=== PATIENT | female | born 1960 | race Caucasian/White ===

== ENCOUNTER 2018-09-08 16:11 | Outpatient (REF) | payer MEDICAID, SELFPAY ==
[2018-09-08 20:31] LABS: HCT 36.2 % (36.0-46.0); HGB 12.6 g/dL (12.0-15.5)
[2018-09-08 20:55] LABS: Anion Gap 8.2 mmol/L (3-11); BUN 4 mg/dL (7-18); CO2 28.8 mmol/L (21.0-32.0); CREATININE 1.06 mg/dL (0.55-1.02); Calcium 8.9 mg/dL (8.5-10.1); Chloride 97 mmol/L (98-107); Estimated GFR 53.24 (mL/min/1.73m2); Glucose 92 mg/dL (70-100); Potassium 4.4 mmol/L (3.5-5.1); Sodium 134 mmol/L (136-145)
== END 2018-09-08 16:31 ==
LOC: NCHCN 16:11
PROVIDERS: PCP Family Medicine; Visit Provider Family Medicine
DX: N28.9 Disorder of kidney and ureter, unspecified (principal); D64.9 Anemia, unspecified; E03.9 Hypothyroidism, unspecified
CPT/HCPCS: 80048; 84443; 85014; 85018

== ENCOUNTER 2019-01-26 13:01 | Outpatient (REF) | payer MEDICAID, SELFPAY ==
[2019-01-26 22:06] LABS: ALT 23 U/L (12-78); AST 23 U/L (15-37); Albumin 3.8 g/dL (3.4-5.0); Alkaline Phosphatase 137 U/L (46-116); Anion Gap 12.3 mmol/L (3-11); BUN 19 mg/dL (7-18); Bilirubin, Total 0.3 mg/dL (0.2-1.0); CO2 22.7 mmol/L (21.0-32.0); Calcium 9.4 mg/dL (8.5-10.1); Chloride 95 mmol/L (98-107); Estimated GFR 27.15 (mL/min/1.73m2); Ferritin 836 ng/mL (8-388); GGT 190 U/L (5-55); Glucose 85 mg/dL (70-100); HCT 26.9 % (36.0-46.0); HGB 9.2 g/dL (12.0-15.5); Mean Corp. HGB Concentration 34.2 g/dL (32.0-36.0); Mean Corpuscular Hemoglobin 33.1 pg (27.0-33.0); Mean Corpuscular Volume 96.8 fL (80-95); Mean Platelet Volume 10.5 fL (8.0-11.0); Platelet Count 233 x1000/uL (130-400); Potassium 4.2 mmol/L (3.5-5.1); RBC 2.78 m/cumm (4.00-5.20); RBC Distribution Width 11.3 % (11.7-14.6); Sodium 130 mmol/L (136-145); TSH (W/Ref FT4) 1.37 uIU/mL (0.358-3.74); White Blood Cell Count 5.48 k/cumm (4.4-10.8)
[2019-01-27 10:19] LABS: C-Reactive Protein 1.56 mg/dL (0.0-0.3)
== END 2019-01-26 13:21 ==
LOC: NCHCN 13:01
PROVIDERS: PCP Family Medicine; Visit Provider Family Medicine
DX: D64.9 Anemia, unspecified (principal); M54.2 Cervicalgia; R68.89 Other general symptoms and signs; E03.9 Hypothyroidism, unspecified; I10 Essential (primary) hypertension; C06.9 Malignant neoplasm of mouth, unspecified
CPT/HCPCS: 80053; 85027; 82728; 82977; 84443; 86140

== ENCOUNTER 2019-03-01 00:25 | Outpatient (CLI) | payer MEDICAID, SELFPAY ==
--- NOTE | 2019-03-01 11:43 | DI.CT_ITS ---
SYMPTOMS/DIAGNOSIS: NECK PAIN, M54.2, LUNG CA, C34.90, RIGHT SUPRACLAVICULAR SWELLING, ? LYMPHADENOPATHY, H/O OROPHARYNGEAL AND LUNG CA, ANEMIA, RI CT SCAN OF THE NECK, CHEST AND ABDOMEN: Noncontrast examination was performed. CT SCAN OF THE ABDOMEN: The lack of IV contrast does limit evaluation of the abdominal organs. The liver is normal in size and grossly unremarkable. The gallbladder is negative. No biliary ductal dilatation is present. The unenhanced pancreas, spleen and adrenal glands are unremarkable. There is no nephrolithiasis or obstruction of the kidneys. The right renal cyst is again noted and unchanged compared to the CT scan of the abdomen and pelvis from 06/15/17. The urinary bladder is intact. Reproductive organs are unremarkable. The abdominal aorta is of normal caliber. Note is made of a circumaortic left renal vein. No significant abdominal or pelvic adenopathy, ascites or pneumoperitoneum is present. The bowel is unremarkable. There is a normal appendix present. No aggressive osseous lesions are identified. IMPRESSION: No evidence of abdominal or pelvic metastatic disease. CT SCAN OF THE CHEST: The thoracic aorta shows atherosclerosis. The heart size is within normal limits. No significant pericardial effusion is seen. Coronary artery calcifications are present. No thoracic adenopathy is seen on this noncontrast examination. There is no pleural effusion or pneumothorax. There is scarring or atelectasis seen in the right middle lobe. There are postsurgical changes seen in the left lung posteriorly. No focal consolidating infiltrates are seen. No pulmonary nodules are appreciated. The tracheobronchial tree is unremarkable. Degenerative changes are seen in the spine. An old healed sternal fracture is noted. IMPRESSION: No evidence of thoracic metastatic disease. CT SCAN OF THE NECK: Postsurgical changes are seen in the right neck. The parotid gland appears grossly unremarkable. The right submandibular gland appears surgically absent. The left submandibular gland is unremarkable. No significant cervical adenopathy is present apart from the postsurgical changes in the neck. The visualized portions of the nasopharynx, oropharynx, hypopharynx and larynx are unremarkable. Degenerative changes are seen in the cervical spine. No aggressive osseous lesions are seen to suggest osseous metastatic disease. The visualized paranasal sinuses are clear. IMPRESSION: 1. Postsurgical changes are seen in the right neck. 2. No definite evidence of recurrent or residual mass. No evidence of cervical adenopathy. If there are prior studies for comparison, they should be submitted and an Addendum will be issued upon receipt.
[2019-03-01] MEDS: Omnipaque 350 MG/ML 50 ML BTL PO (11:54)
== END 2019-03-01 00:45 ==
PROVIDERS: PCP Family Medicine; Visit Provider Family Medicine
DX: M54.2 Cervicalgia (principal); C34.90 Malignant neoplasm of unspecified part of unspecified bronchus or lung; R59.0 Localized enlarged lymph nodes; D64.9 Anemia, unspecified
CPT/HCPCS: 71250; 74150; G0297; 70490; Q9967

== ENCOUNTER 2019-03-06 12:20 | Outpatient (CLI) | payer MEDICAID, SELFPAY ==
[2019-03-06 12:58] LABS: HCT 30.8 % (36.0-46.0); Mean Corp. HGB Concentration 35.7 g/dL (32.0-36.0); Mean Corpuscular Hemoglobin 34.9 pg (27.0-33.0); Mean Corpuscular Volume 97.8 fL (80-95); Mean Platelet Volume 9.6 fL (8.0-11.0); Platelet Count 187 x1000/uL (130-400); RBC 3.15 m/cumm (4.00-5.20); RBC Distribution Width 12.3 % (11.7-14.6); White Blood Cell Count 4.18 k/cumm (4.4-10.8)
[2019-03-06 13:39] LABS: ALT 24 U/L (12-78); AST 24 U/L (15-37); Albumin 3.6 g/dL (3.4-5.0); Alkaline Phosphatase 131 U/L (46-116); Anion Gap 10.4 mmol/L (3-11); BUN 7 mg/dL (7-18); Bilirubin, Total 0.3 mg/dL (0.2-1.0); CO2 26.6 mmol/L (21.0-32.0); CREATININE 1.48 mg/dL (0.55-1.02); Calcium 9.2 mg/dL (8.5-10.1); Chloride 94 mmol/L (98-107); Cholesterol 161 mg/dL (50-200); Estimated GFR 36.22 (mL/min/1.73m2); GGT 180 U/L (5-55); Glucose 97 mg/dL (70-100); HDL Cholesterol 23 mg/dL (40-60); LDL CHOLESTEROL 59 mg/dL (<100); Potassium 4.4 mmol/L (3.5-5.1); Sodium 131 mmol/L (136-145); Total Protein 6.9 g/dL (6.4-8.2); Triglyceride 549 mg/dL (30-150)
[2019-03-09 14:30] LABS: Ferritin 437 ng/mL (8-388)
== END 2019-03-06 12:40 ==
PROVIDERS: PCP Family Medicine; Visit Provider Family Medicine
DX: N28.9 Disorder of kidney and ureter, unspecified (principal); R74.8 Abnormal levels of other serum enzymes; I10 Essential (primary) hypertension; C02.9 Malignant neoplasm of tongue, unspecified; C34.11 Malignant neoplasm of upper lobe, right bronchus or lung
CPT/HCPCS: 36415; 80053; 80061; 83721; 85027; 82728; 82977

== ENCOUNTER 2019-06-09 15:39 | Outpatient (REF) | payer MEDICAID, SELFPAY ==
[2019-06-09 19:44] LABS: Abs Immature Grans 0.02 k/cumm (0.0-0.09); Absolute Basophil Count 0.04 k/cumm (0.0-0.2); Absolute Eosinophil Count 0.14 k/cumm (0.0-0.7); Absolute Lymphocyte Count 0.85 k/cumm (1.2-3.4); Absolute Monocyte Count 0.48 k/cumm (0.11-0.7); Absolute Neutrophil Count 4.35 k/cumm (1.2-6.7); Basophils % 0.7; Eosinophils % 2.4; Immature Grans % 0.3; Lymphocytes % 14.5; Mean Corp. HGB Concentration 35.3 g/dL (32.0-36.0); Mean Corpuscular Hemoglobin 34.3 pg (27.0-33.0); Mean Corpuscular Volume 97.1 fL (80-95); Mean Platelet Volume 10.8 fL (8.0-11.0); Monocytes % 8.2; Neutrophils % 73.9; Platelet Count 196 x1000/uL (130-400); RBC Distribution Width 12.4 % (11.7-14.6); White Blood Cell Count 5.88 k/cumm (4.4-10.8)
[2019-06-09 20:49] LABS: ALT 28 U/L (12-78); AST 37 U/L (15-37); Alkaline Phosphatase 158 U/L (46-116); Anion Gap 12.9 mmol/L (3-11); BUN 9 mg/dL (7-18); Bilirubin, Total 0.3 mg/dL (0.2-1.0); CO2 24.1 mmol/L (21.0-32.0); CREATININE 1.36 mg/dL (0.55-1.02); Calcium 9.6 mg/dL (8.5-10.1); Chloride 94 mmol/L (98-107); Estimated GFR 39.94 (mL/min/1.73m2); Ferritin 530 ng/mL (8-388); Glucose 91 mg/dL (70-100); Potassium 4.5 mmol/L (3.5-5.1); Sodium 131 mmol/L (136-145); Total Protein 7.5 g/dL (6.4-8.2)
== END 2019-06-09 15:59 ==
LOC: NCHCN 15:39
PROVIDERS: PCP Family Medicine; Visit Provider Family Medicine
DX: D64.9 Anemia, unspecified (principal); R77.8 Other specified abnormalities of plasma proteins; N28.9 Disorder of kidney and ureter, unspecified; K21.9 Gastro-esophageal reflux disease without esophagitis
CPT/HCPCS: 80053; 82728; 85025

== ENCOUNTER 2019-10-24 14:51 | Outpatient (REF) | payer MEDICAID, SELFPAY ==
[2019-10-24 21:22] LABS: HCT 31.1 % (36.0-46.0); HGB 10.5 g/dL (12.0-15.5); Mean Corp. HGB Concentration 33.8 g/dL (32.0-36.0); Mean Corpuscular Hemoglobin 33.5 pg (27.0-33.0); Mean Corpuscular Volume 99.4 fL (80-95); Mean Platelet Volume 9.3 fL (8.0-11.0); Platelet Count 301 x1000/uL (130-400); RBC 3.13 m/cumm (4.00-5.20); RBC Distribution Width 12.5 % (11.7-14.6); White Blood Cell Count 4.26 k/cumm (4.4-10.8)
[2019-10-24 21:39] LABS: ALT 20 U/L (14-59); AST 28 U/L (15-37); Albumin 3.5 g/dL (3.4-5.0); Alkaline Phosphatase 131 U/L (46-116); Anion Gap 9.8 mmol/L (3-11); BUN 14 mg/dL (7-18); Bilirubin, Total 0.2 mg/dL (0.2-1.0); CO2 27.2 mmol/L (21.0-32.0); CREATININE 1.59 mg/dL (0.55-1.02); Calcium 9.4 mg/dL (8.5-10.1); Chloride 94 mmol/L (98-107); Estimated GFR 33.23 (mL/min/1.73m2); Glucose 97 mg/dL (74-106); Potassium 4.8 mmol/L (3.5-5.1); Sodium 131 mmol/L (136-145); TSH (W/Ref FT4) 6.01 uIU/mL (0.36-3.74); Total Protein 7.2 g/dL (6.4-8.2)
[2019-10-24 21:57] LABS: FREE T4 0.79 ng/dL (0.76-1.46)
== END 2019-10-24 15:11 ==
LOC: NCHCN 14:51
PROVIDERS: PCP Family Medicine; Visit Provider Family Medicine
DX: I10 Essential (primary) hypertension (principal); E03.9 Hypothyroidism, unspecified; D64.9 Anemia, unspecified; R74.8 Abnormal levels of other serum enzymes; N28.9 Disorder of kidney and ureter, unspecified
CPT/HCPCS: 80053; 85027; 84439; 84443

== ENCOUNTER 2020-01-04 02:00 | Outpatient (CLI) | payer MEDICAID, SELFPAY ==
--- NOTE | 2020-01-04 | DI.DEXA_ITS ---
EXAM: XR DEXA BONE DENSITY W/WO DAWOOD INDICATION: OSTEOPOROSIS, M81.0, PREVENTIVE HEALTH CARE, Z00.00. COMPARISON: 2013 TECHNIQUE: 2D digital imaging was performed. FINDINGS: No compression deformities are seen on the lateral view. Evaluation of the left hip shows a total T-score of -2.9 and Z-score of -2.0. This is consistent wit h osteoporosis and a high fracture risk. This compares with a total T-score of -2.9 from 2013. Evaluation of the lumbar spine shows a total T-score of -2.9 and a Z-score of -1.5. This is also con sistent with osteoporosis and a high fracture risk. This is unchanged compared to the examination fr om 2013. IMPRESSION: Osteoporosis in the left hip and lumbar spine.
--- NOTE | 2020-01-04 | DI.MAMMO_ITS ---
EXAM: MG MAMMO SCREENING CLINICAL HISTORY: SCREENING, Z00.00, [facility]. TECHNIQUE: Bilateral full field digital CC and MLO mammographic images were obtained with 3D tomosyn thesis and utilizing computer aided detection (CAD). COMPARISON: Available for comparison. FINDINGS: Masses/Architectural Distortion: None seen. Microcalcifications: No suspicious pleomorphic-type are seen. Skin Thickening/Nipple Retraction: None. IMPRESSION: 1. No significant interval change with no specific features of malignancy noted. 2. Unless there is more urgent need, screening mammography is recommended, as per [employer] guidelines. ACR BI-RAD Category- 1 Negative Breast Density - Category A - Almost entirely fatty A negative radiographic report should not delay biopsy if a dominant or clinically suspicious mass is present. Up to ten percent of cancers are not identified on mammography. A negative report may reinforce clinical impression. Adenosis and dense breasts may obscure an underlying neoplasm. False positive reports average 6 to 10%. Patient will receive a letter notifying them of these results.
[2020-01-04 13:58] LABS: HCT 37.5 % (36.0-46.0); HGB 12.6 g/dL (12.0-15.5); Mean Corp. HGB Concentration 33.6 g/dL (32.0-36.0); Mean Corpuscular Volume 98.2 fL (80-95); Mean Platelet Volume 10.3 fL (8.0-11.0); Platelet Count 191 x1000/uL (130-400); RBC 3.82 m/cumm (4.00-5.20)
[2020-01-04 14:58] LABS: BUN 15 mg/dL (7-18); CREATININE 2.17 mg/dL (0.55-1.02); Calcium 9.8 mg/dL (8.5-10.1); Chloride 98 mmol/L (98-107); Estimated GFR 23.21 (mL/min/1.73m2); Glucose 104 mg/dL (74-106); Potassium 4.1 mmol/L (3.5-5.1); Sodium 137 mmol/L (136-145); TSH 1.39 uIU/mL (0.36-3.74)
[2020-01-04 14:59] LABS: Folate > 20.0 ng/mL (8.6-20.0); Vitamin B12 > 2000 pg/mL (193-986)
[2020-01-04 15:16] LABS: FREE T4 1.19 ng/dL (0.76-1.46)
== END 2020-01-04 02:20 ==
PROVIDERS: PCP Family Medicine; Visit Provider Family Medicine
DX: Z12.31 Encounter for screening mammogram for malignant neoplasm of breast (principal); M81.0 Age-related osteoporosis without current pathological fracture; D64.9 Anemia, unspecified; N28.9 Disorder of kidney and ureter, unspecified; E03.9 Hypothyroidism, unspecified; I10 Essential (primary) hypertension; R77.8 Other specified abnormalities of plasma proteins
CPT/HCPCS: 36415; 77063; 77067; 77080; 80048; 85027; 82607; 82746; 84439; 84443

== ENCOUNTER 2020-01-09 11:54 | Outpatient (REF) | payer MEDICAID, SELFPAY ==
[2020-01-09 20:38] LABS: Anion Gap 9.7 mmol/L (3-11); BUN 21 mg/dL (7-18); CO2 27.3 mmol/L (21.0-32.0); CREATININE 2.84 mg/dL (0.55-1.02); Calcium 9.4 mg/dL (8.5-10.1); Chloride 100 mmol/L (98-107); Estimated GFR 17.02 (mL/min/1.73m2); Glucose 95 mg/dL (74-106); Potassium 4.9 mmol/L (3.5-5.1); Sodium 137 mmol/L (136-145)
== END 2020-01-09 12:14 ==
LOC: NCHCN 11:54
PROVIDERS: PCP Family Medicine; Visit Provider Family Medicine
DX: R13.10 Dysphagia, unspecified (principal); N28.9 Disorder of kidney and ureter, unspecified
CPT/HCPCS: 80048

== ENCOUNTER 2020-01-24 12:24 | Outpatient (CLI) | payer MEDICAID, SELFPAY ==
[2020-01-24 12:51] LABS: Bilirubin Negative (Negative); Blood Negative (Negative); Clarity Clear (Clear); Glucose Negative (Negative); Ketones Negative (Negative); Leukocyte Esterase Negative (Negative); Nitrite Negative (Negative); Specific Gravity >= 1.030 (1.005-1.025); Urobilinogen 0.2 EU/dL (Up TO 0.2)
[2020-01-24 13:02] LABS: Bacteria Moderate HPF (Negative); C & S Indicated? No/Sq. Contamination; Casts Negative LPF (Negative); Crystals Negative HPF (Negative); Epithelial Cells Many HPF (Negative); Mucus Negative (Negative); Other Cells Few Renal (Negative); RBC 0-2 HPF (0-2)
[2020-01-24 13:55] LABS: Anion Gap 7.3 mmol/L (3-11); BUN 35 mg/dL (7-18); CO2 28.7 mmol/L (21.0-32.0); CREATININE 3.46 mg/dL (0.55-1.02); Calcium 9.6 mg/dL (8.5-10.1); Chloride 104 mmol/L (98-107); Estimated GFR 13.55 (mL/min/1.73m2); Glucose 104 mg/dL (74-106); Magnesium 2.6 mg/dL (1.8-2.4); Potassium 4.5 mmol/L (3.5-5.1); Sodium 140 mmol/L (136-145)
[2020-01-26 16:02] LABS: C-Reactive Protein 0.32 mg/dL (0.0-0.3)
== END 2020-01-24 12:44 ==
PROVIDERS: PCP Family Medicine; Visit Provider Family Medicine
DX: N28.9 Disorder of kidney and ureter, unspecified (principal)
CPT/HCPCS: 36415; 80048; 81003; 81015; 83735; 84100; 86140

== ENCOUNTER 2020-01-26 10:40 | Outpatient (CLI) | payer MEDICAID, SELFPAY ==
--- NOTE | 2020-01-26 | DI.US_ITS ---
EXAM: US RENAL CLINICAL HISTORY: RENAL INSUFFICIENCY N28.9 TECHNIQUE: Ultrasound performed using standard protocol. COMPARISON: ABD PELVIS WITH CONTRAST from 06/15/2017 CT neck chest abd pel wo from 03/01/2019 FINDINGS: The right kidney measures 8.3 cm in length. The left kidney measures 8.8 cm in length. The renal e chogenicity appears normal. There is a 1.3 centimeters cyst in the mid right kidney. There is no ev idence of hydronephrosis. No stones are visible. There are no perinephric collections. The prevoid bladder volume measured 15 cc. There is no postvoid residual. No gross bladder abnormalities seen. The ureteral jets were not visualized. IMPRESSION: Renal ultrasound is within normal limits. No evidence of hydronephrosis. DATA REPOSITORY:
== END 2020-01-26 11:00 ==
PROVIDERS: PCP Family Medicine; Visit Provider Family Medicine
DX: N28.9 Disorder of kidney and ureter, unspecified (principal); N28.1 Cyst of kidney, acquired
CPT/HCPCS: 76770

== ENCOUNTER 2020-02-01 14:29 | Outpatient (CLI) | payer MEDICAID, SELFPAY ==
[2020-02-01 15:59] LABS: Anion Gap 8.1 mmol/L (3-11); BUN 34 mg/dL (7-18); CO2 29.9 mmol/L (21.0-32.0); CREATININE 3.49 mg/dL (0.55-1.02); Calcium 9.5 mg/dL (8.5-10.1); Chloride 102 mmol/L (98-107); Estimated GFR 13.41 (mL/min/1.73m2); Glucose 93 mg/dL (74-106); Sodium 140 mmol/L (136-145)
== END 2020-02-01 14:49 ==
PROVIDERS: PCP Family Medicine; Visit Provider Internal Medicine Nephrology
DX: N17.9 Acute kidney failure, unspecified (principal)
CPT/HCPCS: 36415; 80048

== ENCOUNTER 2020-02-16 09:43 | Outpatient (REF) | payer MEDICAID, SELFPAY ==
[2020-02-16 21:07] LABS: Anion Gap 8.7 mmol/L (3-11); BUN 38 mg/dL (7-18); CO2 30.3 mmol/L (21.0-32.0); CREATININE 3.17 mg/dL (0.55-1.02); Calcium 9.7 mg/dL (8.5-10.1); Chloride 100 mmol/L (98-107); Estimated GFR 14.99 (mL/min/1.73m2); Glucose 102 mg/dL (74-106); Magnesium 2.7 mg/dL (1.8-2.4); PHOSPHORUS 4.8 mg/dL (2.6-4.7); Potassium 4.1 mmol/L (3.5-5.1); Sodium 139 mmol/L (136-145)
[2020-02-16 21:50] LABS: HCT 37.3 % (36.0-46.0); HGB 12.6 g/dL (12.0-15.5); Mean Corp. HGB Concentration 33.8 g/dL (32.0-36.0); Mean Corpuscular Hemoglobin 33.1 pg (27.0-33.0); Mean Corpuscular Volume 97.9 fL (80-95); Mean Platelet Volume 12.6 fL (8.0-11.0); Platelet Count 169 x1000/uL (130-400); RBC 3.81 m/cumm (4.00-5.20); RBC Distribution Width 12.3 % (11.7-14.6); White Blood Cell Count 5.63 k/cumm (4.4-10.8)
== END 2020-02-16 10:03 ==
LOC: NCHCN 09:43
PROVIDERS: PCP Family Medicine; Visit Provider Family Medicine
DX: N28.9 Disorder of kidney and ureter, unspecified (principal); D64.9 Anemia, unspecified
CPT/HCPCS: 80048; 85027; 83735; 84100

== ENCOUNTER 2020-04-24 11:09 | Outpatient (REF) | payer MEDICAID, SELFPAY ==
--- NOTE | 2020-04-23 09:30 | PAPFT_PTH ---
PATIENT: Melinda Capps [facility] U#:[id number] AGE/SX: 59/F ROOM: RE04/24/[address]: Lashay Lombardo V : 1960 BED: DIS: 04/24/2020 SPEC #: [id number] RECD: 04/24/20 12:54 STATUS: RAINE RERachel #: [id number] DORIAN: 04/23/20 09:[address]: Lashay Lombardo V DEPT: [facility] Cytology RECD BY: Roxanne Fisher Tissues: 1 - CX/ENDOCX FOR PAP SMEARS Procedures: PAP THIN PREP/UVM Screening HPV DNA PROBE Comments: [id number]
== END 2020-04-24 11:29 ==
LOC: NCHCN 11:09
PROVIDERS: PCP Family Medicine; Visit Provider Family Medicine
DX: Z12.4 Encounter for screening for malignant neoplasm of cervix (principal); Z11.51 Encounter for screening for human papillomavirus (HPV); Z01.419 Encounter for gynecological examination (general) (routine) without abnormal findings
CPT/HCPCS: 88142; 87624

== ENCOUNTER 2020-05-01 09:36 | Outpatient (RCR) | payer MEDICAID, SELFPAY ==
[2020-05-01] MEDS: Normal Saline 1,000 ML 500 ML IV ×2 (11:35→13:33)
[2020-05-01] MEDS: Normal Saline Flush 10 ML SYR IVP (11:49)
== END 2020-05-21 23:59 | disposition home or self-care (01) ==
LOC: INF 09:36
PROVIDERS: PCP Family Medicine; Visit Provider Internal Medicine
DX: N28.9 Disorder of kidney and ureter, unspecified (principal); R13.10 Dysphagia, unspecified; E86.0 Dehydration
CPT/HCPCS: 96360; 96361

== ENCOUNTER 2020-05-08 12:56 | Outpatient (REF) | payer MEDICAID, SELFPAY ==
[2020-05-08 19:23] LABS: HCT 32.4 % (36.0-46.0); HGB 10.9 g/dL (12.0-15.5); Mean Corp. HGB Concentration 33.6 g/dL (32.0-36.0); Mean Corpuscular Hemoglobin 33.7 pg (27.0-33.0); Mean Corpuscular Volume 100.3 fL (80-95); Mean Platelet Volume 13.2 fL (8.0-11.0); Platelet Count 132 x1000/uL (130-400); RBC 3.23 m/cumm (4.00-5.20); RBC Distribution Width 14.1 % (11.7-14.6); White Blood Cell Count 4.34 k/cumm (4.4-10.8)
[2020-05-08 19:27] LABS: Anion Gap 11.6 mmol/L (3-11); BUN 41 mg/dL (7-18); CO2 23.4 mmol/L (21.0-32.0); CREATININE 3.35 mg/dL (0.55-1.02); Calcium 9.6 mg/dL (8.5-10.1); Chloride 104 mmol/L (98-107); Estimated GFR 14.06 (mL/min/1.73m2); Glucose 89 mg/dL (74-106); Potassium 4.2 mmol/L (3.5-5.1); Sodium 139 mmol/L (136-145)
== END 2020-05-08 13:16 ==
LOC: NCHCN 12:56
PROVIDERS: PCP Family Medicine; Visit Provider Family Medicine
DX: D64.9 Anemia, unspecified (principal); C34.11 Malignant neoplasm of upper lobe, right bronchus or lung
CPT/HCPCS: 80048; 85027

== ENCOUNTER 2020-06-18 14:18 | Outpatient (REF) | payer MEDICAID, SELFPAY ==
[2020-06-18 19:31] LABS: HCT 24.7 % (36.0-46.0); HGB 8.1 g/dL (11.2-15.7); MCH 34.3 pg (27.0-33.0); MCHC 32.8 % (32.0-36.0); MCV 104.7 fL (80-95); MPV 12.2 fL (8.0-11.0); Platelet Count 256 10^3/uL (130-400); RBC 2.36 10^6/uL (3.93-5.22); RDW 15.4 % (11.7-14.6); RDW-SD 58.1 fL; WBC 6.25 10^3/uL (4.4-10.8)
[2020-06-18 20:03] LABS: ALT 33 U/L (14-59); AST 34 U/L (15-37); Albumin 3.4 g/dL (3.4-5.0); Alkaline Phosphatase 80 U/L (46-116); Anion Gap 12.1 mmol/L (3-11); Bilirubin, Total 0.2 mg/dL (0.2-1.0); CO2 20.9 mmol/L (21.0-32.0); CREATININE 2.98 mg/dL (0.55-1.02); Chloride 102 mmol/L (98-107); Glucose 104 mg/dL (74-106); Magnesium 2.7 mg/dL (1.8-2.4); Sodium 135 mmol/L (136-145); TSH (W/Ref FT4) 0.32 uIU/mL (0.36-3.74); Total Protein 6.8 g/dL (6.4-8.2)
[2020-06-18 20:39] LABS: Potassium 6.3 mmol/L (3.5-5.1)
[2020-06-18 20:40] LABS: BUN 118 mg/dL (7-18)
[2020-06-18 21:01] LABS: FREE T4 0.86 ng/dL (0.76-1.46)
== END 2020-06-18 14:38 ==
LOC: NCHCN 14:18
PROVIDERS: PCP Family Medicine; Visit Provider Family Medicine
DX: I42.9 Cardiomyopathy, unspecified (principal); C14.0 Malignant neoplasm of pharynx, unspecified; R13.10 Dysphagia, unspecified; Z79.01 Long term (current) use of anticoagulants
CPT/HCPCS: 80053; 85027; 83735; 84439; 84443

== ENCOUNTER 2020-06-19 12:11 | Emergency (ER) | payer MEDICAID, SELFPAY ==
[2020-06-19] VITALS (28 sets, daily range): BP systolic 92–121; BP diastolic 45–70; PULSE 84–99; RESP 15–20; TEMP 36.7; O2SAT 97–100
--- NOTE | 2020-06-19 12:15 | RT.EKG_ITS ---
APPROVED REPORT Exam: Resting ECG Patient Location: E HR:91 bpm ECG Measurements Heart Rate 91 AXIS NE 163 P 80 QRSd 70 QRS 74 QT 359 T 181 QTc 443 <Conclusion> Sinus rhythm...normal P axis, V-rate 60- 99 Abnrm T, probable ischemia, anterolateral lds...T <-0.50mV, I aVL V2-V6 EKG shows sinus rhythm at 91, normal axis, anterolateral T wave inversion, QRS 70, no prior available for comparison, no STEMI
--- NOTE | 2020-06-19 12:51 | W.ED.GENAD ---
Discharge Plan Disposition Patient Disposition: HOME Condition: Stable Discharge Details Chief Complaint: GenMedical Clinical Impression: Hyperkalemia, Anemia, Creatinine elevation Primary Care Provider: Lashay Lombardo V ED Provider: Justine Jalloh Home Meds and New Rx's Prescriptions: Discontinued lisinopril 5 mg tablet 5 mg PO DAILY AM RF: 0 No Action betamethasone, augmented 50 GM cream 50 gm Topical BID Qty: 1 RF: 0 folic acid 1 MG tablet 1 tab PO DAILY RF: 0 bupropion HCl [Wellbutrin] 100 MG tablet 2 tab PO DAILY RF: 0 mirtazapine 15 MG tablet 3 tab PO HS RF: 0 gabapentin 100 mg capsule 100 mg PO TID PRNRF: 0 metoprolol succinate 25 mg tablet extended release 24 hr 25 mg PO DAILY AM RF: 0 Xarelto 15 mg tablet 15 mg PO BID RF: 0 levothyroxine 112 mcg tablet 112 mcg PO DAILY RF: 0 biotin 1,000 mcg Tablet,Chewable 1,000 mcg PO TID PRNRF: 0 Discharge Instructions Instructions: Chronic Kidney Disease (ED), Hyperkalemia (ED), Anemia (ED) Additional Instructions: Please stop taking your lisinopril and do not take it again until you have discussed this with Dr. Lombardo. Please take the second dose of Lokelma that was provided to you in the emergency department tomorrow morning as we discussed. It is extremely important that you have your labs retested tomorrow as we discussed. You have an appointment with Dr. Lombardo scheduled for 8:30 AM tomorrow. If you cannot attend this appointment, you will need to call and reschedule. It is extremely important that you are seen by Dr. Lombardo within the next 24 hours for recheck. Please return immediately to the emergency department if you develop any new or worsening symptoms, if your condition does not improve as expected, or if you become otherwise concerned. Referrals: Lashay Lombardo MD [Primary Care Provider] - Discharge Data Discharge Date/Time-TO BE ENTERED AT DEPARTURE: 06/19/20 16:02 Medical Decision Making Melinda Capps is a 59-year-old woman with a history of tongue cancer in the past, newly diagnosed second occurrence of tongue cancer presenting to emergency department for follow-up on abnormal routine outpatient labs, including creatinine, potassium, hemoglobin. Patient with no acute symptoms, feels in the state of health she has felt to be in over the past few weeks. On exam patient is very thin but acutely nontoxic appearing. Concern for possible dehydration, metabolic/electrolyte derangement, anemia secondary to chronic disease versus GI loss versus other. Exam/history at this time is not consistent with sepsis, acute emergent infectious process. Plan for EKG, screening labs, IV, IV fluid hydration. Will monitor and reassess. EKG shows QRS of 70, diffuse T wave inversions, no prior for comparison. Potassium 6, elevated BUN, TSH decreased, anemia on labs. Cr at baseline. Plan for lokelma. Pt states to me that she feels very well and refuses to be admitted under any circumstance, understands risks of not having outpt f/u within 24 hours including , permanent disability, agrees to outpt f/u within this timeframe, states she will f/u with Dr. Lombardo as outpt. No physician available for discussion at Dr. Lombardo's office, appt scheduled for tomorrow 8:30. I discussed outpt plan of one further dose lokelma, hold lisinopril until outpt discussion with PCP, repeat labs tomorrow with Dr. Villalpando, hospitialist, he agrees with plan, no further recs. I had a lengthy discussion with Pt re: importance of outpt f/u tomorrow as scheduled at 8:30 am and repeat labs tomorrow 1:10. I had a lengthy discussion with Patient regarding return to emergency department precautions, home care, and importance of outpatient follow-up. Pt verbalizes understanding of the plan and is amenable. Patient discharged to home with clear plan for outpatient follow-up. All questions were answered. Disposition decision was made weighing the risks and benefits of hospitalization versus outpatient treatment, the risk for further decompensation, and the patient's wishes. Medical Records Medical records reviewed: Yes I reviewed the patient's medical records. Lab Data Lab results reviewed: Yes I reviewed the patient's lab results. Labs: Laboratory Tests Range/Units 06/19/20 06/19/20 06/19/20 13:00 13:00 13:00 WBC (4.4-10.8) 10^3/uL 6.97 RBC (3.93-5.22) 10^6/uL 2.52 L Hgb (11.2-15.7) g/dL 8.4 L Hct (36.0-46.0) % 26.4 L MCV (80-95) fL 104.8 H MCH (27.0-33.0) pg 33.3 H MCHC (32.0-36.0) % 31.8 L RDW (11.7-14.6) % 15.4 H Plt Count (130-400) 10^3/uL 225 MPV (8.0-11.0) fL 11.1 H Immature Gran % 0.6 Neutrophils % 79.2 Lymphocytes % 7.5 Monocytes % 10.3 Eosinophils % 2.0 Basophils % 0.4 Absolute Neutrophils (1.2-6.7) 10^3/uL 5.52 Absolute Lymphocytes (1.2-3.4) 10^3/uL 0.52 L Absolute Monocytes (0.1-0.8) 10^3/uL 0.72 Absolute Eosinophils (0.0-0.7) 10^3/uL 0.14 Absolute Basophils (0.0-0.2) 10^3/uL 0.03 Sodium (136-145) mmol/L 137 Potassium (3.5-5.1) mmol/L 6.0 H* Chloride (98-107) mmol/L 104 Carbon Dioxide (21.0-32.0) mmol/L 23.1 Anion Gap (3-11) mmol/L 9.9 BUN (7-18) mg/dL 119 H* Creatinine (0.55-1.02) mg/dL 2.51 H Estimated GFR/1.73 m2 (mL/min/1.73m2) 19.62 Glucose (74-106) mg/dL 98 Calcium (8.5-10.1) mg/dL 9.3 Total Bilirubin (0.2-1.0) mg/dL 0.2 AST (15-37) U/L 30 ALT (14-59) U/L 30 Alkaline Phosphatase (46-116) U/L 81 Total Protein (6.4-8.2) g/dL 7.2 Albumin (3.4-5.0) g/dL 3.3 L TSH (0.36-3.74) uIU/mL 0.28 L ECG Data Attestation: I personally reviewed and interpreted this ECG (s) as follows: Interpretation: EKG shows sinus rhythm at 91, normal axis, anterolateral T wave inversion, QRS 70, no prior available for comparison, no STEMI HPI General Mode of arrival: ambulatory. Date/Time Provider Initiated Documentation: 06/19/20 12:13. Limitations to Documentation: no limitations. Information obtained by: patient, RN notes reviewed and old records reviewed. HPI Narrative: Melinda Capps is a 59-year-old woman with a history of tongue cancer in the past previously in remission now diagnosed with second episode tongue cancer this past month presenting to the emergency department for abnormal labs. Patient is seen by oncology at [facility] for new diagnosis of tongue cancer, found in early May when patient reported to her PCP that she was having difficulty swallowing. Patient had G tube placed approximately 3 weeks ago, and states that since G-tube placement she has had mild diarrhea. She reports that otherwise she has felt in her usual state of health. She reports pain in her tongue and denies any other pain. Denies fevers, vomiting, shortness of breath, cough, numbness, weakness, rash. Patient reports that she drinks some fluids by mouth, but takes all meals and medications through G-tube. Patient reports that she had routine labs drawn yesterday, and then was told to come to the emergency department by her PCP. Patient reportedly found to have increased creatinine from baseline along with hyperkalemia at 6.3 and hemoglobin 8.1, record review shows creatinine 2.98 which is approximately patient's baseline. Related Data Home Medications Medication Instructions Recorded Confirmed bupropion HCl [Wellbutrin] 2 tab PO DAILY 12/18/14 06/19/20 folic acid 1 tab PO DAILY 12/18/14 06/19/20 mirtazapine 3 tab PO HS 12/18/14 06/19/20 betamethasone, augmented 50 gm TOPICAL BID #1 tube 04/13/17 biotin 1,000 mcg PO TID PRN 06/19/20 06/19/20 gabapentin 100 mg PO TID PRN 06/19/20 06/19/20 levothyroxine 112 mcg PO DAILY 06/19/20 06/19/20 metoprolol succinate 25 mg PO DAILY AM 06/19/20 06/19/20 rivaroxaban [Xarelto] 15 mg PO BID 07/29/20 07/29/20 Allergies Allergy/AdvReac Type Severity Reaction Status Date / Time fluoxetine [From Prozac] AdvReac Unverified 04/13/17 10:38 General Stated Complaint: GenMedical BARBARA: 3 Review of Systems Narrative: Constitutional: denies fevers Eyes: denies eye pain ENT: denies ear pain, dental pain, sore throat Cardiovascular: denies chest pain, edema Respiratory: denies SOB, cough GI: denies abdominal pain, vomiting, diarrhea : denies flank pain MSK: denies back pain, neck pain, arthralgias, myalgias Skin: denies rash Neuro: denies headaches, numbness, weakness PFSH Medical History Cervical high risk HPV (human papillomavirus) test positive Hx of cancer of lung Hx of tongue cancer Hypothyroidism Surgical History (Updated 04/23/17 @ 15:13 by Bethanie Erickson) Colonoscopy - MAC (04/12/17) Family History Mother Diabetes Essential hypertension Father Prostate cancer Essential hypertension Social History Smoking/Tobacco Use Status: Former Tobacco Use Drug use: Never Do you feel safe at home: Yes Do you feel safe in your relationship?: Yes Exam Narrative Exam Narrative: Constitutional: well and [id number], pleasant, conversing normally HENT: head atraumatic/normocephalic/normal inspection, mucous membranes moist Eyes: conjunctiva normal, sclera normal, pupils 3mm b/l Neck: no stridor, normal ROM, trachea midline Chest: normal inspection Resp: normal work of breathing, LCTAB Cardio: normal rate, normal rhythm, no murmur appreciated GI: abdomen soft, non-tender, non-distended Back: normal inspection, no rash Skin: warm, dry, normal color, no rash Neuro: alert, not altered, grossly non-focal, normal tone Ext: no edema Psych: normal mood, normal affect, normal behavior Course Vital Signs Vital signs: Vital Signs Temperature 36.7 C 06/19/20 12:23 Pulse 99 H 06/19/20 12:23 Respiratory Rate 18 06/19/20 12:23 Blood Pressure 97/45 L 06/19/20 12:23 Pulse Oximetry 99 06/19/20 12:23 Temperature 36.7 C 06/19/20 12:23 Temperature Source Temporal Artery Scan 06/19/20 12:23 Pulse 99 H 06/19/20 12:23 Respiratory Rate 18 06/19/20 12:23 Blood Pressure 97/45 L 06/19/20 12:23 Blood Pressure Position Sitting 06/19/20 12:23 Pulse Oximetry 99 06/19/20 12:23 Oxygen Delivery Method Room Air 06/19/20 12:23 Oxygen Flow Rate 0 06/19/20 12:23 Pain Level 0 06/19/20 12:23
[2020-06-19 13:06] LABS: Abs Immature Grans 0.04 10^3/uL (0.0-0.06); Absolute Basophil Count 0.03 10^3/uL (0.0-0.2); Absolute Eosinophil Count 0.14 10^3/uL (0.0-0.7); Absolute Lymphocyte Count 0.52 10^3/uL (1.2-3.4); Absolute Monocyte Count 0.72 10^3/uL (0.1-0.8); Absolute Neutrophil Count 5.52 10^3/uL (1.2-6.7); Basophils % 0.4; HCT 26.4 % (36.0-46.0); HGB 8.4 g/dL (11.2-15.7); Immature Grans % 0.6; Lymphocytes % 7.5; MCH 33.3 pg (27.0-33.0); MCHC 31.8 % (32.0-36.0); MCV 104.8 fL (80-95); MPV 11.1 fL (8.0-11.0); Monocytes % 10.3; Neutrophils % 79.2; Platelet Count 225 10^3/uL (130-400); RBC 2.52 10^6/uL (3.93-5.22); RDW 15.4 % (11.7-14.6); RDW-SD 58.2 fL; WBC 6.97 10^3/uL (4.4-10.8)
[2020-06-19 13:40] LABS: TSH (W/Ref FT4) 0.28 uIU/mL (0.36-3.74)
[2020-06-19 13:45] LABS: ALT 30 U/L (14-59); AST 30 U/L (15-37); Albumin 3.3 g/dL (3.4-5.0); Alkaline Phosphatase 81 U/L (46-116); Anion Gap 9.9 mmol/L (3-11); Bilirubin, Total 0.2 mg/dL (0.2-1.0); CO2 23.1 mmol/L (21.0-32.0); CREATININE 2.51 mg/dL (0.55-1.02); Calcium 9.3 mg/dL (8.5-10.1); Chloride 104 mmol/L (98-107); Estimated GFR 19.62 (mL/min/1.73m2); Glucose 98 mg/dL (74-106); Sodium 137 mmol/L (136-145); Total Protein 7.2 g/dL (6.4-8.2)
[2020-06-19 13:48] LABS: BUN 119 mg/dL (7-18)
[2020-06-19] MEDS: Sodium Zirconium Cyclosilicate 10 GM PKT PO ×2 (15:32→15:41)
== END 2020-06-19 16:02 | disposition home or self-care (01) ==
PROVIDERS: Emergency Provider Student in an Organized Health Care Education/Training Program; PCP Family Medicine
DX: D64.9 Anemia, unspecified (principal); R94.4 Abnormal results of kidney function studies; C02.9 Malignant neoplasm of tongue, unspecified; Z93.1 Gastrostomy status; R19.7 Diarrhea, unspecified; Z87.891 Personal history of nicotine dependence; E87.5 Hyperkalemia
CPT/HCPCS: 36415; 80053; 93005; 99284; 84443; 85025; 93010

== ENCOUNTER 2020-06-25 01:27 | Outpatient (CLI) | payer MEDICAID, SELFPAY ==
[2020-06-25 12:20] LABS: Anion Gap 9.8 mmol/L (3-11); CO2 25.2 mmol/L (21.0-32.0); CREATININE 2.06 mg/dL (0.55-1.02); Chloride 101 mmol/L (98-107); Estimated GFR 24.65 (mL/min/1.73m2); Glucose 93 mg/dL (74-106); Sodium 136 mmol/L (136-145)
[2020-06-25 12:30] LABS: BUN 90 mg/dL (7-18)
== END 2020-06-25 01:47 ==
PROVIDERS: PCP Family Medicine; Visit Provider Student in an Organized Health Care Education/Training Program
DX: E87.5 Hyperkalemia (principal)
CPT/HCPCS: 36415; 80048

== ENCOUNTER 2020-07-01 15:30 | Outpatient (CLI) | payer MEDICAID, SELFPAY ==
[2020-07-01 16:11] LABS: Abs Immature Grans 0.05 10^3/uL (0.0-0.06); Absolute Basophil Count 0.03 10^3/uL (0.0-0.2); Absolute Eosinophil Count 0.12 10^3/uL (0.0-0.7); Absolute Lymphocyte Count 0.65 10^3/uL (1.2-3.4); Absolute Monocyte Count 0.35 10^3/uL (0.1-0.8); Absolute Neutrophil Count 6.78 10^3/uL (1.2-6.7); Basophils % 0.4; Eosinophils % 1.5; HCT 23.7 % (36.0-46.0); HGB 7.5 g/dL (11.2-15.7); Immature Grans % 0.6; Lymphocytes % 8.1; MCH 33.2 pg (27.0-33.0); MCHC 31.6 % (32.0-36.0); MCV 104.9 fL (80-95); MPV 9.8 fL (8.0-11.0); Monocytes % 4.4; Nucleated RBC 0 %; Platelet Count 309 10^3/uL (130-400); RBC 2.26 10^6/uL (3.93-5.22); RDW 14.6 % (11.7-14.6); RDW-SD 55.5 fL; WBC 7.98 10^3/uL (4.4-10.8)
[2020-07-01 16:49] LABS: Anisocytosis 1+; Diff Comment RBC Morph Reviewed; Hypochromasia 1+; Macrocytosis 1+; Polychromasia Present
[2020-07-01 17:44] LABS: ALT 26 U/L (14-59); AST 13 U/L (15-37); Albumin 2.9 g/dL (3.4-5.0); Alkaline Phosphatase 92 U/L (46-116); Anion Gap 8.2 mmol/L (3-11); Bilirubin, Total 0.2 mg/dL (0.2-1.0); CO2 25.8 mmol/L (21.0-32.0); Chloride 102 mmol/L (98-107); Glucose 105 mg/dL (74-106); Magnesium 2.2 mg/dL (1.8-2.4); Potassium 4.7 mmol/L (3.5-5.1); Sodium 136 mmol/L (136-145); Total Protein 6.3 g/dL (6.4-8.2)
[2020-07-01 19:00] LABS: Folate > 20.0 ng/mL (8.6-20.0); Vitamin B12 > 2000 pg/mL (193-986)
[2020-07-01 19:22] LABS: BUN 80 mg/dL (7-18)
[2020-07-02 17:03] LABS: Erythropoietin 28.4 mIU/mL (2.6 - 18.5)
== END 2020-07-01 15:50 ==
PROVIDERS: PCP Family Medicine; Visit Provider Family Medicine
DX: C13.9 Malignant neoplasm of hypopharynx, unspecified (principal); E87.5 Hyperkalemia; R63.6 Underweight; N28.9 Disorder of kidney and ureter, unspecified; D64.9 Anemia, unspecified; Z93.4 Other artificial openings of gastrointestinal tract status
CPT/HCPCS: 36415; 80053; 82668; 85027; 82607; 82746; 83735; 85025

== ENCOUNTER 2020-07-11 16:56 | Outpatient (REF) | payer MEDICAID, SELFPAY ==
[2020-07-11 19:15] LABS: HCT 23.4 % (36.0-46.0); HGB 7.6 g/dL (11.2-15.7); MCH 34.7 pg (27.0-33.0); MCHC 32.5 % (32.0-36.0); MCV 106.8 fL (80-95); MPV 10.3 fL (8.0-11.0); Platelet Count 416 10^3/uL (130-400); RBC 2.19 10^6/uL (3.93-5.22); RDW 15.9 % (11.7-14.6); RDW-SD 60.6 fL; WBC 7.19 10^3/uL (4.4-10.8)
[2020-07-11 19:36] LABS: ALT 21 U/L (14-59); AST 22 U/L (15-37); Albumin 3.3 g/dL (3.4-5.0); Alkaline Phosphatase 94 U/L (46-116); Anion Gap 9.3 mmol/L (3-11); BUN 36 mg/dL (7-18); Bilirubin, Total 0.2 mg/dL (0.2-1.0); CO2 26.7 mmol/L (21.0-32.0); CREATININE 1.37 mg/dL (0.55-1.02); Calcium 8.7 mg/dL (8.5-10.1); Chloride 97 mmol/L (98-107); Estimated GFR 39.46 (mL/min/1.73m2); FREE T4 0.91 ng/dL (0.76-1.46); Glucose 101 mg/dL (74-106); Magnesium 2.2 mg/dL (1.8-2.4); Potassium 4.5 mmol/L (3.5-5.1); Sodium 133 mmol/L (136-145); Total Protein 6.6 g/dL (6.4-8.2)
== END 2020-07-11 17:16 ==
LOC: NCHCN 16:56
PROVIDERS: PCP Family Medicine; Visit Provider Family Medicine
DX: E87.5 Hyperkalemia (principal); N28.9 Disorder of kidney and ureter, unspecified; R63.6 Underweight; C14.0 Malignant neoplasm of pharynx, unspecified
CPT/HCPCS: 80053; 85027; 83735; 84439

== ENCOUNTER 2020-08-02 04:22 | Outpatient (CLI) | payer MEDICAID, SELFPAY ==
[2020-08-02 09:19] LABS: Abs Immature Grans 0.08 10^3/uL (0.0-0.06); Absolute Basophil Count 0.04 10^3/uL (0.0-0.2); Absolute Eosinophil Count 0.07 10^3/uL (0.0-0.7); Absolute Lymphocyte Count 0.57 10^3/uL (1.2-3.4); Absolute Monocyte Count 0.67 10^3/uL (0.1-0.8); Absolute Neutrophil Count 12.91 10^3/uL (1.2-6.7); Basophils % 0.3; Eosinophils % 0.5; HCT 24.8 % (36.0-46.0); HGB 8.1 g/dL (11.2-15.7); Immature Grans % 0.6; MCH 33.9 pg (27.0-33.0); MCHC 32.7 % (32.0-36.0); MCV 103.8 fL (80-95); Monocytes % 4.7; Neutrophils % 89.9; Nucleated RBC 0 %; Platelet Count 367 10^3/uL (130-400); RBC 2.39 10^6/uL (3.93-5.22); RDW 13.5 % (11.7-14.6); WBC 14.36 10^3/uL (4.4-10.8)
[2020-08-02 09:39] LABS: ALT 25 U/L (14-59); AST 22 U/L (15-37); Albumin 3.2 g/dL (3.4-5.0); Alkaline Phosphatase 82 U/L (46-116); Anion Gap 4.6 mmol/L (3-11); BUN 43 mg/dL (7-18); Bilirubin, Total 0.2 mg/dL (0.2-1.0); CO2 32.4 mmol/L (21.0-32.0); CREATININE 1.23 mg/dL (0.55-1.02); Calcium 8.4 mg/dL (8.5-10.1); Estimated GFR 44.69 (mL/min/1.73m2); Glucose 102 mg/dL (74-106)
[2020-08-02 09:40] LABS: Sodium 125 mmol/L (136-145)
[2020-08-02 09:41] LABS: Chloride 88 mmol/L (98-107)
[2020-08-02] MEDS: Normal Saline Flush 10 ML SYR 20 ML IVP (09:53)
[2020-08-02] MEDS: Gadoterate meglumine 20 ML VIAL 8.5 ML IVP (09:53)
--- NOTE | 2020-08-02 10:30 | DI.MRI_ITS ---
EXAM: MR ORBIT FACIAL NECK WO/W CLINICAL HISTORY: HYPOPHARYNGEAL CA,ASSESS FOR PREVERTEBRAL SPACE INVOLVEMENT TECHNIQUE: Multiplanar multisequence MRI was performed. CONTRAST MATERIAL: IV Contrast: 8.5 mL of Dotarem contrast administered. COMPARISON: CT CT neck chest abd pel wo from 03/01/2019 FINDINGS: The exam is limited by patient motion. The patient was unable to hold still and there was throat catarino aring during the exam. Postsurgical deformity of the right side of the neck is again noted. The parotid glands are unremark able. The thyroid is not seen. There is deformity of the floor of the mouth which appears unchanged . There is a mass measuring 3.5 cm cephalo caudad by 17 by 2.0 cm in transverse and AP dimension lo cated to the left of the esophagus and posterolateral to the trachea. It extends from the C4-5 throu gh C6-7 levels. There are degenerative changes at the C 4 5 and C5-6 discs. There is abnormal high signal in the C5 vertebral body with some post contrast enhancement suspicious for tumor involvement. There is no visible enhancement within the spinal canal. There is a small defect of the upper trac hea consistent with previous tracheotomy. IMPRESSION: Enhancing mass in the prevertebral space from the C4-5 through C6-7 levels with involvement of the C 5 vertebral body. DATA REPOSITORY:
== END 2020-08-02 04:42 ==
PROVIDERS: Internal Medicine Hematology & Oncology; PCP Family Medicine; Visit Provider Otolaryngology
DX: C13.9 Malignant neoplasm of hypopharynx, unspecified (principal); M79.89 Other specified soft tissue disorders; E87.5 Hyperkalemia
CPT/HCPCS: 80053; 70543; 85025

== ENCOUNTER 2020-08-06 11:47 | Outpatient (REF) | payer MEDICAID, SELFPAY ==
[2020-08-06 20:04] LABS: Anion Gap 2.8 mmol/L (3-11); BUN 41 mg/dL (7-18); CO2 33.2 mmol/L (21.0-32.0); CREATININE 1.24 mg/dL (0.55-1.02); Calcium 8.7 mg/dL (8.5-10.1); Chloride 85 mmol/L (98-107); Estimated GFR 44.27 (mL/min/1.73m2); Glucose 89 mg/dL (74-106); Potassium 4.2 mmol/L (3.5-5.1)
[2020-08-06 20:09] LABS: Abs Immature Grans 0.05 10^3/uL (0.0-0.06); Absolute Basophil Count 0.05 10^3/uL (0.0-0.2); Absolute Eosinophil Count 0.14 10^3/uL (0.0-0.7); Absolute Lymphocyte Count 0.63 10^3/uL (1.2-3.4); Absolute Monocyte Count 0.63 10^3/uL (0.1-0.8); Absolute Neutrophil Count 8.09 10^3/uL (1.2-6.7); Basophils % 0.5; Eosinophils % 1.5; HCT 21.9 % (36.0-46.0); HGB 7.5 g/dL (11.2-15.7); Immature Grans % 0.5; Lymphocytes % 6.6; MCH 34.4 pg (27.0-33.0); MCHC 34.2 % (32.0-36.0); MCV 100.5 fL (80-95); MPV 9.9 fL (8.0-11.0); Monocytes % 6.6; Neutrophils % 84.3; Nucleated RBC 0 %; Platelet Count 348 10^3/uL (130-400); RBC 2.18 10^6/uL (3.93-5.22); RDW 13.7 % (11.7-14.6); RDW-SD 50.8 fL; WBC 9.59 10^3/uL (4.4-10.8)
[2020-08-06 20:16] LABS: Sodium 121 mmol/L (136-145)
[2020-08-06 21:24] LABS: Diff Comment RBC Morph Reviewed; Macrocytosis 2+
[2020-08-08 14:24] LABS: COVID-19 RT-PCR Result NEGATIVE (Negative)
== END 2020-08-06 12:07 ==
LOC: NCHCN 11:47
PROVIDERS: PCP Family Medicine; Visit Provider Family Medicine
DX: E87.5 Hyperkalemia (principal); D64.9 Anemia, unspecified; Z11.59 Encounter for screening for other viral diseases
CPT/HCPCS: 80048; U0003; 85025

== ENCOUNTER 2020-08-08 01:04 | Outpatient (CLI) | payer MEDICAID, SELFPAY ==
--- NOTE | 2020-08-08 | DI.CT_ITS ---
EXAM: CT NECK W CLINICAL HISTORY: HEAD/NECK CA, HYPOHARYNGEAL CA,STAGIGN EXAM,? C 5 VERTEBRAL TECHNIQUE: COMPARISON: MR MR ORBIT FACIAL NECK WO/W from 08/02/2020 FINDINGS: CT examination of the cervical region was performed with injection 100 cc of Omnipaque 350. Examinat ion is compared with MR examination August 02. CT shows a rounded prevertebral lesion as noted on MRI which lies at the level extending from just above the true vocal cords to the superior endplat e of C7. This is poorly defined and heterogeneous. Proximal esophagus nonvisualized and could be ob structed, please correlate clinically. No gross bony destruction. No gross cervical adenopathy. No vascular involvement. 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 IMPRESSION: CT findings are compared with MR findings of August 02 and also are suggestive of prevertebral s pace mass, MR examination suggested vertebral body involvement of C5 but there is no CT evidence of b genny invasion or destruction. There are prominent hypertrophic changes the vertebral endplates anteri yuval at the C4-5 C5-6 levels. RADIATION DOSE DELIVERED: 216.34mGy.cm Total DLP
--- NOTE | 2020-08-08 | DI.CT_ITS ---
EXAM: CT HEAD WO CLINICAL HISTORY: HYPOPHARYNGEAL CA,C13.9,STAGING EXAM,HEAD/NECK CA. TECHNIQUE: Imaging Protocol: Axial computed tomography images with coronal and sagittal reformatted images were created and reviewed COMPARISON: No exams were available for comparison FINDINGS: The ventricular system is normal in appearance. No evidence of acute intracranial hemorrhage, mass effect, or midline shift. The orbital structures are unremarkable. The temporal bone structures appear intact. Calvarium: Normal. Visualized Paranasal sinuses/Mastoids: Clear. IMPRESSION: Normal cranial CT. RADIATION DOSE DELIVERED: 622.07mGy.cm Total DLP 622.07mGy.cm Total DLP DATA REPOSITORY: All CT scans at this facility are submitted to the National Radiology Data Registry (NRDR) Dose Index Registry (DIR) with the [employer] (ACR). RADIATION OPTIMIZATION: All CT scans at this facility use at least one of these dose optimization te chniques: automated exposure control; mA and/or kV adjustment per patient size (includes targeted exa ms where dose is matched to clinical indication); or iterative reconstruction.
[2020-08-08] MEDS: Omnipaque 350 MG/ML 100 ML BTL IJ (15:23)
== END 2020-08-08 01:24 ==
PROVIDERS: PCP Family Medicine; Visit Provider Otolaryngology
DX: C76.0 Malignant neoplasm of head, face and neck (principal); C13.9 Malignant neoplasm of hypopharynx, unspecified
CPT/HCPCS: 70491; 70450; J3490

== ENCOUNTER 2020-08-08 09:40 | Outpatient (CLI) | payer MEDICAID, SELFPAY | END 2020-08-08 10:00 | PROVIDERS: PCP Family Medicine; Visit Provider Family Medicine | DX: E87.1 Hypo-osmolality and hyponatremia (principal); D64.9 Anemia, unspecified; C14.0 Malignant neoplasm of pharynx, unspecified | CPT/HCPCS: 36415; 80048; 86850; 86900; 86901; 86920; 85014; 85018 ==

== ENCOUNTER 2020-08-09 04:22 | Outpatient (RCR) | payer MEDICAID, SELFPAY ==
[2020-08-08 15:44] LABS: HCT 20.4 % (36.0-46.0); HGB 6.9 g/dL (11.2-15.7)
[2020-08-08 15:49] LABS: BUN 42 mg/dL (7-18); CREATININE 1.17 mg/dL (0.55-1.02); Calcium 8.6 mg/dL (8.5-10.1); Chloride 83 mmol/L (98-107); Estimated GFR 47.35 (mL/min/1.73m2); Glucose 86 mg/dL (74-106); Potassium 3.5 mmol/L (3.5-5.1)
[2020-08-08 15:54] LABS: Sodium 119 mmol/L (136-145)
[2020-08-09] VITALS (13 sets, daily range): BP systolic 99–163; BP diastolic 66–92; PULSE 76–84; RESP 17–18; TEMP 36.6–37; O2SAT 99–100
[2020-08-09] MEDS: Furosemide 40 MG/4 ML VIAL (15:10)
[2020-08-09] MEDS: Normal Saline Flush 10 ML SYR IVP (15:20)
== END 2020-08-21 23:59 | disposition home or self-care (01) ==
LOC: INF 04:22
PROVIDERS: PCP Family Medicine; Visit Provider Nurse Practitioner Acute Care
DX: C14.0 Malignant neoplasm of pharynx, unspecified (principal); D63.0 Anemia in neoplastic disease
CPT/HCPCS: 36415; 36430; 80048; 86850; 86900; 86901; 86920; 85014; 85018; J1940; P9016

== ENCOUNTER 2020-08-12 08:34 | Outpatient (CLI) | payer MEDICAID, SELFPAY ==
[2020-08-12 10:14] LABS: HCT 26.9 % (36.0-46.0); HGB 8.8 g/dL (11.2-15.7); MCH 33.2 pg (27.0-33.0); MCHC 32.7 % (32.0-36.0); MCV 101.5 fL (80-95); MPV 8.5 fL (8.0-11.0); Platelet Count 274 10^3/uL (130-400); RBC 2.65 10^6/uL (3.93-5.22); RDW 15.5 % (11.7-14.6); RDW-SD 56.7 fL
[2020-08-12 10:26] LABS: Prothrombin Time 9.9 sec (9.3-11.0)
[2020-08-12 10:36] LABS: ALT 19 U/L (14-59); AST 19 U/L (15-37); Albumin 3.4 g/dL (3.4-5.0); Alkaline Phosphatase 89 U/L (46-116); Anion Gap 8.1 mmol/L (3-11); BUN 45 mg/dL (7-18); Bilirubin, Total 0.2 mg/dL (0.2-1.0); CO2 32.9 mmol/L (21.0-32.0); CREATININE 1.35 mg/dL (0.55-1.02); Calcium 9.6 mg/dL (8.5-10.1); Chloride 101 mmol/L (98-107); Glucose 136 mg/dL (74-106); Sodium 142 mmol/L (136-145); Total Protein 7.3 g/dL (6.4-8.2)
[2020-08-12 10:42] LABS: Potassium 2.9 mmol/L (3.5-5.1)
== END 2020-08-12 08:54 ==
PROVIDERS: PCP Family Medicine; Visit Provider Family Medicine
DX: D64.9 Anemia, unspecified (principal); E87.1 Hypo-osmolality and hyponatremia; Z01.818 Encounter for other preprocedural examination
CPT/HCPCS: 36415; 80053; 85027; 85610

== ENCOUNTER 2020-09-13 09:27 | Inpatient (IN) | payer MEDICAID, SELFPAY ==
[2020-09-13] VITALS (59 sets, daily range): BP systolic 115–157; BP diastolic 69–90; PULSE 67–92; RESP 11–21; TEMP 30–37.2; O2SAT 95–100
--- NOTE | 2020-09-13 09:30 | RT.EKG_ITS ---
APPROVED REPORT Exam: Resting ECG Patient Location: E HR:87 bpm ECG Measurements Heart Rate 87 AXIS AL 167 P 83 QRSd 72 QRS 57 QT 459 T 62 QTc 553 Conclusion Sinus rhythm...normal P axis, V-rate 60- 99 Probable left atrial enlargement...P >50mS, <-0.10mV V1 Prolonged QT interval...QTc >510mS
--- NOTE | 2020-09-13 09:41 | W.ED.GENAD ---
Discharge Plan Disposition Patient Disposition: [facility] INPATIENT Condition: Stable Discharge Details Clinical Impression: Adult failure to thrive, Dehydration, Hypocalcemia, Acute on chronic anemia, Hypomagnesemia Admit Date/Time: 09/13/20 11:49 Admit Provider: Shant Villalpando Attending Provider: Shant Villalpando Primary Care Provider: Lashay Lombardo V ED Provider: Leola Carroll Discharge Data Discharge Date/Time-TO BE ENTERED AT DEPARTURE: 09/13/20 13:31 Medical Decision Making 0940 -- 60-year-old female with a history of lung and tongue cancer 1 month status post total laryngectomy and thyroidectomy presents for poor appetite, generalized weakness and not taking her medications for the past few days. Sister concerned that her recent change in condition is due to her shingles vaccine 1 week ago. Her Monica-gaitan Voice prothesis within her stoma was noted to be missing since yesterday per sister. Patient is awake and alert and nonverbal at baseline but will not write on the clipboard to answer questions. She denies any pain. Heart rate mildly elevated, but remainder vitals within normal limits. She appears dehydrated. She is moving all extremities. There is surrounding cellulitis of skin and dried green mucus within her trachea near her stoma site but no liquid secretions, or evidence of abscess. Suspect most likely dehydration in setting of recent shingles vaccine. Labs reviewed and note a hemoglobin of 7.4. Calcium less than 5. Magnesium 1.7. Potassium 3.4. Lactate 1.1. Troponin negative. UA negative. Salicylates and acetaminophen negative. EKG notes a rate of 87, sinus, no acute ST or T wave ischemic changes. CT head and chest x-ray negative. 1130 -- Case discussed with [facility] ENT who had stated that patient's total laryngectomy is an intact airway and we can replace her Monica-Gaitan with her own from home or use a regular 6 Shiley here. Discussed with patient's sister and she will bring her extra Monica-Gaitan devices from home. Discussed with respiratory who will clean the area and help to replace here. Case also discussed with [facility] endocrinology for her hypocalcemia -- she was treated for hypocalcemia while inpatient at [facility] last month managed by endocrinology and thought to be due to primary hyperparathyroidism in setting of surgical destruction status post thyroidectomy. She was being managed with IV calcium gluconate in addition to calcium carbonate and calcitriol. [facility] endocrinology recommends 1 g of IV calcium gluconate over 20 minutes, waiting 30 minutes and then giving an additional 1 g of IV calcium gluconate. They also recommend resuming her calcium carbonate 1 g p.o. twice daily and calcitriol 0.5 mcg p.o. twice daily. 1210 -- Case discussed with hospitalist who accepts patient for admission. Medical Records Medical records reviewed: Yes I reviewed the patient's medical records. Lab Data Lab results reviewed: Yes I reviewed the patient's lab results. Labs: 09/13/20 11:00 Blood Blood Culture - Pending 09/13/20 10:29 Blood Blood Culture - Pending Laboratory Tests Range/Units 09/13/20 09/13/20 09/13/20 10:29 10:29 10:29 WBC (4.4-10.8) 10^3/uL 8.09 RBC (3.93-5.22) 10^6/uL 2.42 L Hgb (11.2-15.7) g/dL 7.4 L Hct (36.0-46.0) % 22.9 L MCV (80-95) fL 94.6 MCH (27.0-33.0) pg 30.6 MCHC (32.0-36.0) % 32.3 RDW (11.7-14.6) % 14.3 Plt Count (130-400) 10^3/uL 411 H MPV (8.0-11.0) fL 9.8 Immature Gran % 0.6 Neutrophils % 80.7 Lymphocytes % 10.5 Monocytes % 5.9 Eosinophils % 1.4 Basophils % 0.9 Nucleated RBC % % 0 Absolute Neutrophils (1.2-6.7) 10^3/uL 6.53 Absolute Lymphocytes (1.2-3.4) 10^3/uL 0.85 L Absolute Monocytes (0.1-0.8) 10^3/uL 0.48 Absolute Eosinophils (0.0-0.7) 10^3/uL 0.11 Absolute Basophils (0.0-0.2) 10^3/uL 0.07 RBC Morphology See below PT (9.3-11.0) sec INR (0.9-1.1) APTT (21.0-31.4) sec VBG Lactate (0.6-1.4) mmol/L Sodium (136-145) mmol/L Potassium (3.5-5.1) mmol/L Chloride (98-107) mmol/L Carbon Dioxide (21.0-32.0) mmol/L Anion Gap (3-11) mmol/L BUN (7-18) mg/dL Creatinine (0.55-1.02) mg/dL Estimated GFR/1.73 m2 (mL/min/1.73m2) Glucose (74-106) mg/dL Calcium (8.5-10.1) mg/dL Magnesium (1.8-2.4) mg/dL Total Bilirubin (0.2-1.0) mg/dL AST (15-37) U/L ALT (14-59) U/L Alkaline Phosphatase (46-116) U/L Troponin I (<0.06) ng/mL NT-Pro-B Natriuret Pep (<300) pg/mL Total Protein (6.4-8.2) g/dL Albumin (3.4-5.0) g/dL Procalcitonin ng/mL Urine Color (Yellow) Urine Clarity (Clear) Urine pH (5-8) Ur Specific [place] (1.005-1.025) Urine Protein (Negative) mg/dL Urine Ketones (Negative) mg/dL Urine Blood (Negative) Urine Nitrite (Negative) Urine Bilirubin (Negative) Urine Urobilinogen (Up TO 0.2) EU/dL Ur Leukocyte Esterase (Negative) Urine RBC Urine WBC Ur Epithelial Cells (Negative) HPF Urine Crystals Urine Bacteria (Negative) HPF Urine Mucus Ur Culture Indicated? Urine Glucose (Negative) mg/dL Salicylates Cancelled Urine Opiates Screen (Negative) Urine Methadone Screen (Negative) Acetaminophen Cancelled Ur Barbiturates Screen (Negative) Ur Tricyclics Screen (Negative) Ur Amphetamines Screen (Negative) U Benzodiazepines Scrn (Negative) Urine Cocaine Screen (Negative) Ur THC Screen (Negative) Ethyl Alcohol (<3) mg/dL < 3.0 Range/Units 09/13/20 09/13/20 09/13/20 11:00 11:00 11:00 WBC (4.4-10.8) 10^3/uL RBC (3.93-5.22) 10^6/uL Hgb (11.2-15.7) g/dL Hct (36.0-46.0) % MCV (80-95) fL MCH (27.0-33.0) pg MCHC (32.0-36.0) % RDW (11.7-14.6) % Plt Count (130-400) 10^3/uL MPV (8.0-11.0) fL Immature Gran % Neutrophils % Lymphocytes % Monocytes % Eosinophils % Basophils % Nucleated RBC % % Absolute Neutrophils (1.2-6.7) 10^3/uL Absolute Lymphocytes (1.2-3.4) 10^3/uL Absolute Monocytes (0.1-0.8) 10^3/uL Absolute Eosinophils (0.0-0.7) 10^3/uL Absolute Basophils (0.0-0.2) 10^3/uL RBC Morphology PT (9.3-11.0) sec INR (0.9-1.1) APTT (21.0-31.4) sec VBG Lactate (0.6-1.4) mmol/L 1.1 Sodium (136-145) mmol/L 136 Potassium (3.5-5.1) mmol/L 3.4 L Chloride (98-107) mmol/L 97 L Carbon Dioxide (21.0-32.0) mmol/L 18.9 L Anion Gap (3-11) mmol/L 20.1 H BUN (7-18) mg/dL 29 H Creatinine (0.55-1.02) mg/dL 1.32 H Estimated GFR/1.73 m2 (mL/min/1.73m2) 41.05 Glucose (74-106) mg/dL 89 Calcium (8.5-10.1) mg/dL < 5.0 L* Magnesium (1.8-2.4) mg/dL 1.7 L Total Bilirubin (0.2-1.0) mg/dL 0.3 AST (15-37) U/L 63 H ALT (14-59) U/L 50 Alkaline Phosphatase (46-116) U/L 220 H Troponin I (<0.06) ng/mL < 0.05 NT-Pro-B Natriuret Pep (<300) pg/mL Total Protein (6.4-8.2) g/dL 8.6 H Albumin (3.4-5.0) g/dL 3.2 L Procalcitonin ng/mL Urine Color (Yellow) Urine Clarity (Clear) Urine pH (5-8) Ur Specific [place] (1.005-1.025) Urine Protein (Negative) mg/dL Urine Ketones (Negative) mg/dL Urine Blood (Negative) Urine Nitrite (Negative) Urine Bilirubin (Negative) Urine Urobilinogen (Up TO 0.2) EU/dL Ur Leukocyte Esterase (Negative) Urine RBC Urine WBC Ur Epithelial Cells (Negative) HPF Urine Crystals Urine Bacteria (Negative) HPF Urine Mucus Ur Culture Indicated? Urine Glucose (Negative) mg/dL Salicylates < 2.8 Urine Opiates Screen (Negative) Urine Methadone Screen (Negative) Acetaminophen < 2 Ur Barbiturates Screen (Negative) Ur Tricyclics Screen (Negative) Ur Amphetamines Screen (Negative) U Benzodiazepines Scrn (Negative) Urine Cocaine Screen (Negative) Ur THC Screen (Negative) Ethyl Alcohol (<3) mg/dL Range/Units 09/13/20 09/13/20 09/13/20 11:00 11:00 11:48 WBC (4.4-10.8) 10^3/uL RBC (3.93-5.22) 10^6/uL Hgb (11.2-15.7) g/dL Hct (36.0-46.0) % MCV (80-95) fL MCH (27.0-33.0) pg MCHC (32.0-36.0) % RDW (11.7-14.6) % Plt Count (130-400) 10^3/uL MPV (8.0-11.0) fL Immature Gran % Neutrophils % Lymphocytes % Monocytes % Eosinophils % Basophils % Nucleated RBC % % Absolute Neutrophils (1.2-6.7) 10^3/uL Absolute Lymphocytes (1.2-3.4) 10^3/uL Absolute Monocytes (0.1-0.8) 10^3/uL Absolute Eosinophils (0.0-0.7) 10^3/uL Absolute Basophils (0.0-0.2) 10^3/uL RBC Morphology PT (9.3-11.0) sec INR (0.9-1.1) APTT (21.0-31.4) sec VBG Lactate (0.6-1.4) mmol/L Sodium (136-145) mmol/L Potassium (3.5-5.1) mmol/L Chloride (98-107) mmol/L Carbon Dioxide (21.0-32.0) mmol/L Anion Gap (3-11) mmol/L BUN (7-18) mg/dL Creatinine (0.55-1.02) mg/dL Estimated GFR/1.73 m2 (mL/min/1.73m2) Glucose (74-106) mg/dL Calcium (8.5-10.1) mg/dL Magnesium (1.8-2.4) mg/dL Total Bilirubin (0.2-1.0) mg/dL AST (15-37) U/L ALT (14-59) U/L Alkaline Phosphatase (46-116) U/L Troponin I (<0.06) ng/mL NT-Pro-B Natriuret Pep (<300) pg/mL 205 Total Protein (6.4-8.2) g/dL Albumin (3.4-5.0) g/dL Procalcitonin ng/mL 0.1 Urine Color (Yellow) Yellow Urine Clarity (Clear) Sl cloudy Urine pH (5-8) 6.5 Ur Specific [place] (1.005-1.025) 1.025 Urine Protein (Negative) mg/dL 100 H Urine Ketones (Negative) mg/dL 40 H Urine Blood (Negative) Negative Urine Nitrite (Negative) Negative Urine Bilirubin (Negative) Small H Urine Urobilinogen (Up TO 0.2) EU/dL 0.2 Ur Leukocyte Esterase (Negative) Negative Urine RBC Not Applicable Urine WBC Not Applicable Ur Epithelial Cells (Negative) HPF Many Urine Crystals Not Applicable Urine Bacteria (Negative) HPF Moderate Urine Mucus Not Applicable Ur Culture Indicated? No/sq. contamination Urine Glucose (Negative) mg/dL Negative Salicylates Urine Opiates Screen (Negative) Urine Methadone Screen (Negative) Acetaminophen Ur Barbiturates Screen (Negative) Ur Tricyclics Screen (Negative) Ur Amphetamines Screen (Negative) U Benzodiazepines Scrn (Negative) Urine Cocaine Screen (Negative) Ur THC Screen (Negative) Ethyl Alcohol (<3) mg/dL Range/Units 09/13/20 09/13/20 11:48 13:00 WBC (4.4-10.8) 10^3/uL RBC (3.93-5.22) 10^6/uL Hgb (11.2-15.7) g/dL Hct (36.0-46.0) % MCV (80-95) fL MCH (27.0-33.0) pg MCHC (32.0-36.0) % RDW (11.7-14.6) % Plt Count (130-400) 10^3/uL MPV (8.0-11.0) fL Immature Gran % Neutrophils % Lymphocytes % Monocytes % Eosinophils % Basophils % Nucleated RBC % % Absolute Neutrophils (1.2-6.7) 10^3/uL Absolute Lymphocytes (1.2-3.4) 10^3/uL Absolute Monocytes (0.1-0.8) 10^3/uL Absolute Eosinophils (0.0-0.7) 10^3/uL Absolute Basophils (0.0-0.2) 10^3/uL RBC Morphology PT (9.3-11.0) sec 12.5 H INR (0.9-1.1) 1.2 H APTT (21.0-31.4) sec 29.6 VBG Lactate (0.6-1.4) mmol/L Sodium (136-145) mmol/L Potassium (3.5-5.1) mmol/L Chloride (98-107) mmol/L Carbon Dioxide (21.0-32.0) mmol/L Anion Gap (3-11) mmol/L BUN (7-18) mg/dL Creatinine (0.55-1.02) mg/dL Estimated GFR/1.73 m2 (mL/min/1.73m2) Glucose (74-106) mg/dL Calcium (8.5-10.1) mg/dL Magnesium (1.8-2.4) mg/dL Total Bilirubin (0.2-1.0) mg/dL AST (15-37) U/L ALT (14-59) U/L Alkaline Phosphatase (46-116) U/L Troponin I (<0.06) ng/mL NT-Pro-B Natriuret Pep (<300) pg/mL Total Protein (6.4-8.2) g/dL Albumin (3.4-5.0) g/dL Procalcitonin ng/mL Urine Color (Yellow) Urine Clarity (Clear) Urine pH (5-8) Ur Specific [place] (1.005-1.025) Urine Protein (Negative) mg/dL Urine Ketones (Negative) mg/dL Urine Blood (Negative) Urine Nitrite (Negative) Urine Bilirubin (Negative) Urine Urobilinogen (Up TO 0.2) EU/dL Ur Leukocyte Esterase (Negative) Urine RBC Urine WBC Ur Epithelial Cells (Negative) HPF Urine Crystals Urine Bacteria (Negative) HPF Urine Mucus Ur Culture Indicated? Urine Glucose (Negative) mg/dL Salicylates Urine Opiates Screen (Negative) Negative Urine Methadone Screen (Negative) Negative Acetaminophen Ur Barbiturates Screen (Negative) Negative Ur Tricyclics Screen (Negative) Negative Ur Amphetamines Screen (Negative) Negative U Benzodiazepines Scrn (Negative) Negative Urine Cocaine Screen (Negative) Negative Ur THC Screen (Negative) Positive A Ethyl Alcohol (<3) mg/dL ECG Data Attestation: I personally reviewed and interpreted this ECG (s) as follows: Interpretation: Rate of 87, sinus, no acute ST elevation or depression. GA 167. QRS 72. Prolonged QT interval at 553. HPI General Mode of arrival: ambulatory. Date/Time Provider Initiated Documentation: 09/13/20 09:29. Limitations to Documentation: no limitations. Information obtained by: patient. 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 Sister states that she has been checking on patient daily and she appears like a zombie . She states patient usually cares for self at home and gives herself her own medications and tube feeds. She states she last texted patient on her phone on Wednesday and patient has not responded since then which is unlike her. Home health checks on her twice weekly. Sister states that she checked patient's medication bottles and containers and there is none missing for the past few days and it appears that she has missed her doses of all of her meds over the past 3 to 4 days. She denies any known fever, vomiting, diarrhea. Patient is nonverbal and usually provides history through writing but she is declining to do this. Related Data Home Medications Medication Instructions Recorded Confirmed acetaminophen 650 mg Q6H WHILE AWAKE 09/13/20 09/13/20 biotin 1,050 mcg DAILY 09/13/20 09/13/20 bupropion HCl 200 mg BID 09/13/20 09/13/20 calcitriol 0.5 mcg BID 09/13/20 09/13/20 calcium carbonate 1,000 mg TID 09/13/20 09/13/20 cyanocobalamin (vitamin B-12) 2,500 mcg FEEDING TUBE 09/13/20 dronabinol 5 mg BID 09/13/20 09/13/20 ergocalciferol (vitamin D2) 50,000 unit QWEEK 09/13/20 09/13/20 [Vitamin D2] ferrous sulfate 300 mg DAILY 09/13/20 09/13/20 folic acid 1 mg DAILY 09/13/20 09/13/20 gabapentin 300 mg TID 09/13/20 09/13/20 hydromorphone 4 mg Q3H PRN PRN 09/13/20 09/13/20 levothyroxine 112 mcg DAILY 09/13/20 09/13/20 metoprolol tartrate 12.5 mg BID 09/13/20 09/13/20 mirtazapine 45 mg QHS 09/13/20 09/13/20 tramadol 50 mg Q6H PRN PRN 09/13/20 09/13/20 Allergies Allergy/AdvReac Type Severity Reaction Status Date / Time fluoxetine [From Prozac] AdvReac Unverified 04/13/17 10:38 General Stated Complaint: GenMedical BARBARA: 3 Review of Systems All systems reviewed & are unremarkable except as noted in HPI and below Constitutional Constitutional: Reports as per HPI, Denies chills and Denies fever(s) Eyes Eyes: Denies blurry vision ENT Ears, Nose, Mouth, and Throat: Denies dizziness, Denies sore throat and Denies throat swelling Cardiovascular Cardiovascular: Denies chest pain and Denies dyspnea Respiratory Respiratory: Denies cough and Denies dyspnea Gastrointestinal Gastrointestinal: Denies abdominal pain, Denies diarrhea and Denies vomiting Genitourinary Genitourinary: Denies hematuria and Denies dysuria Musculoskeletal Musculoskeletal: Denies back pain and Denies numbness Integumentary/Breasts Skin/Breast: Denies lesions and Denies rash Neurologic Neurologic: Denies dizziness, Denies localized weakness and Denies numbness Allergic/Immunologic Allergic/Immunologic: Denies throat swelling [facility] Medical History (Updated 09/13/20 @ 15:24 by Denia Butler NP) Cervical high risk HPV (human papillomavirus) test positive Hx of cancer of lung Hx of tongue cancer Hypothyroidism Mass of larynx Surgical History (Updated 04/23/17 @ 15:13 by Bethanie Erickson) Colonoscopy - MAC (04/12/17) Family History Mother Diabetes Essential hypertension Father Prostate cancer Essential hypertension Social History Smoking/Tobacco Use Status: Former Tobacco Use Alcohol Intake: former Drug use: Never Current gender identity: female Do you feel safe at home: Yes Do you feel safe in your relationship?: Yes Additional Social history: above per chart, unable to assess privately 09/13/20 Exam Const General: cooperative, disheveled and ill appearing chronically Nutritional Appearance: cachectic Orientation: alert, awake and oriented x3 HENMT Head: normal to inspection Ears: hearing grossly normal bilaterally and external ears normal General nose exam: external nose normal Face and sinus: normal facial exam Mouth: mucous membranes dry Eyes General: appearance normal, both eyes and all related structures Eyelids: eyelids normal Pupils: PERRL EOM: EOM intact bilaterally Neck Neck: normal visual inspection Lymphatic: no lymphadenopathy noted Chest Chest: normal inspection of the chest Resp Effort & Inspection: normal respiratory effort and able to speak in complete sentences Auscultation: clear to auscultation bilaterally Cardio Rate: regular rate Rhythm: regular rhythm GI Inspection: normal to inspection Palpation: soft, not firm, no guarding, no hepatosplenomegaly, no masses and nontender Auscultation: normal bowel sounds Back/Spine/Pelvis Back: no CVA tenderness Skin General skin exam: no rashes or lesions noted Neuro General: patient alert and patient awake Cognition: normal cognition Speech: speech normal Gait: normal gait Motor: muscle tone normal throughout Sensory Exam: no sensory deficits noted Extrem General: normal to inspection, full ROM and capillary refill normal Psych Appearance: grossly normal Mental Status: mental status grossly normal Speech and Movement: speech and movement normal Affect: normal affect Thought Process: normal Course Vital Signs Vital signs: Vital Signs Temperature 99.0 F 09/13/20 09:33 Pulse 92 H 09/13/20 09:33 Respiratory Rate 18 09/13/20 09:33 Blood Pressure 145/90 H 09/13/20 09:33 Pulse Oximetry 97 09/13/20 09:33 Temperature 99.0 F 09/13/20 09:33 Temperature Source Skin 09/13/20 09:33 Pulse 92 H 09/13/20 09:33 Respiratory Rate 18 09/13/20 09:33 Blood Pressure 145/90 H 09/13/20 09:33 Blood Pressure Position Sitting 09/13/20 09:33 Pulse Oximetry 97 09/13/20 09:33 Oxygen Delivery Method Room Air 09/13/20 09:33 Oxygen Flow Rate 0 09/13/20 09:33 Pain Level 0 09/13/20 09:33 Comment 09/13/20 09:33 Lab/Test Results Lab/Test Results: 09/13/20 09:38 Blood Blood Culture - Pending 09/13/20 09:38 Blood Blood Culture - Pending
--- NOTE | 2020-09-13 10:00 | DI.CT_ITS ---
EXAM: CT HEAD WO CLINICAL HISTORY: confusion, fatigue, r/o acute process. TECHNIQUE: Imaging Protocol: Axial computed tomography images with coronal and sagittal reformatted images were created and reviewed COMPARISON: CT CT HEAD WO from 08/08/2020 FINDINGS: Ventricles and Extra axial spaces: Normal in size and morphology for the patient's age. Hemorrhage: None. Cerebral parenchyma: Normal. Midline shift: None. Brainstem/Cerebellum: Normal. Calvarium: Normal. Visualized Paranasal sinuses/Mastoids: Clear. Soft Tissues: Unremarkable. IMPRESSION: No acute intracranial process. RADIATION DOSE DELIVERED: 693.32mGy.cm Total DLP DATA REPOSITORY: All CT scans at this facility are submitted to the National Radiology Data Registry (NRDR) Dose Index Registry (DIR) with the [employer] ([employer]). RADIATION OPTIMIZATION: All CT scans at this facility use at least one of these dose optimization te chniques: automated exposure control; mA and/or kV adjustment per patient size (includes targeted exa ms where dose is matched to clinical indication); or iterative reconstruction.
--- NOTE | 2020-09-13 10:30 | DI.RAD_ITS ---
EXAM: XR CHEST 2V PA LATERAL INDICATION: fatigue, s/p total laryngectomy, r/o acute disease. COMPARISON: CT CHEST - LUNG CANCER SCREENING from 02/07/[address] neck chest abd pel wo from 03/01/2019 TECHNIQUE: 2D digital imaging was performed. FINDINGS: The heart size is normal. Are small bilateral pleural effusions. Some fluid is seen along the minor fissure. Suture material is noted in the mid left lung. There are old bilateral rib fractures. Trinh rgical clips are noted near the right lung apex and along the right lateral chest wall. There is sta ble mid thoracic compression fracture. IMPRESSION: Small bilateral pleural effusions. Fluid in the minor fissure. No infiltrate or pulmonary edema is visible. DATA REPOSITORY: RADIATION DOSE DELIVERED:
[2020-09-13 10:43] LABS: Abs Immature Grans 0.05 10^3/uL (0.0-0.06); Absolute Basophil Count 0.07 10^3/uL (0.0-0.2); Absolute Eosinophil Count 0.11 10^3/uL (0.0-0.7); Absolute Lymphocyte Count 0.85 10^3/uL (1.2-3.4); Absolute Monocyte Count 0.48 10^3/uL (0.1-0.8); Absolute Neutrophil Count 6.53 10^3/uL (1.2-6.7); Basophils % 0.9; Eosinophils % 1.4; HCT 22.9 % (36.0-46.0); HGB 7.4 g/dL (11.2-15.7); Immature Grans % 0.6; Lymphocytes % 10.5; MCH 30.6 pg (27.0-33.0); MCHC 32.3 % (32.0-36.0); MCV 94.6 fL (80-95); MPV 9.8 fL (8.0-11.0); Monocytes % 5.9; Neutrophils % 80.7; Nucleated RBC 0 %; Platelet Count 411 10^3/uL (130-400); RBC 2.42 10^6/uL (3.93-5.22); RDW 14.3 % (11.7-14.6); RDW-SD 49.1 fL; WBC 8.09 10^3/uL (4.4-10.8)
[2020-09-13 10:56] LABS: Diff Comment RBC Morph Reviewed
[2020-09-13 11:02] LABS: ETHANOL BLOOD < 3.0 mg/dL (<3)
[2020-09-13 11:06] LABS: Lactate 1.1 mmol/L (0.6-1.4)
[2020-09-13 11:23] LABS: ALT 50 U/L (14-59); AST 63 U/L (15-37); Albumin 3.2 g/dL (3.4-5.0); Alkaline Phosphatase 220 U/L (46-116); Anion Gap 20.1 mmol/L (3-11); BUN 29 mg/dL (7-18); Bilirubin, Total 0.3 mg/dL (0.2-1.0); CO2 18.9 mmol/L (21.0-32.0); CREATININE 1.32 mg/dL (0.55-1.02); Chloride 97 mmol/L (98-107); Estimated GFR 41.05 (mL/min/1.73m2); Glucose 89 mg/dL (74-106); Magnesium 1.7 mg/dL (1.8-2.4); Potassium 3.4 mmol/L (3.5-5.1); Sodium 136 mmol/L (136-145); Total Protein 8.6 g/dL (6.4-8.2)
[2020-09-13 11:35] LABS: Troponin I < 0.05 ng/mL (<0.06)
[2020-09-13 11:36] LABS: Calcium < 5.0 mg/dL (8.5-10.1)
[2020-09-13 11:37] LABS: Salicylate < 2.8 mg/dL (2.8-20.0)
[2020-09-13] MEDS: CLINDAMYCIN 600 MG/50 ML BAG 100 MG IVPB ×2 (11:47→21:45)
[2020-09-13] MEDS: Normal Saline 500 ML IV (11:48)
[2020-09-13 11:51] LABS: Acetaminophen < 2 ug/mL (10-30)
[2020-09-13 12:05] LABS: Bilirubin Small (Negative); Blood Negative (Negative); Clarity Sl Cloudy (Clear); Glucose Negative (Negative); Ketones 40 mg/dL (Negative); Leukocyte Esterase Negative (Negative); Nitrite Negative (Negative); Specific Gravity 1.025 (1.005-1.025); Urobilinogen 0.2 EU/dL (Up TO 0.2); pH 6.5 (5-8)
[2020-09-13 12:18] LABS: Bacteria Moderate HPF (Negative); C & S Indicated? No/Sq. Contamination; Epithelial Cells Many HPF (Negative)
[2020-09-13 12:23] LABS: *AMPHETAMINES SCREEN URINE Negative (Negative); *BARBITURATES SCREEN URINE Negative (Negative); *BENZODIAZEPINES SCREEN URINE Negative (Negative); Cannabinoids THC POSITIVE (Negative); Cocaine Screen,Urine Negative (Negative); METHADONE URINE SCREEN Negative (Negative); OPIATES URINE SCREEN Negative (Negative)
[2020-09-13 12:25] LABS: Tricyclic Antidepressants Negative (Negative)
[2020-09-13 12:42] LABS: NT-proBNP 205 pg/mL (<300)
[2020-09-13 13:06] LABS: Procalcitonin 0.1 ng/mL
[2020-09-13 13:42] LABS: PTT Activated 29.6 sec (21.0-31.4); Prothrombin Time 12.5 sec (9.3-11.0)
[2020-09-13 13:46] LABS: INR 1.2 (0.9-1.1)
--- NOTE | 2020-09-13 14:38 | HPE_ITS ---
Date of service: 09/13/20 Time of Service: 14:38 Assessment and Plan Assessment and plan (1) Hypocalcemia: Start date: 09/13/20 Start time: 15:15 Status: Acute Assessment and plan: Recent laryengectomy with thyroidectomy 09/04 at [facility]. Calcium level today less than 5. Per [facility] endocrinology target 8-8.5 last ca level on 09/04 7.8. She has not been compliant with medications. Will given ca gluconate 1 gm IV with a second dose 20 min after 1 per [facility] Continue calcium carb and calcitrol Vit D for better absorption and Iron Will repeat level in afternoon and am Telemetry EKG without concern. (2) Cellulitis: Start date: 09/13/20 Start time: 15:24 Status: Acute Assessment and plan: Appears to be around stoma. Erythema pain with palpation and procalcitonin elevated. Patient nods into agreement this is why she pulled trach out. Initiated on clindamycin. will continue. Check CRP. Qualifiers: Site of cellulitis: neck Qualified Code(s): L03.221 - Cellulitis of neck (3) Adult failure to thrive: Start date: 09/13/20 Start time: 15:19 Status: Acute Assessment and plan: Could be secondary to hypocalcemia or depression Consult Palliative care. Wants to be a full code at this time. Cachetic not eating or taking medications at home Would benefit from SNIF but patient likely will not agree (4) Dehydration: Start date: 09/13/20 Start time: 15:21 Status: Acute Assessment and plan: from above. Hydrate with NS (5) Acute on chronic anemia: Start date: 09/13/20 Start time: 15:21 Status: Acute Assessment and plan: On iron supplement Monitor h/h (6) Hypomagnesemia: Start date: 09/13/20 Start time: 15:22 Status: Acute Assessment and plan: Repleted with IV mag and monitor (7) Hx of tongue cancer: Start date: 09/13/20 Start time: 15:23 Status: Chronic Assessment and plan: subtotal glossectomy, will not open mouth (8) Hx of cancer of lung: Start date: 09/13/20 Start time: 15:23 Status: None (9) DVT prophylaxis: Start date: 09/13/20 Start time: 15:23 Status: Acute Assessment and plan: On eliquis for factor leiden deficiency. (10) Discharge planning issues: Start date: 09/13/20 Start time: 15:23 Status: Acute Assessment and plan: Would benefit from SNIF, patient likely will not agree. She does not like HH either, however unable to care for self at home. Palliative care consulted. above case discussed with Dr. gupta who is in agreement. History of Present Illness History of Present Illness Chief Complaint: Weakness, hypercalcemia Narrative: 60 y.o female s/p lung ca with thorascopic resection, G tube, SSC of the tongue s/p subtotal glossectomy with chemoradiation and neck dissection 2008, now 23 day s/p total laryngectomy and thyroidectomy by ENT who is brought in by her sister for weakness and not being her self. Ms. Capps was discharged from [facility] on 09/04 with RN, PT/OT. On discharge they presented to her house for several days, however by Wednesday the patient was no longer answering her door. Her sister was checking on her daily and states by yesterday she was really tired not caring for herself and not taking medication. She did receive a shingles shot last week and was unable to crush her meds on her own, family and VNA was assisting; by Wednesday she was able to crush all her own medications but stopped taking them on Wednesday night. She became weaker and more depressed prompting her visit to [facility] ED. In the ED labs revealed hypocalcemia of less than 5. Hgb 7.4/HCT 22.9, hypokalemia, hypomagnesium. She is suppose to have tube feedings at home but unsure if she has been compliant. On review of [facility] chart her last calcium on the was 7.3. Endocrinology was following her and they discharged her on calcitrol, calcium carbonate with target of 8.0-8.5 calcium level. ED provider spoke with [place] at [facility] they recommend calcium gluconate 1 gm then a nother 1 gm 20 mins after infusion. Will repeat calcium level around 1600. CXR revealing bilateral pleural effusion, she did pull her tracheostomy and has not had any suctioning or humidified oxygen in a couple days. RT is placing trach back in place with humidified oxygen. Her stoma site does appear erythemic and painful to touch it appears to be cellulitis which she attributes this to why she removed her trach. Clindamycin was initiated. She is being admitted for further management of her electrolytes, calcium and illness. She is not very cooperative at this time. She can not talk but refusing to answer most questions. Sister at bed side and did give history of present illness. Patient did allow for exam. Review of Systems All systems reviewed & are unremarkable except as noted in HPI and below PFSH Medical History (Updated 09/13/20 @ 15:24 by Denia Butler NP) Cervical high risk HPV (human papillomavirus) test positive Hx of cancer of lung Hx of tongue cancer Hypothyroidism Mass of larynx Surgical History (Updated 04/23/17 @ 15:13 by Bethanie Erickson) Colonoscopy - MAC (04/12/17) Family History Mother Diabetes Essential hypertension Father Prostate cancer Essential hypertension Social History Smoking/Tobacco Use Status: Former Tobacco Use Alcohol Intake: former Drug use: Never Current gender identity: female Do you feel safe at home: Yes Do you feel safe in your relationship?: Yes Additional Social history: above per chart, unable to assess privately 09/13/20 Meds Home Medications and Allergies Home Medications Medication Instructions Recorded Confirmed Type acetaminophen 650 mg Q6H WHILE AWAKE 09/13/20 09/13/20 History biotin 1,050 mcg DAILY 09/13/20 09/13/20 History bupropion HCl 200 mg BID 09/13/20 09/13/20 History calcitriol 0.5 mcg BID 09/13/20 09/13/20 History calcium carbonate 1,000 mg TID 09/13/20 09/13/20 History cyanocobalamin (vitamin B-12) 2,500 mcg FEEDING TUBE 09/13/20 History dronabinol 5 mg BID 09/13/20 09/13/20 History ergocalciferol (vitamin D2) 50,000 unit QWEEK 09/13/20 09/13/20 History [Vitamin D2] ferrous sulfate 300 mg DAILY 09/13/20 09/13/20 History folic acid 1 mg DAILY 09/13/20 09/13/20 History gabapentin 300 mg TID 09/13/20 09/13/20 History hydromorphone 4 mg Q3H PRN PRN 09/13/20 09/13/20 History levothyroxine 112 mcg DAILY 09/13/20 09/13/20 History metoprolol tartrate 12.5 mg BID 09/13/20 09/13/20 History mirtazapine 45 mg QHS 09/13/20 09/13/20 History tramadol 50 mg Q6H PRN PRN 09/13/20 09/13/20 History Allergies Allergy/AdvReac Type Severity Reaction Status Date / Time fluoxetine [From Prozac] AdvReac Unverified 04/13/17 10:38 Exam Const General: cooperative, no acute distress, frail appearing and ill appearing c hronically Nutritional Appearance: cachectic Orientation: alert, awake and oriented x3 HENMT Head: normocephalic and atraumatic Ears: hearing grossly normal bilaterally Other: would not open mouth and cooperate Eyes Pupils: PERRL EOM: EOM intact bilaterally Neck Neck: no lymphadenopathy noted and tracheostomy present Thyroid: warm and other (erythema around stoma) Lymphatic: no lymphedema noted Other: healing incision to neck and chest extending to under breast Chest Chest: abnormal inspection of the chest, abnormal inspection of the chest and other (healing incision) Resp Auscultation: rhonchi lower bilaterally Other: suctioning mucus Cardio Jugular venous pressure: no JVD Rate: regular rate Rhythm: regular rhythm Heart Sounds: S1 normal and S2 normal GI Inspection: scaphoid Palpation: soft Auscultation: hypoactive bowel sounds General: deferred Back/Spine/Pelvis Back: no CVA tenderness Thoracic/Lumbar Spine: No thoracic and lumbar spine normal to inspection and kyphosis (with bony protrusion, mepliex placed) Skin General skin exam: erythema and scars Neuro General: patient alert, patient awake and patient oriented x3 Extrem General: normal to inspection and no clubbing, cyanosis or edema Psych Affect: sad Attitude: not cooperative, guarded and refuses to answer Insight: limited Judgment: limited Results Labs Result diagrams: 09/13/20 10:29 09/13/20 11:00 Labs: Laboratory Results - last 24 hr 09/13/20 09/13/20 09/13/20 10:29 10:29 10:29 WBC 8.09 RBC 2.42 L Hgb 7.4 L Hct 22.9 L MCV 94.6 MCH 30.6 MCHC 32.3 RDW 14.3 Plt Count 411 H MPV 9.8 Immature Gran % 0.6 Neutrophils % 80.7 Lymphocytes % 10.5 Monocytes % 5.9 Eosinophils % 1.4 Basophils % 0.9 Nucleated RBC % 0 Absolute Neutrophils 6.53 Absolute Lymphocytes 0.85 L Absolute Monocytes 0.48 Absolute Eosinophils 0.11 Absolute Basophils 0.07 RBC Morphology See below PT INR APTT VBG Lactate Sodium Potassium Chloride Carbon Dioxide Anion Gap BUN Creatinine Estimated GFR/1.73 m2 Glucose Calcium Magnesium Total Bilirubin AST ALT Alkaline Phosphatase Troponin I NT-Pro-B Natriuret Pep Total Protein Albumin Procalcitonin Urine Color Urine Clarity Urine pH Ur Specific Kula Urine Protein Urine Ketones Urine Blood Urine Nitrite Urine Bilirubin Urine Urobilinogen Ur Leukocyte Esterase Urine RBC Urine WBC Ur Epithelial Cells Urine Crystals Urine Bacteria Urine Mucus Ur Culture Indicated? Urine Glucose Salicylates Cancelled Urine Opiates Screen Urine Methadone Screen Acetaminophen Cancelled Ur Barbiturates Screen Ur Tricyclics Screen Ur Amphetamines Screen U Benzodiazepines Scrn Urine Cocaine Screen Ur THC Screen Ethyl Alcohol < 3.0 09/13/20 09/13/20 09/13/20 11:00 11:00 11:00 WBC RBC Hgb Hct MCV MCH MCHC RDW Plt Count MPV Immature Gran % Neutrophils % Lymphocytes % Monocytes % Eosinophils % Basophils % Nucleated RBC % Absolute Neutrophils Absolute Lymphocytes Absolute Monocytes Absolute Eosinophils Absolute Basophils RBC Morphology PT INR APTT VBG Lactate 1.1 Sodium 136 Potassium 3.4 L Chloride 97 L Carbon Dioxide 18.9 L Anion Gap 20.1 H BUN 29 H Creatinine 1.32 H Estimated GFR/1.73 m2 41.05 Glucose 89 Calcium < 5.0 L* Magnesium 1.7 L Total Bilirubin 0.3 AST 63 H ALT 50 Alkaline Phosphatase 220 H Troponin I < 0.05 NT-Pro-B Natriuret Pep Total Protein 8.6 H Albumin 3.2 L Procalcitonin Urine Color Urine Clarity Urine pH Ur Specific Kula Urine Protein Urine Ketones Urine Blood Urine Nitrite Urine Bilirubin Urine Urobilinogen Ur Leukocyte Esterase Urine RBC Urine WBC Ur Epithelial Cells Urine Crystals Urine Bacteria Urine Mucus Ur Culture Indicated? Urine Glucose Salicylates < 2.8 Urine Opiates Screen Urine Methadone Screen Acetaminophen < 2 Ur Barbiturates Screen Ur Tricyclics Screen Ur Amphetamines Screen U Benzodiazepines Scrn Urine Cocaine Screen Ur THC Screen Ethyl Alcohol 09/13/20 09/13/20 09/13/20 11:00 11:00 11:48 WBC RBC Hgb Hct MCV MCH MCHC RDW Plt Count MPV Immature Gran % Neutrophils % Lymphocytes % Monocytes % Eosinophils % Basophils % Nucleated RBC % Absolute Neutrophils Absolute Lymphocytes Absolute Monocytes Absolute Eosinophils Absolute Basophils RBC Morphology PT INR APTT VBG Lactate Sodium Potassium Chloride Carbon Dioxide Anion Gap BUN Creatinine Estimated GFR/1.73 m2 Glucose Calcium Magnesium Total Bilirubin AST ALT Alkaline Phosphatase Troponin I NT-Pro-B Natriuret Pep 205 Total Protein Albumin Procalcitonin 0.1 Urine Color Yellow Urine Clarity Sl cloudy Urine pH 6.5 Ur Specific Kula 1.025 Urine Protein 100 H Urine Ketones 40 H Urine Blood Negative Urine Nitrite Negative Urine Bilirubin Small H Urine Urobilinogen 0.2 Ur Leukocyte Esterase Negative Urine RBC Not Applicable Urine WBC Not Applicable Ur Epithelial Cells Many Urine Crystals Not Applicable Urine Bacteria Moderate Urine Mucus Not Applicable Ur Culture Indicated? No/sq. contamination Urine Glucose Negative Salicylates Urine Opiates Screen Urine Methadone Screen Acetaminophen Ur Barbiturates Screen Ur Tricyclics Screen Ur Amphetamines Screen U Benzodiazepines Scrn Urine Cocaine Screen Ur THC Screen Ethyl Alcohol 09/13/20 09/13/20 11:48 13:00 WBC RBC Hgb Hct MCV MCH MCHC RDW Plt Count MPV Immature Gran % Neutrophils % Lymphocytes % Monocytes % Eosinophils % Basophils % Nucleated RBC % Absolute Neutrophils Absolute Lymphocytes Absolute Monocytes Absolute Eosinophils Absolute Basophils RBC Morphology PT 12.5 H INR 1.2 H APTT 29.6 VBG Lactate Sodium Potassium Chloride Carbon Dioxide Anion Gap BUN Creatinine Estimated GFR/1.73 m2 Glucose Calcium Magnesium Total Bilirubin AST ALT Alkaline Phosphatase Troponin I NT-Pro-B Natriuret Pep Total Protein Albumin Procalcitonin Urine Color Urine Clarity Urine pH Ur Specific Kula Urine Protein Urine Ketones Urine Blood Urine Nitrite Urine Bilirubin Urine Urobilinogen Ur Leukocyte Esterase Urine RBC Urine WBC Ur Epithelial Cells Urine Crystals Urine Bacteria Urine Mucus Ur Culture Indicated? Urine Glucose Salicylates Urine Opiates Screen Negative Urine Methadone Screen Negative Acetaminophen Ur Barbiturates Screen Negative Ur Tricyclics Screen Negative Ur Amphetamines Screen Negative U Benzodiazepines Scrn Negative Urine Cocaine Screen Negative Ur THC Screen Positive A Ethyl Alcohol Last Vital Signs Temp 36.6 C 09/13/20 12:01 Pulse 83 09/13/20 12:01 Resp 17 09/13/20 12:01 BP 135/81 09/13/20 12:01 Pulse Ox 97 09/13/20 12:01 COVID-19 Screening Have you,or household,traveled outside [place] in last 14 days?: Yes
--- NOTE | 2020-09-13 14:59 | NS.NUTBLAN_ITS ---
Date of service: 09/13/20 Time of Service: 14:30 Nutritional Consult ASSESSMENT: Melinda (60 y/o Female) w/ hx tongue and lung CA, dehydration, FTT. Currently NPO w/ G-tube in place. She is 81% IBW w/ BMI 17.6. Family member reports sig wt loss of ~ 20lbs and that Kinza's UBW is ~130lbs. Noted: on mirtazapine. On B-12, Vit D, to help with micro-nutrient needs. On Fe r/t hx chronic anemia. Nutritional needs calculated on IBW of 47.7kg as follows: 1192- 1431 k/alayna, 57g/pro, 1431-1500ml/H2O/day. Family brought calorically dense EN formula Nutren 2.0 which they report she tolerates well. Verified with BASKET PERSON, Nursing Analytics Manager and DON. Cloth Printing Back Tender staff/CDM is aware. NUTRITIONAL DIAGNOSIS: FTT r/t hx tongue resection, hx lung CA, dehydration AEB: underweight, 81% IBW, NPO status INTERVENTION: Recommend: Nutren 2.0 @ 31ml/utL23lmf. Flush 250ml/H2O q6hrs. Start at 15ml/hr and increase by 5ml q2 hr to goal. Provides: 1488 k/alayna, 63g/pro,1515ml/H2O w/ flush. MONITORING AND EVALUATION: Check residuals per SOP, check for tolerance, NVD. Enc intake as silver. Time Spent in Nutritional Counseling and Treatment: 10 minutes
[2020-09-13] MEDS: MAGNESIUM SULFATE 2 GM/50 ML BAG IVPB ×2 (15:57→21:28)
[2020-09-13] MEDS: Calcium Carbonate *TUMS* 500 MG CHEW 1000 MG NG ×2 (15:58→22:35)
[2020-09-13] MEDS: Gabapentin 300 MG CAP NG ×2 (15:58→22:35)
[2020-09-13 16:39] LABS: Calcium 5.4 mg/dL (8.5-10.1)
[2020-09-13 16:43] LABS: C-Reactive Protein 6.82 mg/dL (0.0-0.3)
--- NOTE | 2020-09-13 18:06 | RESPIRATORY ---
Pt here for dehyrdation and hypocalcaemia with a new laryngectomy . Was dc'd on 09/04 from [facility]. Pt does not appear to have all of her laryngectomy supplies. She arrives without a Monica-Ruelas tube. Nimatti states pt took it out and left it at home. It was requested by RT for Niece to bring it in. Niece brought Monica-Ruelas tube and tie in. RT cleaned and put tube in with a new trach tie to secure. Pt was then, placed on the high flow heated system (Airvo2 ) set at 30 LPM, 30c, 21% for humidity. Laryngectomy signage was placed above bed . Suction was set up with a yankeur as pt states this is what she uses at home. A BVM, Pediatric face mask and tracheostomy inline suction with a 6.0 cuffed ET tube was placed bedside with a 14Fr stylet per anesthesia for emergency use. Pt's stoma site is notably red otherwise, intact. Enma Miller, BLENDER/BRAZE APPLICATOR contacted Scooter at [facility] to inquire about supplies.He states they never received an order for supplies from [facility]. He also states it will take over a week to get the supplies in. Care Managers have been notified via email. For orders: Trach ties Monica-Ruelas If [facility] Hospitalist is comfortable ordering .Otherwise, [facility] ENT will need to be contacted.
--- NOTE | 2020-09-13 18:30 | DI.RAD_ITS ---
EXAM: XR PORTABLE CHEST AP POST LINE CLINICAL HISTORY: midline insertion TECHNIQUE: COMPARISON: CR XR CHEST 2V PA LATERAL from 09/13/2020 FINDINGS: Portable AP chest at 1850 hours. There is right central venous catheter placed which overlies the ri ght atrium at its tip. Heart is at the upper limits of normal in size. Right lower lobe infiltrate again noted no gross pleural effusion on this frontal film. IMPRESSION: RADIATION DOSE DELIVERED: Total DLP
--- NOTE | 2020-09-13 19:19 | DI.VRAD_ITS ---
PROCEDURE INFORMATION: Exam: XR Chest, 1 View Exam date and time: 09/13/2020 6:51 PM Age: 60 years old Clinical indication: Other: Midline insertion TECHNIQUE: Imaging protocol: XR of the chest Views: 1 view. COMPARISON: CR XR CHEST 2V PA LATERAL 09/13/2020 11:22 AM FINDINGS: Tubes, catheters and devices: There has been interval placement of a right-sided central venous catheter, with its tip projecting at the upper right atrium, approximately 1 cm inferior to the superior cavoatrial junction. Lungs: Again noted is mild airspace opacity at the right lung base, unchanged, which could represent atelectasis or pneumonia. Again noted is a surgical staple line projecting at the left midlung. Lungs otherwise clear. Pleural space: There is no evidence for pneumothorax. Heart/Mediastinum: Unremarkable. No cardiomegaly. Bones/joints: Unremarkable. IMPRESSION: 1. New right-sided central venous catheter with its tip projecting at the upper right atrium, approximately 1 cm inferior to the superior cavoatrial junction. 2. No evidence of pneumothorax. 3. Stable mild right basilar airspace opacity may represent atelectasis or pneumonia. Recommend follow-up. Dictated and Authenticated by: Artur Darden MD. [facility]ing[facility] Irasema Bran MD
--- NOTE | 2020-09-13 20:03 | DI.RAD_ITS ---
EXAM: XR PORTABLE CHEST AP POST LINE CLINICAL HISTORY: check position of Picc line TECHNIQUE: COMPARISON: CR,XR XR PORTABLE CHEST AP POST LINE from 09/13/2020 FINDINGS: Portable AP chest at 1951 hours. PICC line again noted with its tip projected in the superior aspect of right atrium. No change from earlier films. Minimal right basilar infiltrate again noted. IMPRESSION: RADIATION DOSE DELIVERED: Total DLP
--- NOTE | 2020-09-13 20:14 | DI.VRAD_ITS ---
PROCEDURE INFORMATION: Exam: XR Chest, 1 View Exam date and time: 09/13/2020 8:04 PM Age: 60 years old Clinical indication: Device placement; Picc TECHNIQUE: Imaging protocol: XR of the chest Views: 1 view. COMPARISON: CR XR PORTABLE CHEST AP POST LINE 09/13/2020 6:42 PM FINDINGS: Tubes, catheters and devices: Again noted is a right-sided central venous catheter with its tip projecting at the upper right atrium, with the tip now residing approximately 2 cm inferior to the cavoatrial junction. Lungs: The mild right basilar airspace opacity is stable. There are no new focal airspace opacities. There is no pulmonary vascular congestion. Pleural space: There is no evidence for pneumothorax. No layering pleural effusions are identified. Heart/Mediastinum: Heart size is indeterminate. Bones/joints: Unremarkable. IMPRESSION: 1. Right-sided central venous catheter again noted with its tip projecting in the upper right atrium as described above. 2. Stable mild right basilar airspace opacity may represent atelectasis or pneumonia. Recommend follow-up. Dictated and Authenticated by: Artur Darden MD. Ordering:[facility] Irasema Bran MD
--- NOTE | 2020-09-13 20:30 | DI.RAD_ITS ---
EXAM: XR PORTABLE CHEST AP POST LINE CLINICAL HISTORY: post line insertion TECHNIQUE: COMPARISON: CR,XR XR PORTABLE CHEST AP POST LINE from 09/13/2020 FINDINGS: Portable AP chest at 2052 hours. PICC line again noted on the right, this is been withdrawn somewhat and the tip of the line now lies in the SVC. Mild right basilar infiltrate again noted. IMPRESSION: RADIATION DOSE DELIVERED: Total DLP
[2020-09-13] MEDS: Normal Saline 1,000 ML 50 ML IV (20:51)
--- NOTE | 2020-09-13 21:21 | DI.VRAD_ITS ---
PROCEDURE INFORMATION: Exam: XR Chest, 1 View Exam date and time: 09/13/2020 9:00 PM Age: 60 years old Clinical indication: Device placement TECHNIQUE: Imaging protocol: XR of the chest Views: 1 view. COMPARISON: CR XR PORTABLE CHEST AP POST LINE 09/13/2020 7:51 PM FINDINGS: Tubes, catheters and devices: Again noted is a right-sided central venous catheter with its tip now projecting at the superior vena cava. Lungs: The mild right basilar airspace opacity is stable. Pleural space: There is no evidence for pneumothorax. Heart/Mediastinum: Unremarkable. No cardiomegaly. Bones/joints: Unremarkable. IMPRESSION: Tip of right-sided central venous catheter now projects at the superior vena cava. Dictated and Authenticated by: Artur Darden MD. Ordering:[facility] Irasema Bran MD
[2020-09-13] MEDS: POTASSIUM CHLORIDE 10 MEQ/100 ML BAG 100 MEQ IVPB ×2 (21:28→22:58)
[2020-09-13] MEDS: Normal Saline Flush 10 ML SYR IVP (21:30)
[2020-09-13] MEDS: Metoprolol 12.5 MG TAB NG (22:36)
[2020-09-13] MEDS: buPROPion 100 MG TAB 200 MG NG (22:36)
[2020-09-13] MEDS: Mirtazapine 15 MG TAB 45 MG JT (22:36)
[2020-09-14] VITALS (76 sets, daily range): BP systolic 113–206; BP diastolic 73–146; PULSE 71–98; RESP 10–31; TEMP 30–36.6; O2SAT 75–100
[2020-09-14 01:48] LABS: BUN 26 mg/dL (7-18); CREATININE 1.09 mg/dL (0.55-1.02); Chloride 99 mmol/L (98-107); Glucose 82 mg/dL (74-106); Potassium 3.4 mmol/L (3.5-5.1); Sodium 135 mmol/L (136-145)
[2020-09-14 01:57] LABS: Calcium 6.1 mg/dL (8.5-10.1)
[2020-09-14] MEDS: CLINDAMYCIN 600 MG/50 ML BAG 100 MG IVPB ×2 (04:52→11:19)
[2020-09-14] MEDS: Levothyroxine 112 MCG TAB JT (05:56)
[2020-09-14 07:31] LABS: Abs Immature Grans 0.03 10^3/uL (0.0-0.06); Absolute Basophil Count 0.07 10^3/uL (0.0-0.2); Absolute Eosinophil Count 0.21 10^3/uL (0.0-0.7); Absolute Lymphocyte Count 0.65 10^3/uL (1.2-3.4); Absolute Monocyte Count 0.55 10^3/uL (0.1-0.8); Absolute Neutrophil Count 6.55 10^3/uL (1.2-6.7); Basophils % 0.9; Eosinophils % 2.6; HCT 27.8 % (36.0-46.0); Immature Grans % 0.4; Lymphocytes % 8.1; MCH 30.2 pg (27.0-33.0); MCHC 32.4 % (32.0-36.0); MCV 93.3 fL (80-95); Monocytes % 6.8; Neutrophils % 81.2; Nucleated RBC 0 %; Platelet Count 398 10^3/uL (130-400); RBC 2.98 10^6/uL (3.93-5.22); RDW 13.9 % (11.7-14.6); RDW-SD 47.8 fL; WBC 8.06 10^3/uL (4.4-10.8)
[2020-09-14 07:44] LABS: Anion Gap 15.1 mmol/L (3-11); BUN 21 mg/dL (7-18); CO2 20.9 mmol/L (21.0-32.0); CREATININE 1.02 mg/dL (0.55-1.02); Calcium 6.5 mg/dL (8.5-10.1); Chloride 100 mmol/L (98-107); Estimated GFR 55.28 (mL/min/1.73m2); Glucose 107 mg/dL (74-106); Magnesium 2.2 mg/dL (1.8-2.4); Potassium 3.2 mmol/L (3.5-5.1); Sodium 136 mmol/L (136-145)
[2020-09-14] MEDS: Calcium Carbonate *TUMS* 500 MG CHEW 1000 MG NG ×2 (09:00→13:46)
[2020-09-14] MEDS: Cyanocobalamin 500 MCG TAB 2500 MCG NG (09:01)
[2020-09-14] MEDS: buPROPion 100 MG TAB 200 MG NG (09:01)
[2020-09-14] MEDS: Gabapentin 300 MG CAP NG ×2 (09:01→13:46)
[2020-09-14] MEDS: Rivaroxaban 10 MG TABLET 20 MG PO (09:02)
[2020-09-14] MEDS: Dronabinol 2.5 MG CAP 5 MG JT (09:02)
[2020-09-14] MEDS: Metoprolol 12.5 MG TAB NG (09:02)
[2020-09-14] MEDS: traMADol 50 MG TAB NG (09:02)
[2020-09-14] MEDS: Calcitriol 0.25 MCG CAP 0.5 MCG UD (09:02)
[2020-09-14] MEDS: Folic Acid 1 MG TAB NG (09:03)
[2020-09-14] MEDS: Normal Saline Flush 10 ML SYR IVP (09:04)
--- NOTE | 2020-09-14 10:02 | PDOC.CMIN ---
- If Service Date Differs Date of service: 09/14/20 Time of Service: 10:02 Care Management Initial Assess REASON FOR HOSPITALIZATION:: Weakness, dehydration PAST MEDICAL HISTORY/PAST SURGICAL HISTORY:: Medical History. Cervical high risk HPV (human papillomavirus) test positive. Hx of cancer of lung. Hx of tongue cancer. Hypothyroidism. Mass of larynx. Surgical History. Colonoscopy - MAC (04/12/17) PREVIOUS FUNCTIONAL STATUS/SOCIAL/FAMILY SUPPORTS:: Melinda lives in [place], alone. Her sister checks in on her frequently and lives nearby. Melinda recently had a total laryngectomy and thyroidectomy. She is independent with her ADL's. CURRENT FUNCTIONAL STATUS:: Per MD, Melinda is insisting that she return home today. If she decides to leave, it will be AMA. Melinda is non verbal, but will write her thoughts down in order to communicate. She is able to make her own decisions, as she is of sound mind. CM will continue to follow. ADVANCE DIRECTIVES:: None on file. Palliative consulted. Has patient been provided with info about the portal/API?: No Did the patient sign up for the portal?: No CODE STATUS:: Full Code INSURANCE COVERAGE / FINANCIAL ISSUES:: [employer] CURRENT HOME/COMMUNITY SERVICES/EQUIPMENT:: HH RN. Melinda is in need of supplies for her trach, which will be coordinated by the hospitalist [facility] and RT. PRIMARY CARE PHYSICIAN:: Lashay Lombardo POTENTIAL DISCHARGE NEEDS:: Trach supplies, resume HH, follow up appointments PATIENT/FAMILY EDUCATION NEEDS:: Review discharge instructions regarding trach care and medications, discussion of self care needs and goals of care. ANTICIPATED BARRIERS TO DISCHARGE:: None identified at this time. TRANSPORTATION:: Via private vehicle by family PLAN:: Anticipate Melinda will return home when medically cleared with a resumption of HH RN. Possible increase of services, if indicated. Her sister will drive her home via private vehicle when ready. She will follow up with her PCP and discharge plan of care. CM will continue to follow.
--- NOTE | 2020-09-14 10:13 | PT.INNT ---
Date of service: 09/14/20 Time of Service: 10:00 PT Notes Visit Reasons: WEAKNESS, DEHYDRATION I visited with patient about initiating physical therapy today. She uses a white board to communicate to me that HH PT was working with her and recently discharged her, because she was doing just fine on her own. She is hopeful to go home today, and writes she is very depressed to be in the hospital. Home is her happiness. Nursing communicates to me that she has been moving independently within in her room with no safety concerns. Nursing expects discharge this afternoon. Based on communication with nursing, discharge home is likely appropriate with family supervision, as she demonstrates safe transfers and functional ambulation in their presence. Resuming HHPT seems appropriate due to patient's frail condition to limit further deconditioning. No evaluation completed, at patient's refusal. If she remains hospitalized we can attempt again.
[2020-09-14] MEDS: POTASSIUM CHLORIDE 20 MEQ/100 ML BAG 50 MEQ IVPB (11:19)
--- NOTE | 2020-09-14 12:28 | W.PM.DS.N ---
Date of service: 09/14/20 Time of Service: 12:28 DS: Diagnosis Discharge Diagnosis (1) Hypocalcemia: Status: Acute (2) Cellulitis: Status: Acute (3) Adult failure to thrive: Status: Acute (4) Dehydration: Status: Acute (5) Acute on chronic anemia: Status: Acute (6) Hypomagnesemia: Status: Acute (7) Hx of tongue cancer: Status: Chronic (8) Hx of cancer of lung: Status: None (9) DVT prophylaxis: Status: Acute (10) Discharge planning issues: Status: Acute Discharge Plan Disposition Patient Disposition: HOME W/HOME HEALTH SERVICE Condition: Poor Discharge Details Reason For Visit: WEAKNESS, DEHYDRATION Admit Date/Time: 09/13/20 11:49 Admit Provider: Shant Villalpando Attending Provider: Shant Villalpando Primary Care Provider: Lashay Lombardo V Hospital Course Hospital Course: 60 y.o female s/p lung ca with thorascopic resection, G tube, SSC of the tongue s/p subtotal glossectomy with chemoradiation and neck dissection 2008, now 23 day s/p total laryngectomy and thyroidectomy by ENT who is brought in by her sister for weakness and not being her self. Ms. Capps was discharged from [facility] on 09/04 with RN, PT/OT. On discharge they presented to her house for several days, however by Wednesday the patient was no longer answering her door. Her sister was checking on her daily and states by yesterday she was really tired not caring for herself and not taking medication. She did receive a shingles shot last week and was unable to crush her meds on her own, family and VNA was assisting; by Wednesday she was able to crush all her own medications but stopped taking them on Wednesday night. She became weaker and more depressed prompting her visit to [facility] ED. In the ED labs revealed hypocalcemia of less than 5. Hgb 7.4/HCT 22.9, hypokalemia, hypomagnesium. She is suppose to have tube feedings at home but unsure if she has been compliant. On review of [facility] chart her last calcium on the was 7.3. Endocrinology was following her and they discharged her on calcitrol, calcium carbonate with target of 8.0-8.5 calcium level. ED provider spoke with Broom Handle Dipper at [facility] they recommend calcium gluconate 1 gm then another 1 gm 20 mins after infusion. Will repeat calcium level around 1600. CXR revealing bilateral pleural effusion, she did pull her tracheostomy and has not had any suctioning or humidified oxygen in a couple days. RT replaced trach; with humidifed oxygen. Her stoma site did have some erythema and was painful to touch. She stated that was why she pulled out the trach tube. IV Clindamycin was initiated. She was admitted for further management of her electrolytes, calcium and illness. She was not very cooperative at the time of admission. Sister was at bed side and did give history of present illness. She was placed on a calcium drip after discussion with potato peeler at [facility]. Oral calcium carbonate and calcitriol continued. IV magnesium administered. She continued on Xarelto; h/o Factor V Lieden. Her calcium improved to 6.5. Magnesium corrected to normal. Her potassium on day of discharge was 3.2 and IV K was given. Palliative care was consulted and patient did change her code status to a DNR/DNI; COLST form signed. Her sister was present to discuss further care measures and patients wishes with Dr Duffy with palliative care. She stated she would like to continue with treatment but was adamant that she be discharged from the hospital. She did state she would continue with home health. Palliative will continue to follow. CMP and Mg lab to be drawn on Wednesday09/16/2020. Home Meds and New Rx's Prescriptions: New Xarelto 10 mg Tablet 20 mg PO DAILY Qty: 0 RF: 0 Continued cyanocobalamin (vitamin B-12) 100 mcg Tablet 2,500 mcg feeding tube RF: 0 tramadol 50 mg Tablet 50 mg Q6H PRN PRNRF: 0 biotin 300 mcg Tablet 1,050 mcg DAILY RF: 0 bupropion HCl 100 mg Tablet 200 mg BID RF: 0 ferrous sulfate 90 mg/5 mL Syrup 300 mg DAILY RF: 0 gabapentin 300 mg Capsule 300 mg TID RF: 0 mirtazapine 45 mg Tablet 45 mg QHS RF: 0 folic acid 1 mg Tablet 1 mg DAILY RF: 0 hydromorphone 4 mg Tablet 4 mg Q3H PRN PRNRF: 0 calcium carbonate 1,000 mg Tablet 1,000 mg TID RF: 0 levothyroxine 112 mcg Tablet 112 mcg DAILY RF: 0 ergocalciferol (vitamin D2) 25,000 unit Capsule 50,000 unit QWEEK RF: 0 metoprolol tartrate 25 mg Tablet 12.5 mg BID RF: 0 calcitriol 0.5 mcg Capsule 0.5 mcg BID RF: 0 Discontinued dronabinol 5 mg Capsule 5 mg BID RF: 0 acetaminophen 650 mg Tablet 650 mg Q6H WHILE AWAKE RF: 0 Discharge Instructions Instructions: Hypocalcemia (DC) Activity:: Activity as Tolerated Equipment/Supplies:: No Equipment Needed Diet:: Enteral feed via PEG Discharge Orders Discharge Orders: Discharge Order (Routine); Ordered 09/14/20 Ordered By: Vinicius Landon Other Ambulatory Orders: Comprehensive Metabolic Panel (Routine) Location: None Selected Ordered By: Vinicius Landon Magnesium (Routine) Location: None Selected Ordered By: Vinicius Landon DS: Summary Status at Discharge Functional status at discharge: independent ambulation Overall status at discharge: patient is not back to baseline Mental Status: mental status grossly normal Speech and Movement: other (Pt has trach and no speaking valve) Mood: dysthymic mood Affect: blunted Exam Const General: no acute distress, disheveled, frail appearing and other (Interacts minimally; keeps eyes shut most of the time. ) Nutritional Appearance: cachectic Orientation: alert, oriented to person and oriented to place Limitations: other limitations Eyes Sclera: sclerae normal EOM: EOM intact bilaterally Neck Neck: nontender and tracheostomy present Resp Effort & Inspection: normal respiratory effort Auscultation: clear to auscultation bilaterally Cardio Rate: regular rate Rhythm: regular rhythm Heart Sounds: S1 normal and S2 normal GI Inspection: other (PEG tube in place) Palpation: soft and nontender Auscultation: normal bowel sounds Skin Lesions: lesions noted Rashes: rash noted Other: skin at trach site w/o erythema. Extrem General: no pedal edema and no calf tenderness Psych Appearance: disheveled Mental Status: mental status grossly normal Mood: dysthymic mood Affect: blunted Attitude: avoids eye contact and refuses to answer (Occasionally answers ) DS: Data Vitals/I&O Vitals and I&O: Vital Signs Temperature 36.3 C L 09/14/20 09:02 Temperature Source Temporal Artery Scan 09/14/20 08:45 Pulse 87 09/14/20 09:46 Pulse Rhythm Regular 09/13/20 14:25 Pulse 83 09/14/20 09:50 Respiratory Rate 17 09/14/20 09:50 Respiratory Effort 09/14/20 08:45 Respiratory Depth Normal 09/14/20 08:45 Respiratory Pattern Normal 09/14/20 08:45 Blood Pressure 165/106 H 09/14/20 09:46 Blood Pressure Mean 120 09/14/20 09:46 Blood Pressure Position Sitting 09/13/20 09:33 Pulse Oximetry 96 09/14/20 09:46 Oxygen Delivery Method Room Air 09/13/20 15:20 Oxygen Flow Rate 30 09/14/20 08:00 Fraction of Inspired Oxygen (FIO2) 21 09/14/20 08:00 Pain Level 10 09/14/20 09:02 Comment 09/13/20 09:33 Intake & Output 09/13/20 09/14/20 09/14/20 23:59 11:59 23:59 Intake Total 820.833 / 820.833 320 / 320 Output Total 880 / 880 Balance 820.833 / 820.833 -560 / -560 Intake: IV 820.833 / 820.833 320 / 320 Output: Urine 850 / 850 Output, Residual 30 / 30 Other: Urine Color Yellow Urine Appearance Cloudy Urine Odor Normal Comment pt has not voided yet. Patient voiding to commode Voiding Methods Bedside Commode Data Completed and Pending Labs on day of discharge: Labs from last 24 hours 09/14/20 09/14/20 09/14/20 12:27 06:05 06:05 WBC 8.06 RBC 2.98 L Hgb 9.0 L Hct 27.8 L D MCV 93.3 MCH 30.2 MCHC 32.4 RDW 13.9 Plt Count 398 MPV 10.0 Immature Gran % 0.4 Neutrophils % 81.2 Lymphocytes % 8.1 Monocytes % 6.8 Eosinophils % 2.6 Basophils % 0.9 Nucleated RBC % 0 Absolute Neutrophils 6.55 Absolute Lymphocytes 0.65 L Absolute Monocytes 0.55 Absolute Eosinophils 0.21 Absolute Basophils 0.07 PT INR APTT Sodium 136 Potassium 3.2 L Chloride 100 Carbon Dioxide 20.9 L Anion Gap 15.1 H BUN 21 H Creatinine 1.02 Estimated GFR/1.73 m2 55.28 Glucose 107 H Calcium Pending 6.5 L Magnesium 2.2 C-Reactive Protein NT-Pro-B Natriuret Pep Procalcitonin COVID-19 PCR Nasopharyn COVID-19 PCR Ref Test Perform Site 09/14/20 09/14/20 09/14/20 06:05 01:10 01:00 WBC RBC Hgb Hct MCV MCH MCHC RDW Plt Count MPV Immature Gran % Neutrophils % Lymphocytes % Monocytes % Eosinophils % Basophils % Nucleated RBC % Absolute Neutrophils Absolute Lymphocytes Absolute Monocytes Absolute Eosinophils Absolute Basophils PT INR APTT Sodium 135 L Potassium 3.4 L Chloride 99 Carbon Dioxide 21.0 Anion Gap 15.0 H BUN 26 H Creatinine 1.09 H Estimated GFR/1.73 m2 51.20 Glucose 82 Calcium Cancelled 6.1 L* Cancelled Magnesium C-Reactive Protein NT-Pro-B Natriuret Pep Procalcitonin COVID-19 PCR Nasopharyn COVID-19 PCR Ref Test Perform Site 09/13/20 09/13/20 09/13/20 16:13 16:13 13:00 WBC RBC Hgb Hct MCV MCH MCHC RDW Plt Count MPV Immature Gran % Neutrophils % Lymphocytes % Monocytes % Eosinophils % Basophils % Nucleated RBC % Absolute Neutrophils Absolute Lymphocytes Absolute Monocytes Absolute Eosinophils Absolute Basophils PT 12.5 H INR 1.2 H APTT 29.6 Sodium Potassium Chloride Carbon Dioxide Anion Gap BUN Creatinine Estimated GFR/1.73 m2 Glucose Calcium 5.4 L* Magnesium C-Reactive Protein 6.82 H NT-Pro-B Natriuret Pep Procalcitonin COVID-19 PCR Nasopharyn COVID-19 PCR Ref Test Perform Site 09/13/20 09/13/20 09/13/20 12:28 11:00 11:00 WBC RBC Hgb Hct MCV MCH MCHC RDW Plt Count MPV Immature Gran % Neutrophils % Lymphocytes % Monocytes % Eosinophils % Basophils % Nucleated RBC % Absolute Neutrophils Absolute Lymphocytes Absolute Monocytes Absolute Eosinophils Absolute Basophils PT INR APTT Sodium Potassium Chloride Carbon Dioxide Anion Gap BUN Creatinine Estimated GFR/1.73 m2 Glucose Calcium Magnesium C-Reactive Protein NT-Pro-B Natriuret Pep 205 Procalcitonin 0.1 COVID-19 PCR Pending Nasopharyn COVID-19 PCR Pending Ref Test Perform Site Pending 09/13/20 11:00 Blood Blood Culture - Pending 09/13/20 10:29 Blood Blood Culture - Pending Preliminary micro results at discharge 09/13/20 11:00 Blood Culture - Pending Blood 09/13/20 10:29 Blood Culture - Pending Blood PFSH Medical History Cervical high risk HPV (human papillomavirus) test positive Hx of cancer of lung Hx of tongue cancer Hypothyroidism Mass of larynx Surgical History Colonoscopy - MAC (04/12/17) Family History Mother Diabetes Essential hypertension Father Prostate cancer Essential hypertension Social History Smoking/Tobacco Use Status: Former Tobacco Use Alcohol Intake: former Drug use: Never Current gender identity: female Do you feel safe at home: Yes Do you feel safe in your relationship?: Yes Additional Social history: above per chart, unable to assess privately 09/13/20
--- NOTE | 2020-09-14 12:45 | PDOC.HHF2F_ITS ---
Home Health Certification Home Health Certification: 1. Encounter Date and Reason I certify that SAILAJA BRUSH was seen by Vinicius Landon MD on 09/14/20 and that I had a [id number] encounter with this patient that meets the physician face to face encounter requirements. 2. Clinical Findings Supporting Skilled Need and Homebound Status I certify that home health services are medically necessary, include either intermittent nursing home and/or physical/speech therapy, and that this pat ient is homebound in that absences from the home require considerable and taxing effort and are infrequent or of short duration, or are attributable to the need to receive medical care. [X] (a) Attached documentation from encounter provides clinical findings supporting skilled need and homebound status (including what assistance patient requires to leave the home). The encounter with the patient was in whole, or in part, for the following medical condition, which is the primary reason for home health care: WEAKNESS, DEHYDRATION Resume home health orders [facility]: Physical Therapy: Speech Therapy: Homebound: 3. Certification and Authentication I certify that I composed the above information based on my clinical judgement relating to this patient's medical condition and, if applicable, clinical f indings communicated to me by the NPP or inpatient physician who performed the Home Health Referral. All further orders will be obtained through (Community Based Physician - PCP)
[2020-09-14] MEDS: Bacitracin 1 PACKET (14:00)
--- NOTE | 2020-09-14 14:14 | NUR.NOTE ---
Patient was withdrawn this AM when I came in. After speaking with the patient, I realized she was very angry that she was in in the hospital and she indicated through yelling (no sound), hand gestures, and facial expression that she was unhappy and wanted to go home now! I spoke with the patient regarding her need for treatment and that she could at home if her calcium was not treated. I explained the meaning of her Full Code status and having a palliative consult. I asked the patient specifically if she still wants to go home even if she might at home without treatment and she gave both a mouthed and written Yes! The patient relayed that she is comfortable and able to take care of her feedings. When I asked her what happened for why she came in this time, she pointed to her head and then mouthed that she became overwhelmed and gave up. Dr. Landon was notified as well as care management and the patient's sister. The patient's sister Marlee states that the patient was taking care of herself for several days after coming home but after having received the shingles vaccine the patient became very sore and ill feeling and stopped taking her medication. Multiple conversations were had with care management, Dr. Landon, and the sister. Dr. Duffy visited the patient and the patient was writing notes expressing anger with being here. We conversed with RT and they will be following up with care management, the patient, and [facility] on making sure the patient has what she needs. The patient agreed to go home with her sister. She also changed her code status to DNR/DNI as she does not want to have to come in to the hospital when EMS is called unless she decides to. Patient remained unhappy until she left but we provided the patient space and gave verbal support as needed. We included her in conversations and tried to give autonomy. Provided D/C instructions regarding lab work follow-up. Nursing Note:
--- NOTE | 2020-09-14 15:10 | W.PALLCONSUL ---
Date of service: 09/14/20 Assessment and Plan Assessment and plan (1) Lives alone with help available: Status: Chronic Assessment and plan: Sister and parents live near by. Sister Jessica, just 13 months older, is her main support person. Jessica's daughter Natasha also helps. Melinda is very independent and bull-headed according to her sister. At the same time, Kinza talked about wanting her mother when I first started talking to her. (2) Uses feeding tube: Status: Chronic Assessment and plan: Though still cachectic, Kinza has gained weight since introduction of the feeding tube. (3) POLST (Physician Orders for Life-Sustaining Treatment): Status: Acute Assessment and plan: Kinza chose DNR/she is already trache dependent. She already has a feeding tube. She would want abx for comfort. She would want limited interventions. She has spent most of the last month hospitalized, more than 3 weeks at [facility]. She just wants to go home. She was considering leaving [place], but then has decided to stay long enough for another round of Calcium level testing. We talked about the importance of giving her more power over her life. She feels very powerless, not the decision-maker about her life. (4) Goals of care, counseling/discussion: Status: Acute Assessment and plan: She wants to go home and stay home, if at all possible. Her extensive surgery was supposed to be curative for her cancer. No planned chemo or radiation, per sister Jessica. (5) Tracheostomy in place: Status: Chronic Assessment and plan: Reportedly was sent home from [facility] without appropriate supplies to manage her trache on her own at home. [facility] respiratory staff planning on driving to [facility] to tow picker what she needs. 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 Getting IV supplementation. Will continue oral supplementation once home. (7) Unintentional weight loss: Status: Chronic Assessment and plan: Lost 40 lbs in 2020. Now with feeding tube, gaining. [facility] Medical History (Updated 09/14/20 @ 15:35 by Amanda Duffy MD) Cervical high risk HPV (human papillomavirus) test positive DNR (do not resuscitate) Goals of care, counseling/discussion Hx of cancer of lung sister reports lung tumor was metastatic from her tongue cancer Hx of tongue cancer Hypothyroidism Lives alone with help available Mass of larynx POLST (Physician Orders for Life-Sustaining Treatment) Tracheostomy in place Unintentional weight loss Uses feeding tube Surgical History (Updated 09/14/20 @ 15:16 by Amanda Duffy MD) Colonoscopy - MAC (04/12/17) History of laryngectomy History of thyroidectomy Family History (Updated 09/14/20 @ 15:16 by Amanda Duffy MD) Mother Diabetes Essential hypertension Father Prostate cancer Essential hypertension Sister No problems noted. Brother No problems noted. Social History (Updated 09/14/20 @ 15:20 by Amanda Duffy MD) Smoking/Tobacco Use Status: Former Tobacco Use Quit Date: 11/22/04 Pack-years: 45 Tobacco: How many years used: 30 Alcohol Intake: former Drug use: Never Caregiver/Support person: No Household members: none Housing: house Number of Children: 0 Communication Needs: Corrective Lenses Education Level: high school Do you need help understanding health information?: Often current occupation: [email or web address], on disability Pets and animals: No Current gender identity: female What is your relationship status?: How often do you talk on the phone with friends or family?: never How often do you get together with friends or relatives?: three or more times per week Panel score (0-1 are the most socially isolated patients): 1 What type of physical activity do you participate in: walking and sedentary lifestyle Duration: 15-30 minutes/day Special aftab needs: No Do you feel safe at home: Yes Do you feel safe in your relationship?: Yes Additional Social history: Lives alone. Works as [employer] when not ill. Was . Sister Jessica is her primary support person. Jessica's daughter, Natasha, is also involved as are Melinda's parents, both alive. No pets. Grew up locally. Has some friends. Exam Const General: no acute distress, disheveled and frail appearing Nutritional Appearance: cachectic Orientation: alert, oriented to person and oriented to place Limitations: other limitations Eyes Sclera: sclerae normal EOM: EOM intact bilaterally Neck Neck: nontender and tracheostomy present Resp Effort & Inspection: normal respiratory effort Auscultation: clear to auscultation bilaterally Cardio Rate: regular rate Rhythm: regular rhythm Heart Sounds: S1 normal and S2 normal GI Inspection: other (PEG tube in place) Palpation: soft and nontender Auscultation: normal bowel sounds Skin Lesions: lesions noted Rashes: rash noted Other: skin at trach site w/o erythema. Extrem General: no pedal edema and no calf tenderness Psych Appearance: disheveled Mental Status: mental status grossly normal Mood: dysthymic mood Affect: sad Attitude: cooperative and avoids eye contact (at first, avoiding eye contact, then engaged) Thought Process: perseverating (wants to go home day of exam no matter what) Insight: fair Judgment: fair Results Last Vital Signs Temp 97.3 F L 09/14/20 09:02 Pulse 86 09/14/20 13:16 Resp 12 09/14/20 13:20 BP 156/93 H 09/14/20 13:16 Pulse Ox 75 L 09/14/20 11:16 Labs Result diagrams: 09/14/20 06:05 09/14/20 06:05 Labs: Laboratory Results - last 24 hr 09/13/20 09/13/20 09/14/20 16:13 16:13 01:00 WBC RBC Hgb Hct MCV MCH MCHC RDW Plt Count MPV Immature Gran % Neutrophils % Lymphocytes % Monocytes % Eosinophils % Basophils % Nucleated RBC % Absolute Neutrophils Absolute Lymphocytes Absolute Monocytes Absolute Eosinophils Absolute Basophils Sodium Potassium Chloride Carbon Dioxide Anion Gap BUN Creatinine Estimated GFR/1.73 m2 Glucose Calcium 5.4 L* Cancelled Magnesium C-Reactive Protein 6.82 H 09/14/20 09/14/20 09/14/20 01:10 06:05 06:05 WBC RBC Hgb Hct MCV MCH MCHC RDW Plt Count MPV Immature Gran % Neutrophils % Lymphocytes % Monocytes % Eosinophils % Basophils % Nucleated RBC % Absolute Neutrophils Absolute Lymphocytes Absolute Monocytes Absolute Eosinophils Absolute Basophils Sodium 135 L 136 Potassium 3.4 L 3.2 L Chloride 99 100 Carbon Dioxide 21.0 20.9 L Anion Gap 15.0 H 15.1 H BUN 26 H 21 H Creatinine 1.09 H 1.02 Estimated GFR/1.73 m2 51.20 55.28 Glucose 82 107 H Calcium 6.1 L* Cancelled 6.5 L Magnesium 2.2 C-Reactive Protein 09/14/20 09/14/20 06:05 13:00 WBC 8.06 RBC 2.98 L Hgb 9.0 L Hct 27.8 L D MCV 93.3 MCH 30.2 MCHC 32.4 RDW 13.9 Plt Count 398 MPV 10.0 Immature Gran % 0.4 Neutrophils % 81.2 Lymphocytes % 8.1 Monocytes % 6.8 Eosinophils % 2.6 Basophils % 0.9 Nucleated RBC % 0 Absolute Neutrophils 6.55 Absolute Lymphocytes 0.65 L Absolute Monocytes 0.55 Absolute Eosinophils 0.21 Absolute Basophils 0.07 Sodium Potassium Chloride Carbon Dioxide Anion Gap BUN Creatinine Estimated GFR/1.73 m2 Glucose Calcium 7.0 L Magnesium C-Reactive Protein
--- NOTE | 2020-09-14 16:00 | CMDISCH_ITS ---
- If Service Date Differs Date of service: 09/14/20 Time of Service: 16:00 LACE Index Scoring Tool - Questions: Length of Stay (in days): 2 Acuity (Admit via E.D.?): Yes Comorbidities: Any Tumor E.D. Visits: 2 - Answers: Total Score: 9 Risk of Readmission: Low Risk Care Management Discharge Reason for Hospitalization: Weakness, dehydration Discharge Plan: Melinda will return home with a resumption of HH RN. CM will coordinate with RT in order to determine if Melinda has appropriate equipment at home, and to facilitate ordering it, if she does not. Melinda met with Palliative care today to review her goals and wishes, and she will be followed by [facility] liative care out patient. She will be driven home by family via private vehicle. She will follow up with her PCP and discharge plan of care. She is happy to be going home. Patient/Family Education Needs: Review discharge instructions regarding trach care and medications, discussion of self care needs and goals of care. Services Needed at Discharge: Home Health Care Services (resume HH RN)
[2020-09-14 19:27] LABS: COVID-19 RT-PCR UVMMC Result Negative (Negative)
== END 2020-09-14 14:30 | disposition home health service (06) | DRG 206 ==
LOC: ER 13:24 → MS 13:32 → ICU 09-14 06:48
PROVIDERS: Family Medicine; Nurse Practitioner Family; Admitting Provider Internal Medicine; Emergency Provider Physician Assistant; PCP Family Medicine; Visit Provider Internal Medicine
DX: J95.02 Infection of tracheostomy stoma (principal); L03.221 Cellulitis of neck; Z68.1 Body mass index [BMI] 19.9 or less, adult; D68.51 Activated protein C resistance; E83.51 Hypocalcemia; R62.7 Adult failure to thrive; E86.0 Dehydration; D64.9 Anemia, unspecified; E83.42 Hypomagnesemia; Z90.02 Acquired absence of larynx; Z85.118 Personal history of other malignant neoplasm of bronchus and lung; Z79.01 Long term (current) use of anticoagulants; E89.0 Postprocedural hypothyroidism; E87.6 Hypokalemia; Z87.891 Personal history of nicotine dependence; Z93.1 Gastrostomy status
CPT/HCPCS: 36415; 36573; 36592; 71045; 80048; 80053; 80307; 84145; 87040; 93005; 96361; 96365; 99223; 99239; 99255; 99285; U0003; 70450; 71046; 80320; 80329; 81003; 81015; 82310; 83605; 83735; 83880; 84484; 85025; 85610; 85730; 86140; 93010; J0610; J3480; J3490

== ENCOUNTER 2020-09-16 18:30 | Outpatient (REF) | payer MEDICAID, SELFPAY ==
[2020-09-16 15:44] LABS: HCT 28.2 % (36.0-46.0); HGB 9.1 g/dL (11.2-15.7); MCH 30.6 pg (27.0-33.0); MCHC 32.3 % (32.0-36.0); MCV 94.9 fL (80-95); MPV 10.3 fL (8.0-11.0); Platelet Count 443 10^3/uL (130-400); RBC 2.97 10^6/uL (3.93-5.22); RDW 13.9 % (11.7-14.6); RDW-SD 48.1 fL; WBC 8.54 10^3/uL (4.4-10.8)
[2020-09-16 16:05] LABS: ALT 34 U/L (14-59); AST 33 U/L (15-37); Albumin 3.4 g/dL (3.4-5.0); Alkaline Phosphatase 204 U/L (46-116); BUN 20 mg/dL (7-18); Bilirubin, Total 0.3 mg/dL (0.2-1.0); CREATININE 1.33 mg/dL (0.55-1.02); Chloride 95 mmol/L (98-107); Glucose 64 mg/dL (74-106); Magnesium 1.8 mg/dL (1.8-2.4); Potassium 3.6 mmol/L (3.5-5.1); Sodium 137 mmol/L (136-145)
[2020-09-16 16:21] LABS: Calcium 6.4 mg/dL (8.5-10.1)
== END 2020-09-16 18:50 ==
LOC: NCHCN 18:30
PROVIDERS: PCP Family Medicine; Visit Provider Family Medicine
DX: R63.0 Anorexia (principal); E43 Unspecified severe protein-calorie malnutrition; R62.7 Adult failure to thrive
CPT/HCPCS: 80053; 85027; 83735

== ENCOUNTER 2020-09-24 14:56 | Outpatient (CLI) | payer MEDICAID, SELFPAY ==
[2020-09-24 15:10] LABS: HCT 25.8 % (36.0-46.0); HGB 8.3 g/dL (11.2-15.7)
[2020-09-24 15:20] LABS: BUN 39 mg/dL (7-18); CREATININE 1.57 mg/dL (0.55-1.02); Calcium 8.3 mg/dL (8.5-10.1); Chloride 94 mmol/L (98-107); Estimated GFR 33.61 (mL/min/1.73m2); Glucose 124 mg/dL (74-106); Magnesium 1.9 mg/dL (1.8-2.4); Potassium 4.1 mmol/L (3.5-5.1); Sodium 133 mmol/L (136-145)
== END 2020-09-24 15:16 ==
PROVIDERS: PCP Family Medicine; Visit Provider Preventive Medicine Undersea and Hyperbaric Medicine
DX: C13.9 Malignant neoplasm of hypopharynx, unspecified (principal); C14.0 Malignant neoplasm of pharynx, unspecified; E87.1 Hypo-osmolality and hyponatremia; D64.9 Anemia, unspecified; E87.5 Hyperkalemia
CPT/HCPCS: 36415; 80048; 83735; 85014; 85018

== ENCOUNTER 2020-10-03 16:42 | Outpatient (REF) | payer MEDICAID, SELFPAY | END 2020-10-03 17:02 | LOC: LBN 16:42 | PROVIDERS: PCP Family Medicine; Visit Provider Nurse Practitioner Family | DX: R19.5 Other fecal abnormalities (principal); R63.4 Abnormal weight loss | CPT/HCPCS: 82272 ==

== ENCOUNTER 2020-10-04 16:44 | Outpatient (REF) | payer MEDICAID, SELFPAY | END 2020-10-04 17:04 | LOC: LBN 16:44 | PROVIDERS: PCP Family Medicine; Visit Provider Nurse Practitioner Family | DX: R19.5 Other fecal abnormalities (principal) | CPT/HCPCS: 82272 ==

== ENCOUNTER 2020-10-10 13:23 | Emergency (ER) | payer MEDICAID, SELFPAY ==
[2020-10-10 13:27] VITALS: BP 165/96; PULSE 92; RESP 16; TEMP 36.1; O2SAT 97
--- NOTE | 2020-10-10 13:40 | W.ED.GENAD ---
Discharge Plan Disposition Patient Disposition: HOME Condition: Stable Discharge Details Clinical Impression: History of gastrostomy tube placement Primary Care Provider: Lashay Lombardo V ED Provider: Iesha Gu Home Meds and New Rx's Prescriptions: No Action Eliquis 2.5 mg tablet 2.5 mg PO BID RF: 0 cyanocobalamin (vitamin B-12) 100 mcg Tablet 2,500 mcg feeding tube RF: 0 tramadol 50 mg Tablet 50 mg Q6H PRN PRNRF: 0 biotin 300 mcg Tablet 1,050 mcg DAILY RF: 0 bupropion HCl 100 mg Tablet 200 mg BID RF: 0 ferrous sulfate 90 mg/5 mL Syrup 300 mg DAILY RF: 0 gabapentin 300 mg Capsule 300 mg TID RF: 0 mirtazapine 45 mg Tablet 45 mg QHS RF: 0 folic acid 1 mg Tablet 1 mg DAILY RF: 0 hydromorphone 4 mg Tablet 4 mg Q3H PRN PRNRF: 0 calcium carbonate 1,000 mg Tablet 1,000 mg TID RF: 0 levothyroxine 112 mcg Tablet 112 mcg DAILY RF: 0 ergocalciferol (vitamin D2) 25,000 unit Capsule 50,000 unit QWEEK RF: 0 metoprolol tartrate 25 mg Tablet 12.5 mg BID RF: 0 calcitriol 0.5 mcg Capsule 0.5 mcg BID RF: 0 Discharge Instructions Instructions: How to Use and Care for Your PEG Tube (ED) Additional Instructions: Follow-up with general surgery to have a replacement G-tube placed. A Hare catheter was placed at the placeholder. Follow up with primary care provider in 3-5 days. Return to ED sooner if any worsening or concerns. Increase oral fluids. Referrals: Lashay Lombardo MD [Primary Care Provider] - Laurence Kidd DO [OSTEOPATHIC DOCTOR] - Discharge Data Discharge Date/Time-TO BE ENTERED AT DEPARTURE: 10/10/20 15:17 Medical Decision Making 1342: will page surgery for consultation on G-tube replacement. 1411: Central supply brought down another McKey feeding tube which is not the type of feeding tube patient had in place. staff toxicologist performing a call to [facility] requesting information to report that patient was discharged from [facility] on September 24 at the request of the patient. 1434: Surgery re-paged Spoke with Laurence Kidd who reccomends placing a 20 fr hare catheter and she will be in to evaluate patient. 1446: 20 Omani single-lumen Hare catheter placed, 5 cc balloon inflated. Patient tolerated well. Informed of plan of care to have general surgery come evaluate patient. 1515: Dr. Kidd here at bedside for patient evaluation. G-tube/Hare flushed positive return. Patient instructed by Dr. Kidd to follow-up in the office and she will order new G-tube at that time. Patient requesting to leave as she has a an appointment at the cancer center at [facility]. Patient left with a 20 Omani Hare catheter in the G-tube stoma, tolerated well with question of tap water. Patient instructed with written directions on G-tube home care. HPI General Mode of arrival: ambulatory. Date/Time Provider Initiated Documentation: 10/10/20 13:27. Limitations to Documentation: physical limitation (Nonverbal has a trach in place). Information obtained by: patient. HPI Narrative: 60-year-old female presents to the ER after her G-tube came out prior to arrival. She was seen at [facility] prior to arrival where the story is is that the balloon was inflated and the saw leak. Patient has since replaced the G-tube prior to arrival. While in the ER department G-tube completely came out. She has a past medical history of 10 cancer, lung cancer mass of larynx, hypocalcemia. Related Data Home Medications Medication Instructions Recorded Confirmed biotin 1,050 mcg DAILY 09/13/20 10/10/20 bupropion HCl 200 mg BID 09/13/20 10/10/20 calcitriol 0.5 mcg BID 09/13/20 10/10/20 calcium carbonate 1,000 mg TID 09/13/20 10/10/20 cyanocobalamin (vitamin B-12) 2,500 mcg FEEDING TUBE 09/13/20 ergocalciferol (vitamin D2) 50,000 unit QWEEK 09/13/20 10/10/20 ferrous sulfate 300 mg DAILY 09/13/20 10/10/20 folic acid 1 mg DAILY 09/13/20 10/10/20 gabapentin 300 mg TID 09/13/20 10/10/20 hydromorphone 4 mg Q3H PRN PRN 09/13/20 10/10/20 levothyroxine 112 mcg DAILY 09/13/20 10/10/20 metoprolol tartrate 12.5 mg BID 09/13/20 10/10/20 mirtazapine 45 mg QHS 09/13/20 10/10/20 tramadol 50 mg Q6H PRN PRN 09/13/20 10/10/20 apixaban [Eliquis] 2.5 mg PO BID 10/10/20 10/10/20 Allergies Allergy/AdvReac Type Severity Reaction Status Date / Time fluoxetine [From Prozac] AdvReac Unverified 10/10/20 13:32 General Stated Complaint: Abd Prob BARBARA: 4 Review of Systems Narrative: Constitutional: Negative for weight loss, alert and oriented, well groomed, normal body habitus, appears comfortable. HEENT: Denies trauma, headaches, blurry vision, nasal discharge, pain has a history of oral cancer, lung cancer has a tracheostomy in place. Chest: Denies chest pain, palpitations, irregular rhythm, hypertension. Respiratory: Denies Shortness of breath, cough, hemoptysis. GI: Denies abdominal pain, nausea, vomiting, diarrhea, constipation. Here for replacement of G-tube. : Denies dysuria, hematuria, flank pain, rectal bleeding. Neuro: Denies dizziness, blurry vision, weakness, syncope, headache or facial numbness. Hematologic: Denies easy bruising, intolerance to heat or cold, hair loss. [facility] Medical History (Updated 10/10/20 @ 15:32 by Laurence Kidd DO) Cervical high risk HPV (human papillomavirus) test positive DNR (do not resuscitate) Gastrostomy tube dysfunction Goals of care, counseling/discussion Hx of cancer of lung sister reports lung tumor was metastatic from her tongue cancer Hx of tongue cancer Hypothyroidism Lives alone with help available Mass of larynx POLST (Physician Orders for Life-Sustaining Treatment) Tracheostomy in place Unintentional weight loss Uses feeding tube Surgical History (Updated 09/14/20 @ 15:16 by Amanda Duffy MD) Colonoscopy - MAC (04/12/17) History of laryngectomy History of thyroidectomy Family History (Updated 09/14/20 @ 15:16 by Amanda Duffy MD) Mother Diabetes Essential hypertension Father Prostate cancer Essential hypertension Sister No problems noted. Brother No problems noted. Social History (Updated 09/14/20 @ 15:20 by Amanda Duffy MD) Smoking/Tobacco Use Status: Former Tobacco Use Quit Date: 11/22/04 Pack-years: 45 Tobacco: How many years used: 30 Smoking risk assessment performed?: Yes Alcohol Intake: current Alcohol Intake frequency: 0-2 drinks per day Alcohol type: wine Drug use: Never Substance use type: does not use Caregiver/Support person: No Household members: none Housing: house Number of Children: 0 Communication Needs: Corrective Lenses Education Level: high school Do you need help understanding health information?: Often current occupation: [employer], on disability Pets and animals: No Current gender identity: female What is your relationship status?: How often do you talk on the phone with friends or family?: never How often do you get together with friends or relatives?: three or more times per week Panel score (0-1 are the most socially isolated patients): 1 What type of physical activity do you participate in: walking and sedentary lifestyle Duration: 15-30 minutes/day Special aftab needs: No Do you feel safe at home: Yes Do you feel safe in your relationship?: Yes Additional Social history: Lives alone. Works as [employer] when not ill. Was . Sister Jessica is her primary support person. Jessica's daughter, Natasha, is also involved as are Melinda's parents, both alive. No pets. Grew up locally. Has some friends. Exam Const General: cooperative, no acute distress, not in distress and frail appearing Nutritional Appearance: thin Orientation: alert, awake and oriented x3 Limitations: language barrier (Non verbal, has tracheostomy) GI Inspection: other (G-tube noted to Left quad , removed upon arrival, stoma noted, no surroundi) Other: Stoma noted no surrounding erythema, swelling, purulent discharge. Abdomen image: 1. Stoma noted for feeding tube. Course Vital Signs Vital signs: Vital Signs Temperature 36.1 C L 10/10/20 13:27 Pulse 92 H 10/10/20 13:27 Respiratory Rate 16 10/10/20 13:27 Blood Pressure 165/96 H 10/10/20 13:27 Pulse Oximetry 97 10/10/20 13:27 Temperature 36.1 C L 10/10/20 13:27 Temperature Source Skin 10/10/20 13:27 Pulse 92 H 10/10/20 13:27 Respiratory Rate 16 10/10/20 13:27 Respiratory Effort Non-Labored 10/10/20 13:27 Blood Pressure 165/96 H 10/10/20 13:27 Blood Pressure Position Sitting 10/10/20 13:27 Pulse Oximetry 97 10/10/20 13:27 Pain Level 0 10/10/20 13:27 Procedures Feeding Tube Replacement Type of Tube: gastrostomy Insertion Site Prior to Procedure: clean and GI fluid leaking Tube Used for Reinsertion: Hare Omani Tube Size (F): 20 Balloon size (mL): 10 Verification of Placement: auscultation Tube Secured by: tape/dressing Patient Tolerated Procedure: well and no complications
--- NOTE | 2020-10-10 15:23 | SCONE_ITS ---
Date of service: 10/10/20 Time of Service: 15:23 Assessment and Plan Assessment and plan (1) History of gastrostomy tube placement: Status: Acute (2) Unintentional weight loss: Status: Chronic (3) History of thyroidectomy: Status: Chronic (4) History of laryngectomy: Status: Acute (5) Tracheostomy in place: Status: Chronic (6) Acute on chronic anemia: Status: Acute (7) Hx of tongue cancer: Status: Chronic (8) Hx of cancer of lung: Status: None (9) Cervical high risk HPV (human papillomavirus) test positive: Status: None (10) Gastrostomy tube dysfunction: Status: Acute Assessment and plan: Patient has had a feeding tube in place for the last 3-1/2 months. She has never had the tube changed before. It is unclear if this was placed percutaneously or if this was placed as a open G-tube. Nor do I know where was originally placed or how. It fell out today. Surrounding tissue is intact. There is no signs of leaking or excoriation of the surrounding tissue. She does have a significant amount of hyper granulation tissue around the wound patient- does not want cauterized today. It was a 20 [place]an tube. We placed a 20 [place]. And the balloon was inflated with 10 cc of sterile saline. The tube flushed easily and gastric contents were aspirated. Patient can follow-up in our office if she desires Butch tube placed. Patient has still actively receiving treatment at [facility] and is on her way there today. -Routine wound care and dressing changes for the tube. Continue feedings as previously ordered. Follow-up with her wound care team for routine tube care. 15 minutes is spent with this patient today in the emergency room ensuring her G-tube was in proper position and functioning appropriately. [facility] Medical History (Updated 10/10/20 @ 15:32 by Laurence Kidd DO) Cervical high risk HPV (human papillomavirus) test positive DNR (do not resuscitate) Gastrostomy tube dysfunction Goals of care, counseling/discussion Hx of cancer of lung sister reports lung tumor was metastatic from her tongue cancer Hx of tongue cancer Hypothyroidism Lives alone with help available Mass of larynx POLST (Physician Orders for Life-Sustaining Treatment) Tracheostomy in place Unintentional weight loss Uses feeding tube Surgical History (Updated 09/14/20 @ 15:16 by Amanda Dfufy MD) Colonoscopy - MAC (04/12/17) History of laryngectomy History of thyroidectomy Family History (Updated 09/14/20 @ 15:16 by Amanda Duffy MD) Mother Diabetes Essential hypertension Father Prostate cancer Essential hypertension Sister No problems noted. Brother No problems noted. Social History (Updated 09/14/20 @ 15:20 by Amanda Duffy MD) Smoking/Tobacco Use Status: Former Tobacco Use Quit Date: 11/22/04 Pack-years: 45 Tobacco: How many years used: 30 Smoking risk assessment performed?: Yes Alcohol Intake: current Alcohol Intake frequency: 0-2 drinks per day Alcohol type: wine Drug use: Never Substance use type: does not use Caregiver/Support person: No Household members: none Housing: house Number of Children: 0 Communication Needs: Corrective Lenses Education Level: high school Do you need help understanding health information?: Often current occupation: [employer], on disability Pets and animals: No Current gender identity: female What is your relationship status?: How often do you talk on the phone with friends or family?: never How often do you get together with friends or relatives?: three or more times per week Panel score (0-1 are the most socially isolated patients): 1 What type of physical activity do you participate in: walking and sedentary lifestyle Duration: 15-30 minutes/day Special aftab needs: No Do you feel safe at home: Yes Do you feel safe in your relationship?: Yes Additional Social history: Lives alone. Works as [employer] when not ill. Was . Sister Jessica is her primary support person. Jessica's daughter, Natasha, is also involved as are Melinda's parents, both alive. No pets. Grew up locally. Has some friends. Results Last Vital Signs Temp 36.1 C L 10/10/20 13:27 Pulse 92 H 10/10/20 13:27 Resp 16 10/10/20 13:27 BP 165/96 H 10/10/20 13:27 Pulse Ox 97 10/10/20 13:27
== END 2020-10-10 15:17 | disposition home or self-care (01) ==
PROVIDERS: Emergency Provider Registered Nurse Emergency; PCP Family Medicine
DX: R63.4 Abnormal weight loss (principal); Z90.09 Acquired absence of other part of head and neck; Z90.02 Acquired absence of larynx; Z93.0 Tracheostomy status; D64.9 Anemia, unspecified; Z85.810 Personal history of malignant neoplasm of tongue; Z85.118 Personal history of other malignant neoplasm of bronchus and lung; R87.810 Cervical high risk human papillomavirus (HPV) DNA test positive; K94.23 Gastrostomy malfunction; C02.9 Malignant neoplasm of tongue, unspecified
CPT/HCPCS: 43762

== ENCOUNTER 2020-10-21 02:02 | Outpatient (RCR) | payer MEDICAID, SELFPAY ==
[2020-10-07 12:06] LABS: Abs Immature Grans 0.02 10^3/uL (0.0-0.06); Absolute Basophil Count 0.04 10^3/uL (0.0-0.2); Absolute Eosinophil Count 0.23 10^3/uL (0.0-0.7); Absolute Lymphocyte Count 0.89 10^3/uL (1.2-3.4); Basophils % 0.6; Eosinophils % 3.6; HCT 26.4 % (36.0-46.0); HGB 8.6 g/dL (11.2-15.7); Immature Grans % 0.3; Lymphocytes % 13.9; MCH 31.4 pg (27.0-33.0); MCHC 32.6 % (32.0-36.0); MCV 96.4 fL (80-95); Monocytes % 7.8; Neutrophils % 73.8; Nucleated RBC 0 %; Platelet Count 312 10^3/uL (130-400); RBC 2.74 10^6/uL (3.93-5.22); RDW 16.9 % (11.7-14.6); RDW-SD 59.1 fL; Reticulocyte 1.8 % (0.5-2.4); WBC 6.38 10^3/uL (4.4-10.8)
[2020-10-07 12:28] LABS: ALT 19 U/L (14-59); AST 26 U/L (15-37); Albumin 3.5 g/dL (3.4-5.0); Alkaline Phosphatase 93 U/L (46-116); Anion Gap 4.3 mmol/L (3-11); BUN 25 mg/dL (7-18); Bilirubin, Total 0.2 mg/dL (0.2-1.0); CO2 34.7 mmol/L (21.0-32.0); Calcium 8.9 mg/dL (8.5-10.1); Chloride 95 mmol/L (98-107); Estimated GFR 38.36 (mL/min/1.73m2); Glucose 100 mg/dL (74-106); Sodium 134 mmol/L (136-145); TSH 62.96 uIU/mL (0.36-3.74); Total Protein 7.6 g/dL (6.4-8.2)
[2020-10-07 12:49] LABS: FREE T4 0.74 ng/dL (0.76-1.46)
[2020-10-14 12:46] LABS: Abs Immature Grans 0.05 10^3/uL (0.0-0.06); Absolute Basophil Count 0.04 10^3/uL (0.0-0.2); Absolute Eosinophil Count 0.13 10^3/uL (0.0-0.7); Absolute Lymphocyte Count 0.82 10^3/uL (1.2-3.4); Absolute Monocyte Count 0.39 10^3/uL (0.1-0.8); Absolute Neutrophil Count 4.51 10^3/uL (1.2-6.7); Basophils % 0.7; Eosinophils % 2.2; HCT 26.4 % (36.0-46.0); HGB 8.8 g/dL (11.2-15.7); Immature Grans % 0.8; Lymphocytes % 13.8; MCH 32.5 pg (27.0-33.0); MCHC 33.3 % (32.0-36.0); MCV 97.4 fL (80-95); MPV 9.3 fL (8.0-11.0); Monocytes % 6.6; Neutrophils % 75.9; Nucleated RBC 0 %; Platelet Count 311 10^3/uL (130-400); RBC 2.71 10^6/uL (3.93-5.22); RDW 17.7 % (11.7-14.6); RDW-SD 62.1 fL; WBC 5.94 10^3/uL (4.4-10.8)
[2020-10-14 12:57] LABS: ALT 26 U/L (14-59); AST 30 U/L (15-37); Albumin 3.6 g/dL (3.4-5.0); Alkaline Phosphatase 85 U/L (46-116); Anion Gap 8.7 mmol/L (3-11); BUN 38 mg/dL (7-18); Bilirubin, Total 0.3 mg/dL (0.2-1.0); CO2 32.3 mmol/L (21.0-32.0); CREATININE 1.41 mg/dL (0.55-1.02); Calcium 8.2 mg/dL (8.5-10.1); Chloride 95 mmol/L (98-107); Estimated GFR 38.04 (mL/min/1.73m2); Glucose 97 mg/dL (74-106); Potassium 4.4 mmol/L (3.5-5.1); Sodium 136 mmol/L (136-145); Total Protein 7.5 g/dL (6.4-8.2)
[2020-10-21 10:06] LABS: Abs Immature Grans 0.03 10^3/uL (0.0-0.06); Absolute Basophil Count 0.03 10^3/uL (0.0-0.2); Absolute Eosinophil Count 0.03 10^3/uL (0.0-0.7); Absolute Lymphocyte Count 0.34 10^3/uL (1.2-3.4); Absolute Neutrophil Count 6.13 10^3/uL (1.2-6.7); Basophils % 0.4; Eosinophils % 0.4; HCT 26.3 % (36.0-46.0); HGB 9.1 g/dL (11.2-15.7); Immature Grans % 0.4; Lymphocytes % 4.9; MCHC 34.6 % (32.0-36.0); MCV 95.3 fL (80-95); Monocytes % 5.7; Neutrophils % 88.2; Nucleated RBC 0 %; Platelet Count 272 10^3/uL (130-400); RBC 2.76 10^6/uL (3.93-5.22); RDW 17.7 % (11.7-14.6); RDW-SD 61.1 fL; Reticulocyte 1.6 % (0.5-2.4); WBC 6.96 10^3/uL (4.4-10.8)
[2020-10-21 10:23] LABS: ALT 23 U/L (14-59); AST 36 U/L (15-37); Albumin 3.9 g/dL (3.4-5.0); Alkaline Phosphatase 101 U/L (46-116); Anion Gap 9.8 mmol/L (3-11); BUN 24 mg/dL (7-18); Bilirubin, Total 0.4 mg/dL (0.2-1.0); CO2 31.2 mmol/L (21.0-32.0); CREATININE 1.23 mg/dL (0.55-1.02); Calcium 7.6 mg/dL (8.5-10.1); Chloride 88 mmol/L (98-107); Estimated GFR 44.54 (mL/min/1.73m2); Glucose 103 mg/dL (74-106); Potassium 3.6 mmol/L (3.5-5.1); Sodium 129 mmol/L (136-145); Total Protein 8.3 g/dL (6.4-8.2)
[2020-10-21 10:56] LABS: Iron 71 ug/dL (50-170); Total Iron Binding Capacity 438 ug/dL (250-450); Transferrin Sat 16 % (15-50)
== END 2020-10-21 23:59 | disposition home or self-care (01) ==
LOC: INF 02:02
PROVIDERS: PCP Family Medicine; Visit Provider Internal Medicine Hematology & Oncology
DX: C13.9 Malignant neoplasm of hypopharynx, unspecified (principal); D64.9 Anemia, unspecified
CPT/HCPCS: 36415; 80053; 83540; 83550; 84439; 84443; 85025; 85045

== ENCOUNTER 2020-11-20 02:12 | Outpatient (RCR) | payer MEDICAID, SELFPAY ==
[2020-10-28 10:02] LABS: Abs Immature Grans 0.04 10^3/uL (0.0-0.06); Absolute Basophil Count 0.05 10^3/uL (0.0-0.2); Absolute Eosinophil Count 0.03 10^3/uL (0.0-0.7); Absolute Monocyte Count 0.58 10^3/uL (0.1-0.8); Absolute Neutrophil Count 5.76 10^3/uL (1.2-6.7); Basophils % 0.7; Eosinophils % 0.4; HCT 24.2 % (36.0-46.0); HGB 8.5 g/dL (11.2-15.7); Immature Grans % 0.6; Lymphocytes % 5.8; MCH 33.1 pg (27.0-33.0); MCHC 35.1 % (32.0-36.0); MCV 94.2 fL (80-95); MPV 8.7 fL (8.0-11.0); Monocytes % 8.5; Nucleated RBC 0 %; Platelet Count 286 10^3/uL (130-400); RBC 2.57 10^6/uL (3.93-5.22); RDW 17.3 % (11.7-14.6); RDW-SD 59.6 fL; WBC 6.86 10^3/uL (4.4-10.8)
[2020-10-28 10:30] LABS: ALT 20 U/L (14-59); AST 27 U/L (15-37); Albumin 3.5 g/dL (3.4-5.0); Alkaline Phosphatase 119 U/L (46-116); Anion Gap 8.2 mmol/L (3-11); BUN 38 mg/dL (7-18); Bilirubin, Total 0.5 mg/dL (0.2-1.0); CO2 30.8 mmol/L (21.0-32.0); CREATININE 1.24 mg/dL (0.55-1.02); Calcium 7.4 mg/dL (8.5-10.1); Chloride 85 mmol/L (98-107); Estimated GFR 44.12 (mL/min/1.73m2); Glucose 109 mg/dL (74-106); Magnesium 1.9 mg/dL (1.8-2.4); PHOSPHORUS 3.8 mg/dL (2.6-4.7); Potassium 4.1 mmol/L (3.5-5.1)
[2020-10-28 10:36] LABS: Sodium 124 mmol/L (136-145)
[2020-10-28 12:15] LABS: FREE T4 0.91 ng/dL (0.76-1.46); TSH 22.87 uIU/mL (0.36-3.74)
[2020-11-04 10:16] LABS: Abs Immature Grans 0.05 10^3/uL (0.0-0.06); Absolute Basophil Count 0.03 10^3/uL (0.0-0.2); Absolute Eosinophil Count 0.08 10^3/uL (0.0-0.7); Absolute Monocyte Count 0.51 10^3/uL (0.1-0.8); Absolute Neutrophil Count 4.86 10^3/uL (1.2-6.7); Basophils % 0.5; Eosinophils % 1.3; HCT 24.3 % (36.0-46.0); Immature Grans % 0.8; Lymphocytes % 8.3; MCH 33.2 pg (27.0-33.0); MCHC 32.9 % (32.0-36.0); MCV 100.8 fL (80-95); MPV 8.4 fL (8.0-11.0); Monocytes % 8.5; Neutrophils % 80.6; Nucleated RBC 0 %; Platelet Count 277 10^3/uL (130-400); RBC 2.41 10^6/uL (3.93-5.22); RDW 17.4 % (11.7-14.6); RDW-SD 64.6 fL; WBC 6.03 10^3/uL (4.4-10.8)
[2020-11-04 10:30] LABS: ALT 19 U/L (14-59); AST 24 U/L (15-37); Albumin 3.2 g/dL (3.4-5.0); Alkaline Phosphatase 125 U/L (46-116); Anion Gap 9.8 mmol/L (3-11); BUN 21 mg/dL (7-18); Bilirubin, Total 0.3 mg/dL (0.2-1.0); CO2 25.2 mmol/L (21.0-32.0); CREATININE 1.21 mg/dL (0.55-1.02); Calcium 7.7 mg/dL (8.5-10.1); Chloride 99 mmol/L (98-107); Estimated GFR 45.39 (mL/min/1.73m2); Glucose 111 mg/dL (74-106); Magnesium 1.7 mg/dL (1.8-2.4); PHOSPHORUS 3.3 mg/dL (2.6-4.7); Potassium 3.9 mmol/L (3.5-5.1); Sodium 134 mmol/L (136-145); Total Protein 7.6 g/dL (6.4-8.2)
[2020-11-11 10:08] LABS: Abs Immature Grans 0.07 10^3/uL (0.0-0.06); Absolute Basophil Count 0.04 10^3/uL (0.0-0.2); Absolute Eosinophil Count 0.04 10^3/uL (0.0-0.7); Absolute Lymphocyte Count 0.44 10^3/uL (1.2-3.4); Absolute Monocyte Count 0.86 10^3/uL (0.1-0.8); Absolute Neutrophil Count 9.08 10^3/uL (1.2-6.7); Basophils % 0.4; Eosinophils % 0.4; HCT 23.6 % (36.0-46.0); HGB 8.2 g/dL (11.2-15.7); Immature Grans % 0.7; Lymphocytes % 4.2; MCH 33.5 pg (27.0-33.0); MCHC 34.7 % (32.0-36.0); MCV 96.3 fL (80-95); MPV 8.6 fL (8.0-11.0); Monocytes % 8.2; Neutrophils % 86.1; Nucleated RBC 0 %; Platelet Count 305 10^3/uL (130-400); RBC 2.45 10^6/uL (3.93-5.22); RDW 15.9 % (11.7-14.6); RDW-SD 56.8 fL; WBC 10.53 10^3/uL (4.4-10.8)
[2020-11-11] MEDS: Normal Saline Flush 10 ML SYR IVP (10:11)
[2020-11-11 10:27] LABS: ALT 19 U/L (14-59); AST 17 U/L (15-37); Alkaline Phosphatase 141 U/L (46-116); Anion Gap 7.9 mmol/L (3-11); BUN 22 mg/dL (7-18); Bilirubin, Total 0.3 mg/dL (0.2-1.0); CO2 28.1 mmol/L (21.0-32.0); CREATININE 1.11 mg/dL (0.55-1.02); Calcium 9.7 mg/dL (8.5-10.1); Chloride 92 mmol/L (98-107); Estimated GFR 50.14 (mL/min/1.73m2); Glucose 110 mg/dL (74-106); Magnesium 1.5 mg/dL (1.8-2.4); PHOSPHORUS 3.3 mg/dL (2.6-4.7); Potassium 4.5 mmol/L (3.5-5.1); Sodium 128 mmol/L (136-145); Total Protein 7.5 g/dL (6.4-8.2)
[2020-11-18] MEDS: Normal Saline Flush 10 ML SYR IVP (10:25)
[2020-11-18 10:53] LABS: Abs Immature Grans 0.13 10^3/uL (0.0-0.06); Absolute Basophil Count 0.04 10^3/uL (0.0-0.2); Absolute Eosinophil Count 0.08 10^3/uL (0.0-0.7); Absolute Lymphocyte Count 0.39 10^3/uL (1.2-3.4); Absolute Monocyte Count 0.91 10^3/uL (0.1-0.8); Basophils % 0.3; Eosinophils % 0.6; HCT 21.7 % (36.0-46.0); HGB 7.3 g/dL (11.2-15.7); Lymphocytes % 3.1; MCH 33.2 pg (27.0-33.0); MCHC 33.6 % (32.0-36.0); MCV 98.6 fL (80-95); MPV 9.5 fL (8.0-11.0); Monocytes % 7.2; Neutrophils % 87.8; Nucleated RBC 0 %; Platelet Count 383 10^3/uL (130-400); RDW 15.2 % (11.7-14.6); RDW-SD 55.1 fL; WBC 12.62 10^3/uL (4.4-10.8)
[2020-11-18 10:54] LABS: Absolute Neutrophil Count 11.08 10^3/uL (1.2-6.7)
[2020-11-18 11:05] LABS: ALT 14 U/L (14-59); AST 18 U/L (15-37); Albumin 2.3 g/dL (3.4-5.0); Alkaline Phosphatase 125 U/L (46-116); Anion Gap 9.4 mmol/L (3-11); BUN 30 mg/dL (7-18); Bilirubin, Total 0.2 mg/dL (0.2-1.0); CO2 27.6 mmol/L (21.0-32.0); CREATININE 1.92 mg/dL (0.55-1.02); Calcium 9.6 mg/dL (8.5-10.1); Chloride 92 mmol/L (98-107); Estimated GFR 26.64 (mL/min/1.73m2); Glucose 129 mg/dL (74-106); Magnesium 1.7 mg/dL (1.8-2.4); PHOSPHORUS 3.3 mg/dL (2.6-4.7); Potassium 4.2 mmol/L (3.5-5.1); Sodium 129 mmol/L (136-145)
[2020-11-20] VITALS (7 sets, daily range): BP systolic 99–167; BP diastolic 62–99; PULSE 86–96; RESP 17–18; TEMP 36.5–36.7; O2SAT 97–100
[2020-11-20] MEDS: Normal Saline Flush 10 ML SYR IVP (14:33)
== END 2020-11-21 23:59 | disposition home or self-care (01) ==
LOC: INF 02:12
PROVIDERS: PCP Family Medicine; Visit Provider Internal Medicine Hematology & Oncology
DX: C02.9 Malignant neoplasm of tongue, unspecified (principal); C13.9 Malignant neoplasm of hypopharynx, unspecified; D64.9 Anemia, unspecified
CPT/HCPCS: 36415; 36430; 80053; 86850; 86900; 86901; 86920; 83735; 84100; 84439; 84443; 85025; P9016

== ENCOUNTER 2020-12-09 01:54 | Outpatient (RCR) | payer MEDICAID, SELFPAY ==
[2020-11-22 00:15] VITALS: BP 167/99; PULSE 96; RESP 18; TEMP 36.6
[2020-11-25 12:06] LABS: Abs Immature Grans 0.18 10^3/uL (0.0-0.06); Absolute Basophil Count 0.06 10^3/uL (0.0-0.2); Absolute Eosinophil Count 0.04 10^3/uL (0.0-0.7); Absolute Monocyte Count 0.81 10^3/uL (0.1-0.8); Basophils % 0.4; Eosinophils % 0.3; HCT 27.8 % (36.0-46.0); HGB 9.2 g/dL (11.2-15.7); Immature Grans % 1.2; Lymphocytes % 1.8; MCH 32.4 pg (27.0-33.0); MCHC 33.1 % (32.0-36.0); MCV 97.9 fL (80-95); Monocytes % 5.5; Neutrophils % 90.8; Nucleated RBC 0 %; Platelet Count 424 10^3/uL (130-400); RBC 2.84 10^6/uL (3.93-5.22); RDW 14.9 % (11.7-14.6); RDW-SD 53.8 fL; WBC 14.75 10^3/uL (4.4-10.8)
[2020-11-25 12:07] LABS: Absolute Lymphocyte Count 0.27 10^3/uL (1.2-3.4); Absolute Neutrophil Count 13.39 10^3/uL (1.2-6.7)
[2020-11-25] MEDS: Normal Saline Flush 10 ML SYR IVP (12:17)
[2020-11-25 12:23] LABS: ALT 14 U/L (14-59); AST 25 U/L (15-37); Albumin 2.3 g/dL (3.4-5.0); Alkaline Phosphatase 161 U/L (46-116); Anion Gap 9.9 mmol/L (3-11); BUN 35 mg/dL (7-18); Bilirubin, Total 0.2 mg/dL (0.2-1.0); CO2 28.1 mmol/L (21.0-32.0); CREATININE 1.65 mg/dL (0.55-1.02); Chloride 92 mmol/L (98-107); Estimated GFR 31.73 (mL/min/1.73m2); Glucose 98 mg/dL (74-106); Sodium 130 mmol/L (136-145); Total Protein 7.3 g/dL (6.4-8.2)
[2020-12-02 10:27] LABS: Abs Immature Grans 0.12 10^3/uL (0.0-0.06); Absolute Basophil Count 0.08 10^3/uL (0.0-0.2); Absolute Eosinophil Count 0.04 10^3/uL (0.0-0.7); Absolute Monocyte Count 0.44 10^3/uL (0.1-0.8); Absolute Neutrophil Count 5.11 10^3/uL (1.2-6.7); Basophils % 1.2; Eosinophils % 0.6; HCT 37.1 % (36.0-46.0); HGB 11.8 g/dL (11.2-15.7); Immature Grans % 1.8; Lymphocytes % 12.1; MCH 31.5 pg (27.0-33.0); MCHC 31.8 % (32.0-36.0); MCV 98.9 fL (80-95); MPV 9.2 fL (8.0-11.0); Monocytes % 6.7; Neutrophils % 77.6; Nucleated RBC 0 %; Platelet Count 577 10^3/uL (130-400); RBC 3.75 10^6/uL (3.93-5.22); RDW 14.6 % (11.7-14.6); RDW-SD 53.4 fL; WBC 6.59 10^3/uL (4.4-10.8)
[2020-12-02] MEDS: Normal Saline Flush 10 ML SYR IVP (10:36)
[2020-12-02 10:39] LABS: ALT 19 U/L (14-59); AST 34 U/L (15-37); Albumin 3.1 g/dL (3.4-5.0); Alkaline Phosphatase 156 U/L (46-116); Anion Gap 13.1 mmol/L (3-11); BUN 21 mg/dL (7-18); Bilirubin, Total 0.4 mg/dL (0.2-1.0); CO2 29.9 mmol/L (21.0-32.0); CREATININE 1.97 mg/dL (0.55-1.02); Chloride 95 mmol/L (98-107); Estimated GFR 25.86 (mL/min/1.73m2); Glucose 72 mg/dL (74-106); Potassium 3.9 mmol/L (3.5-5.1); Sodium 138 mmol/L (136-145)
[2020-12-02 14:30] LABS: Calcium 13.2 mg/dL (8.5-10.1)
[2020-12-04 09:54] LABS: ALT 18 U/L (14-59); AST 31 U/L (15-37); Albumin 2.7 g/dL (3.4-5.0); Alkaline Phosphatase 121 U/L (46-116); Anion Gap 8.7 mmol/L (3-11); BUN 20 mg/dL (7-18); Bilirubin, Total 0.2 mg/dL (0.2-1.0); CO2 31.3 mmol/L (21.0-32.0); Calcium 10.8 mg/dL (8.5-10.1); Chloride 97 mmol/L (98-107); Estimated GFR 22.77 (mL/min/1.73m2); Glucose 71 mg/dL (74-106); Potassium 3.7 mmol/L (3.5-5.1); Sodium 137 mmol/L (136-145); Total Protein 7.4 g/dL (6.4-8.2)
[2020-12-04 13:01] LABS: PHOSPHORUS 4.6 mg/dL (2.6-4.7)
[2020-12-09] MEDS: Normal Saline Flush 10 ML SYR IVP (09:40)
[2020-12-09 09:44] LABS: Abs Immature Grans 0.03 10^3/uL (0.0-0.06); Absolute Basophil Count 0.05 10^3/uL (0.0-0.2); Absolute Eosinophil Count 0.08 10^3/uL (0.0-0.7); Absolute Lymphocyte Count 0.68 10^3/uL (1.2-3.4); Absolute Monocyte Count 0.35 10^3/uL (0.1-0.8); Absolute Neutrophil Count 3.21 10^3/uL (1.2-6.7); Basophils % 1.1; Eosinophils % 1.8; HCT 30.5 % (36.0-46.0); HGB 9.9 g/dL (11.2-15.7); Immature Grans % 0.7; Lymphocytes % 15.5; MCH 32.2 pg (27.0-33.0); MCHC 32.5 % (32.0-36.0); MCV 99.3 fL (80-95); MPV 9.2 fL (8.0-11.0); Neutrophils % 72.9; Nucleated RBC 0 %; Platelet Count 320 10^3/uL (130-400); RBC 3.07 10^6/uL (3.93-5.22); RDW-SD 54.4 fL
[2020-12-09 11:06] LABS: ALT 19 U/L (14-59); AST 31 U/L (15-37); Albumin 2.7 g/dL (3.4-5.0); Alkaline Phosphatase 106 U/L (46-116); Anion Gap 10.1 mmol/L (3-11); BUN 19 mg/dL (7-18); Bilirubin, Total 0.2 mg/dL (0.2-1.0); CO2 26.9 mmol/L (21.0-32.0); CREATININE 1.86 mg/dL (0.55-1.02); Calcium 7.8 mg/dL (8.5-10.1); Chloride 100 mmol/L (98-107); Estimated GFR 27.64 (mL/min/1.73m2); Glucose 64 mg/dL (74-106); Potassium 3.2 mmol/L (3.5-5.1); Sodium 137 mmol/L (136-145); Total Protein 7.2 g/dL (6.4-8.2)
[2020-12-09 17:00] LABS: Ionized Calcium 0.96 mmol/L (1.12-1.32)
[2020-12-10 10:03] LABS: Parathyroid Hormone,Intact <6 pg/mL (19-88)
== END 2020-12-22 23:59 | disposition home or self-care (01) ==
LOC: INF 01:54
PROVIDERS: PCP Family Medicine; Visit Provider Internal Medicine Hematology & Oncology
DX: C13.9 Malignant neoplasm of hypopharynx, unspecified (principal); N28.9 Disorder of kidney and ureter, unspecified; E83.52 Hypercalcemia
CPT/HCPCS: 36415; 80053; 82330; 83970; 84100; 85025

== ENCOUNTER 2020-12-14 08:17 | Emergency (ER) | payer MEDICAID, SELFPAY ==
[2020-12-14] VITALS (25 sets, daily range): BP systolic 97–129; BP diastolic 62–91; PULSE 92–119; RESP 11–23; TEMP 36.5; O2SAT 98
--- NOTE | 2020-12-14 08:29 | W.ED.GENAD ---
Discharge Plan Disposition Patient Disposition: HOME Condition: Improving Discharge Details Clinical Impression: Acute dehydration, Hx of cancer of lung, Hypocalcemia Primary Care Provider: Lashay Lombardo V ED Provider: Satinder Oscar Home Meds and New Rx's Prescriptions: Continued Eliquis 2.5 mg tablet 2.5 mg PO BID RF: 0 cyanocobalamin (vitamin B-12) 100 mcg Tablet 2,500 mcg feeding tube RF: 0 tramadol 50 mg Tablet 50 mg Q6H PRN PRNRF: 0 biotin 300 mcg Tablet 1,050 mcg DAILY RF: 0 bupropion HCl 100 mg Tablet 200 mg BID RF: 0 ferrous sulfate 90 mg/5 mL Syrup 300 mg DAILY RF: 0 gabapentin 300 mg Capsule 300 mg TID RF: 0 mirtazapine 45 mg Tablet 45 mg QHS RF: 0 folic acid 1 mg Tablet 1 mg DAILY RF: 0 calcium carbonate 1,000 mg Tablet 1,250 mg TID RF: 0 levothyroxine 112 mcg Tablet 112 mcg DAILY RF: 0 ergocalciferol (vitamin D2) 25,000 unit Capsule 50,000 unit QWEEK RF: 0 metoprolol tartrate 25 mg Tablet 12.5 mg BID RF: 0 calcitriol 0.5 mcg Capsule 0.5 mcg BID RF: 0 Discharge Instructions Instructions: Dehydration (ED) Additional Instructions: Please continue small, frequent sips of fluids to maintain hydration. We will ask our care management team to wok on followup for you this week in Dr Saab's office. Continue regularly prescribed medications. Return to the emergency department for any acute concerns Medical Decision Making 60-year-old female presents from home with her niece. She has had intermittent difficulty swallowing for days, and now unable to swallow since yesterday morning when she last took her medications. 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 Has had previous G-tube placement, now status post removal on November 29 due to persistent leaking of gastric contents. She has had some intermittent difficulty with swallowing, has established care with speech therapy in [facility] for swallowing therapy. Has follow-up with otolaryngology for evaluation of her neopharynx. She has had 1 postoperative esophageal dilatation. She was at [facility] yesterday for follow-up of acute on chronic renal failure and hypocalcemia. She was asked to resume her calcium and vitamin D prescriptions. There was a thought that some of her intermittent dysphagia may be due to tetany. She is scheduled to follow-up with ENT. Finally, patient is DNR, she has established palliative care. She has recently been communicating primarily through writing. Patient is slightly tachycardic and dehydrated in appearance. IV access was established screening labs including calcium obtained: Patient does have mild renal insufficiency/dehydration, mild hypocalcemia and mild hypomagnesemia. She was given fluids and electrolytes were supplemented. She was also given a mild anxiolytic. The patients heart rate improved, she felt improved. She was able to take a popsicle and subsequently approximately 16oz apple juice. She is fairly adamant about returning to home. She is keen to have follow-up with otolaryngology, with possible repeat neopharynx/upper esophagus dilatation previously performed by Dr Saab. We will ask care management to ensure close followup for her this week. Lab Data Lab results reviewed: Yes I reviewed the patient's lab results. Labs: Laboratory Results - last 24 hr 12/14/20 12/14/20 12/14/20 09:00 09:00 09:00 WBC 4.10 L RBC 3.87 L Hgb 12.4 Hct 37.4 MCV 96.6 H MCH 32.0 MCHC 33.2 RDW 14.9 H Plt Count 284 MPV 9.3 Immature Gran % 0.5 Neutrophils % 68.8 Lymphocytes % 17.1 Monocytes % 10.2 Eosinophils % 1.7 Basophils % 1.7 Nucleated RBC % 0 Absolute Neutrophils 2.82 Absolute Lymphocytes 0.70 L Absolute Monocytes 0.42 Absolute Eosinophils 0.07 Absolute Basophils 0.07 Sodium 136 Potassium 3.7 Chloride 98 Carbon Dioxide 26.1 Anion Gap 11.9 H BUN 24 H Creatinine 2.10 H Estimated GFR/1.73 m2 24.02 Glucose 128 H Calcium 7.9 L 7.8 L Magnesium 1.8 Total Bilirubin 0.5 AST 44 H ALT 28 Alkaline Phosphatase 119 H Total Protein 8.8 H Albumin 3.6 HPI General Mode of arrival: ambulatory. Date/Time Provider Initiated Documentation: 12/14/20 08:20. Limitations to Documentation: no limitations. Information obtained by: patient and family. History of Present Illness 60 year old F presents to the emergency department with the chief complaint of Cannot swallow, described as moderate and similar to prior episodes, Quality is described as dull and constant, and is localized to the face and mouth. Patient reports no radiation. Patient started experiencing this hour(s) and it has been intermittent. No relieving factors improve symptom(s), No exacerbating factors reported . Patient notes denies chest pain, fever/chills, nausea/vomiting and shortness of breath. Patient did receive the following treatments prior to arrival, none Related Data Home Medications Medication Instructions Recorded Confirmed biotin 1,050 mcg DAILY 09/13/20 12/14/20 bupropion HCl 200 mg BID 09/13/20 12/14/20 calcitriol 0.5 mcg BID 09/13/20 10/10/20 calcium carbonate 1,250 mg TID 09/13/20 10/10/20 cyanocobalamin (vitamin B-12) 2,500 mcg FEEDING TUBE 09/13/20 ergocalciferol (vitamin D2) 50,000 unit QWEEK 09/13/20 12/14/20 ferrous sulfate 300 mg DAILY 09/13/20 12/14/20 folic acid 1 mg DAILY 09/13/20 12/14/20 gabapentin 300 mg TID 09/13/20 12/14/20 levothyroxine 112 mcg DAILY 09/13/20 12/14/20 metoprolol tartrate 12.5 mg BID 09/13/20 12/14/20 mirtazapine 45 mg QHS 09/13/20 10/10/20 tramadol 50 mg Q6H PRN PRN 09/13/20 10/10/20 Eliquis 2.5 mg PO BID 10/10/20 12/14/20 Allergies Allergy/AdvReac Type Severity Reaction Status Date / Time fluoxetine [From Prozac] AdvReac Unverified 12/14/20 08:25 General Stated Complaint: GenMedical BARBARA: 3 Review of Systems Narrative: Patient is DNR. She has established palliative care consultation. She denies recent fever, chills. States she has been urinating and had normal bowel movements. 8 systems reviewed and otherwise negative. [facility] Medical History Cervical high risk HPV (human papillomavirus) test positive DNR (do not resuscitate) Gastrostomy tube dysfunction Goals of care, counseling/discussion Hx of cancer of lung sister reports lung tumor was metastatic from her tongue cancer Hx of tongue cancer Hypothyroidism Lives alone with help available Mass of larynx POLST (Physician Orders for Life-Sustaining Treatment) Tracheostomy in place Unintentional weight loss Uses feeding tube Surgical History (Updated 09/14/20 @ 15:16 by Amanda Duffy MD) Colonoscopy - MAC (04/12/17) History of laryngectomy History of thyroidectomy Family History Mother Diabetes Essential hypertension Father Prostate cancer Essential hypertension Sister No problems noted. Brother No problems noted. Social History Smoking/Tobacco Use Status: Former Tobacco Use Quit Date: 11/22/04 Pack-years: 45 Tobacco: How many years used: 30 Smoking risk assessment performed?: Yes Alcohol Intake: current Alcohol Intake frequency: 0-2 drinks per day Alcohol type: wine Drug use: Never Substance use type: does not use Caregiver/Support person: No Household members: none Housing: house Number of Children: 0 Communication Needs: Corrective Lenses Education Level: high school Do you need help understanding health information?: Often current occupation: [employer], on disability Pets and animals: No Current gender identity: female What is your relationship status?: How often do you talk on the phone with friends or family?: never How often do you get together with friends or relatives?: three or more times per week Panel score (0-1 are the most socially isolated patients): 1 What type of physical activity do you participate in: walking and sedentary lifestyle Duration: 15-30 minutes/day Special aftab needs: No Do you feel safe at home: Yes Do you feel safe in your relationship?: Yes Additional Social history: Lives alone. Works as [employer] when not ill. Was . Sister Jessica is her primary support person. Jessica's daughter, Natasha, is also involved as are Melinda's parents, both alive. No pets. Grew up locally. Has some friends. Exam Narrative Exam Narrative: GEN: awake, alert, well groomed, interactive. HEAD: Normocephalic, atraumatic ENT: Mucous membranes dry, hemiglossectomy, no significant swelling or obstruction of the posterior pharynx, external ear exam unremarkable EYES: PERRL, EOMI NECK: Full ROM, no JOSE, no menigismus CHEST/RESP: Nontender, clear to auscultation bilateral, no wheeze/rhonchi/rales CARDIOVASCULAR: Regular and tachycardic 2+ Rad pulse bilateral ABDOMEN: Soft, nontender, no mass. +Bowel sounds. Healing G-tube site. EXT: Full ROM, no edema, no rash Neuro: Grossly normal neurologic exam, conversant, interactive. Psych: Speech fluent, thoughts congruent, affect normal Course Vital Signs Vital signs: Vital Signs Temperature 36.5 C 12/14/20 08:19 Pulse 119 H 12/14/20 08:19 Respiratory Rate 18 12/14/20 08:19 Blood Pressure 115/73 12/14/20 08:19 Pulse Oximetry 98 12/14/20 08:19 Temperature 36.5 C 12/14/20 08:19 Temperature Source Skin 12/14/20 08:19 Pulse 119 H 12/14/20 08:19 Respiratory Rate 18 12/14/20 08:19 Blood Pressure 115/73 12/14/20 08:19 Blood Pressure Position Sitting 12/14/20 08:19 Pulse Oximetry 98 12/14/20 08:19 Oxygen Delivery Method Room Air 12/14/20 08:19 Oxygen Flow Rate 0 12/14/20 08:19 Pain Level 0 12/14/20 08:19
--- NOTE | 2020-12-14 08:30 | RT.EKG_ITS ---
APPROVED REPORT Exam: Resting ECG Patient Location: E HR:105 bpm ECG Measurements Heart Rate 105 AXIS IA 153 P 73 QRSd 87 QRS 87 QT 355 T 23 QTc 471 Conclusion Sinus tachycardia...rate> 99
[2020-12-14] MEDS: LORazepam 2 MG/ML VIAL 0.5 MG IVP (09:05)
[2020-12-14] MEDS: Normal Saline 1,000 ML 150 ML IV (09:05)
[2020-12-14 09:07] LABS: Abs Immature Grans 0.02 10^3/uL (0.0-0.06); Absolute Basophil Count 0.07 10^3/uL (0.0-0.2); Absolute Eosinophil Count 0.07 10^3/uL (0.0-0.7); Absolute Monocyte Count 0.42 10^3/uL (0.1-0.8); Absolute Neutrophil Count 2.82 10^3/uL (1.2-6.7); Basophils % 1.7; Eosinophils % 1.7; HCT 37.4 % (36.0-46.0); HGB 12.4 g/dL (11.2-15.7); Immature Grans % 0.5; Lymphocytes % 17.1; MCHC 33.2 % (32.0-36.0); MCV 96.6 fL (80-95); MPV 9.3 fL (8.0-11.0); Monocytes % 10.2; Neutrophils % 68.8; Nucleated RBC 0 %; Platelet Count 284 10^3/uL (130-400); RBC 3.87 10^6/uL (3.93-5.22); RDW 14.9 % (11.7-14.6); RDW-SD 53.4 fL
[2020-12-14 09:15] LABS: Calcium 7.9 mg/dL (8.5-10.1); Magnesium 1.8 mg/dL (1.8-2.4)
[2020-12-14 09:21] LABS: ALT 28 U/L (14-59); AST 44 U/L (15-37); Albumin 3.6 g/dL (3.4-5.0); Alkaline Phosphatase 119 U/L (46-116); Anion Gap 11.9 mmol/L (3-11); BUN 24 mg/dL (7-18); Bilirubin, Total 0.5 mg/dL (0.2-1.0); CO2 26.1 mmol/L (21.0-32.0); Calcium 7.8 mg/dL (8.5-10.1); Chloride 98 mmol/L (98-107); Estimated GFR 24.02 (mL/min/1.73m2); Glucose 128 mg/dL (74-106); Potassium 3.7 mmol/L (3.5-5.1); Sodium 136 mmol/L (136-145); Total Protein 8.8 g/dL (6.4-8.2)
[2020-12-14] MEDS: MAGNESIUM SULFATE 1 GM/100 ML BAG IVPB (09:30)
--- NOTE | 2020-12-14 11:23 | NUR.NOTE ---
11:20 patient eating a popsicle swallowing without difficulty. Patient reading the newspaper.
--- NOTE | 2020-12-14 11:27 | NUR.NOTE ---
Addendum entered by Natalie Fofana 12/14/20 15:24: Faxed to [facility] the referral, labs, EKG, facesheet, and provider note for follow up with Dr. Sosa. Natalie Fofana P [phone] F [phone] Original Note: Nursing Note: Referral to [facility]NT given to Care Management. Natalie Fofana
--- NOTE | 2020-12-14 11:48 | NUR.NOTE ---
1145 patient drank a cup of apple juice without difficulty
== END 2020-12-14 13:53 | disposition home or self-care (01) ==
PROVIDERS: Emergency Provider Emergency Medicine; PCP Family Medicine
DX: E86.0 Dehydration (principal); E83.51 Hypocalcemia; R13.10 Dysphagia, unspecified; E83.42 Hypomagnesemia; C34.90 Malignant neoplasm of unspecified part of unspecified bronchus or lung; C02.9 Malignant neoplasm of tongue, unspecified; Z66 Do not resuscitate
CPT/HCPCS: 36415; 80053; 93005; 96361; 96365; 96368; 96375; 99284; 81003; 82310; 83735; 85025; 93010; J0610; J2060; J3475

== ENCOUNTER 2021-01-09 12:50 | Outpatient (RCR) | payer MEDICAID, SELFPAY ==
[2020-12-23 08:56] LABS: Abs Immature Grans 0.02 10^3/uL (0.0-0.06); Absolute Basophil Count 0.06 10^3/uL (0.0-0.2); Absolute Eosinophil Count 0.02 10^3/uL (0.0-0.7); Absolute Lymphocyte Count 0.85 10^3/uL (1.2-3.4); Absolute Monocyte Count 0.49 10^3/uL (0.1-0.8); Absolute Neutrophil Count 6.68 10^3/uL (1.2-6.7); Basophils % 0.7; Eosinophils % 0.2; HCT 29.9 % (36.0-46.0); HGB 10.3 g/dL (11.2-15.7); Immature Grans % 0.2; Lymphocytes % 10.5; MCH 32.3 pg (27.0-33.0); MCHC 34.4 % (32.0-36.0); MCV 93.7 fL (80-95); MPV 9.2 fL (8.0-11.0); Neutrophils % 82.4; Nucleated RBC 0 %; Platelet Count 230 10^3/uL (130-400); RBC 3.19 10^6/uL (3.93-5.22); RDW-SD 48.1 fL; WBC 8.12 10^3/uL (4.4-10.8)
[2020-12-23 09:26] LABS: ALT 28 U/L (14-59); AST 51 U/L (15-37); Albumin 3.2 g/dL (3.4-5.0); Alkaline Phosphatase 91 U/L (46-116); Anion Gap 11.4 mmol/L (3-11); BUN 24 mg/dL (7-18); Bilirubin, Total 0.3 mg/dL (0.2-1.0); CO2 31.6 mmol/L (21.0-32.0); CREATININE 1.7 mg/dL (0.55-1.02); Calcium 8.7 mg/dL (8.5-10.1); Chloride 95 mmol/L (98-107); Estimated GFR 30.66 (mL/min/1.73m2); Glucose 104 mg/dL (74-106); Potassium 3.1 mmol/L (3.5-5.1); Sodium 138 mmol/L (136-145); TSH 2.47 uIU/mL (0.36-3.74); Total Protein 7.4 g/dL (6.4-8.2)
[2021-01-06 12:35] LABS: PHOSPHORUS 3.2 mg/dL (2.6-4.7)
[2021-01-06 13:55] LABS: Vitamin D 25 Total 78.7 ng/ml (30-100)
[2021-01-07 11:45] LABS: Parathyroid Hormone,Intact <6 pg/mL (19-88)
[2021-01-07 14:31] LABS: Reticulocyte 2.1 % (0.5-2.4)
[2021-01-07 14:40] LABS: Iron 57 ug/dL (50-170); Total Iron Binding Capacity 202 ug/dL (250-450); Transferrin Sat 28 % (15-50)
[2021-01-07 14:46] LABS: FREE T4 0.96 ng/dL (0.76-1.46)
[2021-01-09 13:42] LABS: Albumin 2.9 g/dL (3.4-5.0); Calcium 10.4 mg/dL (8.5-10.1)
[2021-01-11 11:26] LABS: Calcium, Random Ur 37 mg/dL; Creatinine, Random Ur 122 mg/dL
== END 2021-01-19 23:59 | disposition home or self-care (01) ==
LOC: INF 12:50
PROVIDERS: Internal Medicine Hematology & Oncology; PCP Family Medicine; Visit Provider Internal Medicine
DX: C13.9 Malignant neoplasm of hypopharynx, unspecified (principal); E83.52 Hypercalcemia; E86.0 Dehydration; E03.9 Hypothyroidism, unspecified; E55.9 Vitamin D deficiency, unspecified; E20.9 Hypoparathyroidism, unspecified
CPT/HCPCS: 36415; 80053; 82306; 82310; 82040; 83540; 83550; 83970; 84100; 84439; 84443; 85025; 85045

== ENCOUNTER 2021-01-31 11:00 | Outpatient (RCR) | payer MEDICAID, SELFPAY ==
[2021-01-27 09:31] LABS: Abs Immature Grans 0.04 10^3/uL (0.0-0.06); Absolute Basophil Count 0.04 10^3/uL (0.0-0.2); Absolute Eosinophil Count 0.05 10^3/uL (0.0-0.7); Absolute Lymphocyte Count 0.52 10^3/uL (1.2-3.4); Absolute Monocyte Count 0.46 10^3/uL (0.1-0.8); Basophils % 0.5; Eosinophils % 0.7; HCT 26.7 % (36.0-46.0); HGB 9.1 g/dL (11.2-15.7); Immature Grans % 0.5; MCH 34.3 pg (27.0-33.0); MCHC 34.1 % (32.0-36.0); MCV 100.8 fL (80-95); MPV 8.7 fL (8.0-11.0); Monocytes % 6.2; Neutrophils % 85.1; Nucleated RBC 0 %; Platelet Count 324 10^3/uL (130-400); RBC 2.65 10^6/uL (3.93-5.22); RDW 16.4 % (11.7-14.6); RDW-SD 60.5 fL; WBC 7.41 10^3/uL (4.4-10.8)
[2021-01-27 09:47] LABS: ALT 21 U/L (14-59); AST 30 U/L (15-37); Albumin 2.6 g/dL (3.4-5.0); Alkaline Phosphatase 185 U/L (46-116); Anion Gap 7.5 mmol/L (3-11); BUN 7 mg/dL (7-18); Bilirubin, Total 0.3 mg/dL (0.2-1.0); CO2 32.5 mmol/L (21.0-32.0); CREATININE 1.3 mg/dL (0.55-1.02); Calcium 7.7 mg/dL (8.5-10.1); Chloride 94 mmol/L (98-107); Estimated GFR 41.78 (mL/min/1.73m2); Glucose 89 mg/dL (74-106); Magnesium 1.6 mg/dL (1.8-2.4); Potassium 3.2 mmol/L (3.5-5.1); Sodium 134 mmol/L (136-145); Total Protein 7.1 g/dL (6.4-8.2)
[2021-01-31 11:24] LABS: Albumin 2.3 g/dL (3.4-5.0); Calcium 6.9 mg/dL (8.5-10.1)
[2021-02-03 09:52] LABS: Parathyroid Hormone,Intact <6 pg/mL (19-88)
== END 2021-02-19 23:59 | disposition home or self-care (01) ==
LOC: INF 11:00
PROVIDERS: Internal Medicine Hematology & Oncology; PCP Family Medicine; Visit Provider Internal Medicine
DX: C13.9 Malignant neoplasm of hypopharynx, unspecified (principal); R13.10 Dysphagia, unspecified; E83.51 Hypocalcemia
CPT/HCPCS: 36415; 80053; 82040; 82310; 83735; 83970; 84100; 85025

== ENCOUNTER 2021-02-14 15:58 | Outpatient (REF) | payer MEDICAID, SELFPAY ==
[2021-02-14 18:48] LABS: HCT 24.2 % (36.0-46.0); HGB 8.5 g/dL (11.2-15.7); MCH 35.9 pg (27.0-33.0); MCHC 35.1 % (32.0-36.0); MCV 102.1 fL (80-95); MPV 9.5 fL (8.0-11.0); Platelet Count 269 10^3/uL (130-400); RBC 2.37 10^6/uL (3.93-5.22); RDW 14.4 % (11.7-14.6); RDW-SD 52.3 fL; WBC 5.98 10^3/uL (4.4-10.8)
[2021-02-14 19:05] LABS: ALT 37 U/L (14-59); AST 55 U/L (15-37); Albumin 2.1 g/dL (3.4-5.0); Alkaline Phosphatase 183 U/L (46-116); Anion Gap 4.3 mmol/L (3-11); BUN 7 mg/dL (7-18); Bilirubin, Total 0.2 mg/dL (0.2-1.0); CO2 31.7 mmol/L (21.0-32.0); CREATININE 1.2 mg/dL (0.55-1.02); Calcium 6.8 mg/dL (8.5-10.1); Chloride 98 mmol/L (98-107); Estimated GFR 45.83 (mL/min/1.73m2); Glucose 85 mg/dL (74-106); Magnesium 1.3 mg/dL (1.8-2.4); Potassium 3.2 mmol/L (3.5-5.1); Sodium 134 mmol/L (136-145); Total Protein 5.5 g/dL (6.4-8.2)
[2021-02-14 19:20] LABS: PHOSPHORUS 3.9 mg/dL (2.6-4.7)
== END 2021-02-14 15:59 | disposition home or self-care (01) ==
LOC: NCHCN 15:58
PROVIDERS: PCP Family Medicine; Visit Provider Family Medicine
DX: D64.9 Anemia, unspecified (principal); E83.51 Hypocalcemia; R63.6 Underweight; Z01.818 Encounter for other preprocedural examination
CPT/HCPCS: 80053; 85027; 83735; 84100

== ENCOUNTER 2021-03-12 11:48 | Outpatient (CLI) | payer MEDICAID, SELFPAY ==
[2021-03-12 12:22] LABS: Abs Immature Grans 0.02 10^3/uL (0.0-0.06); Absolute Basophil Count 0.02 10^3/uL (0.0-0.2); Absolute Eosinophil Count 0.02 10^3/uL (0.0-0.7); Absolute Lymphocyte Count 0.45 10^3/uL (1.2-3.4); Absolute Monocyte Count 0.44 10^3/uL (0.1-0.8); Absolute Neutrophil Count 4.43 10^3/uL (1.2-6.7); Basophils % 0.4; Eosinophils % 0.4; HCT 23.8 % (36.0-46.0); HGB 7.8 g/dL (11.2-15.7); Immature Grans % 0.4; Lymphocytes % 8.4; MCH 35.3 pg (27.0-33.0); MCHC 32.8 % (32.0-36.0); MCV 107.7 fL (80-95); MPV 8.5 fL (8.0-11.0); Monocytes % 8.2; Neutrophils % 82.2; Nucleated RBC 0 %; Platelet Count 258 10^3/uL (130-400); RBC 2.21 10^6/uL (3.93-5.22); RDW 13.4 % (11.7-14.6); RDW-SD 51.1 fL; WBC 5.38 10^3/uL (4.4-10.8)
[2021-03-12 12:39] LABS: Diff Comment Diff Reviewed; Macrocytosis 2+; Poikilocytes 1+; Polychromasia Present
[2021-03-12 12:41] LABS: ALT 26 U/L (14-59); AST 33 U/L (15-37); Albumin 1.7 g/dL (3.4-5.0); Alkaline Phosphatase 175 U/L (46-116); Anion Gap 9.6 mmol/L (3-11); BUN 6 mg/dL (7-18); Bilirubin, Total 0.2 mg/dL (0.2-1.0); CO2 28.4 mmol/L (21.0-32.0); CREATININE 1.2 mg/dL (0.55-1.02); Chloride 101 mmol/L (98-107); Estimated GFR 45.83 (mL/min/1.73m2); Glucose 103 mg/dL (74-106); Magnesium 1.5 mg/dL (1.8-2.4); PHOSPHORUS 4.5 mg/dL (2.6-4.7); Potassium 3.3 mmol/L (3.5-5.1); Sodium 139 mmol/L (136-145); Total Protein 5.7 g/dL (6.4-8.2)
[2021-03-12 12:56] LABS: Calcium 6.3 mg/dL (8.5-10.1)
== END 2021-03-12 11:49 | disposition home or self-care (01) ==
LOC: LBO 11:49
PROVIDERS: PCP Family Medicine; Visit Provider Family Medicine
DX: E83.51 Hypocalcemia (principal); D64.9 Anemia, unspecified
CPT/HCPCS: 36415; 80053; 83735; 84100; 85025

== ENCOUNTER 2021-04-16 02:56 | Outpatient (RCR) | payer MEDICAID, SELFPAY ==
[2021-04-09 13:18] LABS: Abs Immature Grans 0.02 10^3/uL (0.0-0.06); Absolute Basophil Count 0.04 10^3/uL (0.0-0.2); Absolute Lymphocyte Count 0.71 10^3/uL (1.2-3.4); Absolute Monocyte Count 0.56 10^3/uL (0.1-0.8); Absolute Neutrophil Count 4.22 10^3/uL (1.2-6.7); Basophils % 0.7; Eosinophils % 1.8; Immature Grans % 0.4; Lymphocytes % 12.6; MCH 37.2 pg (27.0-33.0); MCHC 33.3 % (32.0-36.0); MCV 111.7 fL (80-95); Monocytes % 9.9; Neutrophils % 74.6; Nucleated RBC 0 %; Platelet Count 267 10^3/uL (130-400); RBC 1.88 10^6/uL (3.93-5.22); RDW 16.7 % (11.7-14.6); RDW-SD 66.9 fL; WBC 5.65 10^3/uL (4.4-10.8)
[2021-04-09 13:41] LABS: Anisocytosis 1+; Macrocytosis 2+; Poikilocytes 1+
[2021-04-09 13:49] LABS: Diff Comment RBC Morph Reviewed
[2021-04-10] VITALS (10 sets, daily range): BP systolic 146–171; BP diastolic 92–112; PULSE 96–109; RESP 16–18; TEMP 36–37.2; O2SAT 95–99
[2021-04-10] MEDS: Normal Saline Flush 10 ML SYR IVP (12:15)
[2021-04-16 10:29] LABS: Abs Immature Grans 0.02 10^3/uL (0.0-0.06); Absolute Basophil Count 0.07 10^3/uL (0.0-0.2); Absolute Eosinophil Count 0.14 10^3/uL (0.0-0.7); Absolute Lymphocyte Count 0.73 10^3/uL (1.2-3.4); Absolute Monocyte Count 0.47 10^3/uL (0.1-0.8); Absolute Neutrophil Count 4.23 10^3/uL (1.2-6.7); Basophils % 1.2; Eosinophils % 2.5; HCT 29.2 % (36.0-46.0); HGB 9.7 g/dL (11.2-15.7); Immature Grans % 0.4; Lymphocytes % 12.9; MCH 34.3 pg (27.0-33.0); MCHC 33.2 % (32.0-36.0); MCV 103.2 fL (80-95); Monocytes % 8.3; Neutrophils % 74.7; Nucleated RBC 0 %; Platelet Count 247 10^3/uL (130-400); RBC 2.83 10^6/uL (3.93-5.22); RDW 17.8 % (11.7-14.6); RDW-SD 67.8 fL; WBC 5.66 10^3/uL (4.4-10.8)
[2021-04-16] MEDS: Normal Saline Flush 10 ML SYR IVP (11:51)
== END 2021-04-21 23:59 | disposition home or self-care (01) ==
LOC: INF 02:56
PROVIDERS: PCP Family Medicine; Visit Provider Internal Medicine Hematology & Oncology
DX: D53.9 Nutritional anemia, unspecified (principal); C13.9 Malignant neoplasm of hypopharynx, unspecified
CPT/HCPCS: 36415; 36430; 86850; 86900; 86901; 86920; 85025; P9016

== ENCOUNTER 2021-04-29 12:02 | Inpatient (IN) | payer MEDICAID, SELFPAY ==
[2021-04-29] VITALS (27 sets, daily range): BP systolic 112–149; BP diastolic 67–102; PULSE 87–108; RESP 9–23; TEMP 36–37.4; O2SAT 95–100
--- NOTE | 2021-04-29 12:08 | ED.GENADUL_ITS ---
Discharge Plan Disposition Patient Disposition: STILL A PATIENT Condition: Fair Discharge Details Clinical Impression: Hypercalcemia, EVANGELIST (acute kidney injury), Anemia, Leg edema Admit Date/Time: 04/29/21 17:47 Admit Provider: Gregg Cordoba Attending Provider: Gregg Cordoba Primary Care Provider: Lashay Lombardo V ED Provider: Roxanne De Dios Discharge Data Discharge Date/Time-TO BE ENTERED AT DEPARTURE: 04/29/21 19:20 Medical Decision Making <SALINA Campos - Last Filed: 04/30/21 16:08> This is an unfortunate 60-year-old female, complicated past medical history, DNR, DNI, palliative care patient who lives with her sister. Over the past couple of weeks she has had bilateral leg swelling, generalized weakness, fatigue, mild confusion in the evening. Sister reports that she has had a low calcium in the past that has presented similarly. They contacted their primary care provider's office who recommended coming to the ER for further evaluation and laboratory values. Patient appears frail, dry. Will obtain IV access, give IV fluid, initiate cardiac work-up, urinalysis, chest x-ray. Given she has a bilateral pitting edema we will give the liter of fluid at 125/h gently. Laboratory values reveal a white blood cell count of 5.64 hemoglobin 8.9 hematocrit 26.3 platelet count 222. Anemia appears to be at her baseline. INR 1.1. Sodium 139, potassium 3.8, BUN 27, creatinine 3, GFR 15.92, calcium 12.7. Magnesium 2.6, troponin less than 0.05, BNP 1461, albumin 1.6, TSH 18.5, free T4 0.53. Urinalysis reveals trace blood, moderate leuk esterase, 20-50 white cells, rare epithelial cells, culture pending. Patient is afebrile, has normal white count, do not see the need to treat for UTI as she may be colonized, clinically she does not present as an acute UTI. Chest x-ray read by radiology as a small infiltrate in the left midlung, may represent pneumonia. Clinically patient has no cough, no evidence of hypoxemia, I see no clinical indication that she has an acute pneumonia that needs antibiotic therapy. I spoke with patient and her sister regarding her laboratory values. Given her calcium is actually elevated today at 12.7, renal function appears to be signi ficantly worse than baseline, she will need IV hydration but this will need to be done very carefully. I do not believe that she is in acute heart failure, I believe that she is likely simply retaining fluid. Given the patient is a DNR, DNI, palliative care, wants to go home, I will attempt to respect her wishes but I did explain to her that her lab values are grossly abnormal. I will reach out to Dr. Duffy to discuss the patient's presentation and wish to be discharged home which would require very close follow-up. After speaking with her, she believes that admitting her for observation, gentle hydration, repeat laboratory values, potential CT imaging for metastatic disease, is all reasonable. She would like me to place a palliative care consultation. This plan was once again discussed with patient and family, although she is initially hesitant for admission, she is agreeable to a single night observation admission. I contacted our warehouse assistant at approximately 345 PM, they are in the process of discharging patient from the floor, rearranging staffing in rooms, and a room should be available but she request that we contact our hospitalist team around 5:00 for a more smooth admission. In the meantime patient is now receiving a second liter of IV fluid at 125 an hour. Plan is to repeat troponin and a CMP. Medical Records Medical records reviewed: Yes I reviewed the patient's medical records. Imaging Data Radiologic Study: Attestation: I personally reviewed and interpreted this imaging study as follows: Imaging: X-Ray Radiologist's impression: Chest x-ray read as small infiltrate in the left midlung, this may represent pneumonia. A follow-up chest x-ray to document complete resolution is recommended. If findings persist after treatment, CT scan should be considered. Lab Data Lab results reviewed: Yes I reviewed the patient's lab results. Labs: 04/29/21 13:20 Urine - Reflex from Ua Urine Culture - Pending Laboratory Tests Range/Units 04/29/21 04/29/21 04/29/21 12:40 12:40 12:40 WBC (4.4-10.8) 10^3/uL 5.64 RBC (3.93-5.22) 10^6/uL 2.51 L Hgb (11.2-15.7) g/dL 8.9 L Hct (36.0-46.0) % 26.3 L MCV (80-95) fL 104.8 H MCH (27.0-33.0) pg 35.5 H MCHC (32.0-36.0) % 33.8 RDW (11.7-14.6) % 16.9 H Plt Count (130-400) 10^3/uL 222 MPV (8.0-11.0) fL 9.5 Immature Gran % 0.5 Neutrophils % 70.2 Lymphocytes % 16.7 Monocytes % 10.5 Eosinophils % 1.4 Basophils % 0.7 Nucleated RBC % % 0 Absolute Neutrophils (1.2-6.7) 10^3/uL 3.96 Absolute Lymphocytes (1.2-3.4) 10^3/uL 0.94 L Absolute Monocytes (0.1-0.8) 10^3/uL 0.59 Absolute Eosinophils (0.0-0.7) 10^3/uL 0.08 Absolute Basophils (0.0-0.2) 10^3/uL 0.04 RBC Morphology See below Anisocytosis 1+ Macrocytosis 2+ PT (9.3-11.0) sec 11.2 H INR (0.9-1.1) 1.1 APTT (21.0-27.5) sec 22.7 Sodium (136-145) mmol/L 139 Potassium (3.5-5.1) mmol/L 3.8 Chloride (98-107) mmol/L 102 Carbon Dioxide (21.0-32.0) mmol/L 33.8 H Anion Gap (3-11) mmol/L 3.2 BUN (7-18) mg/dL 27 H Creatinine (0.55-1.02) mg/dL 3.0 H Estimated GFR/1.73 m2 (mL/min/1.73m2) 15.92 Glucose (74-106) mg/dL 83 Calcium (8.5-10.1) mg/dL 12.7 H* Magnesium (1.8-2.4) mg/dL 2.6 H Total Bilirubin (0.2-1.0) mg/dL 0.3 AST (15-37) U/L 33 ALT (14-59) U/L 32 Alkaline Phosphatase (46-116) U/L 158 H Troponin I (<0.06) ng/mL < 0.05 NT-Pro-B Natriuret Pep (<300) pg/mL 1461 H Total Protein (6.4-8.2) g/dL 6.0 L Albumin (3.4-5.0) g/dL 1.6 L TSH (0.36-3.74) uIU/mL 18.50 H Free T4 (0.76-1.46) ng/dL 0.53 L Urine Color (Yellow) Urine Clarity (Clear) Urine pH (5-8) Ur Specific [place] (1.005-1.025) Urine Protein (Negative) mg/dL Urine Ketones (Negative) mg/dL Urine Blood (Negative) Urine Nitrite (Negative) Urine Bilirubin (Negative) Urine Urobilinogen (Up TO 0.2) EU/dL Ur Leukocyte Esterase (Negative) Urine RBC Urine WBC (0-5) HPF Ur Epithelial Cells (Negative) HPF Urine Crystals (Negative) HPF Urine Bacteria (Negative) HPF Urine Casts (Negative) LPF Urine Mucus (Negative) Urine Other (Negative) Ur Culture Indicated? Urine Glucose (Negative) mg/dL Range/Units 04/29/21 13:20 WBC (4.4-10.8) 10^3/uL RBC (3.93-5.22) 10^6/uL Hgb (11.2-15.7) g/dL Hct (36.0-46.0) % MCV (80-95) fL MCH (27.0-33.0) pg MCHC (32.0-36.0) % RDW (11.7-14.6) % Plt Count (130-400) 10^3/uL MPV (8.0-11.0) fL Immature Gran % Neutrophils % Lymphocytes % Monocytes % Eosinophils % Basophils % Nucleated RBC % % Absolute Neutrophils (1.2-6.7) 10^3/uL Absolute Lymphocytes (1.2-3.4) 10^3/uL Absolute Monocytes (0.1-0.8) 10^3/uL Absolute Eosinophils (0.0-0.7) 10^3/uL Absolute Basophils (0.0-0.2) 10^3/uL RBC Morphology Anisocytosis Macrocytosis PT (9.3-11.0) sec INR (0.9-1.1) APTT (21.0-27.5) sec Sodium (136-145) mmol/L Potassium (3.5-5.1) mmol/L Chloride (98-107) mmol/L Carbon Dioxide (21.0-32.0) mmol/L Anion Gap (3-11) mmol/L BUN (7-18) mg/dL Creatinine (0.55-1.02) mg/dL Estimated GFR/1.73 m2 (mL/min/1.73m2) Glucose (74-106) mg/dL Calcium (8.5-10.1) mg/dL Magnesium (1.8-2.4) mg/dL Total Bilirubin (0.2-1.0) mg/dL AST (15-37) U/L ALT (14-59) U/L Alkaline Phosphatase (46-116) U/L Troponin I (<0.06) ng/mL NT-Pro-B Natriuret Pep (<300) pg/mL Total Protein (6.4-8.2) g/dL Albumin (3.4-5.0) g/dL TSH (0.36-3.74) uIU/mL Free T4 (0.76-1.46) ng/dL Urine Color (Yellow) Yellow Urine Clarity (Clear) Sl cloudy Urine pH (5-8) 7.5 Ur Specific [place] (1.005-1.025) 1.020 Urine Protein (Negative) mg/dL Negative Urine Ketones (Negative) mg/dL Negative Urine Blood (Negative) Trace-intact H Urine Nitrite (Negative) Negative Urine Bilirubin (Negative) Negative Urine Urobilinogen (Up TO 0.2) EU/dL 0.2 Ur Leukocyte Esterase (Negative) Moderate H Urine RBC Not Applicable Urine WBC (0-5) HPF 20-50 H Ur Epithelial Cells (Negative) HPF Few Urine Crystals (Negative) HPF Rare calcium oxalate Urine Bacteria (Negative) HPF Packed Urine Casts (Negative) LPF 3-5 coarse granular Urine Mucus (Negative) Negative Urine Other (Negative) Few transitional Ur Culture Indicated? Yes Urine Glucose (Negative) mg/dL Negative ECG Data Attestation: I personally reviewed and interpreted this ECG (s) as follows: Interpretation: Please see official report by Dr. Jalloh. Sinus rhythm, ventricular rate of 99. <SALINA Hill - Last Filed: 04/29/21 17:51> Patient is signed out to me by Shant Padilla PA-C pending admission, I did discuss the case with Dr. Cordoba, hospitalist who has agreed to admit the patient for hypercalcemia and dehydration with acute on chronic renal failure I did reassess patient and ordered the hydrocodone she requested, she is on oral pain medication reportedly She is admitted in stable condition with stable vitals HPI <SALINA Campos - Last Filed: 04/30/21 16:08> General Mode of arrival: ambulatory . Date/Time Provider Initiated Documentation: 04/29/21 12:04 . Limitations to Documentation: other (Patient is nonverbal) . Information obtained by: family . HPI Narrative: This is a 60-year-old female, DNR, DNI, palliative care patient with complicated past medical history that includes history of tongue cancer, lung cancer, hypothyroidism, mass of her larynx, tracheostomy status post cancer treatment, hypertension, is on Eliquis daily, anemia, dehydration, adult failure to thrive. She lives at home with her sister. Her sister contacted her primary care office today reporting concern that she has general lethargy, weakness, seems to be slightly confused in the evenings. This has been going on for the past couple of weeks, associated with bilateral leg swelling. Patient denies recent illness or trauma. Denies headache, fever, chest pain, shortness of breath, abdominal pain, nausea, vomiting, change in bowel or bladder function, dysuria. She denies pain or erythema in her legs. Patient does report a poor appetite at baseline. Patient makes it very clear to me that she does not want to be admitted, her goal is to go home. Related Data Home Medications Medication Instructions Recorded Confirmed bupropion HCl 200 mg BID 09/13/20 04/29/21 folic acid 1 mg DAILY 09/13/20 04/29/21 gabapentin 300 mg TID 09/13/20 04/29/21 levothyroxine 112 mcg DAILY 09/13/20 04/29/21 metoprolol tartrate 12.5 mg HS 09/13/20 04/29/21 mirtazapine 45 mg QHS 09/13/20 04/29/21 tramadol 50 mg PO BID 09/13/20 04/29/21 Eliquis 2.5 mg PO BID 10/10/20 04/29/21 Aquaphor Healing 1 applic TOPICAL BID 04/29/21 04/29/21 Ensure Original ml PO TID 04/29/21 acetaminophen 650 mg PO BID 04/29/21 04/29/21 biotin 1,000 mcg PO DAILY 04/29/21 04/29/21 cyanocobalamin (vitamin B-12) 2,500 mcg DAILY 04/29/21 04/29/21 dronabinol 5 mg PO BID 04/29/21 04/29/21 ferrous sulfate 4 ml PO DAILY 04/29/21 04/29/21 hydrocodone-acetaminophen 1 tab PO TID PRN 04/29/21 04/29/21 lorazepam 0.5 mg PO Q6H PRN PRN 04/29/21 04/29/21 metoprolol tartrate 25 mg PO QAM 04/29/21 04/29/21 cefdinir 300 mg PO BID #60 ml 04/30/21 levothyroxine 25 mcg PO DAILY #30 cap 04/30/21 Previous Rx's Medication Instructions Recorded cefdinir 300 mg PO BID #60 ml 04/30/21 levothyroxine 25 mcg PO DAILY #30 cap 04/30/21 Allergies Allergy/AdvReac Type Severity Reaction Status Date / Time esomeprazole [From Nexium] Allergy Severe Acute Unverified 04/29/21 12:36 interstitial nephritis oxycodone [From OxyContin] Allergy Unknown Unverified 04/29/21 12:36 fluoxetine [From Prozac] AdvReac Unverified 04/29/21 12:18 General BARBARA: 3 Review of Systems <SALINA Campos - Last Filed: 04/30/21 16:08> Constitutional Constitutional: Reports fatigue, Denies fever(s) and Denies headache(s) Eyes Eyes: Denies change in vision ENT Ears, Nose, Mouth, and Throat: Denies headache(s) Cardiovascular Cardiovascular: Denies chest pain and Denies dyspnea Respiratory Respiratory: Denies cough and Denies dyspnea Gastrointestinal Gastrointestinal: Denies abdominal pain, Denies nausea and Denies vomiting Genitourinary Genitourinary: Denies dysuria Musculoskeletal Musculoskeletal: Denies back pain, Denies numbness and Denies tingling Integumentary/Breasts Skin/Breast: Denies rash Neurologic Neurologic: Denies headache(s), Denies numbness, Denies tingling and Reports weakness (Generalized) Endocrine Endocrine: Reports fatigue Hematologic/Lymphatic Hematologic/Lymphatic: Reports easy bleeding and Reports easy bruising PFSH <SALINA Campos - Last Filed: 04/30/21 16:08> Medical History (Updated 04/30/21 @ 13:22 by Marisabel Galeana NP) Cervical high risk HPV (human papillomavirus) test positive DNR (do not resuscitate) Gastrostomy tube dysfunction Goals of care, counseling/discussion Hx of cancer of lung sister reports lung tumor was metastatic from her tongue cancer Hx of tongue cancer Hypothyroidism Lives alone with help available Mass of larynx POLST (Physician Orders for Life-Sustaining Treatment) Tracheostomy in place Unintentional weight loss Uses feeding tube Surgical History Colonoscopy - MAC (04/12/17) History of laryngectomy History of thyroidectomy Family History Mother Diabetes Essential hypertension Father Prostate cancer Essential hypertension Sister No problems noted. Brother No problems noted. Social History Smoking/Tobacco Use Status: Former Tobacco Use Quit Date: 11/22/04 Pack-years: 45 Tobacco: How many years used: 30 Smoking risk assessment performed?: Yes Alcohol Intake: current Alcohol Intake frequency: 0-2 drinks per day Alcohol type: wine Drug use: Never Substance use type: does not use Caregiver/Support person: No Household members: none Housing: house Number of Children: 0 Communication Needs: Corrective Lenses Education Level: high school Do you need help understanding health information?: Often current occupation: [employer], on disability Pets and animals: No Current gender identity: female What is your relationship status?: How often do you talk on the phone with friends or family?: never How often do you get together with friends or relatives?: three or more times per week Panel score (0-1 are the most socially isolated patients): 1 What type of physical activity do you participate in: walking and sedentary lifestyle Duration: 15-30 minutes/day Special aftab needs: No Do you feel safe at home: Yes Do you feel safe in your relationship?: Yes Additional Social history: Lives alone. Works as [employer] when not ill. Was . Sister Jessica is her primary support person. Jessica's daughter, Natasha, is also involved as are Melinda's parents, both alive. No pets. Grew up locally. Has some friends. Exam <SALINA Campos - Last Filed: 04/30/21 16:08> Const General: cooperative, comfortable, no acute distress and frail appearing Orientation: alert, awake and oriented x3 HENMT Head: normal to inspection, normocephalic and atraumatic General nose exam: external nose normal Face and sinus: normal facial exam Mouth: moist mucous membranes abnormal (Dry) Throat: posterior oropharynx normal Eyes General: appearance normal, both eyes and all related structures Conjunctivae: conjunctivae normal Neck Neck: normal visual inspection, full ROM, no lymphadenopathy, no meningeal signs, trachea midline, supple, nontender and tracheostomy present Resp Effort & Inspection: normal respiratory effort and able to speak in complete sentences Auscultation: diminished lung sounds bilaterally in the lower lung eaton Cardio Rate: tachycardic (102) Rhythm: regular rhythm GI Inspection: normal to inspection Palpation: soft, not firm, no guarding, no pulsatile masses and nontender Auscultation: normal bowel sounds Back/Spine/Pelvis Back: No back tenderness Skin General skin exam: no rashes or lesions noted Neuro General: patient alert, patient awake, patient oriented x3, moves all extremities and no focal motor deficits Cognition: normal cognition Motor: muscle tone normal throughout and strength 5/5 throughout Sensory Exam: no sensory deficits noted Extrem General: full ROM, capillary refill normal, no calf tenderness and pedal edema bilaterally pitting and 3+ Psych Appearance: grossly normal Mental Status: mental status grossly normal Sign Out <SALINA Campos - Last Filed: 04/30/21 16:08> Sign Out Data: Sign Out Comment: Patient with hypercalcemia, EVANGELIST, anemia (chronic), bilateral leg edema. Agreeable to a 1 night observation stay after speaking with her palliative care provider. Awaiting admission until 5 PM. Patient received 1 L IV fluid, now the second liter is at 125 an hour. Awaiting repeat EKG and CMP. Last updated by Shant Padilla PA at 04/29/21 16:48
[2021-04-29] MEDS: Normal Saline 1,000 ML 125 ML IV ×2 (12:40→20:08)
--- NOTE | 2021-04-29 12:45 | RT.EKG_ITS ---
APPROVED REPORT Exam: Resting ECG Reason for Exam: weakness, leg swelling Patient Location: E HR:99 bpm ECG Measurements Heart Rate 99 AXIS WY 175 P 61 QRSd 78 QRS 53 QT 353 T 44 QTc 453 Conclusion Sinus rhythm...normal P axis, V-rate 60- 99 Low voltage, extremity and precordial leads...extremity<0.5mV, precordial<1.0mV no STEMI, non-diagnostic EKG I have reviewed and interpreted ECG and agree with software generated interpretation.
--- NOTE | 2021-04-29 12:45 | DI.RAD_ITS ---
Exam(s) XR CHEST 2V PA LATERAL EXAM: XR CHEST 2V PA LATERAL CLINICAL HISTORY: leg swelling, weakness TECHNIQUE: 2D digital imaging was performed. COMPARISON: CR XR CHEST 2V PA LATERAL from 09/13/2020 FINDINGS: MEDIASTINUM: Normal. HEART: Normal. PULMONARY VASCULATURE: Normal. Atherosclerosis. LUNGS: There is an opacity in the left mid lung. The lungs are hyperinflated with flattened diaphrag ms suggesting underlying COPD. PLEURAL SPACE: No pleural effusion or pneumothorax. There is unchanged pleural thickening on the late ral view. BONE:Within normal limits for the patient's age. There are old bilateral rib fractures. OTHER FINDINGS:Normal. IMPRESSION: Small infiltrate in the left mid lung. This may represent pneumonia. A follow-up chest x-ray to doc ument complete resolution is recommended. If finding persist after treatment, CT scan should be cons idered. DATA REPOSITORY: RADIATION DOSE DELIVERED:
[2021-04-29 13:04] LABS: Abs Immature Grans 0.03 10^3/uL (0.0-0.06); Absolute Basophil Count 0.04 10^3/uL (0.0-0.2); Absolute Eosinophil Count 0.08 10^3/uL (0.0-0.7); Absolute Lymphocyte Count 0.94 10^3/uL (1.2-3.4); Absolute Monocyte Count 0.59 10^3/uL (0.1-0.8); Absolute Neutrophil Count 3.96 10^3/uL (1.2-6.7); Basophils % 0.7; Eosinophils % 1.4; HCT 26.3 % (36.0-46.0); HGB 8.9 g/dL (11.2-15.7); Immature Grans % 0.5; Lymphocytes % 16.7; MCH 35.5 pg (27.0-33.0); MCHC 33.8 % (32.0-36.0); MCV 104.8 fL (80-95); MPV 9.5 fL (8.0-11.0); Monocytes % 10.5; Neutrophils % 70.2; Nucleated RBC 0 %; Platelet Count 222 10^3/uL (130-400); RBC 2.51 10^6/uL (3.93-5.22); RDW 16.9 % (11.7-14.6); RDW-SD 65.4 fL; WBC 5.64 10^3/uL (4.4-10.8)
[2021-04-29 13:17] LABS: INR 1.1 (0.9-1.1); PTT Activated 22.7 sec (21.0-27.5); Prothrombin Time 11.2 sec (9.3-11.0)
[2021-04-29 13:19] LABS: Anisocytosis 1+; Diff Comment Diff Reviewed; Macrocytosis 2+
[2021-04-29 13:27] LABS: ALT 32 U/L (14-59); AST 33 U/L (15-37); Albumin 1.6 g/dL (3.4-5.0); Alkaline Phosphatase 158 U/L (46-116); Anion Gap 3.2 mmol/L (3-11); BUN 27 mg/dL (7-18); Bilirubin, Total 0.3 mg/dL (0.2-1.0); CO2 33.8 mmol/L (21.0-32.0); Chloride 102 mmol/L (98-107); Estimated GFR 15.92 (mL/min/1.73m2); Glucose 83 mg/dL (74-106); Magnesium 2.6 mg/dL (1.8-2.4); NT-proBNP 1461 pg/mL (<300); Potassium 3.8 mmol/L (3.5-5.1); Sodium 139 mmol/L (136-145)
[2021-04-29 13:28] LABS: Bilirubin Negative (Negative); Blood Trace-intact (Negative); Clarity Sl Cloudy (Clear); Glucose Negative (Negative); Ketones Negative (Negative); Leukocyte Esterase Moderate (Negative); Nitrite Negative (Negative); Urobilinogen 0.2 EU/dL (Up TO 0.2); pH 7.5 (5-8)
[2021-04-29 13:30] LABS: Calcium 12.7 mg/dL (8.5-10.1); Troponin I < 0.05 ng/mL (<0.06)
[2021-04-29 13:38] LABS: Epithelial Cells Few HPF (Negative); Other Cells Few Transitional (Negative); WBC 20-50 HPF (0-5)
[2021-04-29 13:39] LABS: Bacteria Packed HPF (Negative); C & S Indicated? Yes; Casts 3-5 Coarse Granular LPF (Negative); Crystals Rare Calcium Oxalate HPF (Negative); Mucus Negative (Negative)
[2021-04-29] MEDS: Normal Saline 1,000 ML 1000 ML IV (13:40)
[2021-04-29 13:47] LABS: FREE T4 0.53 ng/dL (0.76-1.46)
[2021-04-29 16:50] LABS: ALT 30 U/L (14-59); AST 32 U/L (15-37); Albumin 1.6 g/dL (3.4-5.0); Alkaline Phosphatase 164 U/L (46-116); Anion Gap 5.3 mmol/L (3-11); BUN 27 mg/dL (7-18); Bilirubin, Total 0.2 mg/dL (0.2-1.0); CO2 30.7 mmol/L (21.0-32.0); CREATININE 2.9 mg/dL (0.55-1.02); Chloride 104 mmol/L (98-107); Estimated GFR 16.55 (mL/min/1.73m2); Glucose 79 mg/dL (74-106); Potassium 3.4 mmol/L (3.5-5.1); Sodium 140 mmol/L (136-145); Total Protein 5.9 g/dL (6.4-8.2)
[2021-04-29 16:54] LABS: Calcium 11.9 mg/dL (8.5-10.1); Troponin I < 0.05 ng/mL (<0.06)
[2021-04-29 17:06] LABS: Source Nasal/Nares
--- NOTE | 2021-04-29 18:03 | HPE_ITS ---
Date of service: 04/29/21 Time of Service: 18:04 Assessment and Plan Assessment and plan (1) Hypercalcemia: Start date: 04/29/21 Status: Acute Assessment and plan: This is a 60-year-old lady admitted for generalized weakness and altered mental status with hypercalcemia on supplements for previous hypocalcemia. This appears to be a supplement induced hypercalcemia with the patient to have these supplements but withheld and IV hydration with EVANGELIST worsening her problems. She does have a low protein test with low albumin and her adjusted calcium was higher than her initial calculations. She appears to be responding to IV hydration and is a DNR/DNI with end-stage disease with nonaggressive therapy most appropriate. She will continue on her outpatient m edications other than vitamin D, calcium and magnesium. Follow-up lab in the morning. Consider checking PTH though this will not help with the acute process and patient will most likely not want to pursue primary hyperparathyroidism evaluation if this is at play. She is arranging for RN TRANSITIONAL CARE and hospice at home. 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 (2) EVANGELIST (acute kidney injury): Start date: 04/29/21 Status: Acute Assessment and plan: Continue IV hydration watching for fluid overload with patient already has no peripheral edema. Monitor labs in the morning. (3) Pneumonia: Start date: 04/29/21 Status: Acute Assessment and plan: There was a small irregular left midlung zone with re spiratory findings on exam. Patient will be started on Rocephin with doxycycline with follow-up imaging as indicated. There was a question of a UTI and is to be covered with Rocephin as well. She may be converted to oral therapy before returning home. Qualifiers: Pneumonia type: due to unspecified organism Laterality: left Lung location: lower lobe of lung Qualified Code(s): J18.9 - Pneumonia, unspecified organism (4) Anemia: Status: Chronic Assessment and plan: Tests patient does have chronic anemia and is on supplements which will be continued. Monitor for need for transfusion though this would be palliative. Qualifiers: Anemia type: iron deficiency Iron deficiency anemia type: inadequate dietary iron intake Qualified Code(s): D50.8 - Other iron deficiency anemias (5) Leg edema: Status: Chronic Assessment and plan: Patient has low protein status and chronic peripheral edema. This may worsen with IV hydration and we could consider gentle diuretics though with EVANGELIST this should be avoided. (6) Hypothyroidism: Status: Chronic Assessment and plan: Continue outpatient dosage of levothyroxine with question of compliance or torsion in this mostly a problem to be addressed with his outpatient with PCP. Patient is approaching RN TRANSITIONAL CARE and monitoring and att empting to adjust medical therapy may become less important to comfort at end-of-life. Qualifiers: Hypothyroidism type: acquired Qualified Code(s): E03.9 - Hypothyroidism, unspecified History of Present Illness History of Present Illness Chief Complaint: Weakness with confusion Narrative: This is a 60-year-old female patient who is on palliative care living with her sister and chronically on magnesium, vitamin D and calcium supplement for deficiencies who presents to the ED with increasing generalized weakness, fatigue and peripheral swelling as well as mild confusion in the evening. She was concerned about low calcium levels with the patient having similar symptoms in the past but was found in the ED to have hypercalcemia. Her magnesium was also elevated. She was initiated on IV hydration appearing dehydrated though she did have peripheral edema. She also appeared frail and as if she was declining with her advanced disease status post surgery for tongue cancer with tracheostomy and previously having gastrostomy tube for feeding but now not able to swallow. She may not be doing well with intake. She was previously on supplements. She is on thyroid replacement but this appears to be unstable and there is a question of patient compliance with medications at home and possible decreased intake with decline. Patient was not talking at the time I interviewed her and offered no further history or review of systems. She has been losing weight. She is approaching RN TRANSITIONAL CARE. Review of Systems Narrative: 13 point review of systems otherwise unrevealing, unobtainable or stable. Patient does have chronic peripheral edema with her deconditioned state and is on low-dose Eliquis for DVT prophylaxis. [facility] Medical History (Updated 04/30/21 @ 06:37 by Gregg Cordoba) Cervical high risk HPV (human papillomavirus) test positive DNR (do not resuscitate) Gastrostomy tube dysfunction Goals of care, counseling/discussion Hx of cancer of lung sister reports lung tumor was metastatic from her tongue cancer Hx of tongue cancer Hypothyroidism Lives alone with help available Mass of larynx POLST (Physician Orders for Life-Sustaining Treatment) Tracheostomy in place Unintentional weight loss Uses feeding tube Surgical History Colonoscopy - MAC (04/12/17) History of laryngectomy History of thyroidectomy Family History Mother Diabetes Essential hypertension Father Prostate cancer Essential hypertension Sister No problems noted. Brother No problems noted. 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 Works as [employer] when not ill. Was . Sister Jessica is her primary support person. Jessica's daughter, Natasha, is also involved as are Melinda's parents, both alive. No pets. Grew up locally. Has some friends. Meds Allergies and Home Medications Allergies Allergy/AdvReac Type Severity Reaction Status Date / Time esomeprazole [From Nexium] Allergy Severe Acute Unverified 04/29/21 12:36 interstitial nephritis oxycodone [From OxyContin] Allergy Unknown Unverified 04/29/21 12:36 fluoxetine [From Prozac] AdvReac Unverified 04/29/21 12:18 Home Medications Medication Instructions Recorded Confirmed Type bupropion HCl 200 mg BID 09/13/20 04/29/21 History ergocalciferol (vitamin D2) 50,000 unit QWEEK 09/13/20 04/29/21 History folic acid 1 mg DAILY 09/13/20 04/29/21 History gabapentin 300 mg TID 09/13/20 04/29/21 History levothyroxine 112 mcg DAILY 09/13/20 04/29/21 History metoprolol tartrate 12.5 mg HS 09/13/20 04/29/21 History mirtazapine 45 mg QHS 09/13/20 04/29/21 History tramadol 50 mg PO BID 09/13/20 04/29/21 History Eliquis 2.5 mg PO BID 10/10/20 04/29/21 History acetaminophen 650 mg PO BID 04/29/21 04/29/21 History biotin 1,000 mcg PO DAILY 04/29/21 04/29/21 History calcium carbonate 1,250 mg PO TID 04/29/21 04/29/21 History cyanocobalamin (vitamin B-12) 2,500 mcg DAILY 04/29/21 04/29/21 History dronabinol 5 mg PO BID 04/29/21 04/29/21 History ferrous sulfate 4 ml PO DAILY 04/29/21 04/29/21 History food supplemt, lactose-reduced ml PO TID 04/29/21 History [Ensure Original] hydrocodone-acetaminophen 1 tab PO TID PRN 04/29/21 04/29/21 History lorazepam 0.5 mg PO Q6H PRN PRN 04/29/21 04/29/21 History magnesium oxide 400 mg PO DAILY 04/29/21 04/29/21 History metoprolol tartrate 25 mg PO QAM 04/29/21 04/29/21 History white petrolatum [Aquaphor Healing] 1 applic TOPICAL BID 04/29/21 04/29/21 History Exam Narrative Exam Narrative: General: Patient appears much older than stated age, cachectic lying in bed partially asleep at the time of my exam. She does awaken and answer questions without speaking by nodding her head. She does not appear to be in acute distress. She is disheveled. She may be a oriented to at least person and place. HEENT: Normocephalic with some deformities over her face around the mouth and with patient not opening mouth during exam. Eyes reveal pupils equal and reactive light symmetrically, extraocular movement intact and sclera anicteric. Cysts Neck: Supple without JVD. Tracheostomy in place midline at the base of the neck. Back: Stooped posture without CVA tenderness. Lungs: Decreased aeration diffusely with bronchovesicular breath sounds. No focalizing rales or rhonchi. Breast: Exam deferred. Heart: Regular rate and rhythm with distant heart sounds with no appreciable murmurs or gallops. Abdomen: Scaphoid contour, soft and nontender to palpation with no palpable hepatosplenomegaly. Genitalia/rectal: Exam deferred. Extremities: 1+ pitting edema which is soft over both lower extremities and there area of the ankles and feet. No clubbing or cyanosis. Peripheral pulses are decreased with fair capillary refill. Muscle wasting diffusely. Skin: Pale, warm and dry. Neuro: Cranial nerves II through XII appear to be grossly intact, no focalizing motor deficits with patient appears generally deconditioned and frail. Psych: Pleasant affect and depressed mood patient withdrawn. Unable to assess for short-term and long-term memory or abnormal thought processes with patient nonverbal. Results Imaging Imaging Studies: EXAM: XR CHEST 2V PA LATERAL CLINICAL HISTORY: leg swelling, weakness TECHNIQUE: 2D digital imaging was performed. COMPARISON: CR XR CHEST 2V PA LATERAL from 09/13/2020 FINDINGS: MEDIASTINUM: Normal. HEART: Normal. PULMONARY VASCULATURE: Normal. Atherosclerosis. LUNGS: There is an opacity in the left mid lung. The lungs are hyperinflated with flattened diaphragms suggesting underlying COPD. PLEURAL SPACE: No pleural effusion or pneumothorax. There is unchanged pleural thickening on the lateral view. BONE:Within normal limits for the patient's age. There are old bilateral rib fractures. OTHER FINDINGS:Normal. IMPRESSION: Small infiltrate in the left mid lung. This may represent pneumonia. A follow- up chest x-ray to document complete resolution is recommended. If finding persist after treatment, CT scan should be considered. Labs Result diagrams: 04/29/21 12:40 04/29/21 16:04 Labs: Laboratory Results - last 24 hr 04/29/21 04/29/21 04/29/21 12:40 12:40 12:40 WBC 5.64 RBC 2.51 L Hgb 8.9 L Hct 26.3 L MCV 104.8 H MCH 35.5 H MCHC 33.8 RDW 16.9 H Plt Count 222 MPV 9.5 Immature Gran % 0.5 Neutrophils % 70.2 Lymphocytes % 16.7 Monocytes % 10.5 Eosinophils % 1.4 Basophils % 0.7 Nucleated RBC % 0 Absolute Neutrophils 3.96 Absolute Lymphocytes 0.94 L Absolute Monocytes 0.59 Absolute Eosinophils 0.08 Absolute Basophils 0.04 RBC Morphology See below Anisocytosis 1+ Macrocytosis 2+ PT 11.2 H INR 1.1 APTT 22.7 Sodium 139 Potassium 3.8 Chloride 102 Carbon Dioxide 33.8 H Anion Gap 3.2 BUN 27 H Creatinine 3.0 H Estimated GFR/1.73 m2 15.92 Glucose 83 Calcium 12.7 H* Magnesium 2.6 H Total Bilirubin 0.3 AST 33 ALT 32 Alkaline Phosphatase 158 H Troponin I < 0.05 NT-Pro-B Natriuret Pep 1461 H Total Protein 6.0 L Albumin 1.6 L TSH 18.50 H Free T4 0.53 L Urine Color Urine Clarity Urine pH Ur Specific [place] Urine Protein Urine Ketones Urine Blood Urine Nitrite Urine Bilirubin Urine Urobilinogen Ur Leukocyte Esterase Urine RBC Urine WBC Ur Epithelial Cells Urine Crystals Urine Bacteria Urine Casts Urine Mucus Urine Other Ur Culture Indicated? Urine Glucose COVID-19 Source 04/29/21 04/29/21 04/29/21 13:20 16:04 16:04 WBC RBC Hgb Hct MCV MCH MCHC RDW Plt Count MPV Immature Gran % Neutrophils % Lymphocytes % Monocytes % Eosinophils % Basophils % Nucleated RBC % Absolute Neutrophils Absolute Lymphocytes Absolute Monocytes Absolute Eosinophils Absolute Basophils RBC Morphology Anisocytosis Macrocytosis PT INR APTT Sodium 140 Potassium 3.4 L Chloride 104 Carbon Dioxide 30.7 Anion Gap 5.3 BUN 27 H Creatinine 2.9 H Estimated GFR/1.73 m2 16.55 Glucose 79 Calcium 11.9 H* Magnesium Total Bilirubin 0.2 AST 32 ALT 30 Alkaline Phosphatase 164 H Troponin I < 0.05 NT-Pro-B Natriuret Pep Total Protein 5.9 L Albumin 1.6 L TSH Free T4 Urine Color Yellow Urine Clarity Sl cloudy Urine pH 7.5 Ur Specific [place] 1.020 Urine Protein Negative Urine Ketones Negative Urine Blood Trace-intact H Urine Nitrite Negative Urine Bilirubin Negative Urine Urobilinogen 0.2 Ur Leukocyte Esterase Moderate H Urine RBC Not Applicable Urine WBC 20-50 H Ur Epithelial Cells Few Urine Crystals Rare calcium oxalate Urine Bacteria Packed Urine Casts 3-5 coarse granular Urine Mucus Negative Urine Other Few transitional Ur Culture Indicated? Yes Urine Glucose Negative COVID-19 Source 04/29/21 17:00 WBC RBC Hgb Hct MCV MCH MCHC RDW Plt Count MPV Immature Gran % Neutrophils % Lymphocytes % Monocytes % Eosinophils % Basophils % Nucleated RBC % Absolute Neutrophils Absolute Lymphocytes Absolute Monocytes Absolute Eosinophils Absolute Basophils RBC Morphology Anisocytosis Macrocytosis PT INR APTT Sodium Potassium Chloride Carbon Dioxide Anion Gap BUN Creatinine Estimated GFR/1.73 m2 Glucose Calcium Magnesium Total Bilirubin AST ALT Alkaline Phosphatase Troponin I NT-Pro-B Natriuret Pep Total Protein Albumin TSH Free T4 Urine Color Urine Clarity Urine pH Ur Specific [place] Urine Protein Urine Ketones Urine Blood Urine Nitrite Urine Bilirubin Urine Urobilinogen Ur Leukocyte Esterase Urine RBC Urine WBC Ur Epithelial Cells Urine Crystals Urine Bacteria Urine Casts Urine Mucus Urine Other Ur Culture Indicated? Urine Glucose COVID-19 Source Nasal/nares Last Vital Signs Temp 37.4 C 04/29/21 12:19 Pulse 94 H 04/29/21 16:07 Resp 16 04/29/21 16:07 BP 149/92 H 04/29/21 16:07 Pulse Ox 99 04/29/21 16:07 COVID-19 Screening Have you, or household traveled for leisure in last 14 days?: No Had IN PERSON contact w/suspected or confirmed C-19 person: No
[2021-04-29] MEDS: HYDROcodone 5/Acetaminophen 325 TAB PO (18:04)
[2021-04-29] MEDS: Metoprolol 12.5 MG TAB 25 MG PO (20:54)
[2021-04-29] MEDS: Apixaban 2.5 MG TAB PO (20:54)
[2021-04-29] MEDS: Gabapentin 300 MG CAP PO (20:54)
[2021-04-29] MEDS: buPROPion 100 MG TAB 200 MG PO (20:55)
[2021-04-29] MEDS: Dronabinol 2.5 MG CAP 5 MG PO (20:55)
[2021-04-29] MEDS: Mirtazapine 15 MG TAB 45 MG UD (21:03)
[2021-04-29 21:24] LABS: COVID-19 PCR Negative (Negative)
[2021-04-30] MEDS: Normal Saline 1,000 ML 125 ML IV ×2 (02:38→10:55)
[2021-04-30 03:48] VITALS: BP 124/82; PULSE 86; RESP 16; TEMP 36.3; O2SAT 97
[2021-04-30] MEDS: Metoprolol 12.5 MG TAB 25 MG PO ×2 (03:54→12:39)
[2021-04-30] MEDS: Levothyroxine 112 MCG TAB PO (05:34)
[2021-04-30 07:00] LABS: Abs Immature Grans 0.02 10^3/uL (0.0-0.06); Absolute Basophil Count 0.04 10^3/uL (0.0-0.2); Absolute Eosinophil Count 0.14 10^3/uL (0.0-0.7); Absolute Lymphocyte Count 0.61 10^3/uL (1.2-3.4); Absolute Monocyte Count 0.41 10^3/uL (0.1-0.8); Absolute Neutrophil Count 3.44 10^3/uL (1.2-6.7); Basophils % 0.9; HCT 29.3 % (36.0-46.0); HGB 9.6 g/dL (11.2-15.7); Immature Grans % 0.4; Lymphocytes % 13.1; MCH 34.7 pg (27.0-33.0); MCHC 32.8 % (32.0-36.0); MCV 105.8 fL (80-95); MPV 9.5 fL (8.0-11.0); Monocytes % 8.8; Neutrophils % 73.8; Nucleated RBC 0 %; Platelet Count 213 10^3/uL (130-400); RBC 2.77 10^6/uL (3.93-5.22); RDW 17.2 % (11.7-14.6); RDW-SD 68.1 fL; WBC 4.66 10^3/uL (4.4-10.8)
[2021-04-30 07:19] LABS: ALT 31 U/L (14-59); AST 32 U/L (15-37); Albumin 1.5 g/dL (3.4-5.0); Alkaline Phosphatase 157 U/L (46-116); Anion Gap 4.2 mmol/L (3-11); BUN 26 mg/dL (7-18); Bilirubin, Total 0.3 mg/dL (0.2-1.0); CO2 29.8 mmol/L (21.0-32.0); CREATININE 2.7 mg/dL (0.55-1.02); Calcium 10.3 mg/dL (8.5-10.1); Chloride 110 mmol/L (98-107); Estimated GFR 17.98 (mL/min/1.73m2); Glucose 79 mg/dL (74-106); Magnesium 2.2 mg/dL (1.8-2.4); Potassium 3.5 mmol/L (3.5-5.1); Sodium 144 mmol/L (136-145); Total Protein 5.5 g/dL (6.4-8.2)
[2021-04-30 07:55] VITALS: BP 116/75; PULSE 72; RESP 18; TEMP 36.4; O2SAT 95
[2021-04-30] MEDS: Apixaban 2.5 MG TAB PO (08:25)
[2021-04-30] MEDS: cefTRIAXone 1 GM/50 ML BAG IVPB (08:26)
[2021-04-30] MEDS: HYDROcodone 5/Acetaminophen 325 TAB PO (08:26)
[2021-04-30] MEDS: Dronabinol 2.5 MG CAP 5 MG PO (08:26)
[2021-04-30] MEDS: buPROPion 100 MG TAB 200 MG PO (08:26)
[2021-04-30] MEDS: Folic Acid 1 MG TAB PO (08:26)
[2021-04-30] MEDS: Gabapentin 300 MG CAP PO ×2 (08:26→13:52)
[2021-04-30] MEDS: Cyanocobalamin 500 MCG TAB 2500 MCG PO (08:26)
[2021-04-30] MEDS: DOXYCYCLINE 100 MG in Normal Saline 100 ML IVPB (09:41)
[2021-04-30 11:20] VITALS: BP 122/80; PULSE 77; RESP 20; TEMP 36.4; O2SAT 100
--- NOTE | 2021-04-30 13:09 | CHAPLAIN ---
I had a brief visit with Melinda. She has a trach but communicates well with gestures and nodding. She was in the ED yesterday, and given a prayer chowdhury from another staff member. She agreed to stay over night for observation. She is hoping to go home soon.
--- NOTE | 2021-04-30 13:16 | W.PM.DS.N ---
Date of service: 04/30/21 Time of Service: 13:16 DS: Diagnosis Discharge Diagnosis (1) Hypercalcemia: Status: Acute Asessment and Plan: was on oral daily supplements which have been discontinued. received fluids with improvement (2) EVANGELIST (acute kidney injury): Status: Acute Asessment and Plan: received IV fluids, improved slightly to 2.7 (3) Pneumonia: Status: Acute Asessment and Plan: asymptomatic, oxygenating well and hemodynamically stable. received ceftriaxone and doxycycline in the ED will treat UTI with cefpodoxime to cover both. (4) Anemia: Status: Chronic Asessment and Plan: stable (5) Leg edema: Status: Chronic Asessment and Plan: likely dependent, contributing factor: low albumin of 1.5 brie stockings, elevate, high protein diet (6) Hypothyroidism: Status: Chronic Asessment and Plan: TSH 18.5, up from 4 in December 2020. synthroid dose increased to 137 mcg (7) UTI (urinary tract infection): Status: Acute Asessment and Plan: growing greater than 100k gram negative rods. received ceftriaxone in ED, culture sensitivities pending. will treat with cefpodoxime which should cover this and a respiratory infection. 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 She lives at home with her sister. Her sister contacted her primary care office today reporting concern that she has general lethargy, weakness, seems to be slightly confused in the evenings. This has been going on for the past couple of weeks, associated with bilateral leg swelling. work up in the emergency department revealed a critically elevated calcium of 12.7 which corrects higher d/t severe protein malnutrition. she was given IV fluids and supplemental calcium discontinued. work up also should TSH of 18, last was 4, and possible UTI. There was question of pneumonia on xray be respiratory status was stable with no cough, oxygen requirement or respiratory symptoms. her procalcitonin was 0.1 making pneumonia less likely. she was place on iv ceftriaxone and admitted to med/surg. Her calcium improved to 10.3, corrected at 12.3 and her symptoms dramatically improved. she will be discharged to home with her sister at her request. she did not want to stay another night. she was advised to stop calcium supplement. she will continue cefdinir 300 mg po bid for UTI, sensitivities pending at discharge. Her synthroid dose was increased from 112 mcg to 137 mcg. leg edema likely d/t severe protein malnutrition and sedentary lifestyle. recommend BRIE stockings during the day. she will follow up with palliative outpatient. she should have repeat labs to check calcium on Wednesday as she may require a lower supplemental dose at some point as she had been hypoglycemic previously. She should repeat her TSH in 6 weeks or as directed by pcp. discharge discussed with Dr Villalpando [place] Meds and New Rx's Prescriptions: New levothyroxine 25 mcg capsule 25 mcg PO DAILY Qty: 30 RF: 0 cefdinir 250 mg/5 mL suspension for reconstitution 300 mg PO BID Qty: 60 RF: 0 Continued Eliquis 2.5 mg tablet 2.5 mg PO BID RF: 0 acetaminophen 325 mg Tablet 650 mg PO BID RF: 0 cyanocobalamin (vitamin B-12) 2,500 mcg tablet, sublingual 2,500 mcg DAILY RF: 0 dronabinol 5 mg capsule 5 mg PO BID RF: 0 lorazepam 0.5 mg tablet 0.5 mg PO Q6H PRN PRNRF: 0 Aquaphor Healing 41 % ointment 1 applic TOPICAL BID RF: 0 metoprolol tartrate 25 mg Tablet 25 mg PO QAM RF: 0 ferrous sulfate 15 mg iron (75 mg)/mL drops 4 ml PO DAILY RF: 0 Ensure Original 0.04-1.05 gram-kcal/mL liquid PO TID RF: 0 biotin 1,000 mcg Tablet,Chewable 1,000 mcg PO DAILY RF: 0 hydrocodone-acetaminophen 5-325 mg tablet 1 tab PO TID PRNRF: 0 tramadol 50 mg Tablet 50 mg PO BID RF: 0 bupropion HCl 100 mg Tablet 200 mg BID RF: 0 gabapentin 300 mg Capsule 300 mg TID RF: 0 mirtazapine 45 mg Tablet 45 mg QHS RF: 0 folic acid 1 mg Tablet 1 mg DAILY RF: 0 levothyroxine 112 mcg Tablet 112 mcg DAILY RF: 0 metoprolol tartrate 25 mg Tablet 12.5 mg HS RF: 0 Discontinued magnesium oxide 400 mg (241.3 mg magnesium) tablet 400 mg PO DAILY RF: 0 calcium carbonate 500 mg/5 mL (1,250 mg/5 mL) suspension 1,250 mg PO TID RF: 0 ergocalciferol (vitamin D2) 25,000 unit Capsule 50,000 unit QWEEK RF: 0 Discharge Instructions Instructions: Urinary Tract Infection in Women (DC) Additional Instructions: take antibiotics as prescribed even if you feel better. your next dose is due tonight. take 2 times daily. your supplemental calcium has been stopped at this time. you will need your lab redrawn and you may be started back on a reduced dose. continue synthroid dose with the addition of 25 mcg daily for total of 137 mcg. wear elastic stockings during the day to help reduce leg swelling. elevate periodically throughout the day. take small walks to help with circulation. Stand Alone Forms: Nursing Discharge Form Referrals: Lashay Lombardo MD [Primary Care Provider] - 05/16/21 12:45 pm (with mili MORALES, ) Activity:: Activity as Tolerated Equipment/Supplies:: No Equipment Needed Diet:: high protein Discharge Orders Discharge Orders: Discharge Order (Routine); Ordered 04/30/21 Ordered By: Marisabel Galeana Other Ambulatory Orders: Complete Blood Count w/Diff (Routine) Timeframe: 20210502 Location: None Selected Ordered By: Marisabel Galeana Comprehensive Metabolic Panel (Routine) Timeframe: 20210502 Location: None Selected Ordered By: Marisabel Galeana TSH (Routine) Timeframe: 6 Weeks Location: None Selected Ordered By: Marisabel Galeana Discharge Data Discharge Date/Time-TO BE ENTERED AT DEPARTURE: 04/30/21 15:32 DS: Summary Time Spent with Patient providing and/or coordinating discharge services: Greater than 30 minutes Status at Discharge Functional status at discharge: independent ambulation Overall status at discharge: patient is progressing back to baseline Mental Status: mental status grossly normal Speech and Movement: speech and movement normal Mood: congruent mood Affect: normal affect Exam Psych Mental Status: mental status grossly normal Speech and Movement: speech and movement normal Mood: congruent mood Affect: normal affect DS: Data Vitals/I&O Vitals and I&O: Vital Signs Temperature 36.4 C L 04/30/21 11:20 Temperature Source Tympanic 04/30/21 11:20 Pulse 77 04/30/21 11:20 Pulse Rhythm Regular 04/30/21 09:01 Pulse 95 H 04/29/21 14:40 Respiratory Rate 20 04/30/21 11:20 Respiratory Effort Non-Labored 04/30/21 09:01 Respiratory Depth Normal 04/30/21 09:01 Respiratory Pattern Normal 04/30/21 09:01 Blood Pressure 122/80 04/30/21 11:20 Blood Pressure Mean 105 04/29/21 14:46 Blood Pressure Position Supine 04/29/21 14:46 Pulse Oximetry 100 04/30/21 11:20 Oxygen Delivery Method Room Air 04/30/21 11:20 Oxygen Flow Rate 0 04/30/21 11:20 Pain Level 5 04/30/21 08:26 Comment 04/29/21 16:07 Intake & Output 04/29/21 04/30/21 04/30/21 23:59 11:59 23:59 Intake Total 1775.00 / 1775.00 1962.5 / 1962.5 Output Total 500 / 500 1300 / 1300 Balance 1275.00 / 1275.00 662.5 / 662.5 Weight 50.4 kg 49.9 kg Intake: IV 1775.00 / 1775.00 1962.5 / 1962.5 Output: Urine 500 / 500 1300 / 1300 Other: Urine Color Pale Pale Yellow Urine Appearance Clear Clear Urine Odor Normal Normal Comment Void unmeasured amount on commode. Stool Size Small Stool Characteristics Soft Formed Hard Brown Voiding Methods Bedside Commode Bedside Commode Data Completed and Pending Labs on day of discharge: Labs from last 24 hours 04/30/21 04/30/21 04/29/21 06:20 06:20 18:22 WBC 4.66 RBC 2.77 L Hgb 9.6 L Hct 29.3 L MCV 105.8 H MCH 34.7 H MCHC 32.8 RDW 17.2 H Plt Count 213 MPV 9.5 Immature Gran % 0.4 Neutrophils % 73.8 Lymphocytes % 13.1 Monocytes % 8.8 Eosinophils % 3.0 Basophils % 0.9 Nucleated RBC % 0 Absolute Neutrophils 3.44 Absolute Lymphocytes 0.61 L Absolute Monocytes 0.41 Absolute Eosinophils 0.14 Absolute Basophils 0.04 RBC Morphology Anisocytosis Macrocytosis PT INR APTT Sodium 144 Potassium 3.5 Chloride 110 H Carbon Dioxide 29.8 Anion Gap 4.2 BUN 26 H Creatinine 2.7 H Estimated GFR/1.73 m2 17.98 Glucose 79 Calcium 10.3 H Magnesium 2.2 Total Bilirubin 0.3 AST 32 ALT 31 Alkaline Phosphatase 157 H Troponin I NT-Pro-B Natriuret Pep Total Protein 5.5 L Albumin 1.5 L TSH Free T4 Urine Color Urine Clarity Urine pH Ur Specific [place] Urine Protein Urine Ketones Urine Blood Urine Nitrite Urine Bilirubin Urine Urobilinogen Ur Leukocyte Esterase Urine RBC Urine WBC Ur Epithelial Cells Urine Crystals Urine Bacteria Urine Casts Urine Mucus Urine Other Ur Culture Indicated? Urine Glucose COVID-19 Source SARS-CoV-2 (PCR) Patient ABO/Rh A Positive Antibody Screen Negative 04/29/21 04/29/21 04/29/21 17:00 16:04 16:04 WBC RBC Hgb Hct MCV MCH MCHC RDW Plt Count MPV Immature Gran % Neutrophils % Lymphocytes % Monocytes % Eosinophils % Basophils % Nucleated RBC % Absolute Neutrophils Absolute Lymphocytes Absolute Monocytes Absolute Eosinophils Absolute Basophils RBC Morphology Anisocytosis Macrocytosis PT INR APTT Sodium 140 Potassium 3.4 L Chloride 104 Carbon Dioxide 30.7 Anion Gap 5.3 BUN 27 H Creatinine 2.9 H Estimated GFR/1.73 m2 16.55 Glucose 79 Calcium 11.9 H* Magnesium Total Bilirubin 0.2 AST 32 ALT 30 Alkaline Phosphatase 164 H Troponin I < 0.05 NT-Pro-B Natriuret Pep Total Protein 5.9 L Albumin 1.6 L TSH Free T4 Urine Color Urine Clarity Urine pH Ur Specific [place] Urine Protein Urine Ketones Urine Blood Urine Nitrite Urine Bilirubin Urine Urobilinogen Ur Leukocyte Esterase Urine RBC Urine WBC Ur Epithelial Cells Urine Crystals Urine Bacteria Urine Casts Urine Mucus Urine Other Ur Culture Indicated? Urine Glucose COVID-19 Source Nasal/nares SARS-CoV-2 (PCR) Negative Patient ABO/Rh Antibody Screen 04/29/21 04/29/21 04/29/21 13:20 12:40 12:40 WBC 5.64 RBC 2.51 L Hgb 8.9 L Hct 26.3 L MCV 104.8 H MCH 35.5 H MCHC 33.8 RDW 16.9 H Plt Count 222 MPV 9.5 Immature Gran % 0.5 Neutrophils % 70.2 Lymphocytes % 16.7 Monocytes % 10.5 Eosinophils % 1.4 Basophils % 0.7 Nucleated RBC % 0 Absolute Neutrophils 3.96 Absolute Lymphocytes 0.94 L Absolute Monocytes 0.59 Absolute Eosinophils 0.08 Absolute Basophils 0.04 RBC Morphology See below Anisocytosis 1+ Macrocytosis 2+ PT 11.2 H INR 1.1 APTT 22.7 Sodium Potassium Chloride Carbon Dioxide Anion Gap BUN Creatinine Estimated GFR/1.73 m2 Glucose Calcium Magnesium Total Bilirubin AST ALT Alkaline Phosphatase Troponin I NT-Pro-B Natriuret Pep Total Protein Albumin TSH Free T4 Urine Color Yellow Urine Clarity Sl cloudy Urine pH 7.5 Ur Specific [place] 1.020 Urine Protein Negative Urine Ketones Negative Urine Blood Trace-intact H Urine Nitrite Negative Urine Bilirubin Negative Urine Urobilinogen 0.2 Ur Leukocyte Esterase Moderate H Urine RBC Not Applicable Urine WBC 20-50 H Ur Epithelial Cells Few Urine Crystals Rare calcium oxalate Urine Bacteria Packed Urine Casts 3-5 coarse granular Urine Mucus Negative Urine Other Few transitional Ur Culture Indicated? Yes Urine Glucose Negative COVID-19 Source SARS-CoV-2 (PCR) Patient ABO/Rh Antibody Screen 04/29/21 12:40 WBC RBC Hgb Hct MCV MCH MCHC RDW Plt Count MPV Immature Gran % Neutrophils % Lymphocytes % Monocytes % Eosinophils % Basophils % Nucleated RBC % Absolute Neutrophils Absolute Lymphocytes Absolute Monocytes Absolute Eosinophils Absolute Basophils RBC Morphology Anisocytosis Macrocytosis PT INR APTT Sodium 139 Potassium 3.8 Chloride 102 Carbon Dioxide 33.8 H Anion Gap 3.2 BUN 27 H Creatinine 3.0 H Estimated GFR/1.73 m2 15.92 Glucose 83 Calcium 12.7 H* Magnesium 2.6 H Total Bilirubin 0.3 AST 33 ALT 32 Alkaline Phosphatase 158 H Troponin I < 0.05 NT-Pro-B Natriuret Pep 1461 H Total Protein 6.0 L Albumin 1.6 L TSH 18.50 H Free T4 0.53 L Urine Color Urine Clarity Urine pH Ur Specific [place] Urine Protein Urine Ketones Urine Blood Urine Nitrite Urine Bilirubin Urine Urobilinogen Ur Leukocyte Esterase Urine RBC Urine WBC Ur Epithelial Cells Urine Crystals Urine Bacteria Urine Casts Urine Mucus Urine Other Ur Culture Indicated? Urine Glucose COVID-19 Source SARS-CoV-2 (PCR) Patient ABO/Rh Antibody Screen Preliminary micro results at discharge 04/29/21 13:20 Urine Culture - Preliminary Urine - Reflex from Ua Gram Negative Blake PFSH Medical History (Updated 04/30/21 @ 13:22 by Marisabel Galeana NP) Cervical high risk HPV (human papillomavirus) test positive DNR (do not resuscitate) Gastrostomy tube dysfunction Goals of care, counseling/discussion Hx of cancer of lung sister reports lung tumor was metastatic from her tongue cancer Hx of tongue cancer Hypothyroidism Lives alone with help available Mass of larynx POLST (Physician Orders for Life-Sustaining Treatment) Tracheostomy in place Unintentional weight loss Uses feeding tube Surgical History Colonoscopy - MAC (04/12/17) History of laryngectomy History of thyroidectomy Family History Mother Diabetes Essential hypertension Father Prostate cancer Essential hypertension Sister No problems noted. Brother No problems noted. 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 Was . Sister Jessica is her primary support person. Jessica's daughter, Natasha, is also involved as are Melinda's parents, both alive. No pets. Grew up locally. Has some friends.
--- NOTE | 2021-04-30 21:19 | W.PALLCONSUL ---
Date of service: 04/29/21 Time of Service: 17:19 History of Present Illness History of Present Illness Chief Complaint: hypercalcemia, hypoalbuminemia Narrative: I was called by Shant Padilla, ER provider, to see what I would advise re: Kinza's care. She is severely chronically ill. She came in with EVANGELIST, hyercalcemia, edema, and hypoalbuminemia. Her labs were abnormal enough that I recommended Kinza be admitted on observation status, with likely discharge next day. I was concerned about the possible recurrence of cancer, given her low albumin, but she admitted that she eats very little protein. She takes calcium supplements. She has a trache so communication is difficult. I advised hospitalist team that if possible I would see her prior to her discharge, but if not, will follow up with her at home. Note that she does have a COLST form indicated her desire to be DNR. Consults Requesting physician: Shant Padilla Assessment and Plan Assessment and plan (1) Hypercalcemia: Status: Acute Assessment and plan: Had been low when checked a year ago. Was taking supplements at home. Advised to stop them for now. (2) Hypothyroidism: Status: Chronic Assessment and plan: TSH abnormal. Needs change in dose of synthroid and close follow up with labs. Qualifiers: Hypothyroidism type: acquired Qualified Code(s): E03.9 - Hypothyroidism, unspecified (3) Leg edema: Status: Chronic Assessment and plan: Due to her low albumin primarily. Advised to wear compression stockings. (4) Unintentional weight loss: Status: Chronic Assessment and plan: Persists. She is underweight. Has a feeding tube. Encourage to take in more. (5) DNR (do not resuscitate): Status: Acute Assessment and plan: Filled out a COLST in 2019. Will see if this can be scanned into her [facility] chart. (6) Tracheostomy in place: Status: Chronic (7) History of laryngectomy: Status: Acute Assessment and plan: Followed by Dr Schulz, oncologist at [facility] [place]. (8) Hx of cancer of lung: Status: Acute Assessment and plan: mets from her tongue cancer, per report (9) Hx of tongue cancer: Status: Chronic Assessment and plan: in remission currently, though concern for recurrence persists [facility] Medical History (Updated 04/30/21 @ 13:22 by Marisabel Galeana NP) Cervical high risk HPV (human papillomavirus) test positive DNR (do not resuscitate) Gastrostomy tube dysfunction Goals of care, counseling/discussion Hx of cancer of lung sister reports lung tumor was metastatic from her tongue cancer Hx of tongue cancer Hypothyroidism Lives alone with help available Mass of larynx POLST (Physician Orders for Life-Sustaining Treatment) Tracheostomy in place Unintentional weight loss Uses feeding tube Surgical History Colonoscopy - MAC (04/12/17) History of laryngectomy History of thyroidectomy Family History Mother Diabetes Essential hypertension Father Prostate cancer Essential hypertension Sister No problems noted. Brother No problems noted. 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 Works as [employer] when not ill. Was . Sister Jessica is her primary support person. Jessica's daughter, Natasha, is also involved as are Melinda's parents, both alive. No pets. Grew up locally. Has some friends. Results Last Vital Signs Temp 97.5 F L 04/30/21 11:20 Pulse 77 04/30/21 11:20 Resp 20 06/09/21 11:20 BP 122/80 04/30/21 11:20 Pulse Ox 100 04/30/21 11:20 Labs Result diagrams: 04/30/21 06:20 04/30/21 06:20 Labs: Laboratory Results - last 24 hr 04/29/21 04/30/21 04/30/21 17:00 06:20 06:20 WBC 4.66 RBC 2.77 L Hgb 9.6 L Hct 29.3 L MCV 105.8 H MCH 34.7 H MCHC 32.8 RDW 17.2 H Plt Count 213 MPV 9.5 Immature Gran % 0.4 Neutrophils % 73.8 Lymphocytes % 13.1 Monocytes % 8.8 Eosinophils % 3.0 Basophils % 0.9 Nucleated RBC % 0 Absolute Neutrophils 3.44 Absolute Lymphocytes 0.61 L Absolute Monocytes 0.41 Absolute Eosinophils 0.14 Absolute Basophils 0.04 Sodium 144 Potassium 3.5 Chloride 110 H Carbon Dioxide 29.8 Anion Gap 4.2 BUN 26 H Creatinine 2.7 H Estimated GFR/1.73 m2 17.98 Glucose 79 Calcium 10.3 H Magnesium 2.2 Total Bilirubin 0.3 AST 32 ALT 31 Alkaline Phosphatase 157 H Total Protein 5.5 L Albumin 1.5 L SARS-CoV-2 (PCR) Negative
== END 2021-04-30 15:32 | disposition home or self-care (01) | DRG 682 ==
LOC: ER 18:15 → MS 19:19
PROVIDERS: Physician Assistant; Admitting Provider Family Medicine; Emergency Provider Physician Assistant; PCP Family Medicine; Visit Provider Family Medicine
DX: N17.9 Acute kidney failure, unspecified (principal); J18.9 Pneumonia, unspecified organism; Z68.1 Body mass index [BMI] 19.9 or less, adult; N39.0 Urinary tract infection, site not specified; E83.52 Hypercalcemia; Z66 Do not resuscitate; D50.8 Other iron deficiency anemias; R60.0 Localized edema; Z51.5 Encounter for palliative care; Z79.01 Long term (current) use of anticoagulants; R63.4 Abnormal weight loss; Z85.118 Personal history of other malignant neoplasm of bronchus and lung; Z85.810 Personal history of malignant neoplasm of tongue; Z93.0 Tracheostomy status; E89.0 Postprocedural hypothyroidism; Z90.02 Acquired absence of larynx; Z87.891 Personal history of nicotine dependence; Z20.822 Contact with and (suspected) exposure to COVID-19
CPT/HCPCS: 36415; 80053; 86850; 86900; 86901; 87077; 87635; 93005; 96360; 96361; 99285; 71046; 81003; 81015; 83735; 83880; 84439; 84443; 84484; 85025; 85610; 85730; 87086; 87186; 93010; 99217; 99223; J0696; J3490

== ENCOUNTER 2021-05-02 11:26 | Outpatient (REF) | payer MEDICAID, SELFPAY ==
[2021-05-02 14:05] LABS: ALT 29 U/L (14-59); AST 31 U/L (15-37); Albumin 1.6 g/dL (3.4-5.0); Alkaline Phosphatase 147 U/L (46-116); Anion Gap 10.6 mmol/L (3-11); BUN 26 mg/dL (7-18); Bilirubin, Total 0.2 mg/dL (0.2-1.0); CO2 28.4 mmol/L (21.0-32.0); Calcium 10.5 mg/dL (8.5-10.1); Chloride 104 mmol/L (98-107); Estimated GFR 15.92 (mL/min/1.73m2); Glucose 89 mg/dL (74-106); Sodium 143 mmol/L (136-145); Total Protein 5.5 g/dL (6.4-8.2)
[2021-05-06 12:27] LABS: Codeine Negative ng/mL (Cutoff: 25); Dihydrocodeine 118 ng/mL (Cutoff: 25); Hydrocodone 127 ng/mL (Cutoff: 25); Hydromorphone Negative ng/mL (Cutoff: 25); Morphine Negative ng/mL (Cutoff: 25); Naloxone Negative ng/mL (Cutoff: 25); Norhydrocodone 160 ng/mL (Cutoff: 25); Noroxycodone Negative ng/mL (Cutoff: 25); Noroxymorphone Negative ng/mL (Cutoff: 25); Opiates Interpretation Positive.
== END 2021-05-02 11:27 | disposition home or self-care (01) ==
LOC: NCHCN 11:26
PROVIDERS: PCP Family Medicine; Visit Provider Family Medicine
DX: R79.89 Other specified abnormal findings of blood chemistry (principal); R82.5 Elevated urine levels of drugs, medicaments and biological substances; Z51.81 Encounter for therapeutic drug level monitoring
CPT/HCPCS: 80053; 80361; 80362; 80365

== ENCOUNTER 2021-05-27 16:42 | Outpatient (REF) | payer MEDICAID, SELFPAY ==
[2021-05-27 21:54] LABS: HCT 21.3 % (36.0-46.0); HGB 7.1 g/dL (11.2-15.7); MCH 36.2 pg (27.0-33.0); MCHC 33.3 % (32.0-36.0); MCV 108.7 fL (80-95); MPV 9.3 fL (8.0-11.0); Platelet Count 321 10^3/uL (130-400); RBC 1.96 10^6/uL (3.93-5.22); RDW 16.5 % (11.7-14.6); RDW-SD 64.7 fL; WBC 7.44 10^3/uL (4.4-10.8)
[2021-05-27 22:11] LABS: ALT 27 U/L (14-59); AST 32 U/L (15-37); Albumin 1.7 g/dL (3.4-5.0); Alkaline Phosphatase 146 U/L (46-116); Anion Gap 10.8 mmol/L (3-11); BUN 19 mg/dL (7-18); Bilirubin, Total 0.2 mg/dL (0.2-1.0); CO2 28.2 mmol/L (21.0-32.0); CREATININE 1.9 mg/dL (0.55-1.02); Calcium 6.6 mg/dL (8.5-10.1); Chloride 99 mmol/L (98-107); Estimated GFR 26.96 (mL/min/1.73m2); Glucose 76 mg/dL (74-106); Magnesium 2.1 mg/dL (1.8-2.4); Potassium 4.2 mmol/L (3.5-5.1); Sodium 138 mmol/L (136-145); Total Protein 5.9 g/dL (6.4-8.2)
[2021-05-27 22:52] LABS: TSH (W/Ref FT4) 102.15 uIU/mL (0.36-3.74)
[2021-05-27 23:18] LABS: FREE T4 0.28 ng/dL (0.76-1.46)
== END 2021-05-27 16:43 | disposition home or self-care (01) ==
LOC: NCHCN 16:42
PROVIDERS: PCP Family Medicine; Visit Provider Family Medicine
DX: Z01.818 Encounter for other preprocedural examination (principal); E83.51 Hypocalcemia; N28.9 Disorder of kidney and ureter, unspecified; Z93.0 Tracheostomy status
CPT/HCPCS: 80053; 85027; 83735; 84439; 84443

== ENCOUNTER 2021-05-30 05:28 | Outpatient (RCR) | payer MEDICAID, SELFPAY ==
[2021-05-22 00:05] VITALS: BP 153/112; PULSE 109; RESP 16; TEMP 36.3
[2021-05-30] VITALS (11 sets, daily range): BP systolic 125–169; BP diastolic 84–103; PULSE 73–102; RESP 17–18; TEMP 36–37.2; O2SAT 96–100
[2021-05-30] MEDS: Normal Saline Flush 10 ML SYR IVP (09:59)
== END 2021-06-21 23:59 | disposition home or self-care (01) ==
LOC: INF 05:28
PROVIDERS: PCP Family Medicine; Visit Provider Internal Medicine Hematology & Oncology
DX: C14.0 Malignant neoplasm of pharynx, unspecified (principal); D63.0 Anemia in neoplastic disease
CPT/HCPCS: 36415; 36430; 86850; 86900; 86901; 86920; P9016

== ENCOUNTER 2021-06-06 12:40 | Outpatient (REF) | payer MEDICAID, SELFPAY ==
[2021-06-06 20:53] LABS: TSH (W/Ref FT4) 115.28 uIU/mL (0.36-3.74)
[2021-06-06 23:02] LABS: ALT 20 U/L (14-59); AST 28 U/L (15-37); Albumin 1.7 g/dL (3.4-5.0); Alkaline Phosphatase 168 U/L (46-116); Anion Gap 10.8 mmol/L (3-11); BUN 28 mg/dL (7-18); Bilirubin, Total 0.2 mg/dL (0.2-1.0); CO2 26.2 mmol/L (21.0-32.0); CREATININE 2.7 mg/dL (0.55-1.02); Calcium 6.7 mg/dL (8.5-10.1); Chloride 99 mmol/L (98-107); Estimated GFR 17.98 (mL/min/1.73m2); FREE T4 0.82 ng/dL (0.76-1.46); Glucose 73 mg/dL (74-106); Potassium 3.8 mmol/L (3.5-5.1); Sodium 136 mmol/L (136-145)
== END 2021-06-06 12:41 | disposition home or self-care (01) ==
LOC: NCHCN 12:40
PROVIDERS: PCP Family Medicine; Visit Provider Family Medicine
DX: E87.1 Hypo-osmolality and hyponatremia (principal); E83.51 Hypocalcemia; I10 Essential (primary) hypertension; E03.9 Hypothyroidism, unspecified
CPT/HCPCS: 80053; 84439; 84443; 85025

== ENCOUNTER 2021-06-17 20:10 | Emergency (ER) | payer MEDICAID, SELFPAY ==
[2021-06-17] VITALS (37 sets, daily range): BP systolic 107–151; BP diastolic 71–95; PULSE 87–101; RESP 10–19; TEMP 36.6; O2SAT 85–99
--- NOTE | 2021-06-17 20:02 | W.ED.GENAD ---
Discharge Plan Disposition Patient Disposition: AGAINST MEDICAL ADVICE Condition: Stable Discharge Details Clinical Impression: Hypocalcemia, Hypothyroid, Seizure-like activity, Hypokalemia Primary Care Provider: Lashay Lombardo V ED Provider: Stan Paredes [place] Meds and New Rx's Prescriptions: Continued Eliquis 2.5 mg tablet 2.5 mg PO BID RF: 0 acetaminophen 325 mg Tablet 650 mg PO BID RF: 0 cyanocobalamin (vitamin B-12) 2,500 mcg tablet, sublingual 2,500 mcg DAILY RF: 0 dronabinol 5 mg capsule 5 mg PO BID RF: 0 lorazepam 0.5 mg tablet 0.5 mg PO Q6H PRN PRNRF: 0 Aquaphor Healing 41 % ointment 1 applic TOPICAL BID RF: 0 metoprolol tartrate 25 mg Tablet 25 mg PO QAM RF: 0 ferrous sulfate 15 mg iron (75 mg)/mL drops 4 ml PO DAILY RF: 0 Ensure Original 0.04-1.05 gram-kcal/mL liquid PO TID RF: 0 biotin 1,000 mcg Tablet,Chewable 1,000 mcg PO DAILY RF: 0 hydrocodone-acetaminophen 5-325 mg tablet 1 tab PO TID PRNRF: 0 levothyroxine 25 mcg capsule 25 mcg PO DAILY Qty: 30 RF: 0 cefdinir 250 mg/5 mL suspension for reconstitution 300 mg PO BID Qty: 60 RF: 0 tramadol 50 mg Tablet 50 mg PO BID RF: 0 bupropion HCl 100 mg Tablet 200 mg BID RF: 0 gabapentin 300 mg Capsule 300 mg TID RF: 0 mirtazapine 45 mg Tablet 45 mg QHS RF: 0 folic acid 1 mg Tablet 1 mg DAILY RF: 0 levothyroxine 112 mcg Tablet 112 mcg DAILY RF: 0 metoprolol tartrate 25 mg Tablet 12.5 mg HS RF: 0 Discharge Instructions Additional Instructions: Per your request we will not proceed with imaging or repeat labs. Your calcium continues to be dangerously low. I would recommend restarting your calcium which you were on before. Your thyroid levels are also low tonight. Recommend following up with primary care for medication adjustment and further evaluation and management. While the seizure-like activity is likely related to low calcium, cannot rule out other etiology for seizure. Strongly recommend that you avoid driving, other activity that could result in injury to yourself or others if you have another seizure type event. Please return to the ED for fainting, seizure-like activity, neurologic changes, other concerns or if you change your mind regarding further work-up and management in the hospital. Referrals: Lashay Lombardo MD [Primary Care Provider] - Medical Decision Making Patient here status post 2 seizures lasting less than 15 seconds. Witnessed by EMS second time with postictal state but no alert, baseline, complicated. She denies ingestion or SI. She does not want evaluation and just wants to go home. Denies wanting to harm herself but is simply tired of being sick and with prolonged work-up evaluations. She appears to be sinus rhythm at about 100 on the monitor. Vital signs otherwise look good. She is nonverbal but she is able to communicate. She did agree to wait for her solid waste technician, Jessica, to show up and allow me to talk to her. Explained to Jessica patient's decision and I believe that she has capacity and competence to make those decisions. I believe the patient is not suicidal and has not tried to harm herself. After discussion between Kinza and Jessica, I am acquiesced to at least laboratory studies. She refuses imaging studies. Again, simply wants to go back home. 22:00 - Patient's calcium is very low. Even when corrected it is 7.1. Likely cause for her prolonged QT per EMS and her seizure-like activity involving the upper extremities. It took some convincing from myself and Jessica but patient has agreed to IV replacement of calcium, oral replacement of potassium and recheck of laboratory studies and EKG. She refuses admission. Jessica reports that they have been trying to adjust medications including her calcium as she has been as high as 14 in the past. Currently on no calcium supplementation. Noted to have markedly high TSH and low free T4 despite being her levothyroxine. This will need to be addressed outpatient by PCP. Kidney function and hemoglobin at baseline. Magnesium is normal. 04:45 -patient received potassium orally and calcium IV without incident. Repeat BMP showed normal potassium but still quite low calcium which corrects to 7.3 now. I would prefer her to be above 7.5. She did allow us to check an EKG which does show prolonged QT. She has agreed to another round of calcium but then wants to go home and have labs rechecked. She also continues to refuse imaging. She has agreed to follow-up with primary care to further evaluate calcium, thyroid. I have asked her to restart her calcium that she had previously been taking. Have also asked her to return to ED for any further seizure-like activity, syncope, other concerns or if she changes her mind about evaluation and management. I have explained to her the risk of hypocalcemia including further seizures, cardiac arrhythmia, V. fib arrest, . She will sign out AGAINST MEDICAL ADVICE. ECG Data Interpretation: Less than 15 HPI General Mode of arrival: EMS. Date/Time Provider Initiated Documentation: 06/17/21 21:47. Limitations to Documentation: other (nonverbal). Information obtained by: patient, family, EMS, RN notes reviewed and old records reviewed. HPI Narrative: Patient presents to ED status post seizure at home. Patient has history of both laryngeal and lung cancer. She has not improved with a tracheostomy. 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 First seizure was witnessed by solid waste technician. By the time EMS arrived patient was awake alert and did not want to be transferred. EMS pronounced with good half an hour talking with solid waste technician and patient. As a week patient had a second upper body tonic-clonic seizures with EMS present. She was postictal for 3 to 4 minutes. She acquiesced to being to ED. However, at this time she wishes no intervention or work-up. She denies any ingestions. She denies being suicidal. She simply is tired of all the medical procedures work-up she has had in her life. She did agree to allow me to examine her. She also agreed to allow me to speak to her solid waste technician. Seizures are new. She does not recall either event. Related Data Home Medications Medication Instructions Recorded Confirmed bupropion HCl 200 mg BID 09/13/20 06/17/21 folic acid 1 mg DAILY 09/13/20 06/17/21 gabapentin 300 mg TID 09/13/20 06/17/21 levothyroxine 112 mcg DAILY 09/13/20 06/17/21 metoprolol tartrate 12.5 mg HS 09/13/20 06/17/21 mirtazapine 45 mg QHS 09/13/20 06/17/21 tramadol 50 mg PO BID 09/13/20 06/17/21 Eliquis 2.5 mg PO BID 10/10/20 06/17/21 Aquaphor Healing 1 applic TOPICAL BID 04/29/21 06/17/21 Ensure Original ml PO TID 04/29/21 acetaminophen 650 mg PO BID 04/29/21 06/17/21 biotin 1,000 mcg PO DAILY 04/29/21 06/17/21 cyanocobalamin (vitamin B-12) 2,500 mcg DAILY 04/29/21 04/29/21 dronabinol 5 mg PO BID 04/29/21 06/17/21 ferrous sulfate 4 ml PO DAILY 04/29/21 06/17/21 hydrocodone-acetaminophen 1 tab PO TID PRN 04/29/21 06/17/21 lorazepam 0.5 mg PO Q6H PRN PRN 04/29/21 06/17/21 metoprolol tartrate 25 mg PO QAM 04/29/21 06/17/21 cefdinir 300 mg PO BID #60 ml 04/30/21 06/17/21 levothyroxine 25 mcg PO DAILY #30 cap 04/30/21 Previous Rx's Medication Instructions Recorded cefdinir 300 mg PO BID #60 ml 04/30/21 levothyroxine 25 mcg PO DAILY #30 cap 04/30/21 Allergies Allergy/AdvReac Type Severity Reaction Status Date / Time esomeprazole [From Nexium] Allergy Severe Acute Unverified 06/17/21 20:02 interstitial nephritis oxycodone [From OxyContin] Allergy Unknown Unverified 06/17/21 20:02 fluoxetine [From Prozac] AdvReac Unverified 06/17/21 20:02 General Stated Complaint: Seizure BARBARA: 2 Review of Systems Constitutional Constitutional: Denies fever(s) and Denies headache(s) ENT Ears, Nose, Mouth, and Throat: Denies dizziness and Denies headache(s) Cardiovascular Cardiovascular: Denies chest pain and Denies dyspnea Respiratory Respiratory: Denies cough and Denies dyspnea Gastrointestinal Gastrointestinal: Denies abdominal pain and Denies vomiting Musculoskeletal Musculoskeletal: Denies numbness Neurologic Neurologic: Denies confusion, Denies dizziness, Denies headache(s), Denies numbness and Reports convulsions Psychiatric Psychiatric: Denies confusion, Denies homicidal ideation and Denies suicidal ideation PFSH Medical History Cervical high risk HPV (human papillomavirus) test positive DNR (do not resuscitate) Gastrostomy tube dysfunction Goals of care, counseling/discussion Hx of cancer of lung sister reports lung tumor was metastatic from her tongue cancer Hx of tongue cancer Hypothyroidism Lives alone with help available Mass of larynx POLST (Physician Orders for Life-Sustaining Treatment) Tracheostomy in place Unintentional weight loss Uses feeding tube Surgical History Colonoscopy - MAC (04/12/17) History of laryngectomy History of thyroidectomy Family History Mother Diabetes Essential hypertension Father Prostate cancer Essential hypertension Sister No problems noted. Brother No problems noted. Social History Smoking/Tobacco Use Status: Former Tobacco Use Quit Date: 11/22/04 Pack-years: 45 Tobacco: How many years used: 30 Smoking risk assessment performed?: Yes Alcohol Intake: current Alcohol Intake frequency: 0-2 drinks per day Alcohol type: wine Drug use: Never Substance use type: does not use Caregiver/Support person: No Household members: none Housing: house Number of Children: 0 Communication Needs: Corrective Lenses Education Level: high school Do you need help understanding health information?: Often current occupation: [employer], on disability Pets and animals: No Current gender identity: female What is your relationship status?: How often do you talk on the phone with friends or family?: never How often do you get together with friends or relatives?: three or more times per week Panel score (0-1 are the most socially isolated patients): 1 What type of physical activity do you participate in: walking and sedentary lifestyle Duration: 15-30 minutes/day Special aftab needs: No Do you feel safe at home: Yes Do you feel safe in your relationship?: Yes Additional Social history: Lives alone. Works as [employer] when not ill. Was . Sister Jessica is her primary support person. Jessica's daughter, Natasha, is also involved as are Melinda's parents, both alive. No pets. Grew up locally. Has some friends. Exam Narrative Exam Narrative: Const: Thin frail female in NAD. HEENT: NC/AT. Normal facial exam. Neck: Supple. Tracheostomy present. Lungs: Normal respiratory effort. Lungs are clear. Cor: RRR without murmur/gallop. Good distal pulses. GI: Soft. NT/ND. No guarding or rebound. Neuro: A+O x 3. Normal mentation. Cranial nerves II - XII grossly intact. No gross motor or sensory deficit. Ext: No C/C. Mild LE edema bilateral. Skin: Warm and dry without rash. Psych: Poor eye contact and keeps head down. Denies SI, HI, ingestion. Just tired of being sick and all the procedures/evaluations. Course Vital Signs Vital signs: Vital Signs Temperature 97.9 F 06/17/21 19:56 Pulse 101 H 06/17/21 19:56 Respiratory Rate 11 L 06/17/21 19:56 Blood Pressure 149/95 H 06/17/21 19:56 Pulse Oximetry 99 06/17/21 19:56 Temperature 97.9 F 06/17/21 19:56 Pulse 101 H 06/17/21 19:56 Respiratory Rate 11 L 06/17/21 19:56 Respiratory Effort Non-Labored 06/17/21 20:01 Blood Pressure 149/95 H 06/17/21 19:56 Blood Pressure Position Sitting 06/17/21 19:56 Pulse Oximetry 99 06/17/21 19:56 Oxygen Delivery Method Room Air 06/17/21 19:56 Oxygen Flow Rate 0 06/17/21 19:56 Pain Level 0 06/17/21 19:56
[2021-06-17 20:52] LABS: Abs Immature Grans 0.06 10^3/uL (0.0-0.06); Absolute Basophil Count 0.05 10^3/uL (0.0-0.2); Absolute Lymphocyte Count 0.54 10^3/uL (1.2-3.4); Absolute Monocyte Count 0.54 10^3/uL (0.1-0.8); Absolute Neutrophil Count 5.54 10^3/uL (1.2-6.7); Basophils % 0.7; Eosinophils % 4.3; HCT 27.8 % (36.0-46.0); HGB 9.4 g/dL (11.2-15.7); Immature Grans % 0.9; Lymphocytes % 7.7; MCH 34.2 pg (27.0-33.0); MCHC 33.8 % (32.0-36.0); MCV 101.1 fL (80-95); MPV 8.8 fL (8.0-11.0); Monocytes % 7.7; Neutrophils % 78.7; Nucleated RBC 0 %; Platelet Count 263 10^3/uL (130-400); RBC 2.75 10^6/uL (3.93-5.22); RDW 16.7 % (11.7-14.6); RDW-SD 61.6 fL; WBC 7.03 10^3/uL (4.4-10.8)
[2021-06-17 21:12] LABS: ALT 21 U/L (14-59); AST 34 U/L (15-37); Albumin 1.7 g/dL (3.4-5.0); Alkaline Phosphatase 173 U/L (46-116); Anion Gap 12.9 mmol/L (3-11); BUN 21 mg/dL (7-18); Bilirubin, Total 0.2 mg/dL (0.2-1.0); CO2 26.1 mmol/L (21.0-32.0); CREATININE 1.9 mg/dL (0.55-1.02); Chloride 99 mmol/L (98-107); Estimated GFR 26.96 (mL/min/1.73m2); Glucose 81 mg/dL (74-106); Magnesium 1.9 mg/dL (1.8-2.4); Potassium 3.3 mmol/L (3.5-5.1); Sodium 138 mmol/L (136-145); Total Protein 6.7 g/dL (6.4-8.2)
[2021-06-17 21:21] LABS: Calcium 5.4 mg/dL (8.5-10.1)
[2021-06-17 21:27] LABS: Salicylate < 2.8 mg/dL (<2.8)
[2021-06-17 21:31] LABS: Acetaminophen < 2 ug/mL (10-30)
[2021-06-17 21:46] LABS: TSH (W/Ref FT4) 123.66 uIU/mL (0.36-3.74)
[2021-06-17 22:02] LABS: FREE T4 0.55 ng/dL (0.76-1.46)
[2021-06-17] MEDS: Potassium Chloride 20 MEQ TABCR 40 MEQ PO (22:05)
[2021-06-17] MEDS: traMADol 50 MG TAB PO (23:21)
[2021-06-18] VITALS (35 sets, daily range): BP systolic 101–132; BP diastolic 67–86; PULSE 80–90; RESP 11–24; TEMP 36.8; O2SAT 92–99
--- NOTE | 2021-06-18 04:00 | RT.EKG_ITS ---
APPROVED REPORT Exam: Resting ECG Reason for Exam: check Qt Patient Location: E HR:85 bpm ECG Measurements Heart Rate 85 AXIS WA 176 P 65 QRSd 82 QRS 56 QT 427 T 60 QTc 509 Conclusion Sinus rhythm...normal P axis, V-rate 60- 99 Low voltage, extremity and precordial leads...extremity<0.5mV, precordial<1.0mV Prolonged Qt I have reviewed and interpreted ECG and agree with software generated interpretation.
[2021-06-18 04:29] LABS: BUN 20 mg/dL (7-18); CREATININE 1.6 mg/dL (0.55-1.02); Chloride 102 mmol/L (98-107); Estimated GFR 32.88 (mL/min/1.73m2); Glucose 82 mg/dL (74-106); Potassium 3.5 mmol/L (3.5-5.1); Sodium 138 mmol/L (136-145)
[2021-06-18 04:32] LABS: Calcium 5.5 mg/dL (8.5-10.1)
== END 2021-06-18 06:00 | disposition left against medical advice (07) ==
PROVIDERS: Emergency Provider Emergency Medicine; PCP Family Medicine
DX: E83.51 Hypocalcemia (principal); E87.6 Hypokalemia; E03.9 Hypothyroidism, unspecified; R94.31 Abnormal electrocardiogram [ECG] [EKG]; F44.5 Conversion disorder with seizures or convulsions
CPT/HCPCS: 36415; 80048; 80053; 80307; 93005; 96365; 96367; 99285; 80329; 81003; 83735; 84439; 84443; 85025; 93010; J0610

== ENCOUNTER 2021-06-20 13:42 | Outpatient (REF) | payer MEDICAID, SELFPAY ==
[2021-06-20 19:05] LABS: Anion Gap 11.9 mmol/L (3-11); BUN 16 mg/dL (7-18); CO2 27.1 mmol/L (21.0-32.0); CREATININE 1.8 mg/dL (0.55-1.02); Calcium 7.1 mg/dL (8.5-10.1); Chloride 101 mmol/L (98-107); Glucose 86 mg/dL (74-106); Potassium 3.7 mmol/L (3.5-5.1); Sodium 140 mmol/L (136-145)
== END 2021-06-20 13:43 | disposition home or self-care (01) ==
LOC: NCHCN 13:42
PROVIDERS: PCP Family Medicine; Visit Provider Nurse Practitioner Family
DX: E83.51 Hypocalcemia (principal)
CPT/HCPCS: 80048

== ENCOUNTER 2021-07-17 16:11 | Outpatient (CLI) | payer MEDICAID, SELFPAY ==
[2021-07-17 16:18] LABS: Abs Immature Grans 0.02 10^3/uL (0.0-0.06); Absolute Basophil Count 0.03 10^3/uL (0.0-0.2); Absolute Monocyte Count 0.33 10^3/uL (0.1-0.8); Absolute Neutrophil Count 4.99 10^3/uL (1.2-6.7); Basophils % 0.5; Eosinophils % 1.6; HCT 24.6 % (36.0-46.0); HGB 8.2 g/dL (11.2-15.7); Immature Grans % 0.3; Lymphocytes % 14.1; MCH 35.2 pg (27.0-33.0); MCHC 33.3 % (32.0-36.0); MCV 105.6 fL (80-95); MPV 8.8 fL (8.0-11.0); Monocytes % 5.2; Neutrophils % 78.3; Nucleated RBC 0 %; Platelet Count 293 10^3/uL (130-400); RBC 2.33 10^6/uL (3.93-5.22); RDW-SD 65.5 fL; WBC 6.37 10^3/uL (4.4-10.8)
[2021-07-17 16:26] LABS: Magnesium 2.2 mg/dL (1.8-2.4)
[2021-07-17 16:40] LABS: ALT 23 U/L (14-59); AST 38 U/L (15-37); Alkaline Phosphatase 100 U/L (46-116); Anion Gap 9.6 mmol/L (3-11); BUN 42 mg/dL (7-18); Bilirubin, Total 0.3 mg/dL (0.2-1.0); CO2 28.4 mmol/L (21.0-32.0); Chloride 98 mmol/L (98-107); Estimated GFR 8.44 (mL/min/1.73m2); Glucose 93 mg/dL (74-106); Potassium 3.2 mmol/L (3.5-5.1); Sodium 136 mmol/L (136-145); Total Protein 6.9 g/dL (6.4-8.2)
[2021-07-17 16:45] LABS: CREATININE 5.2 mg/dL (0.55-1.02); Calcium 12.1 mg/dL (8.5-10.1)
[2021-07-17 17:07] LABS: TSH (W/Ref FT4) 218.72 uIU/mL (0.36-3.74)
[2021-07-17 17:24] LABS: FREE T4 0.22 ng/dL (0.76-1.46)
[2021-07-17 17:39] LABS: Anisocytosis 2+; Diff Comment RBC Morph Reviewed; Macrocytosis 3+
== END 2021-07-17 16:12 | disposition home or self-care (01) ==
LOC: LBO 16:13
PROVIDERS: PCP Family Medicine; Visit Provider Family Medicine
DX: E83.51 Hypocalcemia (principal); C13.9 Malignant neoplasm of hypopharynx, unspecified; E87.1 Hypo-osmolality and hyponatremia; E87.5 Hyperkalemia
CPT/HCPCS: 36415; 80053; 83735; 84439; 84443; 85025

== ENCOUNTER 2021-07-17 16:24 | Inpatient (IN) | payer MEDICAID, SELFPAY ==
[2021-07-17] VITALS (18 sets, daily range): BP systolic 108–168; BP diastolic 71–91; PULSE 78–93; RESP 9–18; TEMP 36.2–36.5; O2SAT 89–100
--- NOTE | 2021-07-17 17:00 | RT.EKG_ITS ---
APPROVED REPORT Exam: Resting ECG Reason for Exam: hypercalcemia Patient Location: E HR:85 bpm ECG Measurements Heart Rate 85 AXIS MA 198 P 44 QRSd 79 QRS 75 QT 472 T 65 QTc 563 Conclusion Sinus rhythm...normal P axis, V-rate 60- 99 Low voltage, extremity leads...all extremity leads <0.5mV Anteroseptal infarct, age indeterminate...Q >35mS, T neg, V1-V2 Prolonged QT interval...QTc >510mS
[2021-07-17] MEDS: Normal Saline 1,000 ML 1000 ML IV ×2 (17:31→19:06)
[2021-07-17 17:38] LABS: Abs Immature Grans 0.05 10^3/uL (0.0-0.06); Absolute Basophil Count 0.03 10^3/uL (0.0-0.2); Absolute Eosinophil Count 0.13 10^3/uL (0.0-0.7); Absolute Lymphocyte Count 0.83 10^3/uL (1.2-3.4); Absolute Monocyte Count 0.38 10^3/uL (0.1-0.8); Absolute Neutrophil Count 4.66 10^3/uL (1.2-6.7); Basophils % 0.5; Eosinophils % 2.1; HCT 24.5 % (36.0-46.0); HGB 8.1 g/dL (11.2-15.7); Immature Grans % 0.8; Lymphocytes % 13.7; MCH 34.8 pg (27.0-33.0); MCHC 33.1 % (32.0-36.0); MCV 105.2 fL (80-95); MPV 9.1 fL (8.0-11.0); Monocytes % 6.3; Neutrophils % 76.6; Nucleated RBC 0 %; Platelet Count 296 10^3/uL (130-400); RBC 2.33 10^6/uL (3.93-5.22); RDW-SD 65.5 fL; WBC 6.08 10^3/uL (4.4-10.8)
--- NOTE | 2021-07-17 17:43 | ED.GENADUL_ITS ---
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 Plan to initiate treatment with 1 L IV fluid bolus. I tried contacting patient's sister at [phone] to discuss patient's medication and there seems to be an issue with her phone manager net. I spoke with Dr. Copeland who sent over some records from care at [facility]. Recent creatinine 2.55 on 07/02/2021, calcium was 9.4, TSH was elevated at 81. -- I spoke with patient's daughter who notes that she has been taking medication as prescribed including levothyroxine 137 mcg daily. Screening ECG was reviewed and interpreted by me: Sinus rhythm 85 bpm, low voltage, QTC 510 which is prolonged. --I reviewed labs and consistent with labs performed earlier today. I will give additional 1 L IV fluid bolus. I called and spoke with Dr. Sinclair and discussed ED presentation course including diagnostics. He will admit the patient request bridging orders be placed to the floor. . HPI General Mode of arrival: ambulatory . Date/Time Provider Initiated Documentation: 07/17/21 16:48 . Limitations to Documentation: no limitations . Information obtained by: patient . 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 Patient notes she has had recent fatigue but otherwise feels well. She denies pain. History limited secondary to poor historian. I did call and speak with the patient's primary care physician patient has had recent outpatient labs revealing significant elevation of creatinine and calcium Related Data Home Medications Medication Instructions Recorded Confirmed bupropion HCl 200 mg BID 09/13/20 07/17/21 folic acid 1 mg DAILY 09/13/20 07/17/21 gabapentin 300 mg TID 09/13/20 07/17/21 levothyroxine 112 mcg DAILY 09/13/20 07/17/21 metoprolol tartrate 12.5 mg HS 09/13/20 07/17/21 mirtazapine 45 mg QHS 09/13/20 07/17/21 tramadol 50 mg PO BID 09/13/20 07/17/21 Aquaphor Healing 1 applic TOPICAL BID 04/29/21 06/17/21 Ensure Original ml PO TID 04/29/21 acetaminophen 650 mg PO BID 04/29/21 07/17/21 cyanocobalamin (vitamin B-12) 2,500 mcg DAILY 04/29/21 07/17/21 dronabinol 5 mg PO BID 04/29/21 07/17/21 ferrous sulfate 4 ml PO DAILY 04/29/21 07/17/21 hydrocodone-acetaminophen 1 tab PO TID PRN 04/29/21 07/17/21 lorazepam 0.5 mg PO Q6H PRN PRN 04/29/21 07/17/21 metoprolol tartrate 25 mg PO QAM 04/29/21 07/17/21 levothyroxine 25 mcg PO DAILY #30 cap 04/30/21 07/17/21 magnesium chloride [Mag 64] 64 mg PO BID #60 tab 07/21/21 pantoprazole [Protonix] 40 mg PO BID #60 ea 07/21/21 sucralfate 1 g PO AC & HS #120 tab 07/21/21 trimethobenzamide 300 mg PO QID PRN PRN #30 cap 07/21/21 Previous Rx's Medication Instructions Recorded levothyroxine 25 mcg PO DAILY #30 cap 04/30/21 magnesium chloride [Mag 64] 64 mg PO BID #60 tab 07/21/21 pantoprazole [Protonix] 40 mg PO BID #60 ea 07/21/21 sucralfate 1 g PO AC & HS #120 tab 07/21/21 trimethobenzamide 300 mg PO QID PRN PRN #30 cap 07/21/21 Allergies Allergy/AdvReac Type Severity Reaction Status Date / Time esomeprazole [From Nexium] Allergy Severe Acute Unverified 07/17/21 16:32 interstitial nephritis oxycodone [From OxyContin] Allergy Unknown Unverified 07/17/21 16:32 fluoxetine [From Prozac] AdvReac Unverified 07/17/21 16:32 General Stated Complaint: GenMedical BARBARA: 3 Review of Systems All systems reviewed & are unremarkable except as noted in HPI and below Constitutional Constitutional: Denies fever(s) Cardiovascular Cardiovascular: Denies chest pain PFSH Medical History Cervical high risk HPV (human papillomavirus) test positive DNR (do not resuscitate) Gastrostomy tube dysfunction Goals of care, counseling/discussion Hx of cancer of lung sister reports lung tumor was metastatic from her tongue cancer Hx of tongue cancer Hypothyroidism Lives alone with help available Mass of larynx POLST (Physician Orders for Life-Sustaining Treatment) Tracheostomy in place Unintentional weight loss Uses feeding tube Surgical History Colonoscopy - MAC (04/12/17) History of laryngectomy History of thyroidectomy Family History Mother Diabetes Essential hypertension Father Prostate cancer Essential hypertension Sister No problems noted. Brother No problems noted. 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 Was . Sister Jessica is her primary support person. Jessica's daughter, Natasha, is also involved. Grew up locally. Has some friends. Exam Const General: cooperative and no acute distress HENMT Head: normocephalic and atraumatic Mouth: moist mucous membranes Eyes Conjunctivae: normal conjunctivae Sclera: normal sclerae Neck Other: Tracheostomy intact Resp Auscultation: clear to auscultation bilaterally, no rales, no rhonchi and no wheezes Cardio Rate: regular rate and not tachycardic Rhythm: regular rhythm GI Palpation: soft, not firm, no guarding, no masses, not rigid and nontender Skin General skin exam: no rashes or lesions noted Neuro General: patient alert, patient awake, tone normal and other (Fatigue) Extrem General: no edema Psych Appearance: grossly normal Course Vital Signs Vital signs: Vital Signs Temperature 36.2 C L 07/17/21 16:29 Pulse 93 H 07/17/21 16:29 Respiratory Rate 13 07/17/21 16:29 Blood Pressure 115/71 07/17/21 16:29 Pulse Oximetry 94 07/17/21 16:29 Temperature 36.2 C L 07/17/21 16:29 Temperature Source Temporal Artery Scan 07/17/21 16:29 Pulse 82 07/17/21 17:30 Pulse 82 07/17/21 17:31 Respiratory Rate 11 L 07/17/21 17:31 Respiratory Effort Non-Labored 07/17/21 16:32 Respiratory Depth Normal 07/17/21 16:32 Respiratory Pattern Normal 07/17/21 16:32 Blood Pressure 135/82 07/17/21 17:30 Blood Pressure Mean 94 07/17/21 17:30 Pulse Oximetry 96 07/17/21 17:31 Oxygen Delivery Method Room Air 07/17/21 16:29 Oxygen Flow Rate 0 07/17/21 16:29
[2021-07-17 17:48] LABS: Anisocytosis 2+; Diff Comment RBC Morph Reviewed; Macrocytosis 3+
[2021-07-17 17:53] LABS: Magnesium 2.3 mg/dL (1.8-2.4)
[2021-07-17 17:55] LABS: ALT 23 U/L (14-59); AST 35 U/L (15-37); Alkaline Phosphatase 104 U/L (46-116); Anion Gap 7.7 mmol/L (3-11); BUN 43 mg/dL (7-18); Bilirubin, Total 0.3 mg/dL (0.2-1.0); CO2 29.3 mmol/L (21.0-32.0); Chloride 100 mmol/L (98-107); Estimated GFR 8.63 (mL/min/1.73m2); Glucose 84 mg/dL (74-106); Sodium 137 mmol/L (136-145); Total Protein 6.9 g/dL (6.4-8.2)
[2021-07-17 17:59] LABS: Calcium 12.2 mg/dL (8.5-10.1)
[2021-07-17 18:00] LABS: CREATININE 5.1 mg/dL (0.55-1.02)
[2021-07-17 18:17] LABS: TSH (W/Ref FT4) 214.87 uIU/mL (0.36-3.74)
[2021-07-17 18:22] LABS: Source Nasal/Nares
--- NOTE | 2021-07-17 18:35 | W.PM.HP.N ---
Date of service: 07/17/21 Time of Service: 20:50 Assessment and Plan Assessment and plan (1) Hypercalcemia: Status: Acute Assessment and plan: Looking back Ms. Capps has had multiple admissions with fluctuating calcium levels, both high and low. I did review her endocrinology note from [facility]. Her primary diagnosis is surgical hypoparathyroidism, which is c/w multiple PTH levels in the very low range. Unfortunetly, this is at least the second time she has been admitted for overcorrection of her hypocalcemia, with last admission 04/29/21. Given corrected calcium of 13.7 approaching severe, I did order a dose of calcitonin along with holding calcium/vitamin D and IV fluids. I don't think more long acting medications that act on bone are indicated (bisphosphonates are contraindicated due to renal disease anyways) because of her history of hypocalcemia one month ago. Given the complexity of the case, I think the best approach is to hold the calcium and vitamin D tonight, gentle hydration once Ca++ is down a to moderate range, and discuss with endocrine Dr.Andrew Borja at [facility] tomorrow. Dr. Borja specifically requested we call him before changing calcium, calciferol, ergocalciferol, or levothyroxine doses. (2) Acute kidney injury: Status: Acute Assessment and plan: GFR has been trending down from 06/18/21 labs here to 07/02/21 labs at [facility], when Cr was 2.55. Per [facility] Nephrology note from 07/02/21 she has a history of esomeprazole induced interstitial nephritis. She has had poor po intake and is at risk for pre-renal azotemia as well. Get urinalysis to assess for nephritiis, get urine sodium/cr for FENa, follow renal function after hydration, follow u/o. (3) Hypothyroid: Status: Chronic Assessment and plan: Her highly elevated TSH does not make sense as she states she is adherent to her home levothyroxine dosing. High dose biotin is on her list, which is known to interfere with TSH assay, so I am holding this. She also takes iron, which will block levothyroxine absorption. Will continue 137mcg dosing (high for her weight) and check in with her engine assembler. (4) Anemia: Status: Chronic Assessment and plan: Chronic, nutritional and CKD related. No known active blood loss, though she has a history of GI of unclear source. Monitor. Qualifiers: Anemia type: iron deficiency Iron deficiency anemia type: inadequate dietary iron intake Qualified Code(s): D50.8 - Other iron deficiency anemias (5) Hx of tongue cancer: Status: Chronic Assessment and plan: Per recent notes her last PET scan did not show active disease. This has left her with poor nutrition status and without a voice. She is also on chronic pain medication including opioids. No change in medication for now, other than mirtazipine as below. Consider checking in with palliative care, nutrition while she is here. (6) Hypokalemia: Status: Acute Assessment and plan: This has been chronic. IV potassium given in ED. Mg normal. We need to be careful given EVANGELIST on CKD not to overcorrect. Follow. (7) Prolonged Q-T interval on ECG: Status: Acute Assessment and plan: This was noted last admission but felt related to low Ca++. Her tramadol and mirtazipine can contribute. Given tramadol chronic, will not cut this back for now. Will cut mirtazipine dose and follow. (8) DVT prophylaxis: Status: Acute Assessment and plan: she is on apixaban 2.5mg at home per the record. I cannot find the indication, but continue this for now as it will cover DVT prophylaxis. (9) Discharge planning issues: Status: Acute Assessment and plan: She is currently stable on medical floor with telemetry monitoring given electrolyte disturbance and long QTc. She confirms she is DNR/DNI History of Present Illness History of Present Illness Chief Complaint: malaise Narrative: 60 yo F with a complex medical history including head and neck cancer with history of lung metasteses and tracheostomy placement leaving her non-verbal, surgerical hypothyroid and parathyroidism, and chronic renal insufficiency who presented complaining of progressive malaise over the past two weeks. Her sister called the her PCP on the morning of admission describing poor oral intake with some weight loss, nausea, unsteadiness on her feet, and diffuse abdominal discomfort. No fevers or chills, no respiratory symptoms, no bowel or bladder changes. Melinda confirms she has been taking her medication. She was last evaluated here 06/17/21 with hypocalcemia down to 5.4 (7.2 corrected). Prior to this she was admitted 04/29-04/30/21 with hypercalcemia, and her regular calcium and vitamin D supplumentation was stopped. On the 06/17 evaluation she was given IV calcium (as well as potassium as this was also low) and offered admission but she declined admission. She was restarted on her calcium and vitamin D (ergocalciferol and calcitriol). At her 07/02/21 appointment at [facility], her calcium was 9.4 (corrected 10.4). Her TSH was 81.6, phosphorus was 3.0, PTH was 6 (low) and vitamin D was 89 (high normal). Creatinine was 2.55. Endocrine and renal saw her but did not change her doses. Of not note on the 06/17 presentation there was report by EMT of seizure like activity, but this has not recurred. Review of Systems Constitutional Constitutional: Reports anorexia, Denies chills, Reports fatigue, Denies fever(s) and Reports lethargy Eyes Eyes: Denies change in vision, Denies irritation and Denies eye pain ENT Ears, Nose, Mouth, and Throat: Denies dizziness, Denies nasal congestion, Denies nasal discharge and Denies sore throat Cardiovascular Cardiovascular: Denies chest pain, Denies palpitations and Denies orthopnea Respiratory Respiratory: Denies cough, Denies excessive phlegm production and Denies wheezing Gastrointestinal Gastrointestinal: Reports abdominal pain, Denies melena, Denies hematochezia, Denies change in stool character, Denies constipation, Denies heartburn, Denies diarrhea, Reports nausea and Denies vomiting Genitourinary Genitourinary: Denies hematuria, Denies dysuria and Denies urinary incontinence Musculoskeletal Musculoskeletal: Denies stiffness Comments: nothing new. Integumentary/Breasts Skin/Breast: Denies rash and Denies skin ulcer Neurologic Neurologic: Denies dizziness, Denies localized weakness, Denies seizure-like activity, Denies sensory deficit and Denies tremor(s) Psychiatric Psychiatric: Denies mood swings and Denies panic attacks Endocrine Endocrine: Reports fatigue and Denies palpitations Hematologic/Lymphatic Hematologic/Lymphatic: Denies easy bleeding Allergic/Immunologic Allergic/Immunologic: Denies wheezing [facility] Medical History Cervical high risk HPV (human papillomavirus) test positive DNR (do not resuscitate) Gastrostomy tube dysfunction Goals of care, counseling/discussion Hx of cancer of lung sister reports lung tumor was metastatic from her tongue cancer Hx of tongue cancer Hypothyroidism Lives alone with help available Mass of larynx POLST (Physician Orders for Life-Sustaining Treatment) Tracheostomy in place Unintentional weight loss Uses feeding tube Surgical History Colonoscopy - MAC (04/12/17) History of laryngectomy History of thyroidectomy Family History Mother Diabetes Essential hypertension Father Prostate cancer Essential hypertension Sister No problems noted. Brother No problems noted. Social History (Updated 07/17/21 @ 21:50 by Artur Sinclair) Smoking/Tobacco Use Status: Former Tobacco Use Quit Date: 11/22/04 Pack-years: 45 Tobacco: How many years used: 30 Smoking risk assessment performed?: Yes Alcohol Intake: current Alcohol Intake frequency: 0-2 drinks per day Alcohol type: wine Drug use: Never Substance use type: does not use Caregiver/Support person: No Household members: none Housing: house Number of Children: 0 Communication Needs: Corrective Lenses Education Level: high school Do you need help understanding health information?: Often current occupation: [employer] on disability Pets and animals: No Current gender identity: female What is your relationship status?: How often do you talk on the phone with friends or family?: never How often do you get together with friends or relatives?: three or more times per week Panel score (0-1 are the most socially isolated patients): 1 What type of physical activity do you participate in: walking and sedentary lifestyle Duration: 15-30 minutes/day Special aftab needs: No Do you feel safe at home: Yes Do you feel safe in your relationship?: Yes Additional Social history: Lives with sister in [place]. Formerly worked as [employer]. when not ill. Was . Sister Jessica is her primary support person. Jessica's daughter, Natasha, is also involved. Grew up locally. Has some friends. Meds Allergies and Home Medications Allergies Allergy/AdvReac Type Severity Reaction Status Date / Time esomeprazole [From Nexium] Allergy Severe Acute Unverified 07/17/21 16:32 interstitial nephritis oxycodone [From OxyContin] Allergy Unknown Unverified 07/17/21 16:32 fluoxetine [From Prozac] AdvReac Unverified 07/17/21 16:32 Home Medications Medication Instructions Recorded Confirmed Type bupropion HCl 200 mg BID 09/13/20 07/17/21 History folic acid 1 mg DAILY 09/13/20 07/17/21 History gabapentin 300 mg TID 09/13/20 07/17/21 History levothyroxine 112 mcg DAILY 09/13/20 07/17/21 History metoprolol tartrate 12.5 mg HS 09/13/20 07/17/21 History mirtazapine 45 mg QHS 09/13/20 07/17/21 History tramadol 50 mg PO BID 09/13/20 07/17/21 History Eliquis 2.5 mg PO BID 10/10/20 07/17/21 History Aquaphor Healing 1 applic TOPICAL BID 04/29/21 06/17/21 History Ensure Original ml PO TID 04/29/21 History acetaminophen 650 mg PO BID 04/29/21 07/17/21 History biotin 1,000 mcg PO DAILY 04/29/21 07/17/21 History cyanocobalamin (vitamin B-12) 2,500 mcg DAILY 04/29/21 07/17/21 History dronabinol 5 mg PO BID 04/29/21 07/17/21 History ferrous sulfate 4 ml PO DAILY 04/29/21 07/17/21 History hydrocodone-acetaminophen 1 tab PO TID PRN 04/29/21 07/17/21 History lorazepam 0.5 mg PO Q6H PRN PRN 04/29/21 07/17/21 History metoprolol tartrate 25 mg PO QAM 04/29/21 07/17/21 History cefdinir 300 mg PO BID #60 ml 04/30/21 07/17/21 Rx levothyroxine 25 mcg PO DAILY #30 cap 04/30/21 07/17/21 Rx Exam Narrative Exam Narrative: GEN: Alert, non verbal but communicates with gestures and writing things down, oriented, pleasant and cooperative. Cachectic appearing. No acute distress at rest. HEENT: Head atraumatic. Conjunctiva clear, no icterus. PEERL, EOMI. no rhinorrhea. MMM, OP benign. Neck is supple with firm scar tissue palpable but no large masses, trachea midline, tracheostomy site clean. LUNGS: CTAB with normal effort CV: RRR with no murmurs, gallops, or rubs. ABD: +BS, soft, NT/ND, no HSM EXT: no cyanosis, clubbing, or edema MSK: No joint redness or swelling NEURO: CN 2-12 grossly intact. Normal movement of 4 extremities. DTRs 2+ jon patella. Normal coordination moving in bed. no tremor SKIN: No rashs or open wounds. No large bruises PSYCH: normal mood and affect Results Imaging EKG: report reviewed and image reviewed (QTc 563) Labs Result diagrams: 07/17/21 17:31 07/17/21 17:31 Labs: Laboratory Results - last 24 hr 07/17/21 07/17/21 07/17/21 17:31 17:31 17:31 WBC RBC Hgb Hct MCV MCH MCHC RDW Plt Count MPV Immature Gran % Neutrophils % Lymphocytes % Monocytes % Eosinophils % Basophils % Nucleated RBC % Absolute Neutrophils Absolute Lymphocytes Absolute Monocytes Absolute Eosinophils Absolute Basophils RBC Morphology Anisocytosis Macrocytosis Sodium 137 Potassium 3.0 L Chloride 100 Carbon Dioxide 29.3 Anion Gap 7.7 BUN 43 H Creatinine 5.1 H* Estimated GFR/1.73 m2 8.63 Glucose 84 Calcium 12.2 H* Magnesium 2.3 Total Bilirubin 0.3 AST 35 ALT 23 Alkaline Phosphatase 104 Total Protein 6.9 Albumin 2.0 L TSH 214.87 H COVID-19 Source 07/17/21 07/17/21 17:31 18:17 WBC 6.08 RBC 2.33 L Hgb 8.1 L Hct 24.5 L MCV 105.2 H MCH 34.8 H MCHC 33.1 RDW 17.0 H Plt Count 296 MPV 9.1 Immature Gran % 0.8 Neutrophils % 76.6 Lymphocytes % 13.7 Monocytes % 6.3 Eosinophils % 2.1 Basophils % 0.5 Nucleated RBC % 0 Absolute Neutrophils 4.66 Absolute Lymphocytes 0.83 L Absolute Monocytes 0.38 Absolute Eosinophils 0.13 Absolute Basophils 0.03 RBC Morphology See Below Anisocytosis 2+ Macrocytosis 3+ Sodium Potassium Chloride Carbon Dioxide Anion Gap BUN Creatinine Estimated GFR/1.73 m2 Glucose Calcium Magnesium Total Bilirubin AST ALT Alkaline Phosphatase Total Protein Albumin TSH COVID-19 Source Nasal/Nares Last Vital Signs Temp 36.2 C L 07/17/21 16:29 Pulse 82 08/26/21 17:30 Resp 11 L 07/17/21 17:31 BP 135/82 07/17/21 17:30 Pulse Ox 96 07/17/21 17:31
[2021-07-17] MEDS: POTASSIUM CHLORIDE 20 MEQ/100 ML BAG 50 MEQ IVPB (19:06)
[2021-07-17] MEDS: Potassium Chloride 20 MEQ TABCR PO (19:12)
[2021-07-17 19:13] LABS: COVID-19 PCR Negative (Negative)
[2021-07-17] MEDS: Calcitonin-Salmon 400 UNITS/2 ML VIAL 170 UNITS IM (20:06)
[2021-07-17] MEDS: Normal Saline Flush 10 ML SYR IVP (20:06)
[2021-07-17] MEDS: Normal Saline 1,000 ML 125 ML IV (21:18)
[2021-07-17] MEDS: Dronabinol 2.5 MG CAP 5 MG PO (22:39)
[2021-07-17] MEDS: Metoprolol 12.5 MG TAB PO (22:39)
[2021-07-17] MEDS: Acetaminophen 325 MG TAB 650 MG PO (22:40)
[2021-07-17] MEDS: Mirtazapine 15 MG TAB 30 MG PO (22:40)
[2021-07-18 00:13] LABS: Bilirubin Negative (Negative); Blood Trace-intact (Negative); Clarity Clear (Clear); Glucose Negative (Negative); Ketones Negative (Negative); Leukocyte Esterase Trace (Negative); Nitrite Negative (Negative); Urobilinogen 0.2 EU/dL (Up TO 0.2); pH 8.5 (5-8)
[2021-07-18 00:28] LABS: Bacteria Few HPF (Negative); C & S Indicated? Yes; Casts 0-2 Hyaline LPF (Negative); Crystals Negative HPF (Negative); Epithelial Cells Few HPF (Negative); Mucus Negative (Negative); RBC 0-2 HPF (0-2)
[2021-07-18 02:27] LABS: Sodium, Urine 113 mmol/L
[2021-07-18 02:29] LABS: Creatinine,Urine 6.03 mg/dL
[2021-07-18 03:38] VITALS: BP 103/60; PULSE 71; RESP 16; TEMP 36.9; O2SAT 93
[2021-07-18] MEDS: Normal Saline 1,000 ML 125 ML IV ×3 (05:38→22:10)
[2021-07-18 06:52] LABS: HCT 23.4 % (36.0-46.0); HGB 7.6 g/dL (11.2-15.7)
[2021-07-18 07:00] VITALS: PULSE 75
[2021-07-18 07:10] LABS: Anion Gap 4.6 mmol/L (3-11); BUN 34 mg/dL (7-18); CO2 26.4 mmol/L (21.0-32.0); Calcium 9.5 mg/dL (8.5-10.1); Chloride 109 mmol/L (98-107); Glucose 92 mg/dL (74-106); Potassium 3.2 mmol/L (3.5-5.1); Sodium 140 mmol/L (136-145)
[2021-07-18 07:14] VITALS: BP 112/66; PULSE 73; RESP 17; TEMP 36.4; O2SAT 90
[2021-07-18 07:17] LABS: CREATININE 4.2 mg/dL (0.55-1.02)
[2021-07-18] MEDS: Cyanocobalamin 500 MCG TAB 2500 MCG PO (08:06)
[2021-07-18] MEDS: buPROPion 100 MG TAB 200 MG PO ×2 (08:07→20:01)
[2021-07-18] MEDS: Dronabinol 2.5 MG CAP 5 MG PO ×2 (08:07→20:01)
[2021-07-18] MEDS: Metoprolol 12.5 MG TAB 25 MG PO (08:07)
[2021-07-18] MEDS: Gabapentin 300 MG CAP PO ×3 (08:08→20:02)
[2021-07-18] MEDS: Acetaminophen 325 MG TAB 650 MG PO ×2 (08:08→20:01)
[2021-07-18] MEDS: traMADol 50 MG TAB PO ×2 (08:08→20:02)
[2021-07-18] MEDS: Folic Acid 1 MG TAB PO (08:09)
[2021-07-18] MEDS: Apixaban 2.5 MG TAB PO ×2 (08:09→20:02)
[2021-07-18] MEDS: POTASSIUM CHLORIDE 10 MEQ/100 ML BAG 100 MEQ IVPB (08:14)
[2021-07-18 08:15] VITALS: O2SAT 92
[2021-07-18 09:05] LABS: Iron 38 ug/dL (50-170); Total Iron Binding Capacity 102 ug/dL (250-450); Transferrin Sat 37 % (15-50)
[2021-07-18] MEDS: Ferrous Sulfate 44 MG/ML Liquid 300 MG PO (09:45)
--- NOTE | 2021-07-18 09:53 | W.NUTCONSULT ---
Date of service: 07/18/21 Time of Service: 09:54 Nutritional Consult ASSESSMENT: 60 year old female admitted with abnormal labs with hx of head/neck CA with lung mets, surgical hypoparathroidism with PEG and TRACH placement in 2020. Has lost over 40 lbs in last year with BMI just under 19. BMI has been stable x 6 months, with use of peg as needed. Home med list indicates high doses of biotin, B12, iron. In view of altered kidney function and complexity of regulating eletrolytes, recommend d/c high doses of vitamin, recommend basic MVI. Currently not using PEG as able to take in food orally to maintain weight. Following soft bite sized diet with adequate intake to meet nutrient needs for weight maintenance NUTRITIONAL DIAGNOSIS: Underweight Unintentional weight loss PEG dependent/altered nutrient intake INTERVENTION: Continue regular soft bite sized diet, provide ensure BID discontinue B12, biotin and iron- swith to MVI Recommend 1-2 PEG bolus feedings once returns home. Increase of caloric intake of 500 kcal per day should lead to weight gain of 1-2 lbs per week. Goal weight: 53 kg MONITORING AND EVALUATION: po intake, labs Time Spent in Nutritional Counseling and Treatment: 25
--- NOTE | 2021-07-18 10:48 | PDOC.CMIN ---
- If Service Date Differs Date of service: 07/18/21 Time of Service: 10:50 Care Management Initial Assess REASON FOR HOSPITALIZATION:: hypercalcemia, hypokalemia, EVANGELIST PAST MEDICAL HISTORY/PAST SURGICAL HISTORY:: Medical History. Cervical high risk HPV (human papillomavirus) test positive. DNR (do not resuscitate). Gastrostomy tube dysfunction. Goals of care, counseling/discussion. Hx of cancer of lung. sister reports lung tumor was metastatic from her tongue cancer. Hx of tongue cancer. Hypothyroidism. Lives alone with help available. Mass of larynx. POLST (Physician Orders for Life-Sustaining Treatment). Tracheostomy in place. Unintentional weight loss. Uses feeding tube. Surgical History. Colonoscopy - MAC (04/12/17). History of laryngectomy. History of thyroidectomy PREVIOUS FUNCTIONAL STATUS/SOCIAL/FAMILY SUPPORTS:: Melinda lives in [place] with his sister. 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 Her sister, Jessica helps her with ADL's and is very supportive. Jessica's daughter, Natasha is also supportive. Due to a laryngectomy, she is non verbal, and communicates through writing. Per Jessica, Kinza is very independent at baseline. CURRENT FUNCTIONAL STATUS:: Melinda was sitting up in her chair when CM met with her. Her sister, Jessica was in the room. Kinza reported that she is feeling ok, and is hoping to return home soon. Per provider, she will remain at [facility] until her creatnine normalizes, which could be a day or two. Jessica asked CM about some community supports, such as 3 squares and fuel assistance. They already have the application, and are ready to send it in. They both agreed that Kinza does not require any services at this time. CM will continue to follow. ADVANCE DIRECTIVES:: [employer] on file, Marlee listed as agent. Has patient been provided with info about the portal/API?: Yes Did the patient sign up for the portal?: No CODE STATUS:: DNR/DNI INSURANCE COVERAGE / FINANCIAL ISSUES:: [employer] CURRENT HOME/COMMUNITY SERVICES/EQUIPMENT:: No current services. PRIMARY CARE PHYSICIAN:: Lashay Lombardo POTENTIAL DISCHARGE NEEDS:: Evaluations for further needs, follow up appointments. PATIENT/FAMILY EDUCATION NEEDS:: Review discharge instructions regarding activity levels and medications, discussion of self care needs including ask me three. ANTICIPATED BARRIERS TO DISCHARGE:: None identified at this time. TRANSPORTATION:: Via private vehicle by family. PLAN:: Anticipate Melinda will return home when medically cleared. Her sister will drive her jonnathan via private vehicle when ready. She will follow up with her PCP and discharge plan of care. CM will continue to follow.
[2021-07-18] MEDS: Potassium Chloride Liquid 20 MEQ PKT 40 MEQ PO (11:33)
--- NOTE | 2021-07-18 11:39 | IN_ITS ---
Date of service: 07/18/21 Time of Service: 11:39 PT Notes Visit Reasons: Hypercalcemia,Hypokalemia,EVANGELIST Physical Therapy Inpatient Initial Evaluation Date: 07/18/2021 Referring Doctor: Denia Butler NP PT Orders: PT CONSULT: Eval/treat. Precautions: Fall. Standard. Activity as tolerated. Patient Profile/Admitting Diagnosis: Melinda is a 60-year=old female who presented to the ED on 07/17/2021 generalized body malaise that had progressed since two weeks ago. Patient is diagnosed with hypercalcemia, acute kidney injury, and prolonged QT interval. PMHX: Medical History Cervical high risk HPV (human papillomavirus) test positive DNR (do not resuscitate) Gastrostomy tube dysfunction Goals of care, counseling/discussion Hx of cancer of lung sister reports lung tumor was metastatic from her tongue cancer Hx of tongue cancer Hypothyroidism Lives alone with help available Mass of larynx POLST (Physician Orders for Life-Sustaining Treatment) Tracheostomy in place Unintentional weight loss Uses feeding tube Surgical History Colonoscopy - MAC (04/12/17) History of laryngectomy History of thyroidectomy Social History/Home Situation: Lives with sister in a private home with 4 steps to enter and B rails. Independent with community ambulation using walking stick. Equipment Owned/DME: walking stick Subjective: Feels weak but is willing to participate in today's evaluation. States no falls in the past year. Does not feel that she needs the FWW during walking activity. Objective: General Observation: Asthenic. Cachexic. Tracheostomy in place. IV in R UE. Mental Status: Alert and oriented as to person, place, time, and purpose. Able to pay attention, focus, and respond appropriately. Aphonic due to trach placement but is able to subvocalize. Pain: Denies ROM: Neck extension limited to neutral only. Right Upper Extremity: Shoulder Flexion WFL. Shoulder abduction WFL. Elbow flexion WFL. Wrist flexion WFL. Functional opening and closing of hand WFL. Left Upper Extremity: Shoulder Flexion WFL. Shoulder abduction WFL. Elbow flexion WFL. Wrist flexion WFL. Functional opening and closing of hand WFL. Right Lower Extremity: Hip flexion WFL. Hip abduction WFL. Knee flexion WFL. Ankle dorsiflexion WFL. Ankle plantarflexion WFL. Left Lower Extremity: Hip flexion WFL. Hip abduction WFL. Knee flexion WFL. Ankle dorsiflexion WFL. Ankle plantarflexion WFL. Strength: Neck extensors 3-/5. Right Upper Extremity: Shoulder flexors 4-/5. Shoulder abductors 4-/5. Elbow flexors 4-/5. Elbow extensors 4-/5. Nursery Nurse strong. Left Upper Extremity: Shoulder flexors 4-/5. Shoulder abductors 4-/5. Elbow flexors 4-/5. Elbow extensors 4-/5. Nursery Nurse strong. Right Lower Extremity: Hip flexors 4-/5. Hip abductors 4-/5. Knee flexors 4-/5. Knee extensors 4-/5. Ankle dorsiflexors 4-/5. Ankle plantarflexors 4-/5. Left Lower Extremity: Hip flexors 4-/5. Hip abductors 4-/5. Knee flexors 4-/5. Knee extensors 4-/5. Ankle dorsiflexors 4-/5. Ankle plantarflexors 4-/5. Bed Mobility/Transfers: Supine to sit supervision with HOB 30 degrees Sit to supine with stand by assist Sit to stand with with stand by assist Stand to sit with with stand by assist Bed to reclining chair with with stand by assist Gait: Instructed patient with level surface ambulation of 250 feet requiring stand by assist. Jennifer decreased. [place] that she did not need the walker after walking about 15 feet with it. However, she needed to hold onto IV pole for stability as it was her first time to go long distance since admission. No LOB. Denies pain and dizziness. Forward head posture. Kyphotic. Balance: Static Sitting: Normal Dynamic Sitting: Normal Static Standing: Fair Dynamic Standing: Fair Special Tests: Mobility Limitations Standardized Measure [facility] AM-PAC 6 clicks Basic Mobility Inpatient Short Form: Raw Score: 23 CMS Score: 11.20% deficit Informed Consent/Education: Patient was instructed in purpose of PT consult and plan of care. Agreeable to proceed with established PT POC to achieve personal goals. Assessment: Appeared weak and tired initially but moved better with ambulation activity using walking stick and Iv pole, PT just providing stand by assist. Able to effectively communicate and express all her needs despite being non- verbal. Good safety awareness. Patient presents with clinical signs and symptoms consistent with current/admitting diagnoses that have resulted to mobility limitations, gait instability, generalized weakness, and overall ADL decline as demonstrated by the following impairment level findings: 1. Decreased strength to B UE/LE major muscle groups 2. Impaired standing balance 3. Impaired activity tolerance Impairments are contributing to the following functional limitations: 1. Decline in bed mobility skills 2. Decline in transfer skills 3. Difficulty with ambulation without assistive device 4. Increased completion time for mobility ADL performance 5. Increased risk for falls Patient is assessed as a 29342 complexity based on the following: History: 60-year-old female with past medical history as indicated above Examination: Demonstrable impairment in strength, balance, and mobility level with underlying impairments and functional limitations as exhibited above as well as deficit score of 11% utilizing the [facility] Mobility Inpatient Short Form Presentation: Evolving Decision Makin moderate complexity Goals: Goals X1 week 1. Supine-Sit independent 2. Sit-Supine independent 3. Sit-Stand independent 4. Stand-Sit independent with no AD 5. Bed-Chair independent with no AD 6. Chair-Bed independent with no AD 7. Independent gait on level surface with use of walking stick for at least 500 feet without report of pain nor dyspnea 8. Independent stair negotiation while holding onto B rails for at least 5 steps without report of pain nor dyspnea 9. Independent with home exercise program 10. Good static and dynamic standing balance/tolerance Plan of Care/Treatment Plan: 1-2x/day, 7 days/week x 1 week. Plan of care has been reviewed with the [employer] providing the service under Physical Therapy direction. Initiate Physical Therapy intervention for pain management as needed, strengthening, bed mobility, transfers, gait, stairs, balance training, and use of assistive device. DISCHARGE RECOMMENDATIONS: Home when medically cleared by hospitalist. Consider HH PT to maximize home safety, progress strength, and increase balance skills. TREATMENT CODE/TIME: 75168 x 26 minutes beginning at 11:39 AM. Thank you for the opportunity to participate in the care of this patient. Jessica Zuniga PT, DPT, CLT [facility] [place], [place]
--- NOTE | 2021-07-18 15:32 | PT.INTREAT ---
Date of service: 07/18/21 Time of Service: 14:50 PT Notes Visit Reasons: Hypercalcemia,Hypokalemia,EVANGELIST Inpatient Physical Therapy Treatment Note [facility] Date: 07/18/2021 PRECAUTIONS: Fall SUBJECTIVE: Melinda states that she is feeling better. She reports that she feels that she is back to her baseline level of function and strength. OBJECTIVE: PAIN: NO c/o pain BED MOBILITY/TRANSFERS Sit-stand: S Stand-sit: S GAIT Assistive Device: Walking Stick Weight bearing: Full Assist: SBA Distance: 350' Deviation: Forward flexed posture, min LOB x2 with self recovery TOILETING: Patient toileted with supervision for transfers STAIRS: Up/down 3x4 and 2x6 using B rails and a step-to pattern independently. ASSESSMENT: Patient tolerated session without complaint. She was able to tolerate a progression in gait distance with U walking stick support and SBA. PLAN: Continue with global strengthening and conditioning for continued progression toward baseline level of function. TREATMENT CODE/TIME: 20 minutes; 66369 (14:50)
--- NOTE | 2021-07-18 15:57 | CHAPLAIN ---
I had a brief visit with Melinda. Her sister was with her. I introduced myself to both, explained my role and offered support.
[2021-07-18 17:14] VITALS: BP 165/80; PULSE 72; RESP 18; TEMP 36.7; O2SAT 100
--- NOTE | 2021-07-18 17:25 | W.PM.PROGNOT ---
Date of Service Date of service: 07/18/21 Time of Service: 17:30 Assessment and Plan Assessment and plan (1) Hypercalcemia: Start date: 07/18/21 Start time: 17:34 Status: Resolved Assessment and plan: Resolved, calcium level 9.5 (2) Acute kidney injury: Start date: 07/18/21 Start time: 17:36 Status: Acute Assessment and plan: GFR has been trending down from 06/18/21 labs here to 07/02/21 labs at [facility] [place], when Cr was 2.55. Per [facility] [place] Nephrology note from 07/02/21 she has a history of esomeprazole induced interstitial nephritis. She has had poor po intake and is at risk for pre-renal azotemia as well. Get urinalysis to assess for nephritis, get urine sodium/cr for FENa, follow renal function after hydration, follow u/o. Urine creatinine is 6.[address] of abd/pelvis to evaluate kidneys ordered and patient refusing (3) Hypothyroid: Start date: 07/18/21 Start time: 17:41 Status: Chronic Assessment and plan: Her highly elevated TSH does not make sense as she states she is adherent to her home levothyroxine dosing. High dose biotin is on her list, which is known to interfere with TSH assay, so I am holding this. She also takes iron, which will block levothyroxine absorption. 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 Free t 4 0.22 (4) Anemia: Start date: 07/18/21 Start time: 17:43 Status: Chronic Assessment and plan: Chronic, nutritional and CKD related. No known active blood loss, though she has a history of GI of unclear source. Monitor. Qualifiers: Anemia type: iron deficiency Iron deficiency anemia type: inadequate dietary iron intake Qualified Code(s): D50.8 - Other iron deficiency anemias (5) Hx of tongue cancer: Start date: 07/18/21 Start time: 17:43 Status: Chronic Assessment and plan: Per recent notes her last PET scan did not show active disease. This has left her with poor nutrition status and without a voice. She is also on chronic pain medication including opioids. No change in medication for now, other than mirtazipine as below. Palliative consult ordered for her (6) Hypokalemia: Start date: 07/18/21 Start time: 17:44 Status: Acute Assessment and plan: This has been chronic. IV potassium given in ED. Mg normal. We PO and IV supplementation ordered will repeat labs in am (7) DVT prophylaxis: Start date: 07/18/21 Start time: 17:46 Status: Acute Assessment and plan: she is on apixaban 2.5mg at home per the record. I cannot find the indication, but continue this for now as it will cover DVT prophylaxis. (8) Discharge planning issues: Start date: 07/18/21 Start time: 17:46 Status: Acute Assessment and plan: Telemetery dcd as electrolytes improved. will continue to monitor. Home with no services when medically stable. discussed with Dr. james Subjective Subjective Patient reports: no new complaints Interval history since last seen: Sitting up in chair. Appears comfortable. She is wondering when she can go home, explained that when her electrolytes improve than we can get her home. She denies pain. She no longer has a gastrostomy tube. She denies CP, SOB, nvd Exam Narrative Exam Narrative: GEN: Alert, non verbal but communicates with gestures and writing things down, oriented, pleasant and cooperative. Cachectic appearing. No acute distress at rest. HEENT: Head atraumatic. Conjunctiva clear, no icterus. PEERL, EOMI. no rhinorrhea. MMM, OP benign. Neck is supple with firm scar tissue palpable but no large masses, trachea midline, tracheostomy site clean. LUNGS: CTAB with normal effort CV: RRR with no murmurs, gallops, or rubs. ABD: +BS, soft, NT/ND, no HSM EXT: no cyanosis, clubbing, or edema MSK: No joint redness or swelling NEURO: CN 2-12 grossly intact. Normal movement of 4 extremities. DTRs 2+ jon patella. Normal coordination moving in bed. no tremor SKIN: No rashs or open wounds. No large bruises PSYCH: normal mood and affect Objective Last Vital Signs Temp 36.7 C 07/18/21 17:14 Pulse 72 07/18/21 17:14 Resp 18 07/18/21 17:14 BP 165/80 H 07/18/21 17:14 Pulse Ox 100 07/18/21 17:14 Laboratory Results - last 24 hr 07/17/21 07/17/21 07/17/21 17:31 17:31 17:31 WBC RBC Hgb Hct MCV MCH MCHC RDW Plt Count MPV Immature Gran % Neutrophils % Lymphocytes % Monocytes % Eosinophils % Basophils % Nucleated RBC % Absolute Neutrophils Absolute Lymphocytes Absolute Monocytes Absolute Eosinophils Absolute Basophils RBC Morphology Anisocytosis Macrocytosis Sodium 137 Potassium 3.0 L Chloride 100 Carbon Dioxide 29.3 Anion Gap 7.7 BUN 43 H Creatinine 5.1 H* Estimated GFR/1.73 m2 8.63 Glucose 84 Calcium 12.2 H* Magnesium 2.3 Iron TIBC Transferrin % Sat Total Bilirubin 0.3 AST 35 ALT 23 Alkaline Phosphatase 104 Total Protein 6.9 Albumin 2.0 L TSH 214.87 H Urine Color Urine Clarity Urine pH Ur Specific [place] Urine Protein Urine Ketones Urine Blood Urine Nitrite Urine Bilirubin Urine Urobilinogen Ur Leukocyte Esterase Urine RBC Urine WBC Ur Epithelial Cells Urine Crystals Urine Bacteria Urine Casts Urine Mucus Ur Culture Indicated? Ur Random Creatinine Ur Random Sodium Urine Glucose COVID-19 Source SARS-CoV-2 (PCR) 07/17/21 07/17/21 07/17/21 17:31 18:17 21:18 WBC 6.08 RBC 2.33 L Hgb 8.1 L Hct 24.5 L MCV 105.2 H MCH 34.8 H MCHC 33.1 RDW 17.0 H Plt Count 296 MPV 9.1 Immature Gran % 0.8 Neutrophils % 76.6 Lymphocytes % 13.7 Monocytes % 6.3 Eosinophils % 2.1 Basophils % 0.5 Nucleated RBC % 0 Absolute Neutrophils 4.66 Absolute Lymphocytes 0.83 L Absolute Monocytes 0.38 Absolute Eosinophils 0.13 Absolute Basophils 0.03 RBC Morphology See Below Anisocytosis 2+ Macrocytosis 3+ Sodium Cancelled Potassium Cancelled Chloride Cancelled Carbon Dioxide Cancelled Anion Gap Cancelled BUN Cancelled Creatinine Cancelled Estimated GFR/1.73 m2 Cancelled Glucose Cancelled Calcium Cancelled Magnesium Iron TIBC Transferrin % Sat Total Bilirubin AST ALT Alkaline Phosphatase Total Protein Albumin TSH Urine Color Urine Clarity Urine pH Ur Specific [place] Urine Protein Urine Ketones Urine Blood Urine Nitrite Urine Bilirubin Urine Urobilinogen Ur Leukocyte Esterase Urine RBC Urine WBC Ur Epithelial Cells Urine Crystals Urine Bacteria Urine Casts Urine Mucus Ur Culture Indicated? Ur Random Creatinine Ur Random Sodium Urine Glucose COVID-19 Source Nasal/Nares SARS-CoV-2 (PCR) Negative 07/17/21 07/17/21 07/18/21 23:01 23:43 06:22 WBC RBC Hgb Hct MCV MCH MCHC RDW Plt Count MPV Immature Gran % Neutrophils % Lymphocytes % Monocytes % Eosinophils % Basophils % Nucleated RBC % Absolute Neutrophils Absolute Lymphocytes Absolute Monocytes Absolute Eosinophils Absolute Basophils RBC Morphology Anisocytosis Macrocytosis Sodium 140 Potassium 3.2 L Chloride 109 H Carbon Dioxide 26.4 Anion Gap 4.6 BUN 34 H D Creatinine 4.2 H* Estimated GFR/1.73 m2 10.80 Glucose 92 Calcium 9.5 Magnesium Iron TIBC Transferrin % Sat Total Bilirubin AST ALT Alkaline Phosphatase Total Protein Albumin TSH Urine Color Yellow Urine Clarity Clear Urine pH 8.5 H Ur Specific [place] 1.020 Urine Protein Negative Urine Ketones Negative Urine Blood Trace-intact H Urine Nitrite Negative Urine Bilirubin Negative Urine Urobilinogen 0.2 Ur Leukocyte Esterase Trace H Urine RBC 0-2 Urine WBC 5-10 Ur Epithelial Cells Few Urine Crystals Negative Urine Bacteria Few Urine Casts 0-2 Hyaline Urine Mucus Negative Ur Culture Indicated? Yes Ur Random Creatinine 6.03 Ur Random Sodium 113 Urine Glucose Negative COVID-19 Source SARS-CoV-2 (PCR) 07/18/21 07/18/21 06:22 06:22 WBC RBC Hgb 7.6 L Hct 23.4 L MCV MCH MCHC RDW Plt Count MPV Immature Gran % Neutrophils % Lymphocytes % Monocytes % Eosinophils % Basophils % Nucleated RBC % Absolute Neutrophils Absolute Lymphocytes Absolute Monocytes Absolute Eosinophils Absolute Basophils RBC Morphology Anisocytosis Macrocytosis Sodium Potassium Chloride Carbon Dioxide Anion Gap BUN Creatinine Estimated GFR/1.73 m2 Glucose Calcium Magnesium Iron 38 L TIBC 102 L Transferrin % Sat 37 Total Bilirubin AST ALT Alkaline Phosphatase Total Protein Albumin TSH Urine Color Urine Clarity Urine pH Ur Specific [place] Urine Protein Urine Ketones Urine Blood Urine Nitrite Urine Bilirubin Urine Urobilinogen Ur Leukocyte Esterase Urine RBC Urine WBC Ur Epithelial Cells Urine Crystals Urine Bacteria Urine Casts Urine Mucus Ur Culture Indicated? Ur Random Creatinine Ur Random Sodium Urine Glucose COVID-19 Source SARS-CoV-2 (PCR)
[2021-07-18] MEDS: IRON SUCROSE COMPLEX 200 MG in Normal Saline 100 ML 400 MG IVPB (18:34)
[2021-07-18] MEDS: Normal Saline Flush 10 ML SYR IVP (20:59)
[2021-07-18] MEDS: Metoprolol 12.5 MG TAB PO (22:09)
[2021-07-18] MEDS: Mirtazapine 15 MG TAB 30 MG PO (22:10)
[2021-07-19 00:19] VITALS: BP 165/80; PULSE 72; RESP 18; TEMP 36.5; O2SAT 92
[2021-07-19] MEDS: Normal Saline 1,000 ML 125 ML IV ×2 (06:07→15:07)
[2021-07-19 07:12] LABS: Abs Immature Grans 0.02 10^3/uL (0.0-0.06); Absolute Basophil Count 0.05 10^3/uL (0.0-0.2); Absolute Lymphocyte Count 0.65 10^3/uL (1.2-3.4); Absolute Monocyte Count 0.35 10^3/uL (0.1-0.8); Absolute Neutrophil Count 4.44 10^3/uL (1.2-6.7); Basophils % 0.8; Eosinophils % 6.8; HCT 27.2 % (36.0-46.0); HGB 8.8 g/dL (11.2-15.7); Immature Grans % 0.3; MCH 35.8 pg (27.0-33.0); MCHC 32.4 % (32.0-36.0); MCV 110.6 fL (80-95); MPV 9.1 fL (8.0-11.0); Monocytes % 5.9; Neutrophils % 75.2; Nucleated RBC 0 %; Platelet Count 259 10^3/uL (130-400); RBC 2.46 10^6/uL (3.93-5.22); RDW 16.9 % (11.7-14.6); WBC 5.91 10^3/uL (4.4-10.8)
[2021-07-19 07:24] LABS: Anion Gap 6.7 mmol/L (3-11); BUN 27 mg/dL (7-18); CO2 24.3 mmol/L (21.0-32.0); CREATININE 3.4 mg/dL (0.55-1.02); Calcium 8.2 mg/dL (8.5-10.1); Chloride 112 mmol/L (98-107); Estimated GFR 13.78 (mL/min/1.73m2); Glucose 83 mg/dL (74-106); Potassium 3.5 mmol/L (3.5-5.1); Sodium 143 mmol/L (136-145)
[2021-07-19 07:26] LABS: Magnesium 1.6 mg/dL (1.8-2.4)
[2021-07-19 07:45] LABS: Basophilic Stippling Present; Diff Comment Diff Reviewed; Hypochromasia 2+; Macrocytosis 2+; Polychromasia Present
[2021-07-19 07:48] VITALS: BP 134/88; PULSE 78; RESP 15; TEMP 36.9; O2SAT 98
[2021-07-19] MEDS: Apixaban 2.5 MG TAB PO (08:59)
[2021-07-19] MEDS: Acetaminophen 325 MG TAB 650 MG PO ×2 (08:59→19:51)
[2021-07-19] MEDS: Dronabinol 2.5 MG CAP 5 MG PO ×2 (08:59→19:52)
[2021-07-19] MEDS: traMADol 50 MG TAB PO ×2 (08:59→19:51)
[2021-07-19] MEDS: Cyanocobalamin 500 MCG TAB 2500 MCG PO (08:59)
[2021-07-19] MEDS: Folic Acid 1 MG TAB PO (09:00)
[2021-07-19] MEDS: Gabapentin 300 MG CAP PO (09:00)
[2021-07-19] MEDS: buPROPion 100 MG TAB 200 MG PO (09:00)
[2021-07-19] MEDS: Metoprolol 12.5 MG TAB 25 MG PO (09:00)
[2021-07-19] MEDS: MAGNESIUM SULFATE 4 GM/100 ML BAG IVPB (10:02)
[2021-07-19] MEDS: Potassium Chloride Liquid 20 MEQ PKT 40 MEQ PO (10:02)
[2021-07-19] MEDS: Ferrous Sulfate 44 MG/ML Liquid 300 MG PO (10:03)
--- NOTE | 2021-07-19 10:43 | PT.INTREAT ---
PT Notes Visit Reasons: Hypercalcemia,Hypokalemia,EVANGELIST 07/19/2021 SUBJECTIVE: Pt offers no subjective information. Able to communicate yes or no answers. Indicates no pain. Agreeable to PT. OBJECTIVE: TRANSFERS Supine to sit: I Sit to supine: I Sit to stand: I Stand to sit: I GAIT Device: Walking stick R UE Weight bearing: Full Assist: SBA Distance: 250' Deviations: Minor path deviations; able to self correct without LOB. ASSESSMENT: Tolerates PT well. Pt does indicate she is back to her baseline level of function. Pt may benefit from balance exercises to increase safety with gait. PLAN: Continue as above. Treatment time: 10 minutes [id number] Sybil Bonilla PTA Clinic location: [facility] [place], [place]
--- NOTE | 2021-07-19 12:21 | PGE_ITS ---
Date of Service Date of service: 07/19/21 Time of Service: 12: Assessment and Plan Assessment and plan (1) Acute kidney injury: Start date: 07/19/21 Start time: 12:24 Status: Acute Assessment and plan: Refused CT of the abd, she does not want any further testing at this time. Her Creatinine is improving with IV hydration 3.4 continue to hydrate and monitor labs Hold nephrotoxic medications (2) Hypothyroid: Start date: 07/19/21 Start time: 12:25 Status: Chronic Assessment and plan: Her highly elevated TSH does not make sense as she states she is adherent to her home levothyroxine dosing. High dose biotin is on her list, which is known to interfere with TSH assay, so I am holding this. She also takes iron, which will block levothyroxine absorption. 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 Free t 4 0.22 This was discussed with her yesterday with nutrition, she will no longer be taking these medications (3) Anemia: Start date: 07/19/21 Start time: 12:26 Status: Chronic Assessment and plan: Chronic, nutritional and CKD related. Stable, aissatou nue to monitor. Qualifiers: Anemia type: iron deficiency Iron deficiency anemia type: inadequate dietary iron intake Qualified Code(s): D50.8 - Other iron deficiency anemias (4) Hx of tongue cancer: Start date: 07/19/21 Start time: 12:26 Status: Chronic Assessment and plan: Per recent notes her last PET scan did not show active disease. This has left her with poor nutrition status and without a voice. She is also on chronic pain medication including opioids. No change in medication for now, other than mirtazipine as below. Palliative consult ordered for her (5) Hypokalemia: Start date: 07/19/21 Start time: 12:27 Status: Acute Assessment and plan: This has been chronic. Borderline today, po supplementation given today especially in setting of mag level being low, will monitor and repeat labs in am (6) Hypomagnesemia: Start date: 07/19/21 Start time: 12:28 Status: Acute Assessment and plan: 1.6 today give 4 grams and repeat level tomorrow. (7) DVT prophylaxis: Start date: 07/19/21 Start time: 12:29 Status: Acute Assessment and plan: she is on apixaban 2.5mg at home per the record. I cannot find the indication, but continue this for now as it will cover DVT prophylaxis. (8) Discharge planning issues: Start date: 07/19/21 Start time: 12:29 Status: Acute Assessment and plan: Home with no services when medically stable. discussed with Dr. Fleming Subjective Subjective Patient reports: no new complaints Interval history since last seen: Patient sitting up in bed sleepy. Refused ct scan of kidneys, does not want much done. Does see palliative on the outside as a patient. They have been consulted for inpatient. Renal function improving. She does not want to participate in any further testing at this time. No complaints. Exam Narrative Exam Narrative: GEN: Alert, non verbal but communicates with gestures and writing things down, oriented, pleasant and cooperative. Cachectic appearing. No acute distress at rest. HEENT: Head atraumatic. Conjunctiva clear, no icterus. PEERL, EOMI. no rhinorrhea. MMM, OP benign. Neck is supple with firm scar tissue palpable but no large masses, trachea midline, tracheostomy site clean. LUNGS: CTAB with normal effort CV: RRR with no murmurs, gallops, or rubs. ABD: +BS, soft, NT/ND, no HSM EXT: no cyanosis, clubbing, or edema MSK: No joint redness or swelling NEURO: CN 2-12 grossly intact. Normal movement of 4 extremities. DTRs 2+ jon patella. Normal coordination moving in bed. no tremor SKIN: No rashs or open wounds. No large bruises PSYCH: normal mood and affect Objective Last Vital Signs Temp 36.9 C 07/19/21 07:48 Pulse 78 07/19/21 07:48 Resp 15 07/19/21 07:48 BP 134/88 07/19/21 07:48 Pulse Ox 98 07/19/21 07:48 Laboratory Results - last 24 hr 07/17/21 07/19/21 07/19/21 23:01 06:55 06:55 WBC RBC Hgb Hct MCV MCH MCHC RDW Plt Count MPV Immature Gran % Neutrophils % Lymphocytes % Monocytes % Eosinophils % Basophils % Nucleated RBC % Absolute Neutrophils Absolute Lymphocytes Absolute Monocytes Absolute Eosinophils Absolute Basophils RBC Morphology Polychromasia Hypochromasia Basophilic Stippling Macrocytosis Sodium 143 Potassium 3.5 Chloride 112 H Carbon Dioxide 24.3 Anion Gap 6.7 BUN 27 H Creatinine 3.4 H Estimated GFR/1.73 m2 13.78 Glucose 83 Calcium 8.2 L Magnesium 1.6 L Urine Color Yellow Urine Clarity Clear Urine pH 8.5 H Ur Specific [place] 1.020 Urine Protein Negative Urine Ketones Negative Urine Blood Trace-intact H Urine Nitrite Negative Urine Bilirubin Negative Urine Urobilinogen 0.2 Ur Leukocyte Esterase Trace H Urine RBC 0-2 Urine WBC 5-10 Ur Epithelial Cells Few Urine Crystals Negative Urine Bacteria Few Urine Casts 0-2 Hyaline Urine Mucus Negative Ur Culture Indicated? Yes Urine Glucose Negative 07/19/21 06:55 WBC 5.91 RBC 2.46 L Hgb 8.8 L Hct 27.2 L MCV 110.6 H MCH 35.8 H MCHC 32.4 RDW 16.9 H Plt Count 259 MPV 9.1 Immature Gran % 0.3 Neutrophils % 75.2 Lymphocytes % 11.0 Monocytes % 5.9 Eosinophils % 6.8 Basophils % 0.8 Nucleated RBC % 0 Absolute Neutrophils 4.44 Absolute Lymphocytes 0.65 L Absolute Monocytes 0.35 Absolute Eosinophils 0.40 Absolute Basophils 0.05 RBC Morphology See Below Polychromasia Present Hypochromasia 2+ Basophilic Stippling Present Macrocytosis 2+ Sodium Potassium Chloride Carbon Dioxide Anion Gap BUN Creatinine Estimated GFR/1.73 m2 Glucose Calcium Magnesium Urine Color Urine Clarity Urine pH Ur Specific [place] Urine Protein Urine Ketones Urine Blood Urine Nitrite Urine Bilirubin Urine Urobilinogen Ur Leukocyte Esterase Urine RBC Urine WBC Ur Epithelial Cells Urine Crystals Urine Bacteria Urine Casts Urine Mucus Ur Culture Indicated? Urine Glucose
[2021-07-19] MEDS: Ondansetron 4 MG/2 ML VIAL IVP (14:43)
[2021-07-19 14:45] VITALS: BP 140/84; PULSE 80; RESP 18; TEMP 36.8; O2SAT 95
[2021-07-19] MEDS: Normal Saline Flush 10 ML SYR IVP ×2 (14:45→16:00)
[2021-07-19] MEDS: PANTOPRAZOLE 80 MG in Normal Saline 100 ML 10 MG IV (15:35)
[2021-07-19] MEDS: Pantoprazole 40 MG VIAL 80 MG IVP (15:58)
--- NOTE | 2021-07-19 16:15 | DI.CT_ITS ---
Exam(s) CT ABDOMEN PELVIS WO EXAM: CT ABDOMEN PELVIS WO CLINICAL HISTORY: bloody emesis. TECHNIQUE: Imaging Protocol: Axial computed tomography images with coronal and sagittal reformatted images were created and reviewed. COMPARISON: CT CT neck chest abd pel wo from 03/01/[address] neck chest abd pel wo from 03/01/2019 FINDINGS: Lack of IV contrast limits evaluation the abdominal pelvic organs. ABDOMEN: Lung Bases: There is a small right pleural effusion. There is atelectasis or scarring in the right l oswald base. There is thickening of the wall of the distal esophagus versus a hiatal hernia. Liver: Normal density. No measurable mass. Gallbladder and biliary tract: No radiodense calculus or biliary ductal dilation. Pancreas: Normal density, no abnormal calcifications or inflammatory process. Spleen: Normal. Kidneys: Normal size, contour and axis.No radiodense stones or obstructive uropathy. There is a stabl e cyst in the right kidney. Adrenal glands: No mass is seen. Lymph nodes: Within normal limits. Abdominal Aorta: Abdominal portion non-dilated. Marked atherosclerosis. PELVIS: Bladder:Symmetric distention, no gross wall thickening. Bowel: No obstruction or bowel wall thickening. Appendix is unremarkable. Peritoneal cavity: There is a trace amount of free fluid in the pelvis and perihepatic region. No fr ee air. Reproductive organs: Within normal limits. Bones: Within normal limits. Soft Tissues: Small fat containing umbilical hernia. IMPRESSION: 1. There is a small right pleural effusion and right basilar infiltrate. 2. There is prominence of the distal esophagus. This may be due to esophageal wall thickening or hia chin hernia. Mass cannot be entirely excluded. Follow-up with upper endoscopy or upper GI barium exa mination is recommended. 3. Trace perihepatic and pelvic ascites. RADIATION DOSE DELIVERED: 516.87mGy.cm Total DLP DATA REPOSITORY: All CT scans at this facility are submitted to the National Radiology Data Registry (NRDR) Dose Index Registry (DIR) with the [employer] ([employer]). RADIATION OPTIMIZATION: All CT scans at this facility use at least one of these dose optimization te chniques: automated exposure control; mA and/or kV adjustment per patient size (includes targeted exa ms where dose is matched to clinical indication); or iterative reconstruction.
[2021-07-19 16:35] LABS: HCT 30.7 % (36.0-46.0); HGB 9.9 g/dL (11.2-15.7)
--- NOTE | 2021-07-19 17:40 | DI.VRAD_ITS ---
PROCEDURE INFORMATION: Exam: CT Abdomen And Pelvis Without Contrast Exam date and time: 07/19/2021 4:29 PM Age: 60 years old Clinical indication: Other: Bloody emesis TECHNIQUE: Imaging protocol: Computed tomography of the abdomen and pelvis without contrast. Total images: 1135 Radiation optimization: All CT scans at this facility use at least one of these dose optimization techniques: automated exposure control; mA and/or kV adjustment per patient size (includes targeted exams where dose is matched to clinical indication); or iterative reconstruction. COMPARISON: CT neck chest abd pel wo 03/01/2019 11:43 AM FINDINGS: Liver: Normal. No mass. Gallbladder and bile ducts: Normal. No calcified stones. No ductal dilation. Pancreas: Normal. No ductal dilation. Spleen: Normal. No splenomegaly. Adrenal glands: Normal. No mass. Kidneys and ureters: There is a simple-appearing cyst in the right kidney. No follow-up necessary. Stomach and bowel: Unremarkable. No obstruction. No mucosal thickening. Appendix: No evidence of appendicitis. Intraperitoneal space: There is trace perihepatic ascites. No free air. Vasculature: The aorta demonstrates moderate atherosclerotic calcification. Lymph nodes: Unremarkable. No enlarged lymph nodes. Urinary bladder: Unremarkable as visualized. Reproductive: Unremarkable as visualized. Bones/joints: Unremarkable. No acute fracture. Soft tissues: Unremarkable. IMPRESSION: Trace perihepatic ascites. No free air. Dictated and Authenticated by: Dennise Tyler MD. Ordering:EVER Loza MD
[2021-07-19] MEDS: Magnesium Chloride 64 MG TABCR PO (19:52)
[2021-07-19 22:50] VITALS: BP 89/56; PULSE 68; RESP 16; TEMP 36.6; O2SAT 95
[2021-07-19 23:31] VITALS: BP 102/62
[2021-07-20] MEDS: Normal Saline 1,000 ML 125 ML IV (00:20)
[2021-07-20 07:05] LABS: Abs Immature Grans 0.03 10^3/uL (0.0-0.06); Absolute Basophil Count 0.03 10^3/uL (0.0-0.2); Absolute Eosinophil Count 0.35 10^3/uL (0.0-0.7); Absolute Lymphocyte Count 0.55 10^3/uL (1.2-3.4); Basophils % 0.5; Eosinophils % 5.8; HCT 24.5 % (36.0-46.0); HGB 7.9 g/dL (11.2-15.7); Immature Grans % 0.5; Lymphocytes % 9.1; MCH 35.6 pg (27.0-33.0); MCHC 32.2 % (32.0-36.0); MCV 110.4 fL (80-95); MPV 9.2 fL (8.0-11.0); Neutrophils % 79.1; Nucleated RBC 0 %; Platelet Count 221 10^3/uL (130-400); RBC 2.22 10^6/uL (3.93-5.22); RDW 17.1 % (11.7-14.6); RDW-SD 68.6 fL; WBC 6.06 10^3/uL (4.4-10.8)
[2021-07-20 07:23] VITALS: BP 143/78; PULSE 78; RESP 22; TEMP 36.5; O2SAT 92
[2021-07-20 07:26] VITALS: BP 99/64; PULSE 77; RESP 17; TEMP 36.8; O2SAT 97
[2021-07-20 07:40] LABS: BUN 21 mg/dL (7-18); CREATININE 2.7 mg/dL (0.55-1.02); Calcium 7.6 mg/dL (8.5-10.1); Chloride 115 mmol/L (98-107); Estimated GFR 17.98 (mL/min/1.73m2); Glucose 84 mg/dL (74-106); Potassium 3.1 mmol/L (3.5-5.1); Sodium 145 mmol/L (136-145)
[2021-07-20 07:45] LABS: Magnesium 2.3 mg/dL (1.8-2.4)
[2021-07-20] MEDS: Magnesium Chloride 64 MG TABCR PO (08:22)
[2021-07-20] MEDS: Dronabinol 2.5 MG CAP 5 MG PO (08:22)
[2021-07-20] MEDS: Cyanocobalamin 500 MCG TAB 2500 MCG PO (08:22)
[2021-07-20] MEDS: POTASSIUM CHLORIDE/0.9% NACL 1,000 ML 100 MEQ IV ×2 (08:23→16:59)
[2021-07-20] MEDS: Acetaminophen 325 MG TAB 650 MG PO (08:24)
[2021-07-20] MEDS: Omeprazole 20 MG CAPCR PO (08:25)
[2021-07-20] MEDS: Gabapentin 300 MG CAP PO (08:25)
[2021-07-20] MEDS: traMADol 50 MG TAB PO (08:25)
[2021-07-20] MEDS: Folic Acid 1 MG TAB PO (08:25)
[2021-07-20] MEDS: buPROPion 75 MG TAB PO (08:25)
[2021-07-20 08:26] LABS: Albumin 1.5 g/dL (3.4-5.0)
[2021-07-20] MEDS: POTASSIUM CHLORIDE 10 MEQ/100 ML BAG 100 MEQ IVPB ×3 (08:32→11:38)
[2021-07-20] MEDS: Ferrous Sulfate 44 MG/ML Liquid 300 MG PO (10:00)
[2021-07-20] MEDS: Metoprolol 12.5 MG TAB 25 MG PO (10:00)
[2021-07-20 10:03] VITALS: BP 152/102; PULSE 88; O2SAT 98
--- NOTE | 2021-07-20 11:49 | PT.INTREAT ---
PT Notes Visit Reasons: Hypercalcemia,Hypokalemia,EVANGELIST 07/20/2021 SUBJECTIVE: Kinza offers no subjective information. Agrees to PT treatment. OBJECTIVE: TRANSFERS Supine to sit: I Sit to supine: I Sit to stand: I Stand to sit: I GAIT Device: walking stick R UE Weight bearing: Full Assist: SBA, Mod A x 2 for recovery of balance Distance: 250' Deviation: Path deviations especially on corners, 2 LOB with Mod A to recover ASSESSMENT: Fatigues quickly and when changing directions or gets distracted looses her balance quickly. PLAN: Continue with gait training as tolerated, balance re-training Treatment time: [id number] Sybil Bonilla PTA Clinic location: [facility] [place], [place]
[2021-07-20 13:11] LABS: HCT 27.1 % (36.0-46.0); HGB 8.7 g/dL (11.2-15.7)
[2021-07-20 13:18] LABS: Potassium 3.7 mmol/L (3.5-5.1)
[2021-07-20] MEDS: PANTOPRAZOLE 80 MG in Normal Saline 100 ML 10 MG IV (13:25)
--- NOTE | 2021-07-20 14:26 | W.PM.PROGNOT ---
Date of Service Date of service: 07/20/21 Time of Service: :30 Assessment and Plan Assessment and plan (1) Hypocalcemia: Start date: 07/20/21 Start time: 10:30 Status: Acute Assessment and plan: Level 7.6, overcorrected, albumin 1.5, restart home meds or calcitrol, vitamin d and calcium carbonate repeat labs in am possible discharge in am (2) Acute kidney injury: Start date: 07/20/21 Start time: 10:30 Status: Acute Assessment and plan: Improving down from 5 to 2.7 with IV hydration possible discharge in am (3) Vomiting: Start date: 07/20/21 Start time: 10:30 Status: Resolved Assessment and plan: Patient vomiting bloody emesis yesterday afternoon Protonix 80 mg IVP given with drip carafate q 6 hours made NPO, antiemetics Today she was feeling much better, no vomiting overnight, she was agreeable to CT scan but no surgical consult. CT revealed trace ascities. IV hydration as well. She tolerated clear this am increased diet to soft this afternoon dcd drip and changed to IVP BID protonix with carafate AC&HS, HGB improved as to 8.7 continue to monitor. Qualifiers: Vomiting type: hematemesis Nausea presence: with nausea Qualified Code(s): K92.0 - Hematemesis (4) Bloody emesis: Start date: 07/20/21 Start time: 10:30 Status: Resolved Assessment and plan: as above Qualifiers: Nausea presence: with nausea Qualified Code(s): K92.0 - Hematemesis (5) Hypothyroid: Start date: 07/20/21 Start time: 10:30 Status: Chronic Assessment and plan: Her highly elevated TSH does not make sense as she states she is adherent to her home levothyroxine dosing. High dose biotin is on her list, which is known to interfere with TSH assay, so I am holding this. She also takes iron, which will block levothyroxine absorption. Will continue 137mcg dosing (high for her weight) and check in with her watch mechanic. Free t 4 0.22 This was discussed with her yesterday with nutrition, she will no longer be taking these medications Qualifiers: Hypothyroidism type: unspecified Qualified Code(s): E03.9 - Hypothyroidism, unspecified (6) Anemia: Start date: 07/20/21 Start time: 10:30 Status: Chronic Assessment and plan: Chronic, nutritional and CKD related. Stable, continue to monitor. Qualifiers: Anemia type: iron deficiency Iron deficiency anemia type: inadequate dietary iron intake Qualified Code(s): D50.8 - Other iron deficiency anemias (7) Hx of tongue cancer: Start date: 07/20/21 Start time: 10:30 Status: Chronic Assessment and plan: Per recent notes her last PET scan did not show active disease. This has left her with poor nutrition status and without a voice. She is also on chronic pain medication including opioids. No change in medication for now, other than mirtazipine as below. Palliative consult ordered for her (8) Hypokalemia: Start date: 07/20/21 Start time: 10:30 Status: Acute Assessment and plan: This has been chronic. low this am given 4 runs and IVF with potassium hanging (9) Hypomagnesemia: Start date: 07/20/21 Start time: 10:30 Status: Resolved Assessment and plan: resolved 2.3 (10) DVT prophylaxis: Start date: 07/20/21 Start time: 14:59 Status: Acute Assessment and plan: she is on apixaban 2.5mg at home per the record. I cannot find the indication, but continue this for now as it will cover DVT prophylaxis. (11) Discharge planning issues: Start date: 07/20/21 Start time: 10:30 Status: Acute Assessment and plan: Home with no services when medically stable. discussed with Dr. Fleming Subjective Subjective Patient reports: feels better Interval history since last seen: No vomiting overnight, she states no abd pain. CT scan revealed trace amount ascities; patient wanted to try eating, she has been able to tolerate clears, without any vomiting, will advance to soft. Change protonix drip to IVP BID and carafate to AC&HS. This am her Hgb was 7.9 on repeat this afternoon it is now 8.7. Creatinine has improved to 2.7. Possible discharge in am. Her calcium and albumin have dropped therefore her home medications of vitamin d and calcium were restarted. She denies CP, SOB, N/V/D. Exam Const General: cooperative, comfortable, no acute distress, frail appearing and ill appearing chronically Nutritional Appearance: cachectic Orientation: alert, awake and oriented x3 Eyes Eyelids: eyelids normal Pupils: PERRL EOM: EOM intact bilaterally Neck Neck: tracheostomy present and no JVD Lymphatic: no lymphadenopathy noted Resp Effort & Inspection: normal respiratory effort Auscultation: clear to auscultation bilaterally Cardio Jugular venous pressure: no JVD Rhythm: regular rhythm Heart Sounds: S1 normal GI Auscultation: normal bowel sounds General: No CVA tenderness and deferred Back/Spine/Pelvis Back: No no CVA tenderness Thoracic/Lumbar Spine: kyphosis Skin General skin exam: no rashes or lesions noted Neuro General: patient alert, patient awake and patient oriented x3 Cognition: normal cognition Speech: speech abnormal and other (communicates by writing and gestures) Gait: normal gait Extrem General: normal to inspection, full ROM and no clubbing, cyanosis or edema Objective Last Vital Signs Temp 36.8 C 07/20/21 07:26 Pulse 88 07/20/21 10:03 Resp 17 07/20/21 07:26 BP 152/102 H 07/20/21 10:03 Pulse Ox 98 07/20/21 10:03 Laboratory Results - last 24 hr 07/19/21 07/20/21 07/20/21 16:15 06:46 06:46 WBC 6.06 RBC 2.22 L Hgb 9.9 L 7.9 L Hct 30.7 L 24.5 L D MCV 110.4 H MCH 35.6 H MCHC 32.2 RDW 17.1 H Plt Count 221 MPV 9.2 Immature Gran % 0.5 Neutrophils % 79.1 Lymphocytes % 9.1 Monocytes % 5.0 Eosinophils % 5.8 Basophils % 0.5 Nucleated RBC % 0 Absolute Neutrophils 4.80 Absolute Lymphocytes 0.55 L Absolute Monocytes 0.30 Absolute Eosinophils 0.35 Absolute Basophils 0.03 Sodium 145 Potassium 3.1 L Chloride 115 H Carbon Dioxide 21.0 Anion Gap 9.0 BUN 21 H D Creatinine 2.7 H D Estimated GFR/1.73 m2 17.98 Glucose 84 Calcium 7.6 L Magnesium Albumin 1.5 L 07/20/21 07/20/21 07/20/21 06:46 13:00 13:00 WBC RBC Hgb 8.7 L Hct 27.1 L MCV MCH MCHC RDW Plt Count MPV Immature Gran % Neutrophils % Lymphocytes % Monocytes % Eosinophils % Basophils % Nucleated RBC % Absolute Neutrophils Absolute Lymphocytes Absolute Monocytes Absolute Eosinophils Absolute Basophils Sodium Potassium 3.7 Chloride Carbon Dioxide Anion Gap BUN Creatinine Estimated GFR/1.73 m2 Glucose Calcium Magnesium 2.3 Albumin
[2021-07-20 15:45] VITALS: BP 123/82; PULSE 68; RESP 16; TEMP 36.4; O2SAT 98
[2021-07-20] MEDS: Sucralfate 1 GM TAB PO (16:59)
[2021-07-20] MEDS: Normal Saline Flush 10 ML SYR IVP (20:59)
[2021-07-20 21:00] VITALS: BP 101/63; PULSE 76; RESP 18; TEMP 36.5; O2SAT 94
[2021-07-20] MEDS: Pantoprazole 40 MG VIAL IVP (21:20)
[2021-07-21] MEDS: POTASSIUM CHLORIDE/0.9% NACL 1,000 ML 100 MEQ IV (03:06)
[2021-07-21 07:08] VITALS: BP 117/78; PULSE 79; RESP 18; TEMP 36.6; O2SAT 96
[2021-07-21 08:35] LABS: Abs Immature Grans 0.03 10^3/uL (0.0-0.06); Absolute Basophil Count 0.04 10^3/uL (0.0-0.2); Absolute Eosinophil Count 0.31 10^3/uL (0.0-0.7); Absolute Lymphocyte Count 0.75 10^3/uL (1.2-3.4); Absolute Monocyte Count 0.35 10^3/uL (0.1-0.8); Absolute Neutrophil Count 5.09 10^3/uL (1.2-6.7); Basophils % 0.6; Eosinophils % 4.7; HCT 26.5 % (36.0-46.0); HGB 8.6 g/dL (11.2-15.7); Immature Grans % 0.5; Lymphocytes % 11.4; MCH 35.8 pg (27.0-33.0); MCHC 32.5 % (32.0-36.0); MCV 110.4 fL (80-95); MPV 9.1 fL (8.0-11.0); Monocytes % 5.3; Neutrophils % 77.5; Nucleated RBC 0 %; Platelet Count 238 10^3/uL (130-400); RDW 17.1 % (11.7-14.6); RDW-SD 70.3 fL; WBC 6.57 10^3/uL (4.4-10.8)
[2021-07-21] MEDS: Acetaminophen Solution 650 MG/20.3 ML CUP PO (08:44)
[2021-07-21] MEDS: Pantoprazole 40 MG VIAL IVP (08:45)
[2021-07-21] MEDS: Normal Saline Flush 10 ML SYR IVP (08:45)
[2021-07-21] MEDS: Ferrous Sulfate 44 MG/ML Liquid 300 MG PO (08:45)
[2021-07-21] MEDS: buPROPion 75 MG TAB PO (08:46)
[2021-07-21] MEDS: Folic Acid 1 MG TAB PO (08:46)
[2021-07-21] MEDS: Magnesium Chloride 64 MG TABCR PO (08:46)
[2021-07-21] MEDS: Dronabinol 2.5 MG CAP 5 MG PO (08:46)
[2021-07-21] MEDS: Metoprolol 12.5 MG TAB 25 MG PO (08:46)
[2021-07-21] MEDS: Sucralfate 1 GM TAB PO (08:46)
[2021-07-21] MEDS: Cyanocobalamin 500 MCG TAB 2500 MCG PO (08:46)
[2021-07-21] MEDS: traMADol 50 MG TAB PO (08:47)
--- NOTE | 2021-07-21 08:57 | W.PALLCONSUL ---
Date of service: 07/21/21 Time of Service: 08:57 History of Present Illness History of Present Illness Chief Complaint: nausea, weakness Narrative: From H and P: History of Present Illness Chief Complaint: malaise Narrative: 60 yo F with a complex medical history including head and neck cancer with history of lung metasteses and tracheostomy placement leaving her non-verbal, surgerical hypothyroid and parathyroidism, and chronic renal insufficiency who presented complaining of progressive malaise over the past two weeks. Her sister called the her PCP on the morning of admission describing poor oral intake with some weight loss, nausea, unsteadiness on her feet, and diffuse abdominal discomfort. No fevers or chills, no respiratory symptoms, no bowel or bladder changes. Melinda confirms she has been taking her medication. She was last evaluated here 06/17/21 with hypocalcemia down to 5.4 (7.2 corrected). Prior to this she was admitted 04/29-04/30/21 with hypercalcemia, and her regular calcium and vitamin D supplumentation was stopped. On the 06/17 evaluation she was given IV calcium (as well as potassium as this was also low) and offered admission but she declined admission. She was restarted on her calcium and vitamin D (ergocalciferol and calcitriol). At her 07/02/21 appointment at [facility] [place], her calcium was 9.4 (corrected 10.4). Her TSH was 81.6, phosphorus was 3.0, PTH was 6 (low) and vitamin D was 89 (high normal). Creatinine was 2.55. Endocrine and renal saw her but did not change her doses. Of not note on the 06/17 presentation there was report by EMT of seizure like activity, but this has not recurred. Interim hx: Kinza is a 60-year-old woman with history of lung metastasis and had neck cancer. She does have a tracheostomy. We communicated via written notes from her to me. She came in feeling very poorly, failure to thrive, weakness. She states she is doing better now. She would like her meds to be crushed so that she is able to take them. She does feel ready to go home. She is very clear that she does not want to stay in the hospital, she does not want more interventions, and she is not interested in another feeding tube Assessment and Plan Assessment and plan (1) Hypokalemia: Status: Acute (2) Hypercalcemia: Status: Resolved (3) Acute kidney injury: Status: Acute (4) Anemia: Status: Chronic Qualifiers: Anemia type: iron deficiency Iron deficiency anemia type: inadequate dietary iron intake Qualified Code(s): D50.8 - Other iron deficiency anemias (5) Bloody emesis: Status: Resolved Qualifiers: Nausea presence: with nausea Qualified Code(s): K92.0 - Hematemesis (6) Adult failure to thrive: Status: Acute (7) Palliative care patient: Status: Acute Assessment and plan: 60-year-old woman with metastatic lung cancer and head and neck cancer. She did come in with bloody emesis but this is resolved. She feels able to return home at this point. She remains weak but not as weak as she had been. She feels that she can take good p.o. She needs her meds crushed. (I did relay this to her nurse Michelle) Her BMI is low, she is at risk for further deterioration but where she wants to be is at home with no further interventions. Her regular palliative care doctor is Dr. Herman. She should be set up for an outpatient appointment. Review of Systems Narrative: Much of her weakness and nausea has resolved. She feels like she can keep food down. She needs her meds crushed. I did not ask about bowel movements. [facility] Medical History Cervical high risk HPV (human papillomavirus) test positive DNR (do not resuscitate) Gastrostomy tube dysfunction Goals of care, counseling/discussion Hx of cancer of lung sister reports lung tumor was metastatic from her tongue cancer Hx of tongue cancer Hypothyroidism Lives alone with help available Mass of larynx POLST (Physician Orders for Life-Sustaining Treatment) Tracheostomy in place Unintentional weight loss Uses feeding tube Surgical History Colonoscopy - MAC (04/12/17) History of laryngectomy History of thyroidectomy Family History Mother Diabetes Essential hypertension Father Prostate cancer Essential hypertension Sister No problems noted. Brother No problems noted. 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, 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 Formerly worked as [employer] when not ill. Was . Sister Jessica is her primary support person. Jessica's daughter, Natasha, is also involved. Grew up locally. Has some friends. Exam Narrative Exam Narrative: Thin woman, cooperative. She is able to sit up on her own to write me notes. Her handwriting is excellent. Her heart is rate controlled slightly irregular, murmur present. Lungs some aeration although not great. I did not hear any wheezes or rales. Her abdomen is nontender. Her legs are thin. Results Last Vital Signs Temp 97.9 F 07/21/21 07:08 Pulse 79 07/21/21 07:08 Resp 18 07/21/21 07:08 BP 117/78 07/21/21 07:08 Pulse Ox 96 07/21/21 07:08 Labs Result diagrams: 07/21/21 08:25 07/20/21 13:00 Labs: Laboratory Results - last 24 hr 07/20/21 07/20/21 07/21/21 13:00 13:00 08:25 WBC 6.57 RBC 2.40 L Hgb 8.7 L 8.6 L Hct 27.1 L 26.5 L MCV 110.4 H MCH 35.8 H MCHC 32.5 RDW 17.1 H Plt Count 238 MPV 9.1 Immature Gran % 0.5 Neutrophils % 77.5 Lymphocytes % 11.4 Monocytes % 5.3 Eosinophils % 4.7 Basophils % 0.6 Nucleated RBC % 0 Absolute Neutrophils 5.09 Absolute Lymphocytes 0.75 L Absolute Monocytes 0.35 Absolute Eosinophils 0.31 Absolute Basophils 0.04 Potassium 3.7
[2021-07-21 09:47] LABS: Anion Gap 14.2 mmol/L (3-11); BUN 18 mg/dL (7-18); CO2 18.8 mmol/L (21.0-32.0); CREATININE 2.3 mg/dL (0.55-1.02); Calcium 7.1 mg/dL (8.5-10.1); Chloride 112 mmol/L (98-107); Estimated GFR 21.63 (mL/min/1.73m2); Glucose 73 mg/dL (74-106); Sodium 145 mmol/L (136-145)
--- NOTE | 2021-07-21 13:24 | W.PM.DS.N ---
Date of service: 07/21/21 Time of Service: 13:24 DS: Diagnosis Discharge Diagnosis (1) Hypokalemia: Start date: 07/21/21 Start time: 13:25 Status: Resolved Asessment and Plan: She did have repletetion with PO and IV supplementation. Level today 4.0 She is being discharged home (2) Hypercalcemia: Start date: 07/21/21 Start time: 13:25 Status: Resolved Asessment and Plan: Overcorrected. Restarted on her home medications. follow up with endcrinology as scheduled. Take home medications as scheduled (3) Acute kidney injury: Start date: 07/21/21 Start time: 13:28 Status: Acute Asessment and Plan: Improved. at baseline. (4) Anemia: Start date: 07/21/21 Start time: 13:29 Status: Chronic Asessment and Plan: of chronic disease continue iron supplementation (5) Bloody emesis: Start date: 07/21/21 Start time: 13:30 Status: Resolved Asessment and Plan: She did have a bout while inpatient with bloody emeis. Given no known reason for apixaban, will hold until follow up with pcp. She has not had any bloody emesis in 2 days. tolerating diet protonix bid carafate ac and hs. follow up with PCP (6) Adult failure to thrive: Start date: 07/21/21 Start time: 13:31 Status: Acute Asessment and Plan: she is declining, she did not want several services while in the hospital such as surgery involved when bleeding. Palliative will follow on the outside and manage as outpatient. discussed with Dr. 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 Admitted from [facility] ED. Her sister called the her PCP on the morning of admission describing poor oral intake with some weight loss, nausea, unsteadiness on her feet, and diffuse abdominal discomfort. No fevers or chills, no respiratory symptoms, no bowel or bladder changes. Melinda confirms she has been taking her medication. ED labs revealed anemia that is chronic at 8.2/24.5. Creatinine 5.2 with BUN 4.2, low iron levels, ca+ 12.2 she was given calcitonin-[place] for high ca+ levels. She was admitted to m/s for further management. She was placed on IVF, labs monitored. Creatinine returned to baseline, calcium overcorrected she was placed back on her home medications if calcium regimen with vitamin D. Palliative saw her and feels she is not thriving they will follow her in the community. She did have an episode of vomiting bloody emesis where she was made NPO, placed on protonix drip with carafate, apixaban held, CT abd ordered revealing trace amount ascities, otherwise unremarkable, she did not want surgery consulted. At this time, can not find reason for apixaban therefore will continue holding until seen by PCP. Labs continued to be stable and after 24 hours she was able to eat and drink. Today her creatinine is baseline at 2.3 therefore she is being discharged home. She does not want any services. She denies Cp, sob, nvd. Will continue PPI BID, Carafate AC&HS, f/u with PCP in 1 week. Home Meds and New Rx's Prescriptions: New magnesium chloride [Mag 64] 64 mg Tablet,Delayed Release (Dr/Ec) 64 mg PO BID Qty: 60 RF: 0 sucralfate 1 gram Tablet 1 g PO AC & HS Qty: 120 RF: 0 trimethobenzamide 300 mg Capsule 300 mg PO QID PRN PRNQty: 30 RF: 0 pantoprazole [Protonix] [address] for susp in packet 40 mg PO BID Qty: 60 RF: 0 Continued acetaminophen 325 mg Tablet 650 mg PO BID RF: 0 cyanocobalamin (vitamin B-12) 2,500 mcg tablet, sublingual 2,500 mcg DAILY RF: 0 dronabinol 5 mg capsule 5 mg PO BID RF: 0 lorazepam 0.5 mg tablet 0.5 mg PO Q6H PRN PRNRF: 0 Aquaphor Healing 41 % ointment 1 applic TOPICAL BID RF: 0 metoprolol tartrate 25 mg Tablet 25 mg PO QAM RF: 0 ferrous sulfate 15 mg iron (75 mg)/mL drops 4 ml PO DAILY RF: 0 Ensure Original 0.04-1.05 gram-kcal/mL liquid PO TID RF: 0 hydrocodone-acetaminophen 5-325 mg tablet 1 tab PO TID PRNRF: 0 levothyroxine 25 mcg capsule 25 mcg PO DAILY Qty: 30 RF: 0 tramadol 50 mg Tablet 50 mg PO BID RF: 0 bupropion HCl 100 mg Tablet 200 mg BID RF: 0 gabapentin 300 mg Capsule 300 mg TID RF: 0 mirtazapine 45 mg Tablet 45 mg QHS RF: 0 folic acid 1 mg Tablet 1 mg DAILY RF: 0 levothyroxine 112 mcg Tablet 112 mcg DAILY RF: 0 metoprolol tartrate 25 mg Tablet 12.5 mg HS RF: 0 Discontinued Eliquis 2.5 mg tablet 2.5 mg PO BID RF: 0 biotin 1,000 mcg Tablet,Chewable 1,000 mcg PO DAILY RF: 0 cefdinir 250 mg/5 mL suspension for reconstitution 300 mg PO BID Qty: 60 RF: 0 Discharge Instructions Instructions: Acute Kidney Injury (DC), Acute Nausea and Vomiting (DC), Hypercalcemia (DC) Additional Instructions: Follow up with PCp with in 1 week STOP TAKING APIXABAN until follow up with PCP Repeat lab work in 4 days Stand Alone Forms: Nursing Discharge Form Referrals: Lashay Lombardo MD [Primary Care Provider] - 08/04/21 2:30 pm Activity:: Activity as Tolerated Equipment/Supplies:: No Equipment Needed Diet:: As Tolerated Discharge Orders Discharge Orders: Discharge Order (Routine); Ordered 07/21/21 Ordered By: Denia Butler Other Ambulatory Orders: Basic Metabolic Panel (Routine) Location: None Selected Ordered By: Denia Butler Complete Blood Count w/Diff (Routine) Location: None Selected Ordered By: Denia Butler DS: Summary Time Spent with Patient providing and/or coordinating discharge services: Greater than 30 minutes Status at Discharge Functional status at discharge: uses cane/walker Overall status at discharge: patient is progressing back to baseline Mental Status: mental status grossly normal and other Speech and Movement: other Mood: other Affect: blunted Exam Narrative Exam Narrative: GEN: Alert, non verbal but communicates with gestures and writing things down, oriented, pleasant and cooperative. Cachectic appearing. No acute distress at rest. HEENT: Head atraumatic. Conjunctiva clear, no icterus. PEERL, EOMI. no rhinorrhea. MMM, OP benign. Neck is supple with firm scar tissue palpable but no large masses, trachea midline, tracheostomy site clean. LUNGS: CTAB with normal effort CV: RRR with no murmurs, gallops, or rubs. ABD: +BS, soft, NT/ND, no HSM EXT: no cyanosis, clubbing, or edema MSK: No joint redness or swelling NEURO: CN 2-12 grossly intact. Normal movement of 4 extremities. DTRs 2+ jon patella. Normal coordination moving in bed. no tremor SKIN: No rashs or open wounds. No large bruises PSYCH: normal mood and affect Psych Mental Status: mental status grossly normal and other Speech and Movement: other Mood: other Affect: blunted DS: Data Vitals/I&O Vitals and I&O: Vital Signs Temperature 36.6 C 07/21/21 07:08 Temperature Source Skin 07/21/21 07:08 Pulse 79 07/21/21 07:08 Pulse Rhythm Regular 07/21/21 08:45 Pulse 82 07/17/21 17:31 Respiratory Rate 18 07/21/21 07:08 Respiratory Effort Non-Labored 07/21/21 08:45 Respiratory Depth Normal 07/21/21 08:45 Respiratory Pattern Normal 07/21/21 08:45 Blood Pressure 117/78 07/21/21 07:08 Blood Pressure Mean 94 07/17/21 17:30 Pulse Oximetry 96 07/21/21 07:08 Oxygen Delivery Method Room Air 07/21/21 07:08 Oxygen Flow Rate 0 07/21/21 07:08 Pain Level 0 07/21/21 07:08 Comment 07/18/21 07:14 Intake & Output 07/20/21 07/21/21 07/21/21 23:59 11:59 23:59 Intake Total 1357.333 / 0341.624 3929 / 1000 Output Total 400 / 400 Balance 957.333 / 5450.804 2400 / 1000 Intake: IV 997.333 / 2848.029 1707 / 1000 Oral 360 / 360 Output: Urine 400 / 400 Other: Urine Color Yellow Yellow Urine Appearance Clear Clear Cloudy Comment voided in to toilet a good amount. Voiding Methods Toilet Toilet Data Completed and Pending Completed studies during hospitalization [Text1]: Exam(s) a CT:CT abdomen & pelvis wo Exam(s) CT ABDOMEN PELVIS WO EXAM: CT ABDOMEN PELVIS WO CLINICAL HISTORY: bloody emesis. TECHNIQUE: Imaging Protocol: Axial computed tomography images with coronal and sagittal reformatted images were created and reviewed. COMPARISON: CT CT neck chest abd pel wo from 03/01/[address] neck chest abd pel wo from 03/01/2019 FINDINGS: Lack of IV contrast limits evaluation the abdominal pelvic organs. ABDOMEN: Lung Bases: There is a small right pleural effusion. There is atelectasis or scarring in the right lung base. There is thickening of the wall of the distal esophagus versus a hiatal hernia. Liver: Normal density. No measurable mass. Gallbladder and biliary tract: No radiodense calculus or biliary ductal dilation. Pancreas: Normal density, no abnormal calcifications or inflammatory process. Spleen: Normal. Kidneys: Normal size, contour and axis.No radiodense stones or obstructive uropathy. There is a stable cyst in the right kidney. Adrenal glands: No mass is seen. Lymph nodes: Within normal limits. Abdominal Aorta: Abdominal portion non-dilated. Marked atherosclerosis. PELVIS: Bladder:Symmetric distention, no gross wall thickening. Bowel: No obstruction or bowel wall thickening. Appendix is unremarkable. Peritoneal cavity: There is a trace amount of free fluid in the pelvis and perihepatic region. No free air. Reproductive organs: Within normal limits. Bones: Within normal limits. Soft Tissues: Small fat containing umbilical hernia. IMPRESSION: 1. There is a small right pleural effusion and right basilar infiltrate. 2. There is prominence of the distal esophagus. This may be due to esophageal wall thickening or hiatal hernia. Mass cannot be entirely excluded. Follow-up with upper endoscopy or upper GI barium examination is recommended. 3. Trace perihepatic and pelvic ascites. Exam(s) PROCEDURE INFORMATION: Exam: CT Abdomen And Pelvis Without Contrast Exam date and time: 07/19/2021 4:29 PM Age: 60 years old Clinical indication: Other: Bloody emesis TECHNIQUE: Imaging protocol: Computed tomography of the abdomen and pelvis without contrast. Total images: 1135 Radiation optimization: All CT scans at this facility use at least one of these dose optimization techniques: automated exposure control; mA and/or kV adjustment per patient size (includes targeted exams where dose is matched to clinical indication); or iterative reconstruction. COMPARISON: CT neck chest abd pel wo 03/01/2019 11:43 AM FINDINGS: Liver: Normal. No mass. Gallbladder and bile ducts: Normal. No calcified stones. No ductal dilation. Pancreas: Normal. No ductal dilation. Spleen: Normal. No splenomegaly. Adrenal glands: Normal. No mass. Kidneys and ureters: There is a simple-appearing cyst in the right kidney. No follow-up necessary. Stomach and bowel: Unremarkable. No obstruction. No mucosal thickening. Appendix: No evidence of appendicitis. Intraperitoneal space: There is trace perihepatic ascites. No free air. Vasculature: The aorta demonstrates moderate atherosclerotic calcification. Lymph nodes: Unremarkable. No enlarged lymph nodes. Urinary bladder: Unremarkable as visualized. Reproductive: Unremarkable as visualized. Bones/joints: Unremarkable. No acute fracture. Soft tissues: Unremarkable. IMPRESSION: Trace perihepatic ascites. No free air. Labs on day of discharge: Labs from last 24 hours 07/21/21 07/21/21 08:25 08:25 WBC 6.57 RBC 2.40 L Hgb 8.6 L Hct 26.5 L MCV 110.4 H MCH 35.8 H MCHC 32.5 RDW 17.1 H Plt Count 238 MPV 9.1 Immature Gran % 0.5 Neutrophils % 77.5 Lymphocytes % 11.4 Monocytes % 5.3 Eosinophils % 4.7 Basophils % 0.6 Nucleated RBC % 0 Absolute Neutrophils 5.09 Absolute Lymphocytes 0.75 L Absolute Monocytes 0.35 Absolute Eosinophils 0.31 Absolute Basophils 0.04 Sodium 145 Potassium 4.0 Chloride 112 H Carbon Dioxide 18.8 L Anion Gap 14.2 H BUN 18 Creatinine 2.3 H Estimated GFR/1.73 m2 21.63 Glucose 73 L Calcium 7.1 L [facility] Medical History Cervical high risk HPV (human papillomavirus) test positive DNR (do not resuscitate) Gastrostomy tube dysfunction Goals of care, counseling/discussion Hx of cancer of lung sister reports lung tumor was metastatic from her tongue cancer Hx of tongue cancer Hypothyroidism Lives alone with help available Mass of larynx POLST (Physician Orders for Life-Sustaining Treatment) Tracheostomy in place Unintentional weight loss Uses feeding tube Surgical History Colonoscopy - MAC (04/12/17) History of laryngectomy History of thyroidectomy Family History Mother Diabetes Essential hypertension Father Prostate cancer Essential hypertension Sister No problems noted. Brother No problems noted. 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. Formerly worked as [employer] when not ill. Was . Sister Jessica is her primary support person. Jessica's daughter, Natasha, is also involved. Grew up locally. Has some friends.
--- NOTE | 2021-07-21 17:07 | PDOC.CMDIS ---
- If Service Date Differs Date of service: 07/21/21 Time of Service: 17:07 LACE Index Scoring Tool - Questions: Length of Stay (in days): 4 - 6 Acuity (Admit via E.D.?): Yes Comorbidities: Any Tumor E.D. Visits: 6 - Answers: Total Score: 13 Risk of Readmission: High Risk Care Management Discharge Reason for Hospitalization: hypercalcemia, hypokalemia, EVANGELIST Discharge Plan: Melinda will return home with no new services today. Her sister will drive her home via private vehicle. She will follow up with her PCP and discharge plan of care. She is happy to be going home. Patient/Family Education Needs: Review discharge instructions regarding activity levels and medications, discussion of self care needs including ask me three and goals of care.
--- NOTE | 2021-07-21 18:50 | PT.INDS ---
Date of service: 07/21/21 PT Notes Visit Reasons: Hypercalcemia,Hypokalemia,EVANGELIST Physical Therapy Inpatient Discharge Summary Date: 07/21/2021 Dates of Service: 07/18/2021 through 07/20/2021 This is a clinical summary of care provided for the duration of dates listed above. No charge was made in the completion of this documentation. Referring Doctor: Denia Butler NP PT Orders: PT CONSULT: Eval/treat. Precautions: Fall. Standard. Activity as tolerated. Patient Profile/Admitting Diagnosis: Melinda is a 60-year=old female who presented to the ED on 07/17/2021 generalized body malaise that had progressed since two weeks ago. Patient is diagnosed with hypercalcemia, acute kidney injury, and prolonged QT interval. PMHX: Medical History Cervical high risk HPV (human papillomavirus) test positive DNR (do not resuscitate) Gastrostomy tube dysfunction Goals of care, counseling/discussion Hx of cancer of lung sister reports lung tumor was metastatic from her tongue cancer Hx of tongue cancer Hypothyroidism Lives alone with help available Mass of larynx POLST (Physician Orders for Life-Sustaining Treatment) Tracheostomy in place Unintentional weight loss Uses feeding tube Surgical History Colonoscopy - MAC (04/12/17) History of laryngectomy History of thyroidectomy Social History/Home Situation: Lives with sister in a private home with 4 steps to enter and B rails. Independent with community ambulation using walking stick. Equipment Owned/DME: walking stick Subjective: NT. See most recent GEAR TOOTH GRINDING MACHINE OPERATOR notes. Objective: General Observation: NT. See most recent GEAR TOOTH GRINDING MACHINE OPERATOR notes. Mental Status: NT. See most recent GEAR TOOTH GRINDING MACHINE OPERATOR notes. Pain: NT. See most recent GEAR TOOTH GRINDING MACHINE OPERATOR notes. ROM: Neck extension limited to neutral only. Right Upper Extremity: Shoulder Flexion WFL. Shoulder abduction WFL. Elbow flexion WFL. Wrist flexion WFL. Functional opening and closing of hand WFL. Left Upper Extremity: Shoulder Flexion WFL. Shoulder abduction WFL. Elbow flexion WFL. Wrist flexion WFL. Functional opening and closing of hand WFL. Right Lower Extremity: Hip flexion WFL. Hip abduction WFL. Knee flexion WFL. Ankle dorsiflexion WFL. Ankle plantarflexion WFL. Left Lower Extremity: Hip flexion WFL. Hip abduction WFL. Knee flexion WFL. Ankle dorsiflexion WFL. Ankle plantarflexion WFL. Strength: Neck extensors 3-/5. Right Upper Extremity: Shoulder flexors 4-/5. Shoulder abductors 4-/5. Elbow flexors 4-/5. Elbow extensors 4-/5. Rolling Attendant strong. Left Upper Extremity: Shoulder flexors 4-/5. Shoulder abductors 4-/5. Elbow flexors 4-/5. Elbow extensors 4-/5. Rolling Attendant strong. Right Lower Extremity: Hip flexors 4-/5. Hip abductors 4-/5. Knee flexors 4-/5. Knee extensors 4-/5. Ankle dorsiflexors 4-/5. Ankle plantarflexors 4-/5. Left Lower Extremity: Hip flexors 4-/5. Hip abductors 4-/5. Knee flexors 4-/5. Knee extensors 4-/5. Ankle dorsiflexors 4-/5. Ankle plantarflexors 4-/5. Bed Mobility/Transfers: Supine to sit independent Sit to supine independent Sit to stand NT. See most recent GEAR TOOTH GRINDING MACHINE OPERATOR notes. Stand to sit independent Bed to reclining chair independent Gait: Instructed patient with level surface ambulation of 250 feet requiring stand by assist using walking stick. No LOB. Denies pain and dizziness. Forward head posture. Kyphotic. Balance: Static Sitting: Normal Dynamic Sitting: Normal Static Standing: Fair Dynamic Standing: Fair Assessment: Achieved significant mobility level during this episode of care. Goals: Goals X1 week 1. Supine-Sit independent MET 2. Sit-Supine independent MET 3. Sit-Stand independent MET 4. Stand-Sit independent with no AD MET 5. Bed-Chair independent with no AD MET 6. Chair-Bed independent with no AD MET 7. Independent gait on level surface with use of walking stick for at least 500 feet without report of pain nor dyspnea NOT MET 8. Independent stair negotiation while holding onto B rails for at least 5 steps without report of pain nor dyspnea NOT MET 9. Independent with home exercise program NOT MET 10. Good static and dynamic standing balance/tolerance NOT MET DISCHARGE RECOMMENDATIONS: Home when medically cleared by hospitalist. Consider HH PT to maximize home safety, progress strength, and increase balance skills. TREATMENT CODE/TIME: RI Thank you for the opportunity to participate in the care of this patient. Jessica Zuniga PT, DPT, CLT [facility] [place], [place]
== END 2021-07-21 16:48 | disposition home or self-care (01) | DRG 683 ==
LOC: ER 18:34 → MS 19:33
PROVIDERS: Nurse Practitioner Family; Admitting Provider Family Medicine; Emergency Provider Student in an Organized Health Care Education/Training Program; PCP Family Medicine; Visit Provider Family Medicine
DX: N17.9 Acute kidney failure, unspecified (principal); K92.0 Hematemesis; R64 Cachexia; Z68.1 Body mass index [BMI] 19.9 or less, adult; E87.6 Hypokalemia; Z79.01 Long term (current) use of anticoagulants; Z66 Do not resuscitate; Z93.0 Tracheostomy status; Z90.02 Acquired absence of larynx; E89.0 Postprocedural hypothyroidism; Z85.810 Personal history of malignant neoplasm of tongue; Z85.118 Personal history of other malignant neoplasm of bronchus and lung; Z93.1 Gastrostomy status; Z87.891 Personal history of nicotine dependence; E89.2 Postprocedural hypoparathyroidism; N18.9 Chronic kidney disease, unspecified; D63.1 Anemia in chronic kidney disease; D50.8 Other iron deficiency anemias; Z86.711 Personal history of pulmonary embolism; R94.31 Abnormal electrocardiogram [ECG] [EKG]; R87.810 Cervical high risk human papillomavirus (HPV) DNA test positive; Z20.822 Contact with and (suspected) exposure to COVID-19; E83.51 Hypocalcemia
CPT/HCPCS: 36415; 80048; 80053; 87077; 87635; 93005; 96361; 96365; 97162; 97530; 99285; 74176; 81003; 81015; 82040; 82565; 83540; 83550; 83735; 84132; 84300; 84443; 85014; 85018; 85025; 87086; 93010; 99232; 99239; J0630; J1756; J2405; J3475; J3480; J3490

== ENCOUNTER 2021-07-25 03:25 | Outpatient (CLI) | payer MEDICAID, SELFPAY ==
[2021-07-25 09:57] LABS: Abs Immature Grans 0.04 10^3/uL (0.0-0.06); Absolute Basophil Count 0.04 10^3/uL (0.0-0.2); Absolute Eosinophil Count 0.44 10^3/uL (0.0-0.7); Absolute Lymphocyte Count 0.63 10^3/uL (1.2-3.4); Absolute Monocyte Count 0.44 10^3/uL (0.1-0.8); Absolute Neutrophil Count 5.66 10^3/uL (1.2-6.7); Basophils % 0.6; Eosinophils % 6.1; HCT 24.7 % (36.0-46.0); HGB 8.1 g/dL (11.2-15.7); Immature Grans % 0.6; Lymphocytes % 8.7; MCH 35.2 pg (27.0-33.0); MCHC 32.8 % (32.0-36.0); MCV 107.4 fL (80-95); Monocytes % 6.1; Neutrophils % 77.9; Nucleated RBC 0 %; Platelet Count 297 10^3/uL (130-400); RDW 16.1 % (11.7-14.6); RDW-SD 63.6 fL; WBC 7.25 10^3/uL (4.4-10.8)
[2021-07-25 11:08] LABS: Anion Gap 7.6 mmol/L (3-11); BUN 18 mg/dL (7-18); CO2 28.4 mmol/L (21.0-32.0); CREATININE 2.1 mg/dL (0.55-1.02); Calcium 6.9 mg/dL (8.5-10.1); Chloride 106 mmol/L (98-107); Estimated GFR 24.02 (mL/min/1.73m2); Glucose 100 mg/dL (74-106); Potassium 3.6 mmol/L (3.5-5.1); Sodium 142 mmol/L (136-145)
== END 2021-07-25 03:26 | disposition home or self-care (01) ==
LOC: LBO 03:25
PROVIDERS: Nurse Practitioner Family; PCP Family Medicine
DX: D64.9 Anemia, unspecified (principal); E83.52 Hypercalcemia
CPT/HCPCS: 36415; 80048; 85025

== ENCOUNTER 2021-08-07 11:08 | Inpatient (IN) | payer MEDICAID, SELFPAY ==
[2021-08-07 11:19] VITALS: BP 119/77; PULSE 87; RESP 14; TEMP 36.2; O2SAT 100
--- NOTE | 2021-08-07 12:30 | RT.EKG_ITS ---
APPROVED REPORT Exam: Resting ECG Reason for Exam: weakness Patient Location: E HR:76 bpm ECG Measurements Heart Rate 76 AXIS NJ 173 P 68 QRSd 77 QRS 65 QT 388 T 63 QTc 438 Conclusion Sinus rhythm...normal P axis, V-rate 60- 99
--- NOTE | 2021-08-07 12:30 | DI.CT_ITS ---
Exam(s) CT HEAD NECK WO EXAM: CT HEAD NECK WO CLINICAL HISTORY: hx of ca, pain in head and neck. TECHNIQUE: Imaging Protocol: Axial computed tomography images with coronal and sagittal reformatted images were created and reviewed COMPARISON: CT CT HEAD WO from 09/13/2020 FINDINGS: CT Head: Ventricles and Extra axial spaces: Normal in size and morphology for the patient's age. Hemorrhage: None. Cerebral parenchyma: No evidence of an acute territorial infarct. There are areas of decreased atten uation in the white matter most suggestive of microvascular ischemic disease. 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 Midline shift: None. Brainstem/Cerebellum: Normal. Calvarium: Normal. Visualized Paranasal sinuses/Mastoids: Clear. Soft Tissues: Unremarkable. CT Cervical Spine: Bones: No acute fracture or subluxation. Degenerative changes are seen in the cervical spine. Soft Tissues: The patient has had a prior radical neck surgery. Lung Apices: Emphysematous changes are seen in the lung apices. The patient has a tracheostomy tube. IMPRESSION: 1. No acute intracranial process. 2. No acute fracture or subluxation in the cervical spine. 3. Results of this exam have been verbally communicated with provider. RADIATION DOSE DELIVERED: 1,070.94mGy.cm Total DLP DATA REPOSITORY: All CT scans at this facility are submitted to the National Radiology Data Registry (NRDR) Dose Index Registry (DIR) with the [employer] (ACR). RADIATION OPTIMIZATION: All CT scans at this facility use at least one of these dose optimization te chniques: automated exposure control; mA and/or kV adjustment per patient size (includes targeted exa ms where dose is matched to clinical indication); or iterative reconstruction.
[2021-08-07] MEDS: Normal Saline 1,000 ML 1000 ML IV (13:06)
[2021-08-07 13:09] LABS: Abs Immature Grans 0.03 10^3/uL (0.0-0.06); Absolute Basophil Count 0.03 10^3/uL (0.0-0.2); Absolute Eosinophil Count 0.13 10^3/uL (0.0-0.7); Absolute Lymphocyte Count 0.68 10^3/uL (1.2-3.4); Absolute Monocyte Count 0.48 10^3/uL (0.1-0.8); Absolute Neutrophil Count 4.49 10^3/uL (1.2-6.7); Basophils % 0.5; Eosinophils % 2.2; Immature Grans % 0.5; Lymphocytes % 11.6; MCH 35.4 pg (27.0-33.0); MCV 110.6 fL (80-95); MPV 8.9 fL (8.0-11.0); Monocytes % 8.2; Nucleated RBC 0 %; Platelet Count 304 10^3/uL (130-400); RBC 2.26 10^6/uL (3.93-5.22); RDW 14.7 % (11.7-14.6); RDW-SD 59.1 fL; WBC 5.84 10^3/uL (4.4-10.8)
[2021-08-07 13:27] LABS: Diff Comment RBC Morph Reviewed; Macrocytosis 2+
[2021-08-07 13:28] LABS: Creatine Kinase 73 U/L (26-192); Lipase 91 U/L (73-393)
[2021-08-07 13:29] LABS: ALT 20 U/L (14-59); AST 29 U/L (15-37); Alkaline Phosphatase 121 U/L (46-116); Anion Gap 7.2 mmol/L (3-11); BUN 40 mg/dL (7-18); Bilirubin, Total 0.2 mg/dL (0.2-1.0); CO2 29.8 mmol/L (21.0-32.0); Calcium 9.9 mg/dL (8.5-10.1); Chloride 105 mmol/L (98-107); Estimated GFR 11.42 (mL/min/1.73m2); Glucose 128 mg/dL (74-106); Potassium 3.9 mmol/L (3.5-5.1); Sodium 142 mmol/L (136-145)
[2021-08-07 13:32] LABS: Troponin I < 0.05 ng/mL (<0.06)
[2021-08-07 13:40] LABS: Magnesium 2.4 mg/dL (1.8-2.4)
--- NOTE | 2021-08-07 14:39 | W.ED.GENAD ---
Discharge Plan Disposition Patient Disposition: [facility] INPATIENT Condition: Serious Discharge Details Chief Complaint: GenMedical Clinical Impression: Adult failure to thrive, Dehydration, Acute kidney injury Admit Date/Time: 08/07/21 14:53 Admit Provider: Vinicius Landon Attending Provider: Vinicius Landon Primary Care Provider: Lashay Lombardo V ED Provider: Roxanne De Dios Discharge Data Discharge Date/Time-TO BE ENTERED AT DEPARTURE: 08/07/21 16:00 Medical Decision Making Creatinine of 4, likely prerenal, IV resuscitation with normal saline initiated Remainder of diagnostics do not show significant acute abnormality, patient is alert and pleasant, cooperative throughout encounter Agreeable to admission at this time Patient is anemic, consistent with prior, hemoglobin of 8, hematocrit of 25, not grossly changed, likely anemia of chronic disease, no indication for emergent transfusion Agreeable to admission at this time Case discussed with Dr. Ryan who will admit patient to hospital for IV fluid resuscitation, palliative care patient, DNR/DNI HPI General Mode of arrival: ambulatory. Date/Time Provider Initiated Documentation: 08/07/21 11:13. Limitations to Documentation: no limitations. Information obtained by: patient. HPI Narrative: This 60-year-old female with history of laryngeal cancer, electrolyte abnormality, palliative care patient, hypothyroidism, presents with report of 20 pound weight loss, head and neck pain, weakness for the past 3 days. She states she is eating and drinking within normal limits without nausea, vomiting diarrhea. She denies any chest pain or shortness of breath. She denies any urinary complaints. She denies any falls or injuries. There have been no reported confusion. States he had a PET scan a month ago they did show some abnormalities, she is unsure of what they were. She is not currently receiving any chemotherapy or radiation at this Related Data Home Medications Medication Instructions Recorded Confirmed bupropion HCl 200 mg BID 09/13/20 08/07/21 folic acid 1 mg DAILY 09/13/20 08/07/21 gabapentin 300 mg TID 09/13/20 08/07/21 levothyroxine 112 mcg DAILY 09/13/20 08/07/21 metoprolol tartrate 12.5 mg HS 09/13/20 08/07/21 mirtazapine 45 mg QHS 09/13/20 08/07/21 tramadol 50 mg PO BID 09/13/20 08/07/21 Aquaphor Healing 1 applic TOPICAL BID 04/29/21 08/07/21 Ensure Original ml PO TID 04/29/21 acetaminophen 650 mg PO BID 04/29/21 08/07/21 cyanocobalamin (vitamin B-12) 2,500 mcg DAILY 04/29/21 08/07/21 dronabinol 5 mg PO BID 04/29/21 08/07/21 ferrous sulfate 4 ml PO DAILY 04/29/21 08/07/21 hydrocodone-acetaminophen 1 tab PO TID PRN 04/29/21 08/07/21 lorazepam 0.5 mg PO Q6H PRN PRN 04/29/21 08/07/21 levothyroxine 25 mcg PO DAILY #30 cap 04/30/21 08/07/21 magnesium chloride [Mag 64] 64 mg PO BID #60 tab 07/21/21 08/07/21 Previous Rx's Medication Instructions Recorded levothyroxine 25 mcg PO DAILY #30 cap 04/30/21 magnesium chloride [Mag 64] 64 mg PO BID #60 tab 07/21/21 Allergies Allergy/AdvReac Type Severity Reaction Status Date / Time esomeprazole [From Nexium] Allergy Severe Acute Unverified 08/07/21 11:24 interstitial nephritis oxycodone [From OxyContin] Allergy Unknown Unverified 08/07/21 11:24 fluoxetine [From Prozac] AdvReac Unverified 08/07/21 11:24 General Stated Complaint: GenMedical BARBARA: 3 Review of Systems All systems reviewed & are unremarkable except as noted in HPI and below PFSH Medical History Cervical high risk HPV (human papillomavirus) test positive DNR (do not resuscitate) Gastrostomy tube dysfunction Goals of care, counseling/discussion Hx of cancer of lung sister reports lung tumor was metastatic from her tongue cancer Hx of tongue cancer Hypothyroidism Lives alone with help available Mass of larynx POLST (Physician Orders for Life-Sustaining Treatment) Tracheostomy in place Unintentional weight loss Uses feeding tube Surgical History Colonoscopy - MAC (04/12/17) History of laryngectomy History of thyroidectomy Family History Mother Diabetes Essential hypertension Father Prostate cancer Essential hypertension Sister No problems noted. Brother No problems noted. 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 Formerly worked as [employer] when not ill. Was . Sister Jessica is her primary support person. Jessica's daughter, Natasha, is also involved. Grew up locally. Has some friends. Exam Const General: cooperative and ill appearing HENWI Other: Moist mucous membrane Eyes Pupils: PERRL Resp Effort & Inspection: normal respiratory effort Cardio Rate: regular rate GI Other: Abdomen nontender Skin Other: pallor Neuro General: patient alert and patient oriented x3 Extrem Other: distal pulses intact Course Vital Signs Vital signs: Vital Signs Temperature 36.2 C L 08/07/21 11:19 Pulse 87 08/07/21 11:19 Respiratory Rate 14 08/07/21 11:19 Blood Pressure 119/77 08/07/21 11:19 Pulse Oximetry 100 08/07/21 11:19 Temperature 36.2 C L 08/07/21 11:19 Temperature Source Skin 08/07/21 11:19 Pulse 87 08/07/21 11:19 Respiratory Rate 14 08/07/21 11:19 Respiratory Effort Non-Labored 08/07/21 11:26 Respiratory Depth Normal 08/07/21 11:26 Respiratory Pattern Normal 08/07/21 11:26 Blood Pressure 119/77 08/07/21 11:19 Blood Pressure Position Supine 08/07/21 11:19 Pulse Oximetry 100 08/07/21 11:19 Oxygen Delivery Method Room Air 08/07/21 11:19 Oxygen Flow Rate 0 08/07/21 11:19 Pain Level 10 08/07/21 11:19 Lab/Test Results Lab/Test Results: Laboratory Tests Range/Units 08/07/21 08/07/21 08/07/21 13:02 13:02 13:02 WBC (4.4-10.8) 10^3/uL 5.84 RBC (3.93-5.22) 10^6/uL 2.26 L Hgb (11.2-15.7) g/dL 8.0 L Hct (36.0-46.0) % 25.0 L MCV (80-95) fL 110.6 H MCH (27.0-33.0) pg 35.4 H MCHC (32.0-36.0) % 32.0 RDW (11.7-14.6) % 14.7 H Plt Count (130-400) 10^3/uL 304 MPV (8.0-11.0) fL 8.9 Immature Gran % 0.5 Neutrophils % 77.0 Lymphocytes % 11.6 Monocytes % 8.2 Eosinophils % 2.2 Basophils % 0.5 Nucleated RBC % % 0 Absolute Neutrophils (1.2-6.7) 10^3/uL 4.49 Absolute Lymphocytes (1.2-3.4) 10^3/uL 0.68 L Absolute Monocytes (0.1-0.8) 10^3/uL 0.48 Absolute Eosinophils (0.0-0.7) 10^3/uL 0.13 Absolute Basophils (0.0-0.2) 10^3/uL 0.03 RBC Morphology See Below Macrocytosis 2+ Sodium (136-145) mmol/L 142 Potassium (3.5-5.1) mmol/L 3.9 Chloride (98-107) mmol/L 105 Carbon Dioxide (21.0-32.0) mmol/L 29.8 Anion Gap (3-11) mmol/L 7.2 BUN (7-18) mg/dL 40 H Creatinine (0.55-1.02) mg/dL 4.0 H* Estimated GFR/1.73 m2 (mL/min/1.73m2) 11.42 Glucose (74-106) mg/dL 128 H Calcium (8.5-10.1) mg/dL 9.9 Magnesium (1.8-2.4) mg/dL 2.4 Total Bilirubin (0.2-1.0) mg/dL 0.2 AST (15-37) U/L 29 ALT (14-59) U/L 20 Alkaline Phosphatase (46-116) U/L 121 H Creatine Kinase (26-192) U/L Troponin I (<0.06) ng/mL < 0.05 Total Protein (6.4-8.2) g/dL 7.0 Albumin (3.4-5.0) g/dL 2.0 L Lipase (73-393) U/L Range/Units / 13:02 WBC (4.4-10.8) 10^3/uL RBC (3.93-5.22) 10^6/uL Hgb (11.2-15.7) g/dL Hct (36.0-46.0) % MCV (80-95) fL MCH (27.0-33.0) pg MCHC (32.0-36.0) % RDW (11.7-14.6) % Plt Count (130-400) 10^3/uL MPV (8.0-11.0) fL Immature Gran % Neutrophils % Lymphocytes % Monocytes % Eosinophils % Basophils % Nucleated RBC % % Absolute Neutrophils (1.2-6.7) 10^3/uL Absolute Lymphocytes (1.2-3.4) 10^3/uL Absolute Monocytes (0.1-0.8) 10^3/uL Absolute Eosinophils (0.0-0.7) 10^3/uL Absolute Basophils (0.0-0.2) 10^3/uL RBC Morphology Macrocytosis Sodium (136-145) mmol/L Potassium (3.5-5.1) mmol/L Chloride (98-107) mmol/L Carbon Dioxide (21.0-32.0) mmol/L Anion Gap (3-11) mmol/L BUN (7-18) mg/dL Creatinine (0.55-1.02) mg/dL Estimated GFR/1.73 m2 (mL/min/1.73m2) Glucose (74-106) mg/dL Calcium (8.5-10.1) mg/dL Magnesium (1.8-2.4) mg/dL Total Bilirubin (0.2-1.0) mg/dL AST (15-37) U/L ALT (14-59) U/L Alkaline Phosphatase (46-116) U/L Creatine Kinase (26-192) U/L 73 Troponin I (<0.06) ng/mL Total Protein (6.4-8.2) g/dL Albumin (3.4-5.0) g/dL Lipase (73-393) U/L 91 Critical Care Time Critical Care Time Critical Care Time: Yes Total Critical Care Time: 35 Attestation: IV fluid resuscitation, telemetry monitoring, admission to hospital
--- NOTE | 2021-08-07 14:59 | HPE_ITS ---
Date of service: 08/07/21 Time of Service: 14:59 Assessment and Plan Assessment and plan (1) Acute kidney injury: Status: Acute Assessment and plan: admitted to med/surg. give gentle IV fluids. avoid nephrotoxic drugs, renal dosing. no obstructive uropathy on imaging 07/19/2021 CT scan from 07/19/2021 IMPRESSION: 1. There is a small right pleural effusion and right basilar infiltrate. 2. There is prominence of the distal esophagus. This may be due to esophageal wall thickening or hiatal hernia. Mass cannot be entirely excluded. Follow-up with upper endoscopy or upper GI barium examination is recommended. 3. Trace perihepatic and pelvic ascites. (2) Adult failure to thrive: Status: Acute Assessment and plan: followed by palliative nutrition consult continue protein supplementation on dronabinol (3) Anemia: Status: Chronic Assessment and plan: chronic and stable. anticipate some dilutional drop Qualifiers: Anemia type: iron deficiency Iron deficiency anemia type: inadequate dietary iron intake Qualified Code(s): D50.8 - Other iron deficiency anemias (4) DVT prophylaxis: Status: Acute Assessment and plan: heparin in setting of [facility]ANGELIST (5) Discharge planning issues: Status: Acute Assessment and plan: anticipate discharge to home vs swing level care discussed with Dr Landon. History of Present Illness History of Present Illness Chief Complaint: weakness Narrative: patient pre sents to the ED with c/o generalized weakness. she reports losing 20 pounds unintentionally over past several weeks. Her ED work up shows acute on chronic renal failure, thought to be pre-renal. hospitalist services has been asked to admit her for acute on chronic renal failure. she is given IV fluids. they report no evidence of obstructive uropathy. Review of Systems All systems reviewed & are unremarkable except as noted in HPI and below Constitutional Constitutional: Reports headache(s) ENT Ears, Nose, Mouth, and Throat: Reports headache(s) Cardiovascular Cardiovascular: Denies dyspnea Respiratory Respiratory: Denies dyspnea Gastrointestinal Gastrointestinal: Denies abdominal pain, Denies constipation, Denies diarrhea and Denies nausea Neurologic Neurologic: Reports headache(s) [facility] Medical History Cervical high risk HPV (human papillomavirus) test positive DNR (do not resuscitate) Gastrostomy tube dysfunction Goals of care, counseling/discussion Hx of cancer of lung sister reports lung tumor was metastatic from her tongue cancer Hx of tongue cancer Hypothyroidism Lives alone with help available Mass of larynx POLST (Physician Orders for Life-Sustaining Treatment) Tracheostomy in place Unintentional weight loss Uses feeding tube Surgical History Colonoscopy - MAC (04/12/17) History of laryngectomy History of thyroidectomy Family History Mother Diabetes Essential hypertension Father Prostate cancer Essential hypertension Sister No problems noted. Brother No problems noted. Social History Smoking/Tobacco Use Status: Former Tobacco Use Quit Date: 11/22/04 Pack-years: 45 Tobacco: How many years used: 30 Smoking risk assessment performed?: Yes Alcohol Intake: current Alcohol Intake frequency: 0-2 drinks per day Alcohol type: wine Drug use: Occasionally Substance use type: marijuana Caregiver/Support person: No Household members: none Housing: house Number of Children: 0 Communication Needs: Corrective Lenses Education Level: high school Do you need help understanding health information?: Often current occupation: [employer], on disability Pets and animals: No Current gender identity: female What is your relationship status?: How often do you talk on the phone with friends or family?: never How often do you get together with friends or relatives?: three or more times per week Panel score (0-1 are the most socially isolated patients): 1 What type of physical activity do you participate in: walking and sedentary lifestyle Duration: 15-30 minutes/day Special aftab needs: No Do you feel safe at home: Yes Do you feel safe in your relationship?: Yes Additional Social history: Lives with sister in [place]. Formerly worked as [employer] when not ill. Was . Sister Jessica is her primary support person. Jessica's daughter, Natasha, is also involved. Grew up locally. Has some friends. Meds Allergies and Home Medications Allergies Allergy/AdvReac Type Severity Reaction Status Date / Time esomeprazole [From Nexium] Allergy Severe Acute Unverified 08/07/21 11:24 interstitial nephritis oxycodone [From OxyContin] Allergy Unknown Unverified 08/07/21 11:24 fluoxetine [From Prozac] AdvReac Unverified 08/07/21 11:24 Home Medications Medication Instructions Recorded Confirmed Type bupropion HCl 200 mg BID 09/13/20 08/07/21 History folic acid 1 mg DAILY 09/13/20 08/07/21 History gabapentin 300 mg TID 09/13/20 08/07/21 History levothyroxine 112 mcg DAILY 09/13/20 08/07/21 History metoprolol tartrate 12.5 mg HS 09/13/20 08/07/21 History mirtazapine 45 mg QHS 09/13/20 08/07/21 History tramadol 50 mg PO BID 09/13/20 08/07/21 History Aquaphor Healing 1 applic TOPICAL BID 04/29/21 08/07/21 History Ensure Original ml PO TID 04/29/21 History acetaminophen 650 mg PO BID 04/29/21 08/07/21 History cyanocobalamin (vitamin B-12) 2,500 mcg DAILY 04/29/21 08/07/21 History dronabinol 5 mg PO BID 04/29/21 08/07/21 History ferrous sulfate 4 ml PO DAILY 04/29/21 08/07/21 History hydrocodone-acetaminophen 1 tab PO TID PRN 04/29/21 08/07/21 History lorazepam 0.5 mg PO Q6H PRN PRN 04/29/21 08/07/21 History levothyroxine 25 mcg PO DAILY #30 cap 04/30/21 08/07/21 Rx magnesium chloride [Mag 64] 64 mg PO BID #60 tab 07/21/21 08/07/21 Rx Exam Const General: frail appearing and ill appearing Nutritional Appearance: cachectic Orientation: alert, awake and oriented x3 HENMT Head: normal to inspection Neck Neck: tracheostomy present Resp Effort & Inspection: normal respiratory effort Cardio Rate: regular rate Rhythm: regular rhythm GI Inspection: normal to inspection Palpation: soft Auscultation: normal bowel sounds Skin General skin exam: no rashes or lesions noted Neuro General: patient alert, patient awake, patient oriented x3 and no focal motor deficits Extrem General: normal to inspection, full ROM and no pedal edema Results Labs Result diagrams: 08/07/21 13:02 08/07/21 13:02 Labs: Laboratory Results - last 24 hr 08/07/21 08/07/21 08/07/21 13:02 13:02 13:02 WBC 5.84 RBC 2.26 L Hgb 8.0 L Hct 25.0 L MCV 110.6 H MCH 35.4 H MCHC 32.0 RDW 14.7 H Plt Count 304 MPV 8.9 Immature Gran % 0.5 Neutrophils % 77.0 Lymphocytes % 11.6 Monocytes % 8.2 Eosinophils % 2.2 Basophils % 0.5 Nucleated RBC % 0 Absolute Neutrophils 4.49 Absolute Lymphocytes 0.68 L Absolute Monocytes 0.48 Absolute Eosinophils 0.13 Absolute Basophils 0.03 RBC Morphology See Below Macrocytosis 2+ Sodium 142 Potassium 3.9 Chloride 105 Carbon Dioxide 29.8 Anion Gap 7.2 BUN 40 H Creatinine 4.0 H* Estimated GFR/1.73 m2 11.42 Glucose 128 H Calcium 9.9 Magnesium 2.4 Total Bilirubin 0.2 AST 29 ALT 20 Alkaline Phosphatase 121 H Creatine Kinase Troponin I < 0.05 Total Protein 7.0 Albumin 2.0 L Lipase 08/07/21 13:02 WBC RBC Hgb Hct MCV MCH MCHC RDW Plt Count MPV Immature Gran % Neutrophils % Lymphocytes % Monocytes % Eosinophils % Basophils % Nucleated RBC % Absolute Neutrophils Absolute Lymphocytes Absolute Monocytes Absolute Eosinophils Absolute Basophils RBC Morphology Macrocytosis Sodium Potassium Chloride Carbon Dioxide Anion Gap BUN Creatinine Estimated GFR/1.73 m2 Glucose Calcium Magnesium Total Bilirubin AST ALT Alkaline Phosphatase Creatine Kinase 73 Troponin I Total Protein Albumin Lipase 91 Last Vital Signs Temp 36.2 C L 08/07/21 11:19 Pulse 87 08/07/21 11:19 Resp 14 08/07/21 11:19 BP 119/77 08/07/21 11:19 Pulse Ox 100 08/07/21 11:19
[2021-08-07 15:10] LABS: Source Nasal/Nares
[2021-08-07 16:02] LABS: COVID-19 PCR Negative (Negative)
[2021-08-07 16:55] VITALS: BP 153/95; PULSE 79; RESP 11; TEMP 35.2; O2SAT 99
[2021-08-07 17:28] VITALS: BP 153/95; PULSE 79; RESP 11; TEMP 36.2; O2SAT 99
[2021-08-07] MEDS: Magnesium Chloride 64 MG TABCR PO (20:06)
[2021-08-07] MEDS: traMADol 50 MG TAB PO (20:07)
[2021-08-07] MEDS: Gabapentin 300 MG CAP PO (20:07)
[2021-08-07] MEDS: Acetaminophen 325 MG TAB 650 MG PO (20:07)
[2021-08-07] MEDS: buPROPion 100 MG TAB 200 MG PO (20:07)
[2021-08-07] MEDS: Heparin 5,000 UNITS/ML VIAL 5000 UNITS SC (20:08)
[2021-08-07] MEDS: Metoprolol 12.5 MG TAB PO (21:23)
[2021-08-07] MEDS: Mirtazapine 15 MG TAB 45 MG PO (21:23)
[2021-08-07 23:30] VITALS: BP 133/79; PULSE 79; RESP 16; TEMP 36.9; O2SAT 95
[2021-08-08] MEDS: Lactated Ringers 1,000 ML 100 ML IV ×2 (03:57→14:32)
[2021-08-08 04:02] LABS: Bilirubin Negative (Negative); Blood Trace-lysed (Negative); Clarity Clear (Clear); Glucose Negative (Negative); Ketones Negative (Negative); Leukocyte Esterase Negative (Negative); Nitrite Negative (Negative); Urobilinogen 0.2 EU/dL (Up TO 0.2)
[2021-08-08 04:06] LABS: RBC 0-2 HPF (0-2); WBC Negative HPF (0-5)
[2021-08-08 04:07] LABS: Bacteria Negative HPF (Negative); C & S Indicated? No; Casts Negative LPF (Negative); Crystals Negative HPF (Negative); Epithelial Cells Negative HPF (Negative); Mucus Negative (Negative)
[2021-08-08 06:49] LABS: Abs Immature Grans 0.02 10^3/uL (0.0-0.06); Absolute Basophil Count 0.01 10^3/uL (0.0-0.2); Absolute Eosinophil Count 0.13 10^3/uL (0.0-0.7); Absolute Lymphocyte Count 0.49 10^3/uL (1.2-3.4); Absolute Neutrophil Count 3.76 10^3/uL (1.2-6.7); Basophils % 0.2; Eosinophils % 2.8; HCT 24.1 % (36.0-46.0); HGB 7.9 g/dL (11.2-15.7); Immature Grans % 0.4; Lymphocytes % 10.4; MCH 35.4 pg (27.0-33.0); MCHC 32.8 % (32.0-36.0); MCV 108.1 fL (80-95); MPV 9.4 fL (8.0-11.0); Monocytes % 6.4; Neutrophils % 79.8; Nucleated RBC 0 %; Platelet Count 265 10^3/uL (130-400); RBC 2.23 10^6/uL (3.93-5.22); RDW 14.6 % (11.7-14.6); RDW-SD 58.8 fL; WBC 4.71 10^3/uL (4.4-10.8)
[2021-08-08 07:36] LABS: ALT 15 U/L (14-59); AST 19 U/L (15-37); Albumin 1.7 g/dL (3.4-5.0); Alkaline Phosphatase 109 U/L (46-116); Anion Gap 6.3 mmol/L (3-11); BUN 34 mg/dL (7-18); Bilirubin, Total 0.2 mg/dL (0.2-1.0); CO2 25.7 mmol/L (21.0-32.0); CREATININE 3.2 mg/dL (0.55-1.02); Calcium 8.4 mg/dL (8.5-10.1); Chloride 108 mmol/L (98-107); Estimated GFR 14.78 (mL/min/1.73m2); Glucose 84 mg/dL (74-106); Sodium 140 mmol/L (136-145); Total Protein 5.6 g/dL (6.4-8.2)
[2021-08-08 08:30] VITALS: BP 130/80; PULSE 85; RESP 16; TEMP 36.6; O2SAT 98
[2021-08-08] MEDS: Ferrous Sulfate 44 MG/ML Liquid 300 MG PO (08:33)
[2021-08-08] MEDS: Heparin 5,000 UNITS/ML VIAL 5000 UNITS SC ×2 (08:33→20:56)
[2021-08-08] MEDS: buPROPion 100 MG TAB 200 MG PO ×2 (08:35→20:54)
[2021-08-08] MEDS: Cyanocobalamin 500 MCG TAB 2500 MCG PO (08:35)
[2021-08-08] MEDS: Gabapentin 300 MG CAP PO ×3 (08:36→20:54)
[2021-08-08] MEDS: Folic Acid 1 MG TAB PO (08:36)
[2021-08-08] MEDS: Acetaminophen 325 MG TAB 650 MG PO ×3 (08:36→20:55)
[2021-08-08] MEDS: Magnesium Chloride 64 MG TABCR PO ×2 (08:36→20:54)
[2021-08-08] MEDS: traMADol 50 MG TAB PO ×2 (08:36→20:55)
--- NOTE | 2021-08-08 09:32 | PDOC.CMIN ---
- If Service Date Differs Date of service: 08/08/21 Time of Service: 09:32 Care Management Initial Assess REASON FOR HOSPITALIZATION:: Acute Kidney Injury PAST MEDICAL HISTORY/PAST SURGICAL HISTORY:: Medical History . Cervical high risk HPV (human papillomavirus) test positive. DNR (do not resuscitate). Gastrostomy tube dysfunction. Goals of care, counseling/discussion. Hx of cancer of lung. sister reports lung tumor was metastatic from her tongue cancer. Hx of tongue cancer. Hypothyroidism. Lives alone with help available. Mass of larynx. POLST (Physician Orders for Life-Sustaining Treatment). Tracheostomy in place. Unintentional weight loss. Uses feeding tube. Surgical History . Colonoscopy - MAC (04/12/17). History of laryngectomy. History of thyroidectomy PREVIOUS FUNCTIONAL STATUS/SOCIAL/FAMILY SUPPORTS:: Melinda lives in [place] with her sister. 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 Her sister, Jessica helps her with ADL's and is very supportive. Jessica's daughter, Natasha is also supportive. Due to a laryngectomy, she is non verbal, and communicates through writing. Per Jessica, Kinza is very independent at baseline. CURRENT FUNCTIONAL STATUS:: Melinda was lying in bed when CM met with her. She was able to communicate using a note pad and a pen. Melinda shares that her appetite is good and she is able to eat soft foods and tolerate liquids. She feels ok about going home when she is medically able and she does not anticipate needing any services at this time. ADVANCE DIRECTIVES:: DNR/DNI Has patient been provided with info about the portal/API?: Yes Did the patient sign up for the portal?: No CODE STATUS:: DNR/DNI INSURANCE COVERAGE / FINANCIAL ISSUES:: [employer] CURRENT HOME/COMMUNITY SERVICES/EQUIPMENT:: No current services PRIMARY CARE PHYSICIAN:: Dr. Lashay Lombardo PATIENT/FAMILY EDUCATION NEEDS:: Review discharge instructions regarding activity levels and medications, discussion of self care needs including ask me three. ANTICIPATED BARRIERS TO DISCHARGE:: None identified at this time. TRANSPORTATION:: Via private vehicle with family PLAN:: Anticipate Melinda will return home via private vehicle with sister when medically cleared. She will follow up with her PCP and discharge plan of care. CM will continue to follow.
[2021-08-08] MEDS: Dronabinol 2.5 MG CAP 5 MG PO ×2 (10:46→16:08)
[2021-08-08 11:03] LABS: FREE T4 0.69 ng/dL (0.76-1.46)
[2021-08-08] MEDS: Normal Saline Flush 10 ML SYR (11:43)
--- NOTE | 2021-08-08 13:15 | PT.INIE ---
Date of service: 08/08/21 Time of Service: 13:15 PT Notes Visit Reasons: Acute Kidney Injury Physical Therapy Inpatient Initial Evaluation Date: 08/08/2021 Referring Doctor: Marisabel Galeana NP PT Orders: PT CONSULT: Eval/treat. Precautions: Fall. Standard. Activity as tolerated. Patient Profile/Admitting Diagnosis: Melinda is a 60-year-old female who presented to the ED on 08/07/2021 due to weight loss, head/neck pain, and generalized weakness. Patient is diagnosed with acute kidney injury and adult failure to thrive. PMHX: Medical History Cervical high risk HPV (human papillomavirus) test positive DNR (do not resuscitate) Gastrostomy tube dysfunction Goals of care, counseling/discussion Hx of cancer of lung sister reports lung tumor was metastatic from her tongue cancer Hx of tongue cancer Hypothyroidism Lives alone with help available Mass of larynx POLST (Physician Orders for Life-Sustaining Treatment) Tracheostomy in place Unintentional weight loss Uses feeding tube Surgical History Colonoscopy - MAC (04/12/17) History of laryngectomy History of thyroidectomy Social History/Home Situation: Lives with sister in a private home with 4 steps to enter and B rails. Independent with community ambulation using walking stick. Sister works during the day and patient is able to manage on her own at home. No fall in the past 12 months. Equipment Owned/DME: walking stick Subjective: Reports that there has been no decline in her ability to move and is willing to show it to this provider today. Objective: General Observation: Asthenic. Cachexic. Tracheostomy in place. IV in R UE. Mental Status: Alert and oriented as to person, place, time, and purpose. Able to pay attention, focus, and respond appropriately. Aphonic due to trach placement but is able to subvocalize. Pain: Denies ROM: Neck extension limited to neutral only. Right Upper Extremity: Shoulder Flexion WFL. Shoulder abduction WFL. Elbow flexion WFL. Wrist flexion WFL. Functional opening and closing of hand WFL. Left Upper Extremity: Shoulder Flexion WFL. Shoulder abduction WFL. Elbow flexion WFL. Wrist flexion WFL. Functional opening and closing of hand WFL. Right Lower Extremity: Hip flexion WFL. Hip abduction WFL. Knee flexion WFL. Ankle dorsiflexion WFL. Ankle plantarflexion WFL. Left Lower Extremity: Hip flexion WFL. Hip abduction WFL. Knee flexion WFL. Ankle dorsiflexion WFL. Ankle plantarflexion WFL. Strength: Neck extensors 3-/5. Right Upper Extremity: Shoulder flexors 4/5. Shoulder abductors 4/5. Elbow flexors 4/5. Elbow extensors 4/5. Auto Body Mechanic Apprentice strong. Left Upper Extremity: Shoulder flexors 4/5. Shoulder abductors 4/5. Elbow flexors 4/5. Elbow extensors 4/5. Auto Body Mechanic Apprentice strong. Right Lower Extremity: Hip flexors 4/5. Hip abductors 4/5. Knee flexors 4/5. Knee extensors 4/5. Ankle dorsiflexors 4/5. Ankle plantarflexors 4/5. Left Lower Extremity: Hip flexors 4/5. Hip abductors 4/5. Knee flexors 4/5. Knee extensors 4/5. Ankle dorsiflexors 4/5. Ankle plantarflexors 4/5. Bed Mobility/Transfers: Supine to sit independent Sit to supine independent Sit to stand independent Stand to sit independent Bed to reclining independent Gait: Independent with level surface ambulation of 250 feet with no assistive device. No LOB. Denies pain and dizziness. Forward head posture. Kyphotic. Balance: Static Sitting: Normal Dynamic Sitting: Normal Static Standing: Good Dynamic Standing: Good Special Tests: Mobility Limitations Standardized Measure [facility] AM-PAC 6 clicks Basic Mobility Inpatient Short Form: Raw Score: 24 CMS Score: 0% deficit Informed Consent/Education: Patient was instructed in purpose of PT consult. Assessment: Independent with all mobility ADL performance using no assitive device. No skilled PT services warranted at this time. May ambulate around nurse's station loop with no AD once or twice a day independently. [place] is [place] 91236 low complexity based on the following: History: 60-year-old female with past medical history as indicated above Examination: Demonstrable impairment in strength, balance, and mobility level with underlying impairments and functional limitations as exhibited above as well as deficit score of 0% utilizing the [facility] Mobility Inpatient Short Form Presentation: Stable Decision Makin low complexity Goals: N/A. PT evaluation only Plan of Care/Treatment Plan: N/A. PT evaluation only. DISCHARGE RECOMMENDATIONS: Home when medically cleared by hospitalist. No equipment needs at this time. TREATMENT CODE/TIME: 04289 x 15 minutes beginning at 13:15 PM. Thank you for the opportunity to participate in the care of this patient. Jessica Zuniga PT, DPT, CLT [facility] [place], [place]
--- NOTE | 2021-08-08 14:07 | PGE_ITS ---
Date of Service Date of service: 08/08/21 Time of Service: 14:07 Assessment and Plan Assessment and plan (1) Acute kidney injury: Start date: 08/08/21 Start time: 11:30 Status: Acute Assessment and plan: Improved from 4.o to3.2 overnight continue IV hydration avoid nephrotoxic drugs, renal dosing. no obstructive uropathy on imaging 07/19/2021 CT scan from 07/19/2021 IMPRESSION: 1. There is a small right pleural effusion and right basilar infiltrate. 2. There is prominence of the distal esophagus. This may be due to esophageal wall thickening or hiatal hernia. Mass cannot be entirely excluded. Follow-up with upper endoscopy or upper GI barium examination is recommended. 3. Trace perihepatic and pelvic ascites. (2) Adult failure to thrive: Start date: 08/08/21 Start time: 11:30 Status: Acute Assessment and plan: followed by palliative nutrition consult continue protein supplementation on dronabinol Believe patient is ready to give up (3) Anemia: Start date: 08/08/21 Start time: 11:30 Status: Chronic Assessment and plan: chronic and stable. anticipate some dilutional drop continue to monitor patient H/H Qualifiers: Anemia type: iron deficiency Iron deficiency anemia type: inadequate dietary iron intake Qualified Code(s): D50.8 - Other iron deficiency anemias (4) DVT prophylaxis: Start date: 08/08/21 Start time: 11:30 Status: Acute Assessment and plan: heparin in setting of [facility] (5) Discharge planning issues: Start date: 08/08/21 Start time: 11:30 Status: Acute Assessment and plan: anticipate discharge to home vs swing level care discussed with Dr Landon. Subjective Subjective Patient reports: other Interval history since last seen: Appears depressed though denies this. Her wt is stable. Renal function improving. She states she drinks, however given her renal function I find this hard to believe. We discussed carrying a bottle of water or drink around with her and sipping on it through out the day she just nodded her head. Palliative to see her. Believe she is FTT. Exam Const General: frail appearing and ill appearing Nutritional Appearance: cachectic Orientation: alert, awake and oriented x3 HENMT Head: normal to inspection Neck Neck: tracheostomy present Resp Effort & Inspection: normal respiratory effort Cardio Rate: regular rate Rhythm: regular rhythm GI Inspection: normal to inspection Palpation: soft Auscultation: normal bowel sounds Skin General skin exam: no rashes or lesions noted Neuro General: patient alert, patient awake, patient oriented x3 and no focal motor deficits Extrem General: normal to inspection, full ROM and no pedal edema Objective Last Vital Signs Temp 36.6 C 08/08/21 08:30 Pulse 85 08/08/21 08:30 Resp 16 08/08/21 08:30 BP 130/80 08/08/21 08:30 Pulse Ox 98 08/08/21 08:30 Laboratory Results - last 24 hr 08/07/21 08/08/21 08/08/21 15:05 03:40 06:05 WBC RBC Hgb Hct MCV MCH MCHC RDW Plt Count MPV Immature Gran % Neutrophils % Lymphocytes % Monocytes % Eosinophils % Basophils % Nucleated RBC % Absolute Neutrophils Absolute Lymphocytes Absolute Monocytes Absolute Eosinophils Absolute Basophils Sodium 140 Potassium 4.0 Chloride 108 H Carbon Dioxide 25.7 Anion Gap 6.3 BUN 34 H Creatinine 3.2 H Estimated GFR/1.73 m2 14.78 Glucose 84 Calcium 8.4 L Total Bilirubin 0.2 AST 19 ALT 15 Alkaline Phosphatase 109 Total Protein 5.6 L Albumin 1.7 L TSH 19.30 H Free T4 0.69 L Urine Color Yellow Urine Clarity Clear Urine pH 7.0 Ur Specific [place] 1.020 Urine Protein 30 H Urine Ketones Negative Urine Blood Trace-lysed H Urine Nitrite Negative Urine Bilirubin Negative Urine Urobilinogen 0.2 Ur Leukocyte Esterase Negative Urine RBC 0-2 Urine WBC Negative Ur Epithelial Cells Negative Urine Crystals Negative Urine Bacteria Negative Urine Casts Negative Urine Mucus Negative Ur Culture Indicated? No Urine Glucose Negative COVID-19 Source Nasal/Nares SARS-CoV-2 (PCR) Negative 08/08/21 06:05 WBC 4.71 RBC 2.23 L Hgb 7.9 L Hct 24.1 L MCV 108.1 H MCH 35.4 H MCHC 32.8 RDW 14.6 Plt Count 265 MPV 9.4 Immature Gran % 0.4 Neutrophils % 79.8 Lymphocytes % 10.4 Monocytes % 6.4 Eosinophils % 2.8 Basophils % 0.2 Nucleated RBC % 0 Absolute Neutrophils 3.76 Absolute Lymphocytes 0.49 L Absolute Monocytes 0.30 Absolute Eosinophils 0.13 Absolute Basophils 0.01 Sodium Potassium Chloride Carbon Dioxide Anion Gap BUN Creatinine Estimated GFR/1.73 m2 Glucose Calcium Total Bilirubin AST ALT Alkaline Phosphatase Total Protein Albumin TSH Free T4 Urine Color Urine Clarity Urine pH Ur Specific [place] Urine Protein Urine Ketones Urine Blood Urine Nitrite Urine Bilirubin Urine Urobilinogen Ur Leukocyte Esterase Urine RBC Urine WBC Ur Epithelial Cells Urine Crystals Urine Bacteria Urine Casts Urine Mucus Ur Culture Indicated? Urine Glucose COVID-19 Source SARS-CoV-2 (PCR)
[2021-08-08 15:24] VITALS: BP 110/70; PULSE 94; RESP 18; TEMP 37.3; O2SAT 97
--- NOTE | 2021-08-08 15:31 | W.NUTCONSULT ---
Date of service: 08/08/21 Time of Service: 15:35 Nutritional Consult ASSESSMENT: Ms. Capps is admitted with acute kidney injury. She reports poor PO intake and weight loss. She is currently 170 cm and 45.9 kg. BMI is 15.7 kg/m2 c/w severe underweight. Three weeks ago, her weight was 55 kg. She has lost 16.5% of her body weight in three weeks which is significant. She drinks some Ensure Plus at home. NUTRITIONAL DIAGNOSIS: Moderate malnutrition in the context of acute illness as evidenced by eating less than 75% of caloric needs for greater than 7 days and losing 16.5% of body weight in three weeks. INTERVENTION: Will encourage nutrient dense meals as well as Ensure Plus TID. Would also recommend using PEG tube for nutrition support if she is amenable to help prevent further malnutrition. MONITORING AND EVALUATION: 1. Will monitor weight and PO intake. 2. Will evaluate nutrition care plan ongoing and adjust as needed. Time Spent in Nutritional Counseling and Treatment: 10 minutes
--- NOTE | 2021-08-08 17:51 | PCNE_ITS ---
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 She states she is in remission. She is nonverbal. She communicates via notepad. She was admitted with [facility] after presenting to the ED with reports of an unintentional 20 pound weight loss over the last several weeks. She has been seen by palliative in the past by both Dr. Duffy and Dr. Curry. She has previously established that she is a DNR/DNI, she has completed a COLST. She lives with her sister. Her sister and her niece help care for her. We discussed goals of care via notepad and with hand motions and head nods. She is clear that she would rather be home. She does not like being in the hospital. She has had 4 hospitalizations at [facility] over the past year, 3 of which were within the last 3 months. She is very thin, she weighs just under 100 pounds and she is 5'7. She has not been doing tube feeds. She is eating soft foods and liquids. We discussed Hospice as an option as she would qualify, however, we did not talk in depth about it. We discussed the role of outpatient Palliative care. We will plan on having the office contact her to see if she would like to follow up with palliative. She will benefit from developing relationships and ongoing discussion of goals of care and advanced care plans. Assessment and Plan Assessment and plan (1) Acute kidney injury: Status: Acute (2) Unintentional weight loss: Status: Chronic (3) Goals of care, counseling/discussion: Status: Acute (4) DNR (do not resuscitate): Status: Acute (5) POLST (Physician Orders for Life-Sustaining Treatment): Status: Acute (6) History of thyroidectomy: Status: Chronic (7) History of laryngectomy: Status: Acute (8) Tracheostomy in place: Status: Chronic (9) Adult failure to thrive: Status: Acute (10) Hx of tongue cancer: Status: Chronic (11) Hx of cancer of lung: Status: Acute (12) Cervical high risk HPV (human papillomavirus) test positive: Status: None (13) Palliative care patient: Status: Acute Assessment and plan: Kinza is a very pleasant 60 year old female with a 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 She states she is in remission. She is nonverbal. She communicates via notepad. She was admitted with [facility] after presenting to the ED with reports of an unintentional 20 pound weight loss over the last several weeks. She has been seen by Dr. Duffy and Dr. Curry during prior admissions to [facility]. She has not had outpatient follow up. We discussed the benefits of ongoing Palliative care. She would likely benefit from ongoing palliative to continue to discuss goals of care and advanced care plans. She has already established she is a DNR/DNI. We briefly discussed the option of hospice. Plan on palliative office contacting her at home to schedule follow up if she so desires. Review of Systems Narrative: Difficult to obtain due to nonverbal status. [facility] Medical History Cervical high risk HPV (human papillomavirus) test positive DNR (do not resuscitate) Gastrostomy tube dysfunction Goals of care, counseling/discussion Hx of cancer of lung sister reports lung tumor was metastatic from her tongue cancer Hx of tongue cancer Hypothyroidism Lives alone with help available Mass of larynx POLST (Physician Orders for Life-Sustaining Treatment) Tracheostomy in place Unintentional weight loss Uses feeding tube Surgical History Colonoscopy - MAC (04/12/17) History of laryngectomy History of thyroidectomy Family History Mother Diabetes Essential hypertension Father Prostate cancer Essential hypertension Sister No problems noted. Brother No problems noted. 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 Formerly worked as [employer]er when not ill. Was . Sister Jessica is her primary support person. Jessica's daughter, Natasha, is also involved. Grew up locally. Has some friends. Exam Narrative Exam Narrative: General: very thin/cachectic female, laying in hospital bed, awake and alert, watching TV. HEENT: EOMI, edentulous, mucous membranes moist. Neck: +trach. Cardiovascular: heart sounds regular, nontachycardic. Respiratory: respirations appear even and unlabored, lung sounds are clear on limited anterior and lateral exam. GI: soft, nontender, +BS Extremities: thin, no edema, moves all 4 extremities equally. Results Last Vital Signs Temp 37.3 C 08/08/21 15:24 Pulse 94 H 08/08/21 15:24 Resp 18 08/08/21 15:24 BP 110/70 08/08/21 15:24 Pulse Ox 97 08/08/21 15:24 Labs Result diagrams: 08/08/21 06:05 08/08/21 06:05 Labs: Laboratory Results - last 24 hr 08/08/21 08/08/21 08/08/21 03:40 06:05 06:05 WBC 4.71 RBC 2.23 L Hgb 7.9 L Hct 24.1 L MCV 108.1 H MCH 35.4 H MCHC 32.8 RDW 14.6 Plt Count 265 MPV 9.4 Immature Gran % 0.4 Neutrophils % 79.8 Lymphocytes % 10.4 Monocytes % 6.4 Eosinophils % 2.8 Basophils % 0.2 Nucleated RBC % 0 Absolute Neutrophils 3.76 Absolute Lymphocytes 0.49 L Absolute Monocytes 0.30 Absolute Eosinophils 0.13 Absolute Basophils 0.01 Sodium 140 Potassium 4.0 Chloride 108 H Carbon Dioxide 25.7 Anion Gap 6.3 BUN 34 H Creatinine 3.2 H Estimated GFR/1.73 m2 14.78 Glucose 84 Calcium 8.4 L Total Bilirubin 0.2 AST 19 ALT 15 Alkaline Phosphatase 109 Total Protein 5.6 L Albumin 1.7 L TSH 19.30 H Free T4 0.69 L Urine Color Yellow Urine Clarity Clear Urine pH 7.0 Ur Specific [place] 1.020 Urine Protein 30 H Urine Ketones Negative Urine Blood Trace-lysed H Urine Nitrite Negative Urine Bilirubin Negative Urine Urobilinogen 0.2 Ur Leukocyte Esterase Negative Urine RBC 0-2 Urine WBC Negative Ur Epithelial Cells Negative Urine Crystals Negative Urine Bacteria Negative Urine Casts Negative Urine Mucus Negative Ur Culture Indicated? No Urine Glucose Negative
--- NOTE | 2021-08-08 17:53 | CHAPLAIN ---
I had a brief visit with Melinda. We remembered each other from her previous admission. I reminded her that I'm available if I can be of any help.
[2021-08-08] MEDS: HYDROcodone 5/Acetaminophen 325 TAB PO (18:55)
[2021-08-08] MEDS: Metoprolol 12.5 MG TAB PO (20:54)
[2021-08-08] MEDS: Mirtazapine 15 MG TAB 45 MG PO (20:54)
[2021-08-08 23:30] VITALS: BP 136/82; PULSE 77; RESP 16; TEMP 36.9; O2SAT 97
[2021-08-09] MEDS: Lactated Ringers 1,000 ML 100 ML IV (00:30)
[2021-08-09 07:02] LABS: Abs Immature Grans 0.02 10^3/uL (0.0-0.06); Absolute Basophil Count 0.02 10^3/uL (0.0-0.2); Absolute Eosinophil Count 0.14 10^3/uL (0.0-0.7); Absolute Lymphocyte Count 0.52 10^3/uL (1.2-3.4); Basophils % 0.5; Eosinophils % 3.8; HCT 21.1 % (36.0-46.0); HGB 7.1 g/dL (11.2-15.7); Immature Grans % 0.5; Lymphocytes % 14.3; MCH 35.7 pg (27.0-33.0); MCHC 33.6 % (32.0-36.0); MPV 9.3 fL (8.0-11.0); Monocytes % 8.2; Neutrophils % 72.7; Nucleated RBC 0 %; Platelet Count 265 10^3/uL (130-400); RBC 1.99 10^6/uL (3.93-5.22); RDW 14.2 % (11.7-14.6); RDW-SD 54.4 fL; WBC 3.64 10^3/uL (4.4-10.8)
[2021-08-09 07:06] LABS: Absolute Neutrophil Count 2.65 10^3/uL (1.2-6.7)
[2021-08-09 07:23] LABS: Anion Gap 6.4 mmol/L (3-11); BUN 29 mg/dL (7-18); CO2 24.6 mmol/L (21.0-32.0); CREATININE 2.6 mg/dL (0.55-1.02); Calcium 8.2 mg/dL (8.5-10.1); Chloride 108 mmol/L (98-107); Estimated GFR 18.78 (mL/min/1.73m2); Glucose 85 mg/dL (74-106); Potassium 3.8 mmol/L (3.5-5.1); Sodium 139 mmol/L (136-145)
[2021-08-09 07:26] LABS: Magnesium 1.8 mg/dL (1.8-2.4)
[2021-08-09 08:05] VITALS: BP 124/78; PULSE 86; RESP 15; TEMP 36.8; O2SAT 96
[2021-08-09] MEDS: Ferrous Sulfate 44 MG/ML Liquid 300 MG PO (09:59)
[2021-08-09] MEDS: Aquaphor Ointment 99 GM JAR TP (10:00)
[2021-08-09] MEDS: buPROPion 100 MG TAB 200 MG PO ×2 (10:02→19:51)
[2021-08-09] MEDS: Magnesium Chloride 64 MG TABCR PO ×2 (10:02→19:51)
[2021-08-09] MEDS: Gabapentin 300 MG CAP PO ×3 (10:02→19:52)
[2021-08-09] MEDS: Acetaminophen 325 MG TAB 650 MG PO ×4 (10:02→19:52)
[2021-08-09] MEDS: Folic Acid 1 MG TAB PO (10:03)
[2021-08-09] MEDS: Cyanocobalamin 500 MCG TAB 2500 MCG PO (10:03)
[2021-08-09] MEDS: traMADol 50 MG TAB PO ×2 (10:03→19:52)
--- NOTE | 2021-08-09 10:43 | NUR.NOTE ---
Nursing Note: Peer nurse was busy assisting another patient with critical needs, this nurse assisted her by meeting and quickly assessing pain and breathing status of the patient. There was nothing new or acute noted by patient , her daily meds were administered by this nurse. Noted that the patient takes her pills very slowly one at a time. Once administered, aquaphor was administered around the patients trach site. Also noted and relayed to patients primary nurse was that the fluid rate was changed to 75 cc hourly, and heparin 5000 unit sc was dc primary nurse aware. Patient is left with call moran in reach
--- NOTE | 2021-08-09 12:01 | W.PM.PROGNOT ---
Date of Service Date of service: 08/09/21 Time of Service: 10:50 Assessment and Plan Assessment and plan (1) Acute kidney injury: Start date: 08/09/21 Start time: 10:50 Status: Acute Assessment and plan: Improved from 3.2 2.6, average creatinine for her is 1.5-1.7. Will continue hydration overnight and repeat labs in am avoid nephrotoxic drugs, renal dosing. no obstructive uropathy on imaging 07/19/2021 CT scan from 07/19/2021 IMPRESSION: 1. There is a small right pleural effusion and right basilar infiltrate. 2. There is prominence of the distal esophagus. This may be due to esophageal wall thickening or hiatal hernia. Mass cannot be entirely excluded. Follow-up with upper endoscopy or upper GI barium examination is recommended. 3. Trace perihepatic and pelvic ascites. (2) Adult failure to thrive: Start date: 08/09/21 Start time: 10:50 Status: Acute Assessment and plan: nutrition consult continue protein supplementation on dronabinol Believe patient is ready to give up Met with palliative discussed hospice slightly will discuss more in the community (3) Anemia: Start date: 08/09/21 Start time: 10:50 Status: Chronic Assessment and plan: chronic . 7.1 today added vitamin c for better absorption of iron. Will also give IV iron today, repeat cbc in am and check hemastool continue to monitor patient H/H Qualifiers: Anemia type: iron deficiency Iron deficiency anemia type: inadequate dietary iron intake Qualified Code(s): D50.8 - Other iron deficiency anemias (4) DVT prophylaxis: Start date: 08/09/21 Start time: 10:50 Status: Acute Assessment and plan: Hold anticoagluation due to falling hemaglobin will use teds and scd (5) Discharge planning issues: Start date: 08/09/21 Start time: 10:50 Status: Acute Assessment and plan: anticipate discharge to home vs swing level care discussed with I[facility] Subjective Subjective Patient reports: other Interval history since last seen: C/o pain to neck, when offered, lidocaine to outside, voltaren she shakes head no. She appears upset she has to stay another night. Creatinine down to 2.6, baseline is around 1.5. Will continue IVF and repeat BMP in am. Hemoglobin also 7.1 today, dcd heparin, teds and scds, vitamin c for better absorption will also give IV iron. hematest stools. Though this tends to be normal for her. Palliative met with her last night and started to discuss hospice. They will discuss further in the community. Exam Const General: frail appearing and ill appearing Nutritional Appearance: cachectic Orientation: alert, awake and oriented x3 HENMT Head: normal to inspection Neck Neck: tracheostomy present Resp Effort & Inspection: normal respiratory effort Cardio Rate: regular rate Rhythm: regular rhythm GI Inspection: normal to inspection Palpation: soft Auscultation: normal bowel sounds Skin General skin exam: no rashes or lesions noted Neuro General: patient alert, patient awake, patient oriented x3 and no focal motor deficits Extrem General: normal to inspection, full ROM and no pedal edema Objective Last Vital Signs Temp 36.8 C 08/09/21 08:05 Pulse 86 08/09/21 08:05 Resp 15 08/09/21 08:05 BP 124/78 08/09/21 08:05 Pulse Ox 96 08/09/21 08:05 Laboratory Results - last 24 hr 08/09/21 08/09/21 08/09/21 06:15 06:15 06:15 WBC 3.64 L RBC 1.99 L Hgb 7.1 L Hct 21.1 L MCV 106.0 H MCH 35.7 H MCHC 33.6 RDW 14.2 Plt Count 265 MPV 9.3 Immature Gran % 0.5 Neutrophils % 72.7 Lymphocytes % 14.3 Monocytes % 8.2 Eosinophils % 3.8 Basophils % 0.5 Nucleated RBC % 0 Absolute Neutrophils 2.65 Absolute Lymphocytes 0.52 L Absolute Monocytes 0.30 Absolute Eosinophils 0.14 Absolute Basophils 0.02 Sodium 139 Potassium 3.8 Chloride 108 H Carbon Dioxide 24.6 Anion Gap 6.4 BUN 29 H Creatinine 2.6 H Estimated GFR/1.73 m2 18.78 Glucose 85 Calcium 8.2 L Magnesium 1.8
[2021-08-09] MEDS: Normal Saline Flush 10 ML SYR (13:57)
[2021-08-09] MEDS: Dronabinol 2.5 MG CAP 5 MG PO ×2 (13:59→17:36)
[2021-08-09] MEDS: Lactated Ringers 1,000 ML 75 ML IV (14:01)
[2021-08-09] MEDS: IRON SUCROSE COMPLEX 200 MG in Normal Saline 100 ML 400 MG IVPB (15:49)
[2021-08-09] MEDS: Levothyroxine 25 MCG TAB PO (17:36)
[2021-08-09] MEDS: Mirtazapine 15 MG TAB 45 MG PO (19:52)
[2021-08-09] MEDS: Ascorbic Acid 500 MG TAB PO (19:52)
[2021-08-09] MEDS: Metoprolol 12.5 MG TAB PO (19:52)
[2021-08-09 23:23] VITALS: BP 122/76; PULSE 82; RESP 16; TEMP 36.6; O2SAT 97
[2021-08-09] MEDS: HYDROcodone 5/Acetaminophen 325 TAB PO (23:58)
[2021-08-10] MEDS: Lactated Ringers 1,000 ML 75 ML IV (02:56)
[2021-08-10 07:13] LABS: Abs Immature Grans 0.03 10^3/uL (0.0-0.06); Absolute Basophil Count 0.03 10^3/uL (0.0-0.2); Absolute Eosinophil Count 0.12 10^3/uL (0.0-0.7); Absolute Lymphocyte Count 0.41 10^3/uL (1.2-3.4); Absolute Monocyte Count 0.35 10^3/uL (0.1-0.8); Absolute Neutrophil Count 3.73 10^3/uL (1.2-6.7); Basophils % 0.6; Eosinophils % 2.6; HCT 23.8 % (36.0-46.0); Immature Grans % 0.6; Lymphocytes % 8.8; MCH 35.9 pg (27.0-33.0); MCHC 33.6 % (32.0-36.0); MCV 106.7 fL (80-95); MPV 9.1 fL (8.0-11.0); Monocytes % 7.5; Neutrophils % 79.9; Nucleated RBC 0 %; Platelet Count 261 10^3/uL (130-400); RBC 2.23 10^6/uL (3.93-5.22); RDW 13.9 % (11.7-14.6); RDW-SD 54.6 fL; WBC 4.67 10^3/uL (4.4-10.8)
[2021-08-10 07:25] LABS: Anion Gap 6.4 mmol/L (3-11); BUN 28 mg/dL (7-18); CO2 25.6 mmol/L (21.0-32.0); CREATININE 2.2 mg/dL (0.55-1.02); Chloride 105 mmol/L (98-107); Estimated GFR 22.69 (mL/min/1.73m2); Glucose 87 mg/dL (74-106); Potassium 3.6 mmol/L (3.5-5.1); Sodium 137 mmol/L (136-145)
[2021-08-10 07:35] VITALS: BP 121/80; PULSE 100; RESP 15; TEMP 36.6; O2SAT 96
[2021-08-10] MEDS: Ferrous Sulfate 44 MG/ML Liquid 300 MG PO (08:34)
[2021-08-10] MEDS: Aquaphor Ointment 99 GM JAR TP (08:34)
[2021-08-10] MEDS: buPROPion 100 MG TAB 200 MG PO (08:35)
[2021-08-10] MEDS: Acetaminophen 325 MG TAB 650 MG PO ×2 (08:35→13:41)
[2021-08-10] MEDS: Cyanocobalamin 500 MCG TAB 2500 MCG PO (08:35)
[2021-08-10] MEDS: traMADol 50 MG TAB PO (08:36)
[2021-08-10] MEDS: Gabapentin 300 MG CAP PO (08:36)
[2021-08-10] MEDS: Magnesium Chloride 64 MG TABCR PO (08:36)
[2021-08-10] MEDS: Ascorbic Acid 500 MG TAB PO (08:36)
[2021-08-10] MEDS: Folic Acid 1 MG TAB PO (08:36)
[2021-08-10] MEDS: Potassium Chloride 20 MEQ TABCR 40 MEQ PO (08:37)
--- NOTE | 2021-08-10 10:51 | DSE_ITS ---
Date of service: 08/10/21 Time of Service: 10:52 DS: Diagnosis Discharge Diagnosis (1) Admission for hospice care: Start date: 08/10/21 Start time: 10:57 Status: Acute Asessment and Plan: Patient came in with 4.o creatinine now at 2.2 with baseline of 1.5-1.7, however after discussion with her today, she has given up, she no longer wants to fight. She is not taking her pills. She states that sometimes her throat closes and it is hard for her to take them. She wants to go home. We discussed the option of going comfort measures here and going home then having hospice meet her at home. She stated she did not want anyone holding her hand, we had a long discussion what hospice was and that they are a support system not there to baby her there to help her and if she is feeling stronger she will not have to keep using them. She wrote down she wanted to go home, she was agree able to the plan. 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 Hospice consult placed. She will be sent home on liquid morphine, liquid ativan, scopolamine patch, glycoparanate, hyosycyamine, promethazine. She is FTT. She wants to give up I will be surprised if she makes if 3 months. Likely she will become uremic and comfortably. She has been trending down hill now for some time, losing wt not taking care of herself and now giving up likely it will not be long. (2) Acute kidney injury: Start date: 08/10/21 Start time: 10:52 Status: Acute Asessment and Plan: as above (3) Adult failure to thrive: Start date: 08/10/21 Start time: 11:00 Status: Acute Asessment and Plan: as above (4) Anemia: Start date: 08/10/21 Start time: 11:01 Status: Chronic Asessment and Plan: stable improve with IV iron. as above discussed with Dr. Villalpando Discharge Plan Disposition Patient Disposition: OTHER Condition: Deteriorating Discharge Details Reason For Visit: Acute Kidney Injury Admit Date/Time: 08/07/21 14:53 Admit Provider: Vinicius Landon Attending Provider: Vinicius Landon Primary Care Provider: Lashay Lombardo V Hospital Course Hospital Course: patient presents to the ED with c/o generalized weakness. she reports losing 20 pounds unintentionally over past several weeks. Her ED work up shows acute on chronic renal failure, thought to be pre-renal. hospitalist services has been asked to admit her for acute on chronic renal failure. she is given IV fluids. they report no evidence of obstructive uropathy. her wt has been stable over last couple admissions, though over the last 6 months - year she has dramatically declined. she is giving up . Her creatinine is no 2.2 from 4.o but she wants to go home. She diagnosis for more. She is being discharged home to hospice. They will meet her at the house tomorrow. Home Meds and New Rx's Prescriptions: New atropine [Isopto Atropine] 1 % Drops 1 drp sublingual .Q 30 MINUTES PRN PRNQty: 15 RF: 0 bisacodyl 10 mg Suppository 10 mg LA BID PRN PRNQty: 12 RF: 0 glycopyrrolate 1 mg Tablet 1 - 2 mg PO TID PRN PRNQty: 60 RF: 0 hyoscyamine sulfate [Anaspaz] 0.125 mg Tablet,Disintegrating 0.125 mg sublingual Q4H PRN PRNQty: 30 RF: 0 lorazepam 1 mg Tablet 1 mg PO Q1H PRN PRN (Reason: Anxiety) Qty: 60 RF: 0 morphine 10 mg/5 mL Solution 2 mg PO Q2H Qty: 150 RF: 0 promethazine 25 mg Tablet 25 mg PO Q6H PRN PRN (Reason: Nausea) Qty: 30 RF: 0 sennosides [Senokot] 8.6 mg Tablet 8.6 mg PO HS Qty: 30 RF: 0 scopolamine base 1 mg over 3 days Patch 3 Day 1 mg transdermal Q72H Qty: 30 RF: 0 Continued acetaminophen 325 mg Tablet 650 mg PO BID RF: 0 dronabinol 5 mg capsule 5 mg PO BID RF: 0 lorazepam 0.5 mg tablet 0.5 mg PO Q6H PRN PRNRF: 0 Aquaphor Healing 41 % ointment 1 applic TOPICAL BID RF: 0 Ensure Original 0.04-1.05 gram-kcal/mL liquid PO TID RF: 0 hydrocodone-acetaminophen 5-325 mg tablet 1 tab PO TID PRNRF: 0 tramadol 50 mg Tablet 50 mg PO BID RF: 0 mirtazapine 45 mg Tablet 45 mg QHS RF: 0 Discontinued cyanocobalamin (vitamin B-12) 2,500 mcg tablet, sublingual 2,500 mcg DAILY RF: 0 ferrous sulfate 15 mg iron (75 mg)/mL drops 4 ml PO DAILY RF: 0 levothyroxine 25 mcg capsule 25 mcg PO DAILY Qty: 30 RF: 0 magnesium chloride [Mag 64] 64 mg Tablet,Delayed Release (Dr/Ec) 64 mg PO BID Qty: 60 RF: 0 bupropion HCl 100 mg Tablet 200 mg BID RF: 0 folic acid 1 mg Tablet 1 mg DAILY RF: 0 metoprolol tartrate 25 mg Tablet 12.5 mg HS RF: 0 No Action gabapentin 300 mg Capsule 300 mg TID RF: 0 levothyroxine 112 mcg Tablet 112 mcg DAILY RF: 0 Discharge Instructions Instructions: Acute Kidney Injury (DC), Hospice Care (GEN) Additional Instructions: Hospice will be at the house tomorrow. You have been prescribe liquid morphine for pain, liquid ativan, nausea medication and medication increase you collect secretion you have a hard time coughing up. DRINK ALOT OF WATER Stand Alone Forms: Nursing Discharge Form Referrals: Ina Kellogg [NURSE PRACTITIONER] - 08/14/21 9:15 am Activity:: Activity as Tolerated Equipment/Supplies:: No Equipment Needed Diet:: As Tolerated Discharge Orders Discharge Orders: Discharge Order (Routine); Ordered 08/10/21 Ordered By: Denia Butler DS: Summary Time Spent with Patient providing and/or coordinating discharge services: Greater than 30 minutes Status at Discharge Functional status at discharge: uses cane/walker Overall status at discharge: patient is not back to baseline Mental Status: mental status grossly normal Speech and Movement: speech and movement normal Mood: irritable mood Affect: sad and blunted Exam Const General: frail appearing and ill appearing Nutritional Appearance: cachectic Orientation: alert, awake and oriented x3 HENMT Head: normal to inspection Neck Neck: tracheostomy present Resp Effort & Inspection: normal respiratory effort Cardio Rate: regular rate Rhythm: regular rhythm GI Inspection: normal to inspection Palpation: soft Auscultation: normal bowel sounds Skin General skin exam: no rashes or lesions noted Neuro General: patient alert, patient awake, patient oriented x3 and no focal motor deficits Extrem General: normal to inspection, full ROM and no pedal edema Psych Mental Status: mental status grossly normal Speech and Movement: speech and movement normal Mood: irritable mood Affect: blunted DS: Data Vitals/I&O Vitals and I&O: Vital Signs Temperature 36.6 C 08/10/21 07:35 Temperature Source Tympanic 08/10/21 07:35 Pulse 100 H 08/10/21 07:35 Pulse Rhythm Regular 08/10/21 09:55 Respiratory Rate 15 08/10/21 07:35 Respiratory Effort 08/09/21 23:10 Respiratory Depth Normal 08/09/21 23:10 Respiratory Pattern Normal 08/09/21 23:10 Blood Pressure 121/80 08/10/21 07:35 Blood Pressure Position Supine 08/07/21 11:19 Pulse Oximetry 96 08/10/21 07:35 Oxygen Delivery Method Room Air 08/10/21 07:35 Oxygen Flow Rate 0 08/10/21 07:35 Pain Level 7 08/10/21 08:36 Intake & Output 08/09/21 08/09/21 08/10/21 11:59 23:59 11:59 Intake Total 2450.000 / 2996.667 546.667 / 2996.667 968.75 / 968.75 Output Total 1050 / 1650 600 / 1650 800 / 800 Balance 1400.000 / 1346.667 -53.333 / 1346.667 168.75 / 168.75 Weight 45.6 kg Intake: IV 1970.000 / 2106.667 136.667 / 2106.667 968.75 / 968.75 Oral 480 / 890 410 / 890 Output: Urine 1050 / 1650 600 / 1650 800 / 800 Other: Urine Color Yellow Yellow Straw Urine Appearance Cloudy Clear Cloudy Urine Odor Normal None Normal Voiding Methods Toilet Toilet Data Completed and Pending Completed studies during hospitalization [Text1]: : 1960Age: 60 Exam(s) a CT:CT head & neck wo Exam(s) CT HEAD NECK WO EXAM: CT HEAD NECK WO CLINICAL HISTORY: hx of ca, pain in head and neck. TECHNIQUE: Imaging Protocol: Axial computed tomography images with coronal and sagittal reformatted images were created and reviewed COMPARISON: CT CT HEAD WO from 09/13/2020 FINDINGS: CT Head: Ventricles and Extra axial spaces: Normal in size and morphology for the patient's age. Hemorrhage: None. Cerebral parenchyma: No evidence of an acute territorial infarct. There are areas of decreased attenuation in the white matter most suggestive of microvascular ischemic disease. 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 Midline shift: None. Brainstem/Cerebellum: Normal. Calvarium: Normal. Visualized Paranasal sinuses/Mastoids: Clear. Soft Tissues: Unremarkable. CT Cervical Spine: Bones: No acute fracture or subluxation. Degenerative changes are seen in the cervical spine. Soft Tissues: The patient has had a prior radical neck surgery. Lung Apices: Emphysematous changes are seen in the lung apices. The patient has a tracheostomy tube. IMPRESSION: 1. No acute intracranial process. 2. No acute fracture or subluxation in the cervical spine. 3. Results of this exam have been verbally communicated with provider. Labs on day of discharge: Labs from last 24 hours 08/10/21 08/10/21 06:40 06:40 WBC 4.67 RBC 2.23 L Hgb 8.0 L Hct 23.8 L MCV 106.7 H MCH 35.9 H MCHC 33.6 RDW 13.9 Plt Count 261 MPV 9.1 Immature Gran % 0.6 Neutrophils % 79.9 Lymphocytes % 8.8 Monocytes % 7.5 Eosinophils % 2.6 Basophils % 0.6 Nucleated RBC % 0 Absolute Neutrophils 3.73 Absolute Lymphocytes 0.41 L Absolute Monocytes 0.35 Absolute Eosinophils 0.12 Absolute Basophils 0.03 Sodium 137 Potassium 3.6 Chloride 105 Carbon Dioxide 25.6 Anion Gap 6.4 BUN 28 H Creatinine 2.2 H Estimated GFR/1.73 m2 22.69 Glucose 87 Calcium 8.0 L [facility] Medical History Cervical high risk HPV (human papillomavirus) test positive DNR (do not resuscitate) Gastrostomy tube dysfunction Goals of care, counseling/discussion Hx of cancer of lung sister reports lung tumor was metastatic from her tongue cancer Hx of tongue cancer Hypothyroidism Lives alone with help available Mass of larynx POLST (Physician Orders for Life-Sustaining Treatment) Tracheostomy in place Unintentional weight loss Uses feeding tube Surgical History Colonoscopy - MAC (04/12/17) History of laryngectomy History of thyroidectomy Family History Mother Diabetes Essential hypertension Father Prostate cancer Essential hypertension Sister No problems noted. Brother No problems noted. 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 Formerly worked as [employer] when not ill. Was . Sister Jessica is her primary support person. Jessica's daughter, Natasha, is also involved. Grew up locally. Has some friends.
[2021-08-10] MEDS: Scopolamine 1 MG/3 DAYS PATCH TD (11:03)
[2021-08-10] MEDS: Dronabinol 2.5 MG CAP 5 MG PO (11:04)
--- NOTE | 2021-08-10 11:17 | PDOC.CMDIS ---
- If Service Date Differs Date of service: 08/10/21 Time of Service: 11:17 LACE Index Scoring Tool - Questions: Length of Stay (in days): 3 Acuity (Admit via E.D.?): Yes Comorbidities: Liver or Renal Disease, Metastatic Solid Tumor E.D. Visits: 7 - Answers: Total Score: 15 Risk of Readmission: High Risk Care Management Discharge Reason for Hospitalization: Acute Kidney Injury Discharge Plan: Melinda is discharging home with a plan for her to be admitted to hospice tomorrow. She is being driven home by her sister via private vehicle. She will follow up with her PCP and plan of care as directed. Patient/Family Education Needs: Review discharge instructions, limitations, and follow up plan of care, including Ask Me Three and self management.
== END 2021-08-10 15:35 | disposition other institution (70) | DRG 683 ==
LOC: ER 13:18 → MS 16:22
PROVIDERS: Nurse Practitioner Acute Care; Nurse Practitioner Family; Admitting Provider Family Medicine; Emergency Provider Physician Assistant; PCP Family Medicine; Visit Provider Family Medicine
DX: N17.9 Acute kidney failure, unspecified (principal); Z68.1 Body mass index [BMI] 19.9 or less, adult; C78.00 Secondary malignant neoplasm of unspecified lung; R53.1 Weakness; N18.9 Chronic kidney disease, unspecified; R62.7 Adult failure to thrive; Z66 Do not resuscitate; E03.9 Hypothyroidism, unspecified; Z93.0 Tracheostomy status; Z85.810 Personal history of malignant neoplasm of tongue; Z87.891 Personal history of nicotine dependence; D50.8 Other iron deficiency anemias; Z20.822 Contact with and (suspected) exposure to COVID-19; E89.0 Postprocedural hypothyroidism; Z90.02 Acquired absence of larynx; Z51.5 Encounter for palliative care
CPT/HCPCS: 36415; 80048; 80053; 82550; 83690; 87635; 93005; 97161; 70450; 70490; 81003; 81015; 83735; 84439; 84443; 84484; 85025; 93010; 99222; 99232; 99239; J1644; J1756; J3490